=== PATIENT | male | born 1965 | race Caucasian/White ===

== ENCOUNTER 2018-04-19 01:39 | Emergency (ER) | payer MEDICAID, SELFPAY ==
[2018-04-19 01:51] VITALS: BP 82/64; PULSE 62; RESP 18; TEMP 36.6; O2SAT 99
--- NOTE | 2018-04-19 01:54 | DI.RAD_ITS ---
SYMPTOMS/DIAGNOSIS: RIGHT CHEST DIALYSIS CATHETER ACCIDENTALLY FELL OUT CHEST X-RAY, AP AND LATERAL: Comparison CT scan is 06/12/17. The heart is normal in size. The lungs are clear. The mediastinal structures and pleura appear intact. IMPRESSION: Normal chest.
--- NOTE | 2018-04-19 01:54 | W.ED.GENAD ---
Discharge Plan Disposition Patient Disposition: HOME Condition: Improving Discharge Details Chief Complaint: GenMedical Clinical Impression: Complications, mechanical, catheter, dialysis Primary Care Provider: Gee Luke ED Provider: Papo Umaña Home Meds and New Rx's Prescriptions: Continue flu vacc quad 2018-(6mos up) 60 mcg (15 mcg x 4)/0.5 mL suspension 0.5 ml IM ONCE Qty: 0.5 RF: 0 ferrous sulfate 325 mg (65 mg iron) tablet 325 mg PO DAILY Qty: 60 RF: 2 furosemide 80 mg tablet 80 mg PO DAILY RF: 0 epinephrine [EpiPen 2-Chandu] 0.3 MG/0.3 ML auto-injector 0.3 mg IM PRNRF: 0 prazosin 1 MG capsule 3 mg PO HS RF: 0 fluoxetine [Prozac] 20 MG capsule 60 mg PO DAILY RF: 0 albuterol sulfate [ProAir HFA] 8.5 GM HFA aerosol inhaler 1 puff Inhalation Q4H PRN 30 Days Qty: 1 RF: 11 naproxen 500 MG tablet 500 mg PO BID 21 Days Qty: 42 RF: 1 amiodarone 200 mg tablet 200 mg PO DAILY RF: 0 aspirin [Aspir-81] 81 mg tablet,delayed release (DR/EC) 81 mg PO DAILY RF: 0 metoprolol succinate 100 mg tablet extended release 24 hr 100 mg PO DAILY RF: 0 lorazepam 0.5 mg tablet 0.5 mg PO TID RF: 0 fluticasone-salmeterol [Advair Diskus] 500-50 mcg/dose blister with device 1 inh IH BID RF: 0 ticagrelor 90 mg tablet 90 mg PO BID RF: 0 atorvastatin 80 mg tablet 80 mg PO DAILY RF: 0 B complex-vitamin C-folic acid 0.8 mg tablet 1 tab PO DAILY RF: 0 esomeprazole magnesium 20 mg capsule,delayed release(DR/EC) 20 mg PO BID RF: 0 tiotropium bromide [Spiriva with HandiHaler] 18 mcg capsule, w/inhalation device 1 cap IH DAILY RF: 0 Discharge Instructions Additional Instructions: I discussed your case with Dr Henderson at [facility] this morning. He asks that you remain nothing to eat or drink today until you are contacted by the Nephrology department as they may plan to replace the catheter today. They anticipate calling you by 8:30 am. Medical Decision Making 52-year-old male who has undergone Thursday dialysis since having a massive NC with cardiogenic shock and subsequent renal failure months ago. He has been well moving at home. He states that he awoke early this morning to find his right chest dialysis catheter dislodged and sitting on the pillow next to him. They brought the device in and it appears to be intact. The patient has no shortness of breath, no discomfort, he had no significant bleeding at home. States that he feels well. His exam does not reveal crepitus or bleeding at the right anterior chest wall. His exam is otherwise unremarkable. Referred for chest XRay which is without acute findings. I discussed the case with [place] Henderson [place] [facility] the patient may be discharged to home, kept NPO for today, and that the Renal service will call the patient at home today to arrange for replacement catheter placement. HPI General Mode of arrival: ambulatory. Date/Time Provider Initiated Documentation: 04/19/18 01:44. Limitations to Documentation: no limitations. Information obtained by: patient and family. History of Present Illness 52 year old M presents to the emergency department with the chief complaint of A right chest dialysis catheter fell out at home, no pain, no bleeding, and is localized to the chest. Patient started experiencing this hour(s) and it has been now resolved. No exacerbating factors reported . Patient notes no other symptoms.. Related Data Home Medications Medication Instructions Recorded Confirmed epinephrine [EpiPen 2-Chandu] 0.3 mg IM PRN 07/24/17 04/09/18 albuterol sulfate [ProAir HFA] 1 puff INHALATION Q4H PRN 30 Days 08/10/17 04/19/18 #1 inhaler fluoxetine [Prozac] 60 mg PO DAILY cap 08/10/17 04/19/18 prazosin 3 mg PO HS cap 08/10/17 04/19/18 naproxen 500 mg PO BID 21 Days #42 tab-cap 11/23/17 04/19/18 amiodarone 200 mg tablet 200 mg PO DAILY 04/01/18 04/19/18 aspirin 81 mg tablet,delayed 81 mg PO DAILY 04/01/18 04/19/18 release atorvastatin 80 mg tablet 80 mg PO DAILY 04/01/18 04/19/18 esomeprazole magnesium 20 mg 20 mg PO BID cap 04/01/18 04/19/18 capsule,delayed release fluticasone 500 mcg-salmeterol 50 1 inh IH BID 04/01/18 04/19/18 mcg/dose blistr powdr for inhalation lorazepam 0.5 mg tablet 0.5 mg PO TID 04/01/18 04/19/18 metoprolol succinate ER 100 mg 100 mg PO DAILY 04/01/18 04/19/18 tablet,extended release 24 hr ticagrelor 90 mg tablet 90 mg PO BID 04/01/18 04/19/18 tiotropium bromide 18 mcg capsule 1 cap IH DAILY 04/01/18 04/19/18 with inhalation device vitamin B complex-vitamin C-folic 1 tab PO DAILY 04/01/18 04/19/18 acid 0.8 mg tablet ferrous sulfate 325 mg (65 mg 325 mg PO DAILY #60 tab 04/09/18 04/19/18 iron) tablet furosemide 80 mg tablet 80 mg PO DAILY tab 04/09/18 04/19/18 Previous Rx's Medication Instructions Recorded albuterol sulfate [ProAir HFA] 1 puff INHALATION Q4H PRN 30 Days 08/10/17 #1 inhaler naproxen 500 mg PO BID 21 Days #42 tab-cap 11/23/17 ferrous sulfate 325 mg (65 mg 325 mg PO DAILY #60 tab 04/09/18 iron) tablet Allergies Allergy/AdvReac Type Severity Reaction Status Date / Time bee venom protein (honey bee) Allergy Severe throat Unverified 04/19/18 01:54 swelling aspirin AdvReac Severe Unverified 04/19/18 01:54 General Stated Complaint: GenMedical JOSEPH: 4 Review of Systems Review of Systems 6 systems reviewed and otherwise neg PFSH Family History Mother Essential hypertension Father Essential hypertension Osteoporosis Sister Neoplasm Paternal Uncle Neoplasm Paternal Uncle Neoplasm Paternal Grandfather Diabetes Stroke Social History Smoking/Tobacco Use Status: Former Tobacco Use Surgical History Encounter for gastrojejunal (GJ) tube placement (Acute 02/23/18) Hx of echocardiogram (Acute 03/08/18) Arthroplasty of knee Repair of umbilical hernia Tonsillectomy and adenoidectomy cardiac catherization (01/01/18) cardiac catherization (01/05/18) echocardiogram (01/06/18) Exam Narrative Exam Narrative: GEN: awake, alert, oriented 3. Pleasant, well groomed, interactive. HEAD: Normocephalic, atraumatic ENT: Mucous membranes moist, oropharynx unremarkable, External ear exam unremarkable EYES: PERRL, EOMI NECK: Full ROM, no LIANA, no menigismus CHEST/RESP: Nontender, clear to auscultation bilateral, no wheeze/rhonchi/rales. Right anterior chest wall with dressing over site of previous dialysis catheter CARDIOVASCULAR: RRR, no murmur, rub adele. 2+ Rad pulse bilateral ABDOMEN: Soft, nontender, no mass. +Bowel sounds EXT: Full ROM, no edema, no rash Neuro: Grossly normal neurologic exam, conversant, interactive. Psych: Speech fluent, thoughts congruent, affect normal Course Vital Signs Temperature 36.6 C 04/19/18 01:51 Pulse 62 04/19/18 01:51 Respiratory Rate 18 04/19/18 01:51 Blood Pressure 82/64 L 04/19/18 01:51 Pulse Oximetry 99 04/19/18 01:51 Temperature 36.6 C 04/19/18 01:51 Temperature Source Temporal Artery Scan 04/19/18 01:51 Pulse 62 04/19/18 01:51 Respiratory Rate 18 04/19/18 01:51 Respiratory Effort Non-Labored 04/19/18 01:51 Blood Pressure 82/64 L 04/19/18 01:51 Pulse Oximetry 99 04/19/18 01:51 Oxygen Delivery Method Room Air 04/19/18 01:51 Oxygen Flow Rate 0 04/19/18 01:51 Pain Level 0 04/19/18 01:51
[2018-04-19 01:57] VITALS: RESP 18
--- NOTE | 2018-04-19 01:57 | ED.GENADUL_ITS ---
Discharge Plan Disposition Patient Disposition: HOME Condition: Improving Discharge Details Chief Complaint: GenMedical Clinical Impression: Complications, mechanical, catheter, dialysis Primary Care Provider: Gee Luke ED Provider: Papo Umaña Home Meds and New Rx's Prescriptions: Continue flu vacc quad 2018-(6mos up) 60 mcg (15 mcg x 4)/0.5 mL suspension 0.5 ml IM ONCE Qty: 0.5 RF: 0 ferrous sulfate 325 mg (65 mg iron) tablet 325 mg PO DAILY Qty: 60 RF: 2 furosemide 80 mg tablet 80 mg PO DAILY RF: 0 epinephrine [EpiPen 2-Chanud] 0.3 MG/0.3 ML auto-injector 0.3 mg IM PRNRF: 0 prazosin 1 MG capsule 3 mg PO HS RF: 0 fluoxetine [Prozac] 20 MG capsule 60 mg PO DAILY RF: 0 albuterol sulfate [ProAir HFA] 8.5 GM HFA aerosol inhaler 1 puff Inhalation Q4H PRN 30 Days Qty: 1 RF: 11 naproxen 500 MG tablet 500 mg PO BID 21 Days Qty: 42 RF: 1 amiodarone 200 mg tablet 200 mg PO DAILY RF: 0 aspirin [Aspir-81] 81 mg tablet,delayed release (DR/EC) 81 mg PO DAILY RF: 0 metoprolol succinate 100 mg tablet extended release 24 hr 100 mg PO DAILY RF: 0 lorazepam 0.5 mg tablet 0.5 mg PO TID RF: 0 fluticasone-salmeterol [Advair Diskus] 500-50 mcg/dose blister with device 1 inh IH BID RF: 0 ticagrelor 90 mg tablet 90 mg PO BID RF: 0 atorvastatin 80 mg tablet 80 mg PO DAILY RF: 0 B complex-vitamin C-folic acid 0.8 mg tablet 1 tab PO DAILY RF: 0 esomeprazole magnesium 20 mg capsule,delayed release(DR/EC) 20 mg PO BID RF: 0 tiotropium bromide [Spiriva with HandiHaler] 18 mcg capsule, w/inhalation device 1 cap IH DAILY RF: 0 Discharge Instructions Additional Instructions: I discussed your case with Dr Henderson at [facility] this morning. He asks that you remain nothing to eat or drink today until you are contacted by the Nephrology department as they may plan to replace the catheter today. They anticipate calling you by 8:30 am. Medical Decision Making 52-year-old male who has undergone Thursday dialysis since having a massive ID with cardiogenic shock and subsequent renal failure months ago. He has been well moving at home. He states that he awoke early this morning to find his right chest dialysis catheter dislodged and sitting on the pillow next to him. They brought the device in and it appears to be intact. The patient has no shortness of breath, no discomfort, he had no significant bleeding at home. States that he feels well. His exam does not reveal crepitus or bleeding at the right anterior chest wall. His exam is otherwise unremarkable. Referred for chest XRay which is without acute findings. I discussed the [place] with [place] [facility] [place] states the patient may be discharged to home, kept NPO for today, and that the Renal service will call the patient at home today to arrange for replacement catheter placement. HPI General Mode of arrival: ambulatory . Date/Time Provider Initiated Documentation: 04/19/18 01:44 . Limitations to Documentation: no limitations . Information obtained by: patient and family . History of Present Illness 52 year old M presents to the emergency department with the chief complaint of A right chest dialysis catheter fell out at home, no pain, no bleeding, and is localized to the chest. Patient started experiencing this hour(s) and it has been now resolved. No exacerbating factors reported . Patient notes no other symptoms.. Related Data Home Medications Medication Instructions Recorded Confirmed epinephrine [EpiPen 2-Chandu] 0.3 mg IM PRN 07/24/17 04/09/18 albuterol sulfate [ProAir HFA] 1 puff INHALATION Q4H PRN 30 Days 08/10/17 #1 inhaler fluoxetine [Prozac] 60 mg PO DAILY cap 08/10/17 04/19/18 prazosin 3 mg PO HS cap 08/10/17 04/19/18 naproxen 500 mg PO BID 21 Days #42 tab-cap 11/23/17 04/19/18 amiodarone 200 mg tablet 200 mg PO DAILY 04/01/18 04/19/18 aspirin 81 mg tablet,delayed 81 mg PO DAILY 04/01/18 04/19/18 release atorvastatin 80 mg tablet 80 mg PO DAILY 04/01/18 04/19/18 esomeprazole magnesium 20 mg 20 mg PO BID cap 04/01/18 04/19/18 capsule,delayed release fluticasone 500 mcg-salmeterol 50 1 inh IH BID 04/01/18 04/19/18 mcg/dose blistr powdr for inhalation lorazepam 0.5 mg tablet 0.5 mg PO TID 04/01/18 04/19/18 metoprolol succinate ER 100 mg 100 mg PO DAILY 04/01/18 04/19/18 tablet,extended release 24 hr ticagrelor 90 mg tablet 90 mg PO BID 04/01/18 04/19/18 tiotropium bromide 18 mcg capsule 1 cap IH DAILY 04/01/18 04/19/18 with inhalation device vitamin B complex-vitamin C-folic 1 tab PO DAILY 04/01/18 04/19/18 acid 0.8 mg tablet ferrous sulfate 325 mg (65 mg 325 mg PO DAILY #60 tab 04/09/18 04/19/18 iron) tablet furosemide 80 mg tablet 80 mg PO DAILY tab 04/09/18 04/19/18 Previous Rx's Medication Instructions Recorded albuterol sulfate [ProAir HFA] 1 puff INHALATION Q4H PRN 30 Days 08/10/17 #1 inhaler naproxen 500 mg PO BID 21 Days #42 tab-cap 11/23/17 ferrous sulfate 325 mg (65 mg 325 mg PO DAILY #60 tab 04/09/18 iron) tablet Allergies Allergy/AdvReac Type Severity Reaction Status Date / Time bee venom protein (honey bee) Allergy Severe throat Unverified 04/19/18 01:54 swelling aspirin AdvReac Severe Unverified 04/19/18 01:54 General Stated Complaint: GenMedical JOSEPH: 4 Review of Systems Review of Systems 6 systems reviewed and otherwise neg PFSH Family History Mother Essential hypertension Father Essential hypertension Osteoporosis Sister Neoplasm Paternal Uncle Neoplasm Paternal Uncle Neoplasm Paternal Grandfather Diabetes Stroke Social History Smoking/Tobacco Use Status: Former Tobacco Use Surgical History Encounter for gastrojejunal (GJ) tube placement (Acute 02/23/18) Hx of echocardiogram (Acute 03/08/18) Arthroplasty of knee Repair of umbilical hernia Tonsillectomy and adenoidectomy cardiac catherization (01/01/18) cardiac catherization (01/05/18) echocardiogram (01/06/18) Exam Narrative Exam Narrative: GEN: awake, alert, oriented 3. Pleasant, well groomed, interactive. HEAD: Normocephalic, atraumatic ENT: Mucous membranes moist, oropharynx unremarkable, External ear exam unremarkable EYES: PERRL, EOMI NECK: Full ROM, no LIANA, no menigismus CHEST/RESP: Nontender, clear to auscultation bilateral, no wheeze/rhonchi/ rales. Right anterior chest wall with dressing over site of previous dialysis catheter CARDIOVASCULAR: RRR, no murmur, rub adele. 2+ Rad pulse bilateral ABDOMEN: Soft, nontender, no mass. +Bowel sounds EXT: Full ROM, no edema, no rash Neuro: Grossly normal neurologic exam, conversant, interactive. Psych: Speech fluent, thoughts congruent, affect normal Course Vital Signs Temperature 36.6 C 04/19/18 01:51 Pulse 62 04/19/18 01:51 Respiratory Rate 18 04/19/18 01:51 Blood Pressure 82/64 L 04/19/18 01:51 Pulse Oximetry 99 04/19/18 01:51 Temperature 36.6 C 04/19/18 01:51 Temperature Source Temporal Artery Scan 04/19/18 01:51 Pulse 62 04/19/18 01:51 Respiratory Rate 18 04/19/18 01:51 Respiratory Effort Non-Labored 04/19/18 01:51 Blood Pressure 82/64 L 04/19/18 01:51 Pulse Oximetry 99 04/19/18 01:51 Oxygen Delivery Method Room Air 04/19/18 01:51 Oxygen Flow Rate 0 04/19/18 01:51 Pain Level 0 04/19/18 01:51
[2018-04-19 02:27] VITALS: BP 112/74; PULSE 62; RESP 18; TEMP 36.6; O2SAT 99
--- NOTE | 2018-04-19 02:47 | DI.VRAD_ITS ---
EXAM: XR Chest, 2 Views CLINICAL HISTORY: 52 years old, male; Signs and symptoms; Other: R chest dialysis catheter acci; Prior surgery; Surgery date: 6+ months TECHNIQUE: Frontal and lateral views of the chest. COMPARISON: CTA THORAX/ABDOMEN/PELVIS 06/12/2017 2:05 PM FINDINGS: Lungs: Unremarkable. No consolidation. Pleural space: Unremarkable. No pneumothorax. Heart: Unremarkable. No cardiomegaly. Mediastinum: Unremarkable. Bones/joints: Unremarkable. IMPRESSION: Normal chest x-rays. Dictated and Authenticated by: Simon Rinaldi MD. Ordering:HALLEY ELAM MD
== END 2018-04-19 02:52 | disposition home or self-care (01) ==
LOC: ER 02:59
PROVIDERS: Emergency Provider Emergency Medicine; PCP Family Medicine
DX: T82.42XA Displacement of vascular dialysis catheter, initial encounter (principal); N18.9 Chronic kidney disease, unspecified; Z99.2 Dependence on renal dialysis; J44.9 Chronic obstructive pulmonary disease, unspecified; Z87.891 Personal history of nicotine dependence
CPT/HCPCS: 99283; 71046

== ENCOUNTER 2018-04-29 11:50 | Outpatient (REF) | payer MEDICAID, SELFPAY ==
[2018-04-29 13:22] LABS: Bilirubin Negative (Negative); Blood Trace-intact (Negative); Clarity Sl Cloudy; Glucose Negative (Negative); Ketones Trace mg/dL (Negative); Leukocyte Esterase Moderate (Negative); Nitrite Negative (Negative); Specific Gravity 1.015 (1.005-1.025); Urobilinogen 0.2 EU/dL (Up TO 0.2)
[2018-04-29 14:07] LABS: Bacteria Many HPF (Negative); C & S Indicated? Yes; Casts Negative LPF (Negative); Crystals Negative HPF (Negative); Epithelial Cells Negative HPF (Negative); Mucus Negative (Negative); RBC Negative (0-2); WBC >50 HPF (0-5)
== END 2018-04-29 12:10 ==
LOC: NCHCN 11:50
PROVIDERS: PCP Family Medicine; Visit Provider Family Medicine
DX: R30.0 Dysuria (principal)
CPT/HCPCS: 87077; 81003; 81015; 87086; 87186

== ENCOUNTER 2018-05-10 15:32 | Emergency (ER) | payer MEDICAID, SELFPAY ==
[2018-05-10] VITALS (10 sets, daily range): BP systolic 85–108; BP diastolic 42–60; PULSE 0–75; RESP 16–24; TEMP 36.6; O2SAT 95–97
--- NOTE | 2018-05-10 15:43 | DI.RAD_ITS ---
SYMPTOMS/DIAGNOSIS: CHEST PAIN, ? ACUTE DISEASE PORTABLE AP CHEST: The heart is mildly enlarged. There are diffuse bilateral pulmonary interstitial infiltrates consistent with CHF. There is a right subclavian double lumen catheter. The tip of which lies in the SVC. CONCLUSION: Findings consistent with CHF which has developed since 04/19/18.
--- NOTE | 2018-05-10 15:45 | W.ED.GENAD ---
Discharge Plan Disposition Patient Disposition: AGAINST MEDICAL ADVICE Condition: Stable Discharge Details Chief Complaint: Chest Pain Clinical Impression: Chest pain, ESRD on dialysis Reason For Visit: JOSÉ Primary Care Provider: Gee Luke ED Provider: Niya Jarrett Home Meds and New Rx's Prescriptions: Continue aspirin [Aspir-81] 81 mg tablet,delayed release (DR/EC) 81 mg PO DAILY Qty: 90 RF: 3 ticagrelor 90 mg tablet 90 mg PO BID 90 Days Qty: 180 RF: 3 metoprolol succinate 100 mg tablet extended release 24 hr 100 mg PO DAILY Qty: 90 RF: 3 flu vacc quad 2018-(6mos up) 60 mcg (15 mcg x 4)/0.5 mL suspension 0.5 ml IM ONCE Qty: 0.5 RF: 0 ferrous sulfate 325 mg (65 mg iron) tablet 325 mg PO DAILY Qty: 60 RF: 2 furosemide 80 mg tablet 80 mg PO DAILY RF: 0 epinephrine [EpiPen 2-Chandu] 0.3 MG/0.3 ML auto-injector 0.3 mg IM PRN PRNRF: 0 prazosin 1 MG capsule 3 mg PO HS RF: 0 fluoxetine [Prozac] 20 MG capsule 60 mg PO DAILY RF: 0 albuterol sulfate [ProAir HFA] 8.5 GM HFA aerosol inhaler 1 puff Inhalation Q4H PRN 30 Days Qty: 1 RF: 11 fluticasone-salmeterol [Advair Diskus] 500-50 mcg/dose blister with device 1 inh IH BID RF: 0 atorvastatin 80 mg tablet 80 mg PO DAILY RF: 0 B complex-vitamin C-folic acid 0.8 mg tablet 1 tab PO DAILY RF: 0 esomeprazole magnesium 20 mg capsule,delayed release(DR/EC) 20 mg PO BID RF: 0 tiotropium bromide [Spiriva with HandiHaler] 18 mcg capsule, w/inhalation device 1 cap IH DAILY RF: 0 ticagrelor [Brilinta] 90 mg Tablet 1 tab PO DAILY RF: 0 No Action ciprofloxacin HCl [Cipro] 500 mg tablet 500 mg PO Q24H 10 Days Qty: 10 RF: 0 Discharge Instructions Instructions: Chest Pain (ED) Additional Instructions: Please follow-up with your scheduled dialysis in 2 days. Call the dialysis center tomorrow if you feel that you need dialysis any sooner. Please call your lift mechanic at [facility] tomorrow to arrange for follow-up appointment. Please return immediately to the emergency department any worsening or new concerning symptoms. Discharge Data Discharge Date/Time-TO BE ENTERED AT DEPARTURE: 05/10/18 17:59 Discharge Physician: Niya Jarrett Medical Decision Making 52yo M w/ extensive cardiac history including cardiac arrest in December 2017 and 3 cardiac stents s/p IL since December who presents for chest pain x 45 min that started during dialysis. Allergy to aspirin and not given per EMS. EKG notes a rate of 74, sinus, PVCs, no acute ST elevation or depression, QTc 473, QRS 116. Pt appears nontoxic but is generally ill appearing with obese abdomen and pale ashen skin. He is not diaphoretic and speaking in full sentences. BP mildly hypotensive, remainder of vitals within normal limits. Will do a cardiac workup and call [facility]. 8411 --labs and imaging reviewed. White blood cell count 9.2. Last hemoglobin on file here in December 2017 was 13. Patient spent 5 months at [facility] so his hemoglobin may be close to baseline. Electrolytes within normal limits. Creatinine 2.81. Troponin negative. Chest x-ray notes findings consistent with CHF which has developed since March 2018. Patient is requesting to go home. He states he feels like his symptoms today were due to an anxiety attack which he had similarly when he was in the hospital at [facility]. I discussed with patient his chest x-ray findings and he denies any shortness of breath. I discussed with patient that his extensive cardiac history is concerning for another cardiac event and would recommend admission to the hospital. He is refusing this and requesting to go home. The risks of and disability due to a serious pathology were explained and patient fully understands and still wants to leave. He does demonstrate capacity to make decisions. AMA form signed. Patient had 30 minutes left in his dialysis session. His oxygen saturation and respiratory rate is within normal limits. His systolic blood pressure was 101 prior to leaving. Patient was instructed to follow-up with his scheduled dialysis in 2 days and to call them tomorrow if he needs to get in sooner. He was instructed to call his lift mechanic at [facility] to schedule follow-up appointment. He was also instructed to return here immediately with any worsening or new concerning symptoms. HPI General Mode of arrival: ambulatory. Date/Time Provider Initiated Documentation: 05/10/18 15:35. Limitations to Documentation: no limitations. Information obtained by: patient. HPI Narrative: Pt is a 52yo M w/ extensive cardiac history including cardiac arrest in December 2017 with 3 IL's and 3 cardiac stents since then and released from [facility] in March 2018 who presents with a 45 minute episode of L sided chest pain that is now resolved. Pt states the pain started during dialysis and he states it felt like an anxiety attack. Pt also admits to shortness of breath and dry heaving during the episode. Pt states the pain was substernal, aching, 8/10 and without radiation. Pt states they stopped the dialysis due to his pain. Pt states he just started dialysis while at [facility] in the past few months. States he usually does Tues/Thurs/Sat but was there today due to the holiday. Past medical history: ESRD on dialysis, Afib, GERD, Cardiac arrest, STEMI, STEVE, HLD Surgical history: Knee arthroplasty, Umbilical hernia repair, T&A, Social history: Former tobacco and alcohol. Occasional marijuana use Meds: See list Allergies: ASA PCP: Dr. Luke Related Data Home Medications Medication Instructions Recorded Confirmed epinephrine [EpiPen 2-Chandu] 0.3 mg IM PRN PRN 07/24/17 05/10/18 albuterol sulfate [ProAir HFA] 1 puff INHALATION Q4H PRN 30 Days 08/10/17 05/10/18 #1 inhaler fluoxetine [Prozac] 60 mg PO DAILY cap 08/10/17 05/10/18 prazosin 3 mg PO HS cap 08/10/17 05/10/18 atorvastatin 80 mg tablet 80 mg PO DAILY 04/01/18 05/10/18 esomeprazole magnesium 20 mg 20 mg PO BID cap 04/01/18 05/10/18 capsule,delayed release fluticasone 500 mcg-salmeterol 50 1 inh IH BID 04/01/18 05/10/18 mcg/dose blistr powdr for inhalation tiotropium bromide 18 mcg capsule 1 cap IH DAILY 04/01/18 05/10/18 with inhalation device vitamin B complex-vitamin C-folic 1 tab PO DAILY 04/01/18 05/10/18 acid 0.8 mg tablet ferrous sulfate 325 mg (65 mg 325 mg PO DAILY #60 tab 04/09/18 05/10/18 iron) tablet furosemide 80 mg tablet 80 mg PO DAILY tab 04/09/18 05/10/18 aspirin 81 mg tablet,delayed 81 mg PO DAILY #90 tab 04/23/18 05/10/18 release metoprolol succinate ER 100 mg 100 mg PO DAILY #90 tab 04/23/18 05/10/18 tablet,extended release 24 hr ticagrelor 90 mg tablet 90 mg PO BID 90 Days #180 tab 04/23/18 05/10/18 ticagrelor [Brilinta] 1 tab PO DAILY 05/10/18 05/10/18 ciprofloxacin 500 mg tablet 500 mg PO Q24H 10 Days #10 tab 05/11/18 Previous Rx's Medication Instructions Recorded albuterol sulfate [ProAir HFA] 1 puff INHALATION Q4H PRN 30 Days 08/10/17 #1 inhaler ferrous sulfate 325 mg (65 mg 325 mg PO DAILY #60 tab 04/09/18 iron) tablet aspirin 81 mg tablet,delayed 81 mg PO DAILY #90 tab 04/23/18 release metoprolol succinate ER 100 mg 100 mg PO DAILY #90 tab 04/23/18 tablet,extended release 24 hr ticagrelor 90 mg tablet 90 mg PO BID 90 Days #180 tab 04/23/18 ciprofloxacin 500 mg tablet 500 mg PO Q24H 10 Days #10 tab 05/11/18 Allergies Allergy/AdvReac Type Severity Reaction Status Date / Time bee venom protein (honey bee) Allergy Severe throat Verified 05/10/18 15:43 swelling aspirin AdvReac Severe Verified 05/10/18 15:43 General Stated Complaint: Chest Pain JOSEPH: 2 Review of Systems Review of Systems All systems reviewed & are unremarkable except as noted in HPI and below Constitutional Denies chills, Denies excessive sweating, Denies fatigue, Denies fever(s), Denies weakness and Denies weight loss Eyes Reports system reviewed and no additional complaints, except as docu and Denies blurry vision ENT Denies vertigo, Denies dizziness, Denies otalgia, Denies nasal congestion, Denies sore throat and Denies throat swelling Cardiovascular Reports chest pain, Denies syncope, Denies rapid heart rate and Reports dyspnea Respiratory Reports dyspnea Gastrointestinal Denies abdominal pain, Denies diarrhea, Reports nausea and Denies vomiting Genitourinary Denies hematuria, Denies dysuria and Denies flank pain Musculoskeletal Denies back pain and Denies joint swelling Integumentary/Breasts Denies lesions and Denies rash Neurologic Denies behavioral changes, Denies confusion, Denies vertigo, Denies dizziness, Denies syncope and Denies weakness Psychiatric Denies behavioral changes, Denies confusion and Denies depression Endocrine Denies excessive sweating and Denies fatigue Hematologic/Lymphatic Denies easy bruising and Denies lymphadenopathy Allergic/Immunologic Denies throat swelling PFSH Family History Mother Essential hypertension Father Essential hypertension Osteoporosis Sister Neoplasm Paternal Uncle Neoplasm Paternal Uncle Neoplasm Paternal Grandfather Diabetes Stroke Social History Smoking/Tobacco Use Status: Former Tobacco Use alcohol intake: former substance use type: marijuana Surgical History Encounter for gastrojejunal (GJ) tube placement (Acute 02/23/18) Hx of echocardiogram (Acute 03/08/18) Arthroplasty of knee Repair of umbilical hernia Tonsillectomy and adenoidectomy cardiac catherization (01/01/18) cardiac catherization (01/05/18) echocardiogram (01/06/18) Exam Const General: cooperative and ill appearing Orientation: alert, awake and oriented x3 HENMT Head: normal to inspection Ears: hearing grossly normal bilaterally and external ears normal General nose exam: external nose normal Face and sinus: normal facial exam Eyes General: appearance normal, both eyes and all related structures Eyelids: eyelids normal EOM: EOM intact bilaterally Neck Neck: normal visual inspection Lymphatic: no lymphadenopathy noted Chest Chest: normal inspection of the chest, no tenderness and other (dialysis catheter R upper chest - no signs of infection ) Resp Effort & Inspection: normal respiratory effort and able to speak in complete sentences Auscultation: clear to auscultation bilaterally Cardio Rate: regular rate Rhythm: regular rhythm GI Inspection: normal to inspection and obesity Palpation: soft, not firm, no guarding, no hepatosplenomegaly, no masses and nontender Auscultation: normal bowel sounds Skin General skin exam: no rashes or lesions noted, pallor and other (ashen colored skin) Neuro General: alert and awake Cognition: normal cognition Speech: speech normal Gait: normal gait Motor: muscle tone normal throughout Sensory Exam: no sensory deficits noted Extrem General: normal to inspection, full ROM, normal capillary refill and no edema Psych Appearance: grossly normal Mental Status: mental status grossly normal Speech and Movement: speech and movement normal Affect: normal affect Thought Process: normal Course Vital Signs Temperature 97.9 F 05/10/18 15:36 Pulse 74 05/10/18 15:36 Respiratory Rate 18 05/10/18 15:36 Blood Pressure 108/60 05/10/18 15:36 Pulse Oximetry 96 05/10/18 15:36 Temperature 97.9 F 05/10/18 15:36 Pulse 74 05/10/18 15:36 Respiratory Rate 18 05/10/18 15:36 Respiratory Effort 05/10/18 15:42 Blood Pressure 108/60 05/10/18 15:36 Blood Pressure Position Sitting 05/10/18 15:36 Pulse Oximetry 96 05/10/18 15:36 Oxygen Delivery Method Room Air 05/10/18 15:36 Oxygen Flow Rate 0 05/10/18 15:36 Pain Level 0 05/10/18 15:36
[2018-05-10 16:06] LABS: Abs Immature Grans 0.03 k/cumm (0.0-0.09); Absolute Basophil Count 0.07 k/cumm (0.0-0.2); Absolute Eosinophil Count 0.27 k/cumm (0.0-0.7); Absolute Lymphocyte Count 1.95 k/cumm (1.2-3.4); Absolute Monocyte Count 0.98 k/cumm (0.11-0.7); Absolute Neutrophil Count 5.81 k/cumm (1.2-6.7); Basophils % 0.8; HCT 29.8 % (40.0-50.0); HGB 9.2 g/dL (13.5-17.5); Immature Grans % 0.3; Lymphocytes % 21.4; Mean Corp. HGB Concentration 30.9 g/dL (32.0-36.0); Mean Corpuscular Hemoglobin 28.8 pg (27.0-33.0); Mean Corpuscular Volume 93.4 fL (80-95); Mean Platelet Volume 11.1 fL (8.0-11.0); Monocytes % 10.8; Neutrophils % 63.7; Platelet Count 263 x1000/uL (130-400); RBC 3.19 m/cumm (4.50-6.00); RBC Distribution Width 16.9 % (11.8-14.1); White Blood Cell Count 9.11 k/cumm (4.4-10.8)
[2018-05-10 16:30] LABS: ALT 16 U/L (12-78); AST 11 U/L (15-37); Albumin 2.6 g/dL (3.4-5.0); Alkaline Phosphatase 73 U/L (46-116); Anion Gap 8.2 mmol/L (3-11); BUN 17 mg/dL (7-18); Bilirubin, Total 0.4 mg/dL (0.2-1.0); CO2 29.8 mmol/L (21.0-32.0); CREATININE 2.81 mg/dL (0.70-1.30); Calcium 8.6 mg/dL (8.5-10.1); Chloride 99 mmol/L (98-107); Estimated GFR 23.82 (mL/min/1.73m2); Glucose 87 mg/dL (70-100); Sodium 137 mmol/L (136-145); Total Protein 6.8 g/dL (6.4-8.2)
[2018-05-10 16:56] LABS: Troponin I < 0.02 ng/mL (0.00-0.06)
== END 2018-05-10 17:59 | disposition left against medical advice (07) ==
PROVIDERS: Emergency Provider Physician Assistant; PCP Family Medicine
DX: R07.9 Chest pain, unspecified (principal); N18.6 End stage renal disease; Z99.2 Dependence on renal dialysis; I25.10 Atherosclerotic heart disease of native coronary artery without angina pectoris; Z95.5 Presence of coronary angioplasty implant and graft; Z53.29 Procedure and treatment not carried out because of patient's decision for other reasons; Z86.74 Personal history of sudden cardiac arrest; J44.9 Chronic obstructive pulmonary disease, unspecified; Z87.891 Personal history of nicotine dependence
CPT/HCPCS: 36415; 80053; 93005; 99285; 71045; 83735; 84484; 85025; 93010

== ENCOUNTER 2018-05-20 17:07 | Emergency (ER) | payer MEDICAID, SELFPAY ==
[2018-05-20] VITALS (59 sets, daily range): BP systolic 80–125; BP diastolic 43–97; PULSE 0–88; RESP 15–60; TEMP 36.5; O2SAT 85–99
--- NOTE | 2018-05-20 08:45 | DI.RAD_ITS ---
SYMPTOMS/DIAGNOSIS: COUGH PORTABLE AP CHEST: Note is again made of right-sided double-lumen catheter terminating over the SVC. There are bilateral pulmonary interstitial radiodensities, unchanged or worsening since examination of 05/10/18. Again, the differential diagnosis includes pulmonary edema, infectious process or ARDS. Please correlate clinically.
--- NOTE | 2018-05-20 17:36 | W.ED.GENAD ---
Discharge Plan Disposition Patient Disposition: [facility] Condition: Serious Discharge Details Chief Complaint: RespSymp Clinical Impression: Pneumonia, Hypoxia Reason For Visit: JOSÉ Primary Care Provider: Gee Luke ED Provider: Darren Grewal Home Meds and New Rx's Prescriptions: No Action aspirin [Aspir-81] 81 mg tablet,delayed release (DR/EC) 81 mg PO DAILY Qty: 90 RF: 3 metoprolol succinate 100 mg tablet extended release 24 hr 100 mg PO DAILY Qty: 90 RF: 3 furosemide 80 mg tablet 80 mg PO DAILY RF: 0 gabapentin 800 mg tablet 800 mg PO DAILY Qty: 60 RF: 3 epinephrine [EpiPen 2-Chandu] 0.3 MG/0.3 ML auto-injector 0.3 mg IM PRN PRNRF: 0 prazosin 1 MG capsule 3 mg PO HS RF: 0 fluoxetine [Prozac] 20 MG capsule 60 mg PO DAILY RF: 0 albuterol sulfate [ProAir HFA] 8.5 GM HFA aerosol inhaler 1 puff Inhalation Q4H PRN 30 Days Qty: 1 RF: 11 fluticasone-salmeterol [Advair Diskus] 500-50 mcg/dose blister with device 1 inh IH BID RF: 0 atorvastatin 80 mg tablet 80 mg PO DAILY RF: 0 esomeprazole magnesium 20 mg capsule,delayed release(DR/EC) 20 mg PO BID RF: 0 tiotropium bromide [Spiriva with HandiHaler] 18 mcg capsule, w/inhalation device 1 cap IH DAILY RF: 0 ferrous sulfate [FeroSul] 325 mg (65 mg iron) tablet PO .COMPLEX Qty: 45 RF: 3 B complex with C#20-folic acid [Nephrocaps] 1 mg Capsule 1 mg PO DAILY RF: 0 sevelamer carbonate [Renvela] 800 mg Tablet 1,600 mg PO AC RF: 0 ticagrelor [Brilinta] 90 mg Tablet 1 tab PO BID RF: 0 Discharge Data Discharge Date/Time-TO BE ENTERED AT DEPARTURE: 05/21/18 00:41 Medical Decision Making 18:00 --52-year-old male coronary artery disease, end-stage renal disease on hemodialysis, here with shortness of breath and productive cough. Patient has bilateral rales on exam. He is hypoxic in the 80s on RA and does not typically require oxygen. Nasal cannula oxygen administered and patient saturating low to mid 90s on 4 L of nasal cannula oxygen. Patient is hypotensive with a systolic blood pressure in the 80s. I will give light crystalloid bolus of 500 mL and reassess. Patient is currently being treated for urinary tract infection with ciprofloxacin. ECG reviewed and interpreted by me: Sinus rhythm 74 bpm, low voltage in limb leads, T wave inversions noted in lead V5 and V6 (these were present on prior). --Chest x-ray interpreted by radiology: Bilateral nodular infiltrates left worse than right, worse compared to prior study, differential consider infectious possible possible pulmonary edema. ARDS not excludable. 20:00 -- Patient reassessed: BP improved. Continues to saturate in mid 90s on nasal canula oxygen and in no resp distress. Plan to treat for healthcare associated pneumonia. Patient has been taking cipro. Will give vancomycin 2g and cefepime 2g IV. 20:25 -- Cannot admit dialysis patient to [facility]. Call to [facility] to request transfer. Awaiting call back. 21:25 -- I called [facility] transfer center again to request update - they noted they will call back. 21:53 -- Spoke with Dr. Gonzalez who will accept. Will arrange for medic level transfer. Awaiting bed availability. HPI General Mode of arrival: EMS. Date/Time Provider Initiated Documentation: 05/20/18 17:31. Limitations to Documentation: no limitations. Information obtained by: EMS. HPI Narrative: 52-year-old male with multiple medical problems including history of coronary artery disease status post multiple stents, cardiac arrest, atrial fibrillation, end-stage renal disease on hemodialysis, here with chief complaint shortness of breath. Patient notes 3 days of productive cough. Patient notes cough productive of green sputum. Shortness of breath is moderate and worse with any exertion. Patient also notes that he had a mechanical fall 4 days ago and injured his left lower ribs. Patient went to dialysis today and completed a full dialysis. He was advised to come to the emergency department given his shortness of breath. Related Data Home Medications Medication Instructions Recorded Confirmed epinephrine [EpiPen 2-Chandu] 0.3 mg IM PRN PRN 07/24/17 05/20/18 albuterol sulfate [ProAir HFA] 1 puff INHALATION Q4H PRN 30 Days 08/10/17 05/20/18 #1 inhaler fluoxetine [Prozac] 60 mg PO DAILY cap 08/10/17 05/20/18 prazosin 3 mg PO HS cap 08/10/17 05/20/18 atorvastatin 80 mg tablet 80 mg PO DAILY 04/01/18 05/20/18 esomeprazole magnesium 20 mg 20 mg PO BID cap 04/01/18 05/20/18 capsule,delayed release fluticasone 500 mcg-salmeterol 50 1 inh IH BID 04/01/18 05/20/18 mcg/dose blistr powdr for inhalation tiotropium bromide 18 mcg capsule 1 cap IH DAILY 04/01/18 05/20/18 with inhalation device furosemide 80 mg tablet 80 mg PO DAILY tab 04/09/18 05/20/18 aspirin 81 mg tablet,delayed 81 mg PO DAILY #90 tab 04/23/18 05/20/18 release metoprolol succinate ER 100 mg 100 mg PO DAILY #90 tab 04/23/18 05/20/18 tablet,extended release 24 hr ticagrelor [Brilinta] 1 tab PO BID 05/10/18 05/20/18 gabapentin 800 mg tablet 800 mg PO DAILY #60 tab 05/14/18 05/20/18 B complex with C#20-folic acid 1 mg PO DAILY 05/20/18 05/20/18 [Nephrocaps] sevelamer carbonate [Renvela] 1,600 mg PO AC 05/20/18 05/20/18 ferrous sulfate 325 mg (65 mg 0 PO .COMPLEX #45 tab 05/27/18 iron) tablet Previous Rx's Medication Instructions Recorded albuterol sulfate [ProAir HFA] 1 puff INHALATION Q4H PRN 30 Days 08/10/17 #1 inhaler aspirin 81 mg tablet,delayed 81 mg PO DAILY #90 tab 04/23/18 release metoprolol succinate ER 100 mg 100 mg PO DAILY #90 tab 04/23/18 tablet,extended release 24 hr gabapentin 800 mg tablet 800 mg PO DAILY #60 tab 05/14/18 ferrous sulfate 325 mg (65 mg 0 PO .COMPLEX #45 tab 05/27/18 iron) tablet Allergies Allergy/AdvReac Type Severity Reaction Status Date / Time bee venom protein (honey bee) Allergy Severe throat Verified 05/14/18 15:00 swelling aspirin AdvReac Severe bleeding Verified 05/14/18 15:00 General Stated Complaint: RespSymp JOSEPH: 2 Review of Systems Review of Systems All systems reviewed & are unremarkable except as noted in HPI and below Constitutional Reports fever(s) (yesterday) Cardiovascular Reports dyspnea and Reports dyspnea on exertion Respiratory Reports cough, Reports dyspnea and Reports dyspnea on exertion PFSH Family History Mother Essential hypertension Father Essential hypertension Osteoporosis Sister Neoplasm Paternal Uncle Neoplasm Paternal Uncle Neoplasm Paternal Grandfather Diabetes Stroke Encounter for gastrojejunal (GJ) tube placement (Acute 02/23/18) Hx of echocardiogram (Acute 03/08/18) Arthroplasty of knee Repair of umbilical hernia Tonsillectomy and adenoidectomy cardiac catherization (01/01/18) cardiac catherization (01/05/18) echocardiogram (01/06/18) Family History Mother Essential hypertension Father Essential hypertension Osteoporosis Sister Neoplasm Paternal Uncle Neoplasm Paternal Uncle Neoplasm Paternal Grandfather Diabetes Stroke Social History household members: spouse lives independently: No (needs assist) number of children: 2 Smoking/Tobacco Use Status: Former Tobacco Use alcohol intake: former substance use type: marijuana seatbelt use: always drive 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 working smoke detector in home: Yes fire extinguisher in home: Yes carbon monox detector in home: Yes Surgical History Encounter for gastrojejunal (GJ) tube placement (Acute 02/23/18) Hx of echocardiogram (Acute 03/08/18) Arthroplasty of knee Repair of umbilical hernia Tonsillectomy and adenoidectomy cardiac catherization (01/01/18) cardiac catherization (01/05/18) echocardiogram (01/06/18) Social History household members: spouse lives independently: No (needs assist) number of children: 2 Smoking/Tobacco Use Status: Former Tobacco Use alcohol intake: former substance use type: marijuana seatbelt use: always drive 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 working smoke detector in home: Yes fire extinguisher in home: Yes carbon monox detector in home: Yes Exam Const General: cooperative HENMT Head: normocephalic and atraumatic Mouth: moist mucous membranes Eyes Conjunctivae: normal conjunctivae Sclera: normal sclerae Neck Neck: trachea midline and supple Chest Chest: tenderness rib (left lower lateral) Resp Effort & Inspection: tachypneic Auscultation: rales bilaterally, no rhonchi and no wheezes Cardio Jugular venous pressure: no JVD Rate: regular rate and not tachycardic Rhythm: regular rhythm GI Palpation: soft, not firm, no guarding, no masses, not rigid and nontender Skin General skin exam: no rashes or lesions noted Neuro General: alert, awake, oriented x3 and tone normal Extrem General: edema Laterality: bilateral Psych Appearance: grossly normal Mental Status: mental status grossly normal Speech and Movement: speech and movement normal Course Vital Signs Temperature 36.5 C 05/20/18 17:11 Pulse 75 05/20/18 17:11 Respiratory Rate 24 05/20/18 17:11 Blood Pressure 81/49 L 05/20/18 17:11 Pulse Oximetry 93 L 05/20/18 17:11 Temperature 36.5 C 05/20/18 17:11 Temperature Source Temporal Artery Scan 05/20/18 17:11 Pulse 75 05/20/18 17:11 Respiratory Rate 24 05/20/18 17:11 Respiratory Effort Incrsd Work of Breathing 05/20/18 17:14 Blood Pressure 81/49 L 05/20/18 17:11 Blood Pressure Position Supine 05/20/18 17:11 Pulse Oximetry 93 L 05/20/18 17:11 Oxygen Delivery Method Room Air 05/20/18 17:11 Oxygen Flow Rate 0 05/20/18 17:11 Lab/Test Results Lab/Test Results: 05/20/18 17:33 Blood Blood Culture - Pending 05/20/18 17:33 Blood Blood Culture - Pending Critical Care Time Total Critical Care Time: 65 Attestation: I spent greater than 65 minutes addressing this patient's immediate life threats
[2018-05-20] MEDS: Lactated Ringers 500 ML 1000 ML IV (17:47)
[2018-05-20 17:52] LABS: Lactate-non-spesis 3.5 mmol/L (0.6-1.4)
--- NOTE | 2018-05-20 18:00 | ED.GENADUL_ITS ---
Discharge Plan Disposition Patient Disposition: [facility] Condition: Serious Discharge Details Chief Complaint: RespSymp Clinical Impression: Pneumonia, Hypoxia Reason For Visit: JOSÉ Primary Care Provider: Gee Luke ED Provider: Darren Grewal Home Meds and New Rx's Prescriptions: No Action aspirin [Aspir-81] 81 mg tablet,delayed release (DR/EC) 81 mg PO DAILY Qty: 90 RF: 3 metoprolol succinate 100 mg tablet extended release 24 hr 100 mg PO DAILY Qty: 90 RF: 3 furosemide 80 mg tablet 80 mg PO DAILY RF: 0 gabapentin 800 mg tablet 800 mg PO DAILY Qty: 60 RF: 3 epinephrine [EpiPen 2-Chandu] 0.3 MG/0.3 ML auto-injector 0.3 mg IM PRN PRNRF: 0 prazosin 1 MG capsule 3 mg PO HS RF: 0 fluoxetine [Prozac] 20 MG capsule 60 mg PO DAILY RF: 0 albuterol sulfate [ProAir HFA] 8.5 GM HFA aerosol inhaler 1 puff Inhalation Q4H PRN 30 Days Qty: 1 RF: 11 fluticasone-salmeterol [Advair Diskus] 500-50 mcg/dose blister with device 1 inh IH BID RF: 0 atorvastatin 80 mg tablet 80 mg PO DAILY RF: 0 esomeprazole magnesium 20 mg capsule,delayed release(DR/EC) 20 mg PO BID RF: 0 tiotropium bromide [Spiriva with HandiHaler] 18 mcg capsule, w/inhalation device 1 cap IH DAILY RF: 0 ferrous sulfate [FeroSul] 325 mg (65 mg iron) tablet PO .COMPLEX Qty: 45 RF: 3 B complex with C#20-folic acid [Nephrocaps] 1 mg Capsule 1 mg PO DAILY RF: 0 sevelamer carbonate [Renvela] 800 mg Tablet 1,600 mg PO AC RF: 0 ticagrelor [Brilinta] 90 mg Tablet 1 tab PO BID RF: 0 Discharge Data Discharge Date/Time-TO BE ENTERED AT DEPARTURE: 05/21/18 00:41 Medical Decision Making 18:00 --52-year-old male coronary artery disease, end-stage renal disease on hemodialysis, here with shortness of breath and productive cough. Patient has bilateral rales on exam. He is hypoxic in the 80s on RA and does not typically require oxygen. Nasal cannula oxygen administered and patient saturating low to mid 90s on 4 L of nasal cannula oxygen. Patient is hypotensive with a systolic blood pressure in the 80s. I will give light crystalloid bolus of 500 mL and reassess. Patient is currently being treated for urinary tract infection with ciprofloxacin. ECG reviewed and interpreted by me: Sinus rhythm 74 bpm, low voltage in limb leads, T wave inversions noted in lead V5 and V6 (these were present on prior). --Chest x-ray interpreted by radiology: Bilateral nodular infiltrates left worse than right, worse compared to prior study, differential consider infectious possible possible pulmonary edema. ARDS not excludable. 20:00 -- Patient reassessed: BP improved. Continues to saturate in mid 90s on nasal canula oxygen and in no resp distress. Plan to treat for healthcare associated pneumonia. Patient has been taking cipro. Will give vancomycin 2g and cefepime 2g IV. 20:25 -- Cannot admit dialysis patient to [facility]. Call to [facility] to request transfer. Awaiting call back. 21:25 -- I called [facility] transfer center again to request update - they noted they will call back. 21:53 -- Spoke with Dr. Gonzalez who will accept. Will arrange for medic level transfer. Awaiting bed availability. HPI General Mode of arrival: EMS . Date/Time Provider Initiated Documentation: 05/20/18 17:31 . Limitations to Documentation: no limitations . Information obtained by: EMS . HPI Narrative: 52-year-old male with multiple medical problems including history of coronary artery disease status post multiple stents, cardiac arrest, atrial fibrillation, end-stage renal disease on hemodialysis, here with chief complaint shortness of breath. Patient notes 3 days of productive cough. Patient notes cough productive of green sputum. Shortness of breath is moderate and worse with any exertion. Patient also notes that he had a mechanical fall 4 days ago and injured his left lower ribs. Patient went to dialysis today and completed a full dialysis. He was advised to come to the emergency department given his shortness of breath. Related Data Home Medications Medication Instructions Recorded Confirmed epinephrine [EpiPen 2-Chandu] 0.3 mg IM PRN PRN 07/24/17 05/20/18 albuterol sulfate [ProAir HFA] 1 puff INHALATION Q4H PRN 30 Days 08/10/17 #1 inhaler fluoxetine [Prozac] 60 mg PO DAILY cap 08/10/17 05/20/18 prazosin 3 mg PO HS cap 08/10/17 05/20/18 atorvastatin 80 mg tablet 80 mg PO DAILY 04/01/18 05/20/18 esomeprazole magnesium 20 mg 20 mg PO BID cap 04/01/18 05/20/18 capsule,delayed release fluticasone 500 mcg-salmeterol 50 1 inh IH BID 04/01/18 05/20/18 mcg/dose blistr powdr for inhalation tiotropium bromide 18 mcg capsule 1 cap IH DAILY 04/01/18 05/20/18 with inhalation device furosemide 80 mg tablet 80 mg PO DAILY tab 04/09/18 05/20/18 aspirin 81 mg tablet,delayed 81 mg PO DAILY #90 tab 04/23/18 05/20/18 release metoprolol succinate ER 100 mg 100 mg PO DAILY #90 tab 04/23/18 05/20/18 tablet,extended release 24 hr ticagrelor [Brilinta] 1 tab PO BID 05/10/18 05/20/18 gabapentin 800 mg tablet 800 mg PO DAILY #60 tab 05/14/18 05/20/18 B complex with C#20-folic acid 1 mg PO DAILY 05/20/18 05/20/18 [Nephrocaps] sevelamer carbonate [Renvela] 1,600 mg PO AC 05/20/18 05/20/18 ferrous sulfate 325 mg (65 mg 0 PO .COMPLEX #45 tab 05/27/18 iron) tablet Previous Rx's Medication Instructions Recorded albuterol sulfate [ProAir HFA] 1 puff INHALATION Q4H PRN 30 Days 08/10/17 #1 inhaler aspirin 81 mg tablet,delayed 81 mg PO DAILY #90 tab 04/23/18 release metoprolol succinate ER 100 mg 100 mg PO DAILY #90 tab 04/23/18 tablet,extended release 24 hr gabapentin 800 mg tablet 800 mg PO DAILY #60 tab 05/14/18 ferrous sulfate 325 mg (65 mg 0 PO .COMPLEX #45 tab 05/27/18 iron) tablet Allergies Allergy/AdvReac Type Severity Reaction Status Date / Time bee venom protein (honey bee) Allergy Severe throat Verified 05/14/18 15:00 swelling aspirin AdvReac Severe bleeding Verified 05/14/18 15:00 General Stated Complaint: RespSymp JOSEPH: 2 Review of Systems Review of Systems All systems reviewed & are unremarkable except as noted in HPI and below Constitutional Reports fever(s) (yesterday) Cardiovascular Reports dyspnea and Reports dyspnea on exertion Respiratory Reports cough, Reports dyspnea and Reports dyspnea on exertion PFSH Family History Mother Essential hypertension Father Essential hypertension Osteoporosis Sister Neoplasm Paternal Uncle Neoplasm Paternal Uncle Neoplasm Paternal Grandfather Diabetes Stroke Encounter for gastrojejunal (GJ) tube placement (Acute 02/23/18) Hx of echocardiogram (Acute 03/08/18) Arthroplasty of knee Repair of umbilical hernia Tonsillectomy and adenoidectomy cardiac catherization (01/01/18) cardiac catherization (01/05/18) echocardiogram (01/06/18) Family History Mother Essential hypertension Father Essential hypertension Osteoporosis Sister Neoplasm Paternal Uncle Neoplasm Paternal Uncle Neoplasm Paternal Grandfather Diabetes Stroke Social History household members: spouse lives independently: No (needs assist) number of children: 2 Smoking/Tobacco Use Status: Former Tobacco Use alcohol intake: former substance use type: marijuana seatbelt use: always 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 working smoke detector in home: Yes fire extinguisher in home: Yes carbon monox detector in home: Yes Surgical History Encounter for gastrojejunal (GJ) tube placement (Acute 02/23/18) Hx of echocardiogram (Acute 03/08/18) Arthroplasty of knee Repair of umbilical hernia Tonsillectomy and adenoidectomy cardiac catherization (01/01/18) cardiac catherization (01/05/18) echocardiogram (01/06/18) Social History household members: spouse lives independently: No (needs assist) number of children: 2 Smoking/Tobacco Use Status: Former Tobacco Use alcohol intake: former substance use type: marijuana seatbelt use: always 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 working smoke detector in home: Yes fire extinguisher in home: Yes carbon monox detector in home: Yes Exam Const General: cooperative HENMT Head: normocephalic and atraumatic Mouth: moist mucous membranes Eyes Conjunctivae: normal conjunctivae Sclera: normal sclerae Neck Neck: trachea midline and supple Chest Chest: tenderness rib (left lower lateral) Resp Effort & Inspection: tachypneic Auscultation: rales bilaterally, no rhonchi and no wheezes Cardio Jugular venous pressure: no JVD Rate: regular rate and not tachycardic Rhythm: regular rhythm GI Palpation: soft, not firm, no guarding, no masses, not rigid and nontender Skin General skin exam: no rashes or lesions noted Neuro General: alert, awake, oriented x3 and tone normal Extrem General: edema Laterality: bilateral Psych Appearance: grossly normal Mental Status: mental status grossly normal Speech and Movement: speech and movement normal Course Vital Signs Temperature 36.5 C 05/20/18 17:11 Pulse 75 05/20/18 17:11 Respiratory Rate 24 05/20/18 17:11 Blood Pressure 81/49 L 05/20/18 17:11 Pulse Oximetry 93 L 05/20/18 17:11 Temperature 36.5 C 05/20/18 17:11 Temperature Source Temporal Artery Scan 05/20/18 17:11 Pulse 75 05/20/18 17:11 Respiratory Rate 24 05/20/18 17:11 Respiratory Effort Incrsd Work of Breathing 05/20/18 17:14 Blood Pressure 81/49 L 05/20/18 17:11 Blood Pressure Position Supine 05/20/18 17:11 Pulse Oximetry 93 L 05/20/18 17:11 Oxygen Delivery Method Room Air 05/20/18 17:11 Oxygen Flow Rate 0 05/20/18 17:11 Lab/Test Results Lab/Test Results: 05/20/18 17:33 Blood Blood Culture - Pending 05/20/18 17:33 Blood Blood Culture - Pending Critical Care Time Total Critical Care Time: 65 Attestation: I spent greater than 65 minutes addressing this patient's immediate life threats
[2018-05-20 18:04] LABS: Abs Immature Grans 0.03 k/cumm (0.0-0.09); Absolute Basophil Count 0.04 k/cumm (0.0-0.2); Absolute Eosinophil Count 0.16 k/cumm (0.0-0.7); Absolute Lymphocyte Count 1.31 k/cumm (1.2-3.4); Absolute Monocyte Count 0.89 k/cumm (0.11-0.7); Absolute Neutrophil Count 7.26 k/cumm (1.2-6.7); Basophils % 0.4; Eosinophils % 1.7; HCT 26.6 % (40.0-50.0); HGB 8.2 g/dL (13.5-17.5); Immature Grans % 0.3; Lymphocytes % 13.5; Mean Corp. HGB Concentration 30.8 g/dL (32.0-36.0); Mean Corpuscular Hemoglobin 29.1 pg (27.0-33.0); Mean Corpuscular Volume 94.3 fL (80-95); Mean Platelet Volume 11.4 fL (8.0-11.0); Monocytes % 9.2; Neutrophils % 74.9; Platelet Count 241 x1000/uL (130-400); RBC 2.82 m/cumm (4.50-6.00); RBC Distribution Width 17.7 % (11.8-14.1); White Blood Cell Count 9.69 k/cumm (4.4-10.8)
[2018-05-20 18:11] LABS: ALT 356 U/L (12-78); AST 267 U/L (15-37); Albumin 2.5 g/dL (3.4-5.0); Alkaline Phosphatase 196 U/L (46-116); Anion Gap 9.4 mmol/L (3-11); BUN 25 mg/dL (7-18); Bilirubin, Total 0.9 mg/dL (0.2-1.0); CO2 30.6 mmol/L (21.0-32.0); Calcium 8.7 mg/dL (8.5-10.1); Chloride 97 mmol/L (98-107); Estimated GFR 15.02 (mL/min/1.73m2); Glucose 91 mg/dL (70-100); Potassium 3.9 mmol/L (3.5-5.1); Sodium 137 mmol/L (136-145); Total Protein 7.2 g/dL (6.4-8.2)
[2018-05-20 18:17] LABS: CREATININE 4.19 mg/dL (0.70-1.30)
[2018-05-20 18:27] LABS: Troponin I < 0.02 ng/mL (0.00-0.06)
[2018-05-20 18:46] LABS: NT-proBNP > 35000 pg/mL
--- NOTE | 2018-05-20 19:17 | DI.VRAD_ITS ---
EXAM: XR Chest, 1 View EXAM DATE/TIME: 05/20/2018 5:34 PM CLINICAL HISTORY: 52 years old, male; Signs and symptoms; Cough; Additional info: Unable to remove wires from patient. TECHNIQUE: XR of the chest, 1 view. Portable exam. COMPARISON: CR XR PORTABLE CHEST AP 05/10/2018 3:54 PM FINDINGS: Tubes, catheters and devices: Double-lumen catheter again seen on the right. Lungs: There is significant bilateral nodular alveolar infiltrates left worse than right. Left-sided appearances are worse compared to previous exam. Pleural space: Unremarkable. No pleural effusion. No pneumothorax. Heart/Mediastinum: Unremarkable. No cardiomegaly. Bones/joints: Unremarkable. IMPRESSION: Bilateral nodular infiltrates left worse than right, worse compared to prior study. Differential considerations would include infectious processes as well as possible pulmonary edema. ARDS not excludable. COMMENT: Preliminary interpretation is based on receipt of 1 image(s). A final report will be issued subsequently. Dictated and Authenticated by: Char Lowe MD. Ordering:NIRAV ALSTON MD
--- NOTE | 2018-05-20 20:26 | NUR.NOTE ---
Alert, reports he feels better... my breathing and my coughing is better. No cough since at least 1800. Fine inspir crackles LLL area otherwise posterior CTA. Able to take depth breaths when asked. He does have abdominal breathing pattern; reports this is normal for Papo. Papo denies pain.Nursing Note:
[2018-05-20] MEDS: CEFEPIME 2 GM in Normal Saline 100 ML IVPB (21:23)
[2018-05-20] MEDS: VANCOMYCIN 2,000 MG in Normal Saline 500 ML 250 MG IVPB (21:26)
[2018-05-21 00:14] VITALS: RESP 42
[2018-05-21 00:21] VITALS: BP 107/55; PULSE 68; RESP 21; TEMP 36.5; O2SAT 93
== END 2018-05-21 00:41 | disposition short-term general hospital (02) ==
PROVIDERS: Emergency Provider Student in an Organized Health Care Education/Training Program; PCP Family Medicine
DX: J18.9 Pneumonia, unspecified organism (principal); Y95 Nosocomial condition; R09.02 Hypoxemia; I95.9 Hypotension, unspecified; N18.6 End stage renal disease; Z99.2 Dependence on renal dialysis; J44.9 Chronic obstructive pulmonary disease, unspecified; Z87.891 Personal history of nicotine dependence
CPT/HCPCS: 36415; 80053; 87040; 93005; 96361; 96365; 96366; 96368; 99285; 71045; 83605; 83880; 84484; 85025; 93010

== ENCOUNTER 2018-06-23 16:38 | Outpatient (RCR) | payer MEDICAID, SELFPAY | END 2018-07-22 23:59 | disposition home or self-care (01) | LOC: CR 16:38 | PROVIDERS: PCP Family Medicine; Visit Provider Family Medicine | DX: Z51.89 Encounter for other specified aftercare (principal) ==

== ENCOUNTER 2018-07-03 20:02 | Emergency (ER) | payer MEDICAID, SELFPAY ==
[2018-07-03] VITALS (121 sets, daily range): BP systolic 101–130; BP diastolic 58–82; PULSE 58–120; RESP 11–45; TEMP 35.3–36.5; O2SAT 76–100
--- NOTE | 2018-07-03 20:10 | DI.RAD_ITS ---
SYMPTOM/DIAGNOSIS: CHEST PAIN PORTABLE CHEST: Comparison is made with 20 May 2018. A double lumen catheter is again noted with the tip in the SVC. There are diffuse bilateral infiltrates which appear improved when compared with the previous exam. There is a question of increased densities in the right lung base. Findings could represent a new infiltrate. IMPRESSION: Question of a right lower lobe infiltrate.
--- NOTE | 2018-07-03 20:12 | W.ED.GENAD ---
Medical Decision Making <Efra Kingsley, - Last Filed: 07/04/18 09:55> This is a 52-year-old male with a past medical history of STEMI in December with 3 stents that were placed, associated dialysis, who presents today for chest pain nausea and vomiting. Patient states that 1 hour ago he had nausea and vomiting with chills and chest pressure. It is similar to his previous episodes of cardiac issue in December. Patient was given 1 nitroglycerin by EMS and he already received his full dose aspirin today. He had some relief with the nitro. Patient did have an extra round of dialysis today. Physical exam demonstrates a diaphoretic male. Chest pain is concerning. EKG appears benign at this time though. We will get serial troponins, operatory workup and portable chest x-ray for further evaluation. 9:09 PM Patient's acute status is changed. Patient is now complaining of abdominal pain. This chest pain is improving with nitroglycerin, and I am concerned that there is certainly a cardiac component however with his current abdominal pain differential is enhanced for dissection versus aneurysm. He is on dialysis. I am concerned that aneurysm or dissection needs to be ruled out at this time with his current presentation we will order CTA for further evaluation. I did discuss with family the risks and benefits of IV contrast, and through shared decision making process family is requesting the definitive test. 9:53 PM personal review of the CT angios demonstrates no evidence of significant dissection that I can appreciate. We are weight formal results from radiologist. The patient's pain is notably improved with nitroglycerin. With this history of cardiac disease, dialysis, Brilinta use, and chest pain that is improved with nitroglycerin I do not feel that he is an appropriate candidate for discharge home, rather I feel that he requires further cardiology evaluation at a tertiary care facility. Currently we have no beds available. We are awaiting a callback from [facility] at this time. Case will be signed out to my colleague Dr. White. 10:09 PM Case was discussed with Dr. Taylor the hearing stenographer at [facility]. We are still waiting CT angiogram. Dr. Taylor would like us to start a nitroglycerin drip at this time if his pressure does tolerate it. He is requesting a call back once a CT angios results return. Pending imaging results at this time. Patient will be signed out to my colleague Dr. White. EKG 20: 08 Rate 80, W[place] 170, QTc 503, QRS 114, sinus rhythm, no significant ST elevations or depressions, inverted T wave in aVF and lead 3. No evidence of STEMI. FINDINGS: Diffuse interstitial lung disease improved from the prior examination. New focal right lower lobe consolidation suggesting an area of pneumonia or pneumonitis. Right sided dialysis catheter in good position. No significant pleural effusions. Heart within normal limits. IMPRESSION: 1. Improvement in interstitial lung disease with mild residual. 2. Focal consolidation at the right lung base suggesting a new area of pneumonia or pneumonitis. Dictated and Authenticated by: Beni Salguero MD. HPI <Efra Kingsley, - Last Filed: 07/04/18 09:55> General Date/Time Provider Initiated Documentation: 07/03/18 20:05. 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 He presents today for evaluation of chest pain. Patient states that roughly 1 hour prior to arrival he had associated nausea and 1-2 episodes of vomiting followed by a chest pain which she describes as a notable chest pressure in his central chest with no radiation to his arms neck or shoulder. He states that the chest pressure similar to what he had in December when he had his STEMI. He was notably diaphoretic, and called 911. Patient did undergo dialysis today, and had no complications then. Patient denies any exertional chest pain previous, he denies any fever or chills. He does admit to a cough over the last few weeks. He denies any abdominal pain, diarrhea. Patient has no other complaints at this time. EMS did give the patient 1 nitroglycerin which slightly improved his symptoms, he also had a full dose aspirin earlier today. No other modifying factors at this time. Related Data Home Medications Medication Instructions Recorded Confirmed epinephrine [EpiPen 2-Chandu] 0.3 mg IM PRN PRN 07/24/17 07/03/18 ProAir HFA 1 puff INHALATION Q4H PRN 30 Days 08/10/17 07/03/18 #1 inhaler fluoxetine [Prozac] 60 mg PO DAILY cap 08/10/17 07/03/18 esomeprazole magnesium 20 mg 20 mg PO BID cap 04/01/18 07/03/18 capsule,delayed release fluticasone 500 mcg-salmeterol 50 1 inh IH BID 04/01/18 07/03/18 mcg/dose blistr powdr for inhalation tiotropium bromide 18 mcg capsule 1 cap IH DAILY 04/01/18 07/03/18 with inhalation device aspirin 81 mg tablet,delayed 81 mg PO DAILY #90 tab 04/23/18 07/03/18 release metoprolol succinate ER 100 mg 100 mg PO DAILY #90 tab 04/23/18 07/03/18 tablet,extended release 24 hr Brilinta 1 tab PO BID 05/10/18 07/03/18 gabapentin 800 mg tablet 800 mg PO DAILY #60 tab 05/14/18 07/03/18 B complex with C#20-folic acid 1 mg PO DAILY 05/20/18 07/03/18 [Nephrocaps] sevelamer carbonate [Renvela] 1,600 mg PO AC 05/20/18 07/03/18 amoxicillin 500 mg-potassium 1 tab PO BID #20 tab 05/31/18 06/25/18 clavulanate 125 mg tablet ferrous sulfate 325 mg (65 mg 325 mg PO DAILY #45 tab 05/31/18 07/03/18 iron) tablet metolazone 2.5 mg tablet 2.5 mg PO ONCE PRN #14 tab 05/31/18 06/25/18 atorvastatin 80 mg tablet 80 mg PO DAILY #90 tab 06/21/18 07/03/18 furosemide 80 mg tablet 80 mg PO BID #180 tab 06/21/18 07/03/18 Previous Rx's Medication Instructions Recorded ProAir HFA 1 puff INHALATION Q4H PRN 30 Days 08/10/17 #1 inhaler aspirin 81 mg tablet,delayed 81 mg PO DAILY #90 tab 04/23/18 release metoprolol succinate ER 100 mg 100 mg PO DAILY #90 tab 04/23/18 tablet,extended release 24 hr gabapentin 800 mg tablet 800 mg PO DAILY #60 tab 05/14/18 amoxicillin 500 mg-potassium 1 tab PO BID #20 tab 05/31/18 clavulanate 125 mg tablet ferrous sulfate 325 mg (65 mg 325 mg PO DAILY #45 tab 05/31/18 iron) tablet metolazone 2.5 mg tablet 2.5 mg PO ONCE PRN #14 tab 05/31/18 atorvastatin 80 mg tablet 80 mg PO DAILY #90 tab 06/21/18 furosemide 80 mg tablet 80 mg PO BID #180 tab 06/21/18 Allergies Allergy/AdvReac Type Severity Reaction Status Date / Time bee venom protein (honey bee) Allergy Severe throat Verified 06/25/18 12:55 swelling aspirin AdvReac Severe bleeding Verified 06/25/18 12:55 General JOSEPH: 2 Review of Systems <Efra Kingsley DO - Last Filed: 07/04/18 09:55> Review of Systems All systems reviewed & are unremarkable except as noted in HPI and below PFSH <Efra Kingsley DO - Last Filed: 07/04/18 09:55> Social History household members: spouse lives independently: No (needs assist) number of children: 2 Smoking/Tobacco Use Status: Former Tobacco Use alcohol intake: former substance use type: marijuana seatbelt use: always drive 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 3.ENT: Atraumatic external nose and ears. Moist MM. Neck: Symmetric, trachea midline, No thyromegaly. 4.CVS: +S1/S2, No murmurs or gallops. Peripheral pulses 2+ and equal in all extremities. Brisk capillary refill in all extremities. Radial pulses are +2 bilaterally. Patient does have a right sided chest dialysis catheter. In-place with no abnormalities per 5.RESP: Unlabored respiratory effort. Minimal crackles in the bases bilaterally. No rhonchi or wheezes. 6.GI: Soft, Nondistended, No hepatosplenomegaly. No guarding or rebound. Minimal epigastric pain on palpation. No abdominal tenderness throughout. 7.MSK: Normocephalic/Atraumatic, Extremities w/o deformity or ttp No cyanosis or clubbing, Normal movement of all extremities 8.Skin: Notably cool, slightly pale, diaphoretic. 9.Neuro: sourcing coordinator II-XII grossly intact. Sensation grossly intact, no focal neurologic deficits. 10.Psych: (AAO) x3. Appropriate mood and affect Sign Out <Efra Kingsley DO - Last Filed: 07/04/18 09:55> Sign Out Data: Sign Out Comment: Pending imaging results. Pending callback from [facility]. Patient will require transfer Last updated by Efra Kingsley DO at 07/03/18 21:55 Post-Handoff Eval: Patient was discussed with [facility] cardiology by Dr. Kingsley. I was asked to call back once the CT scan had been officially read. CT scan being read as negative for aortic dissection or aneurysm. There is lung changes consistent with pulmonary edema versus multifocal pneumonia. There are some upper limit mediastinal lymph nodes noted. Pulmonary arteries not evaluated due to lack of adequate contrast. Abdominal CT essentially unremarkable. Patient had been placed on nitroglycerin drip for chest pain since it had responded to sublingual nitroglycerin. He is no longer having chest pain. He continues to have nausea and some epigastric discomfort. Discussed at length with cardiology at [facility]. [place] that this quite possibly could be related to pneumonia and not a cardiac etiology. Patient had been admitted to [facility] in May with multi-organism pneumonia. Nitroglycerin turned off. Vital signs remained stable. Saturations adequate at 95% on nasal cannula oxygen. Zosyn started. Case discussed with hospitalist at [facility]. They will accept the patient to their service and get cardiology involved as needed. Will start Vanco once the Zosyn has completed. He will be transferred by ambulance for further management at [facility]. Note there are no beds currently at [facility]. Also note patient is dialysis patient and could not be admitted here regardless. He is stable at this time. He is accepted to Dr. Gonzalez's service at [facility].
--- NOTE | 2018-07-03 20:23 | ED.GENADUL_ITS ---
Medical Decision Making <Efra Kingsley, - Last Filed: 07/04/18 09:55> This is a 52-year-old male with a past medical history of STEMI in December with 3 stents that were placed, associated dialysis, who presents today for chest pain nausea and vomiting. Patient states that 1 hour ago he had nausea and vomiting with chills and chest pressure. It is similar to his previous episodes of cardiac issue in December. Patient was given 1 nitroglycerin by EMS and he already received his full dose aspirin today. He had some relief with the nitro. Patient did have an extra round of dialysis today. Physical exam demonstrates a diaphoretic male. Chest pain is concerning. EKG appears benign at this time though. We will get serial troponins, operatory workup and portable chest x-ray for further evaluation. 9:09 PM Patient's acute status is changed. Patient is now complaining of abdominal pain. This chest pain is improving with nitroglycerin, and I am concerned that there is certainly a cardiac component however with his current abdominal pain differential is enhanced for dissection versus aneurysm. He is on dialysis. I am concerned that aneurysm or dissection needs to be ruled out at this time with his current presentation we will order CTA for further evaluation. I did discuss with family the risks and benefits of IV contrast, and through shared decision making process family is requesting the definitive test. 9:53 PM personal review of the CT angios demonstrates no evidence of significant dissection that I can appreciate. We are weight formal results from radiologist. The patient's pain is notably improved with nitroglycerin. With this history of cardiac disease, dialysis, Brilinta use, and chest pain that is improved with nitroglycerin I do not feel that he is an appropriate candidate for discharge home, rather I feel that he requires further cardiology evaluation at a tertiary care facility. Currently we have no beds available. We are awaiting a callback from [facility] at this time. Case will be signed out to my colleague Dr. White. 10:09 PM Case was discussed with Dr. Taylor the pocket assembler at [facility]. We are still waiting CT angiogram. Dr. Taylor would like us to start a nitroglycerin drip at this time if his pressure does tolerate it. He is requesting a call back once a CT angios results return. Pending imaging results at this time. Patient will be signed out to my colleague Dr. White. EKG 20: 08 Rate 80, IL 170, QTc 503, QRS 114, sinus rhythm, no significant ST elevations or depressions, inverted T wave in aVF and lead 3. No evidence of STEMI. FINDINGS: Diffuse interstitial lung disease improved from the prior examination. New focal right lower lobe consolidation suggesting an area of pneumonia or pneumonitis. Right sided dialysis catheter in good position. No significant pleural effusions. Heart within normal limits. IMPRESSION: 1. Improvement in interstitial lung disease with mild residual. 2. Focal consolidation at the right lung base suggesting a new area of pneumonia or pneumonitis. Dictated and Authenticated by: Beni Salguero MD. HPI <Efra Kingsley, - Last Filed: 07/04/18 09:55> General Date/Time Provider Initiated Documentation: 07/03/18 20:05 . 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 He presents today for evaluation of chest pain. Patient states that roughly 1 hour prior to arrival he had associated nausea and 1-2 episodes of vomiting followed by a chest pain which she describes as a notable chest pressure in his central chest with no radiation to his arms neck or shoulder. He states that the chest pressure similar to what he had in December when he had his STEMI. He was notably diaphoretic, and called 911. Patient did undergo dialysis today, and had no complications then. Patient denies any exertional chest pain previous, he denies any fever or chills. He does admit to a cough over the last few weeks. He denies any abdominal pain, diarrhea. Patient has no other complaints at this time. EMS did give the patient 1 nitroglycerin which slightly improved his symptoms, he also had a full dose aspirin earlier today. No other modifying factors at this time. Related Data Home Medications Medication Instructions Recorded Confirmed epinephrine [EpiPen 2-Chandu] 0.3 mg IM PRN PRN 07/24/17 07/03/18 ProAir HFA 1 puff INHALATION Q4H PRN 30 Days 08/10/17 07/03/18 #1 inhaler fluoxetine [Prozac] 60 mg PO DAILY cap 08/10/17 07/03/18 esomeprazole magnesium 20 mg 20 mg PO BID cap 04/01/18 07/03/18 capsule,delayed release fluticasone 500 mcg-salmeterol 50 1 inh IH BID 04/01/18 07/03/18 mcg/dose blistr powdr for inhalation tiotropium bromide 18 mcg capsule 1 cap IH DAILY 04/01/18 07/03/18 with inhalation device aspirin 81 mg tablet,delayed 81 mg PO DAILY #90 tab 04/23/18 07/03/18 release metoprolol succinate ER 100 mg 100 mg PO DAILY #90 tab 04/23/18 07/03/18 tablet,extended release 24 hr Brilinta 1 tab PO BID 05/10/18 07/03/18 gabapentin 800 mg tablet 800 mg PO DAILY #60 tab 05/14/18 07/03/18 B complex with C#20-folic acid 1 mg PO DAILY 05/20/18 07/03/18 [Nephrocaps] sevelamer carbonate [Renvela] 1,600 mg PO AC 05/20/18 07/03/18 amoxicillin 500 mg-potassium 1 tab PO BID #20 tab 05/31/18 06/25/18 clavulanate 125 mg tablet ferrous sulfate 325 mg (65 mg 325 mg PO DAILY #45 tab 05/31/18 07/03/18 iron) tablet metolazone 2.5 mg tablet 2.5 mg PO ONCE PRN #14 tab 05/31/18 06/25/18 atorvastatin 80 mg tablet 80 mg PO DAILY #90 tab 06/21/18 07/03/18 furosemide 80 mg tablet 80 mg PO BID #180 tab 06/21/18 07/03/18 Previous Rx's Medication Instructions Recorded ProAir HFA 1 puff INHALATION Q4H PRN 30 Days 08/10/17 #1 inhaler aspirin 81 mg tablet,delayed 81 mg PO DAILY #90 tab 04/23/18 release metoprolol succinate ER 100 mg 100 mg PO DAILY #90 tab 04/23/18 tablet,extended release 24 hr gabapentin 800 mg tablet 800 mg PO DAILY #60 tab 05/14/18 amoxicillin 500 mg-potassium 1 tab PO BID #20 tab 05/31/18 clavulanate 125 mg tablet ferrous sulfate 325 mg (65 mg 325 mg PO DAILY #45 tab 05/31/18 iron) tablet metolazone 2.5 mg tablet 2.5 mg PO ONCE PRN #14 tab 05/31/18 atorvastatin 80 mg tablet 80 mg PO DAILY #90 tab 06/21/18 furosemide 80 mg tablet 80 mg PO BID #180 tab 06/21/18 Allergies Allergy/AdvReac Type Severity Reaction Status Date / Time bee venom protein (honey bee) Allergy Severe throat Verified 06/25/18 12:55 swelling aspirin AdvReac Severe bleeding Verified 06/25/18 12:55 General JOSEPH: 2 Review of Systems <Efra Kingsley DO - Last Filed: 07/04/18 09:55> Review of Systems All systems reviewed & are unremarkable except as noted in HPI and below PFSH <Efra Kingsley DO - Last Filed: 07/04/18 09:55> Social History household members: spouse lives independently: No (needs assist) number of children: 2 Smoking/Tobacco Use Status: Former Tobacco Use alcohol intake: former substance use type: marijuana seatbelt use: always drive intox or ride w/ intox 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 3.ENT: Atraumatic external nose and ears. Moist MM. Neck: Symmetric, trachea midline, No thyromegaly. 4.CVS: +S1/S2, No murmurs or gallops. Peripheral pulses 2+ and equal in all extremities. Brisk capillary refill in all extremities. Radial pulses are +2 bilaterally. Patient does have a right sided chest dialysis catheter. In-place with no abnormalities per 5.RESP: Unlabored respiratory effort. Minimal crackles in the bases bilaterally. No rhonchi or wheezes. 6.GI: Soft, Nondistended, No hepatosplenomegaly. No guarding or rebound. Minimal epigastric pain on palpation. No abdominal tenderness throughout. 7.MSK: Normocephalic/Atraumatic, Extremities w/o deformity or ttp No cyanosis or clubbing, Normal movement of all extremities 8.Skin: Notably cool, slightly pale, diaphoretic. 9.Neuro: repair welder II-XII grossly intact. Sensation grossly intact, no focal neurologic deficits. 10.Psych: (AAO) x3. Appropriate mood and affect Sign Out <Efra Kingsley DO - Last Filed: 07/04/18 09:55> Sign Out Data: Sign Out Comment: Pending imaging results. Pending callback from [facility]. Patient will require transfer Last updated by Efra Kingsley DO at 07/03/18 21:55 Post-Handoff Eval: Patient was discussed with [facility] cardiology by Dr. Kingsley. I was asked to call back once the CT scan had been officially read. CT scan being read as negative for aortic dissection or aneurysm. There is lung changes consistent with pulmonary edema versus multifocal pneumonia. There are some upper limit mediastinal lymph nodes noted. Pulmonary arteries not evaluated due to lack of adequate contrast. Abdominal CT essentially unremarkable. Patient had been placed on nitroglycerin drip for chest pain since it had responded to sublingual nitroglycerin. He is no longer having chest pain. He continues to have nausea and some epigastric discomfort. Discussed at length with cardiology at [facility]. [place] that this quite possibly could be related to pneumonia and not a cardiac etiology. Patient had been admitted to [facility] in May with multi-organism pneumonia. Nitroglycerin turned off. Vital signs remained stable. Saturations adequate at 95% on nasal cannula oxygen. Zosyn started. Case discussed with hospitalist at [facility]. They will accept the patient to their service and get cardiology involved as needed. Will start Vanco once the Zosyn has completed. He will be transferred by ambulance for further management at [facility]. Note there are no beds currently at [facility]. Also note patient is dialysis patient and could not be admitted here regardless. He is stable at this time. He is accepted to Dr. Gonzalez's service at [facility].
[2018-07-03 20:28] LABS: Abs Immature Grans 0.07 k/cumm (0.0-0.09); Absolute Basophil Count 0.15 k/cumm (0.0-0.2); Absolute Eosinophil Count 0.34 k/cumm (0.0-0.7); Eosinophils % 2.3; HCT 41.8 % (40.0-50.0); HGB 12.9 g/dL (13.5-17.5); Immature Grans % 0.5; Mean Corp. HGB Concentration 30.9 g/dL (32.0-36.0); Mean Corpuscular Hemoglobin 30.5 pg (27.0-33.0); Mean Corpuscular Volume 98.8 fL (80-95); Mean Platelet Volume 10.8 fL (8.0-11.0); Monocytes % 8.8; Neutrophils % 78.4; Platelet Count 322 x1000/uL (130-400); RBC 4.23 m/cumm (4.50-6.00); RBC Distribution Width 19.2 % (11.8-14.1); White Blood Cell Count 14.92 k/cumm (4.4-10.8)
[2018-07-03 20:35] LABS: Lipase 138 U/L (73-393)
[2018-07-03] MEDS: Albuterol/Ipratropium 3 ML UPD VIAL UPD (20:36)
[2018-07-03 20:39] LABS: Absolute Lymphocyte Count 1.34 k/cumm (1.2-3.4); Absolute Monocyte Count 1.31 k/cumm (0.11-0.7); Polychromasia Present
[2018-07-03 20:48] LABS: ALT 22 U/L (12-78); AST 21 U/L (15-37); Albumin 3.8 g/dL (3.4-5.0); Alkaline Phosphatase 82 U/L (46-116); Anion Gap 20.5 mmol/L (3-11); BUN 16 mg/dL (7-18); Bilirubin, Total 0.7 mg/dL (0.2-1.0); CO2 21.5 mmol/L (21.0-32.0); Calcium 10.3 mg/dL (8.5-10.1); Chloride 94 mmol/L (98-107); Glucose 188 mg/dL (70-100); Potassium 4.2 mmol/L (3.5-5.1); Sodium 136 mmol/L (136-145); Total Protein 9.5 g/dL (6.4-8.2)
[2018-07-03 20:51] LABS: CREATININE 3.53 mg/dL (0.70-1.30); Troponin I < 0.02 ng/mL (0.00-0.06)
[2018-07-03 20:52] LABS: NT-proBNP > 35000 pg/mL
--- NOTE | 2018-07-03 20:58 | DI.VRAD_ITS ---
EXAM: XR Chest, 1 View EXAM DATE/TIME: 07/03/2018 8:10 PM CLINICAL HISTORY: 52 years old, male; Pain; Chest pain; Type not specified TECHNIQUE: XR of the chest, 1 view. COMPARISON: SC XR PORTABLE CHEST AP 05/20/2018 6:40 PM FINDINGS: Diffuse interstitial lung disease improved from the prior examination. New focal right lower lobe consolidation suggesting an area of pneumonia or pneumonitis. Right sided dialysis catheter in good position. No significant pleural effusions. Heart within normal limits. IMPRESSION: 1. Improvement in interstitial lung disease with mild residual. 2. Focal consolidation at the right lung base suggesting a new area of pneumonia or pneumonitis. Dictated and Authenticated by: Beni Salguero MD. Ordering:RENÉ Kraus MD
--- NOTE | 2018-07-03 21:07 | DI.CT_ITS ---
SYMPTOM/DIAGNOSIS: SEVERE CHEST AND ABD PAIN CHEST, ABDOMEN AND PELVIC CT: CHEST CT: Comparison is made with 06/12/17. There is motion at the level of the aortic root. There is no evidence of aortic dissection. The heart is enlarged. There is a tiny left pleural effusion. The tip of the catheter is seen in the lower SVC. There is a 1.6 cm. right paratracheal node and a 2.1 cm. subcarinal node. There are a few additional smaller superior mediastinal nodes. The lungs show significant respiratory motion. There are apparent bilateral increased aveolar densities seen greater in the right upper and right middle lobes. There are also questionable infiltrates in both lung bases. IMPRESSION: Bilateral air space disease could indicate pneumonia versus asymmetric pulmonary edema. Mediastinal lymph nodes are presumably reactive. They were not seen on the previous exam of 2017. ABDOMEN AND PELVIC CT: There is streak artifact through the upper abdomen. The exam is somewhat limited by the patient's body habitus. The liver appears enlarged. There is question of fatt infiltration. The aorta shows atherosclerotic change without evidence of aneurysm. The spleen, adrenals, pancreas, kidneys and gallbladder are unremarkable. There is no bowel dilatation or inflammatory change. The bladder is nearly empty. The prostate is not enlarged. IMPRESSION: No evidence of aortic dissection. Atherosclerotic changes are seen greater in the abdominal abdominal and iliac arteries. No acute abnormality is seen in the abdomen or pelvis.
[2018-07-03] MEDS: Metoclopramide 10 MG/2 ML VIAL IVP (21:12)
[2018-07-03] MEDS: MORPHine 10 MG/ML VIAL 4 MG IVP (21:13)
[2018-07-03] MEDS: Omnipaque 350 MG/ML 100 ML BTL IJ (21:34)
--- NOTE | 2018-07-03 22:26 | DI.VRAD_ITS ---
EXAM: CT Angiography Chest With Contrast EXAM DATE/TIME: 07/03/2018 9:22 PM CLINICAL HISTORY: 52 years old, male; Pain; Other: Severe cp and abd pain; Abdominal pain; Acute TECHNIQUE: Axial computed tomographic angiography images of the chest with intravenous contrast using CT angiography protocol. All CT scans at this facility use at least one of these dose optimization techniques: automated exposure control; mA and/or kV adjustment per patient size (includes targeted exams where dose is matched to clinical indication); or iterative reconstruction. MIP reconstructed images were created and reviewed. CONTRAST: 100 ml of omni administered intravenously. COMPARISON: CTA THORAX/ABDOMEN/PELVIS 06/12/2017 2:05 PM FINDINGS: Tubes, catheters and devices: Right internal jugular vein catheter with tip at the cavoatrial junction. Pulmonary arteries: The pulmonary arteries are poorly opacified and cannot be assessed. Aorta: No aortic aneurysm. No aortic dissection. Lungs:Mild paraseptal emphysematous changes. There is acinar airspace consolidation throughout the lungs with relative sparing of the left upper lobe. This is associated with smooth interstitial and peribronchial thickening. Findings may be related to pulmonary edema or multifocal pneumonia. Pleural space: Smaller pleural effusion. Heart: Normal. No cardiomegaly. No pericardial effusion. Lymph nodes: Adenopathy is seen the mediastinum measuring up to 1.6 cm in the right paratracheal region and 2.1 cm in the subcarinal region. Largest prevascular node is 1.3 cm. Few nodes in the mediastinum are calcified consistent with prior granulomatous disease. Bones/joints: Unremarkable. No acute fracture. Soft tissues: Unremarkable. IMPRESSION: No evidence of aneurysm or dissection. Multifocal airspace disease and interstitial thickening which may be related to pulmonary edema or multifocal pneumonia. New borderline size adenopathy in the mediastinum which may be reactive but cannot exclude early neoplasia. Suggest close followup. EXAM: CT Angiography Abdomen and Pelvis With Contrast EXAM DATE/TIME: 07/03/2018 9:22 PM CLINICAL HISTORY: 52 years old, male; Pain; Other: Severe cp and abd pain; Abdominal pain; Acute TECHNIQUE: Axial computed tomographic angiography images of the abdomen and pelvis with intravenous contrast material, including non-contrast images if performed. MIP and/or 3D reconstructed images were created and reviewed. MIP reconstructed images were created and reviewed. CONTRAST: 100 ml of omni administered intravenously. COMPARISON: CTA THORAX/ABDOMEN/PELVIS 06/12/2017 2:05 PM FINDINGS: VASCULATURE: Aorta: Atherosclerotic disease. No aneurysm or dissection. Celiac trunk and mesenteric arteries: No occlusion or significant stenosis. Renal arteries: There are 3 left renal arteries and a single right renal artery. No occlusion or significant stenosis. Right iliac /femoral arteries: No occlusion or significant stenosis. Left iliac/femoral arteries: No occlusion or significant stenosis. ABDOMEN: Liver: Hepatomegaly. Gallbladder and bile ducts: Unremarkable. No calcified stones. No ductal dilation. Pancreas: Unremarkable. No mass. No ductal dilation. Spleen: Mild stable splenomegaly. Adrenals: Unremarkable. No mass. Kidneys and ureters: Unremarkable. No solid mass. No hydronephrosis. Stomach and bowel: Few colonic diverticula. Moderate to heavy stool load. Unremarkable small bowel. Appendix: Normal appendix. PELVIS: Bladder: Contracted bladder. Reproductive: Unremarkable as visualized. ABDOMEN and PELVIS: Intraperitoneal space: Unremarkable. No free air. No significant fluid collection. Bones/joints: Mild degenerative changes throughout the spine. There is mild L5 on S1 retrolisthesis retrolisthesis. Soft tissues: Small right inguinal hernia containing fat. Umbilical hernia repair with mesh. Lymph nodes: Unremarkable. No enlarged lymph nodes. IMPRESSION: No acute findings. Few colonic diverticula. Small right inguinal hernia containing fat. Stable hepatosplenomegaly. Dictated and Authenticated by: Edelmira Renae MD. Ordering:RENÉ Kraus MD
[2018-07-03] MEDS: PIPERACILLIN/TAZO 2.25 GM in Normal Saline 50 ML IVPB (23:00)
[2018-07-03] MEDS: VANCOMYCIN 1,000 MG in Normal Saline 250 ML 166.6666 MG IVPB (23:38)
[2018-07-03 23:48] LABS: Troponin I 0.02 ng/mL (0.00-0.06)
== END 2018-07-04 00:12 | disposition short-term general hospital (02) ==
PROVIDERS: Student in an Organized Health Care Education/Training Program; Emergency Provider Emergency Medicine; PCP Family Medicine
DX: R07.9 Chest pain, unspecified (principal); R10.13 Epigastric pain; R11.2 Nausea with vomiting, unspecified; R61 Generalized hyperhidrosis; R91.8 Other nonspecific abnormal finding of lung field; R06.00 Dyspnea, unspecified; N18.6 End stage renal disease; Z99.2 Dependence on renal dialysis; I25.10 Atherosclerotic heart disease of native coronary artery without angina pectoris; Z95.5 Presence of coronary angioplasty implant and graft; J44.9 Chronic obstructive pulmonary disease, unspecified; Z87.891 Personal history of nicotine dependence
CPT/HCPCS: 36415; 71275; 74177; 80053; 83690; 87449; 93005; 94640; 96365; 96367; 96368; 96375; 99285; 71045; 83880; 84484; 85025; 93010; J2270; J2543; J2765; J3490; J7620

== ENCOUNTER 2018-07-08 14:55 | Outpatient (RCR) | payer MEDICAID, SELFPAY | END 2018-07-22 23:59 | disposition home or self-care (01) | LOC: CR 14:55 | PROVIDERS: PCP Family Medicine; Visit Provider Family Medicine | DX: Z51.89 Encounter for other specified aftercare (principal) ==

== ENCOUNTER 2018-07-23 02:36 | Outpatient (RCR) | payer MEDICAID, SELFPAY | END 2018-08-19 23:59 | disposition home or self-care (01) | LOC: CR 02:36 | PROVIDERS: PCP Family Medicine; Visit Provider Family Medicine | DX: Z51.89 Encounter for other specified aftercare (principal) ==

== ENCOUNTER 2018-07-30 17:25 | Emergency (ER) | payer MEDICAID, SELFPAY ==
[2018-07-30 17:36] VITALS: BP 135/84; PULSE 89; RESP 20; TEMP 36.2; O2SAT 90
[2018-07-30] MEDS: Ondansetron 4 MG/2 ML VIAL IVP (18:04)
[2018-07-30] MEDS: Normal Saline 500 ML 1000 ML IV (18:04)
[2018-07-30 18:13] LABS: Abs Immature Grans 0.02 k/cumm (0.0-0.09); Absolute Basophil Count 0.02 k/cumm (0.0-0.2); Absolute Lymphocyte Count 0.65 k/cumm (1.2-3.4); Absolute Monocyte Count 0.57 k/cumm (0.11-0.7); Absolute Neutrophil Count 10.09 k/cumm (1.2-6.7); Basophils % 0.2; HCT 38.2 % (40.0-50.0); HGB 11.6 g/dL (13.5-17.5); Immature Grans % 0.2; Lymphocytes % 5.7; Mean Corp. HGB Concentration 30.4 g/dL (32.0-36.0); Mean Corpuscular Hemoglobin 30.4 pg (27.0-33.0); Mean Corpuscular Volume 100.3 fL (80-95); Mean Platelet Volume 10.8 fL (8.0-11.0); Neutrophils % 88.9; Platelet Count 276 x1000/uL (130-400); RBC 3.81 m/cumm (4.50-6.00); RBC Distribution Width 17.8 % (11.8-14.1); White Blood Cell Count 11.35 k/cumm (4.4-10.8)
--- NOTE | 2018-07-30 18:21 | ED.GENADUL_ITS ---
Discharge Plan Disposition Patient Disposition: HOME Condition: Good Discharge Details Chief Complaint: Abd Prob Clinical Impression: Abdominal pain, Heme positive stool Primary Care Provider: Gee Luke ED Provider: Efra Kingsley Home Meds and New Rx's Prescriptions: No Action aspirin [Aspir-81] 81 mg tablet,delayed release (DR/EC) 81 mg PO DAILY Qty: 90 RF: 3 metoprolol succinate 100 mg tablet extended release 24 hr 100 mg PO DAILY Qty: 90 RF: 3 metolazone 2.5 mg tablet 2.5 mg PO ONCE PRN (Reason: Excessive fluid retention) Qty: 14 RF: 0 ferrous sulfate 325 mg (65 mg iron) tablet 325 mg PO DAILY Qty: 45 RF: 3 gabapentin 800 mg tablet 800 mg PO DAILY Qty: 60 RF: 3 oxygen concentrater Qty: 1 RF: 0 epinephrine [EpiPen 2-Chandu] 0.3 MG/0.3 ML auto-injector 0.3 mg IM PRN PRNRF: 0 fluoxetine [Prozac] 20 MG capsule 60 mg PO DAILY RF: 0 ProAir HFA 8.5 GM HFA aerosol inhaler 1 puff Inhalation Q4H PRN 30 Days Qty: 1 RF: 11 Advair Diskus 500-50 mcg/dose blister with device 1 inh IH BID RF: 0 esomeprazole magnesium 20 mg capsule,delayed release(DR/EC) 20 mg PO BID RF: 0 Spiriva with HandiHaler 18 mcg capsule, w/inhalation device 1 cap IH DAILY RF: 0 furosemide 80 mg tablet 80 mg PO BID Qty: 180 RF: 3 atorvastatin 80 mg tablet 80 mg PO DAILY Qty: 90 RF: 3 ondansetron HCl [Zofran] 4 mg tablet 4 mg PO TID PRN (Reason: nausea and vomiting) 5 Days Qty: 15 RF: 0 sevelamer carbonate [Renvela] 800 mg Tablet 1,600 mg PO AC RF: 0 Brilinta 90 mg Tablet 1 tab PO BID RF: 0 Discharge Instructions Instructions: Abdominal Pain (ED) Additional Instructions: Please avoid spicy foods, please take your Prozac and omeprazole. Please follow-up with your primary care provider to set up outpatient colonoscopy and endoscopy. If you notice any worsening of your symptoms, or any new symptoms such as vomiting, diarrhea, fever, chills, shortness of breath, chest pain, numbness, weakness, or fainting , please return immediately to the emergency department for reevaluation. Please follow up with your primary care provider as soon as possible for reassessment and reevaluation. As always, it was a pleasure participating in your medical care today. Referrals: Gee Luke DO [Primary Care Provider] - Medical Decision Making This is a 52-year-old male with a past medical history's dialysis and renal failure, multiple myocardial infarctions, previous hernia surgery who presents today with nausea and vomiting for the last 2 days. It began when he was initially. It is continued since then. Right now it is a combination of stomach acid and sputum per the patient. He denies any hematemesis. No modifying factors. Does admit to generalized abdominal tenderness with mild to moderate epigastric tenderness. He denies any urinary symptoms. He states that this feels completely different than his heart attacks ever felt. Patient denies any other sick contacts. Denies any other complaints at this time. We will get a CT scan to evaluate for any acute process, obstruction, we will get a lipase to evaluate for pancreatitis. Also of no rectal exam was performed and did demonstrate heme positive stool however there is no evidence of gross blood. Mild GI bleed versus gastritis is also on the differential. 8: 35pm Patient's laboratory workup has returned and is relatively benign. Hemoglobin is stable, platelets are normal, electrolytes are normal. Creatinine is certainly elevated at 6.87. However this is in line with his chronic dialysis. Troponin is negative. Lipase is normal. Patient was given IV Protonix, and gently rehydrated. CT scan results have returned demonstrate no acute intra- abdominal pathology. There is evidence of some incidental findings including bilateral pleural effusions. There are diffuse groundglass and patchy opacity seen in the lung bases, however the patient has no clinical symptoms of pneumonia with no evidence of fever, chills, worsening productive cough, or other abnormalities there. The patient states that he does not feel short of breath, and does not want anything to be surgically done about the pleural effusions at this time. The patient has had complete and total resolution of his symptomatology while here in the ED. He states that he is feeling great and would like to go home. I am unsure if this is improved by the Protonix, Zofran, or the mild fluid. Because of the patient's heme positive stool, but stable hemoglobin I feel that he can be discharged but does require close outpatient follow-up and potential EGD and colonoscopy. I feel that the patient may be suffering from gastritis as the cause of his symptomatology with a positive Hemoccult stool, and the improvement of his symptoms with Protonix. I discussed setting up outpatient follow-up for colonoscopy however he would like to go through his primary care provider. With complete resolution of his symptoms, stable vital signs, no abdominal tenderness on repeat exam, no acute findings on CT of the abdomen for any acute abdominal pathology as well as his ability to tolerate p.o. well I feel he can be safely discharged home. Recommend that he continues taking his medication for reflux, avoid spicy foods, and closely follows up with his primary care provider for potential colonoscopy and EGD referral. Additionally I discussed with him the importance of reevaluation of his pleural effusions on a later outpatient basis. I have extensively reviewed the treatment plan and discharge instructions with the patient and their family. I have addressed all patient concerns at this time. The patient and family was made aware of what symptoms to monitor for that would warrant a return to the emergency department. Discussed the plan with the patient and family, they demonstrate verbal understanding and agreement with our assessment and plan at this time. EKG 17: 42 Rate 95, NE 192, QTc 515, QRS 109, sinus rhythm, no significant ST elevations or depressions, no significant T wave inversions except for in lead III. No signs of STEMI. FINDINGS: Lower thorax: Moderately sized layering and partially visualized bilateral pleural effusions. Diffuse groundglass and patchy opacities seen in the lung bases. ABDOMEN: Liver: Liver is enlarged measuring 23 cm. Diffuse hepatic steatosis is suggested. No focal liver lesions or acute liver pathology is grossly noted. Gallbladder and bile ducts: Normal. No calcified stones. No ductal dilation. Pancreas: Normal. No ductal dilation. Spleen: 1.4 cm hypodense lesion in the midpole of the spleen is indeterminate. Spleen is otherwise unremarkable. Adrenals: Normal. No mass. Kidneys and ureters: Normal. No hydronephrosis. Stomach and bowel: Normal. No obstruction. No mucosal thickening. Appendix: No evidence of appendicitis. PELVIS: Bladder: Unremarkable as visualized. Reproductive: Unremarkable as visualized. ABDOMEN and PELVIS: Intraperitoneal space: Normal. No free air. No significant fluid collection. Bones/joints: No acute skeletal pathology. Mild multilevel degenerative changes of the spine, as manifested by multilevel anterior osteophytes and multilevel decrease in intervertebral disc space. Soft tissues: Unremarkable. Vasculature: The vasculature demonstrates diffuse mild atherosclerotic calcification. Lymph nodes: Normal. No enlarged lymph nodes. IMPRESSION: 1. Negative for acute abdominopelvic pathology. 2. Incidental findings as detailed above. Important note is made of partially visualized moderately sized bilateral pleural effusions with multifocal airspace disease at the lung bases favoring pulmonary edema. Superimposed infectious pneumonic process should be entertained in the appropriate clinical setting. Thank you for allowing us to participate in the care of your patient. Dictated and Authenticated by: Jaydon Agarwal MD HPI General Date/Time Provider Initiated Documentation: 07/30/18 17:27 . [facility] Narrative: This is a 52-year-old male with a past medical history of high cholesterol, hypertension, PTSD on dialysis, and obstructive sleep apnea with recent STEMI in December with 3 subsequent stents. He presents today for evaluation of nausea, generalized abdominal pain, with some mild epigastric pain. Patient states that this feels nothing at all like his previous heart attacks, he denies any chest pain whatsoever. He states that yesterday at dialysis he began vomiting, and feeling nauseous. The symptoms have continued from yesterday until today. He has vomited a few times throughout the day, recently it is been more so stomach acid and phlegm, as he is not been eating. He has not been drinking a significant amount of fluid because of his nausea. Patient denies any hematemesis, but does admit to seeing some blood in his stool over the last few days. He denies any dysuria, hematuria, or increased urinary frequency. He denies any diarrhea or devon melena. He has had a hernia surgery in the past on his abdomen, but still has his gallbladder and appendix. He denies any aggravating or modifying factors. He denies any other complaints at this time. Of note the patient also has been recently started on 2 L of home oxygen at his new baseline. Related Data Home Medications Medication Instructions Recorded Confirmed epinephrine [EpiPen 2-Chandu] 0.3 mg IM PRN PRN 07/24/17 07/30/18 ProAir HFA 1 puff INHALATION Q4H PRN 30 Days 08/10/17 07/30/18 #1 inhaler fluoxetine [Prozac] 60 mg PO DAILY cap 08/10/17 07/30/18 esomeprazole magnesium 20 mg 20 mg PO BID cap 04/01/18 07/30/18 capsule,delayed release fluticasone 500 mcg-salmeterol 50 1 inh IH BID 04/01/18 07/30/18 mcg/dose blistr powdr for inhalation tiotropium bromide 18 mcg capsule 1 cap IH DAILY 04/01/18 07/29/18 with inhalation device aspirin 81 mg tablet,delayed 81 mg PO DAILY #90 tab 04/23/18 07/30/18 release metoprolol succinate ER 100 mg 100 mg PO DAILY #90 tab 04/23/18 07/30/18 tablet,extended release 24 hr Brilinta 1 tab PO BID 05/10/18 07/30/18 gabapentin 800 mg tablet 800 mg PO DAILY #60 tab 05/14/18 07/30/18 sevelamer carbonate [Renvela] 1,600 mg PO AC 05/20/18 07/30/18 ferrous sulfate 325 mg (65 mg 325 mg PO DAILY #45 tab 05/31/18 07/30/18 iron) tablet metolazone 2.5 mg tablet 2.5 mg PO ONCE PRN #14 tab 05/31/18 07/29/18 atorvastatin 80 mg tablet 80 mg PO DAILY #90 tab 06/21/18 07/30/18 furosemide 80 mg tablet 80 mg PO BID #180 tab 06/21/18 07/30/18 oxygen concentrater #1 ea 07/29/18 07/29/18 ondansetron HCl 4 mg tablet 4 mg PO TID PRN 5 Days #15 tab 07/30/18 Previous Rx's Medication Instructions Recorded ProAir HFA 1 puff INHALATION Q4H PRN 30 Days 08/10/17 #1 inhaler aspirin 81 mg tablet,delayed 81 mg PO DAILY #90 tab 04/23/18 release metoprolol succinate ER 100 mg 100 mg PO DAILY #90 tab 04/23/18 tablet,extended release 24 hr gabapentin 800 mg tablet 800 mg PO DAILY #60 tab 05/14/18 ferrous sulfate 325 mg (65 mg 325 mg PO DAILY #45 tab 05/31/18 iron) tablet metolazone 2.5 mg tablet 2.5 mg PO ONCE PRN #14 tab 05/31/18 atorvastatin 80 mg tablet 80 mg PO DAILY #90 tab 06/21/18 furosemide 80 mg tablet 80 mg PO BID #180 tab 06/21/18 oxygen concentrater #1 ea 07/29/18 ondansetron HCl 4 mg tablet 4 mg PO TID PRN 5 Days #15 tab 07/30/18 Allergies Allergy/AdvReac Type Severity Reaction Status Date / Time bee venom protein (honey bee) Allergy Severe throat Verified 07/29/18 09:35 swelling aspirin AdvReac Severe bleeding Verified 07/29/18 09:35 General Stated Complaint: Abd Prob JOSEPH: 2 Review of Systems Review of Systems All systems reviewed & are unremarkable except as noted in HPI and below PFSH Medical History End stage chronic kidney disease (Chronic) Atrial fibrillation with RVR (Chronic) Renal failure (Chronic) STEMI (ST elevation myocardial infarction) (Chronic) Acute respiratory failure with hypoxia (Resolved) Surgical History Stented coronary artery (Chronic) Encounter for gastrojejunal (GJ) tube placement (Acute 02/23/18) Hx of echocardiogram (Acute 03/08/18) Arthroplasty of knee Repair of umbilical hernia Tonsillectomy and adenoidectomy cardiac catherization (01/01/18) cardiac catherization (01/05/18) echocardiogram (01/06/18) Social History household members: spouse lives independently: No (needs assist) number of children: 2 what type of physical activity do you participate in: none Smoking and Tabacco status: Former Tobacco Use alcohol intake: former substance use type: marijuana Seatbelt use: always Drives intoxicated or rides with intoxicated 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 3.ENT: Atraumatic external nose and ears. Moist MM. Neck: Symmetric, trachea midline, No thyromegaly. 4.CVS: +S1/S2, No murmurs or gallops. Peripheral pulses 2+ and equal in all extremities. Brisk capillary refill in all extremities. Right sided chest dialysis catheter in place. 5.RESP: Unlabored respiratory effort. Clear to auscultation bilaterally. Minimal crackles in the bases 6.GI: Soft, Nondistended, No hepatosplenomegaly. Mild epigastric pain, mild generalized abdominal pain. Bowel sounds are present but reduced. 7.MSK: Normocephalic/Atraumatic, Extremities w/o deformity or ttp No cyanosis or clubbing, Normal movement of all extremities 8.Skin: Warm, Dry. No rashes or lesions. 9.Neuro: rejected items clerk II-XII grossly intact. Sensation grossly intact, no focal neurologic deficits. 10.Psych: (AAO) x3. Appropriate mood and affect Course Vital Signs Temperature 36.2 C L 07/30/18 17:36 Pulse 89 07/30/18 17:36 Respiratory Rate 20 07/30/18 17:36 Blood Pressure 135/84 07/30/18 17:36 Pulse Oximetry 90 L 07/30/18 17:36 Temperature 36.2 C L 07/30/18 17:36 Temperature Source Temporal Artery Scan 07/30/18 17:36 Pulse 89 07/30/18 17:36 Respiratory Rate 20 07/30/18 17:36 Respiratory Effort 07/30/18 17:40 Blood Pressure 135/84 07/30/18 17:36 Blood Pressure Position Sitting 07/30/18 17:36 Pulse Oximetry 90 L 07/30/18 17:36 Oxygen Delivery Method Room Air 07/30/18 17:36 Oxygen Flow Rate 0 07/30/18 17:36 Pain Level 8 07/30/18 17:36 Lab/Test Results Lab/Test Results: Laboratory Tests Range/Units 07/30/18 18:00 WBC (4.4-10.8) k/cumm 11.35 H RBC (4.50-6.00) m/cumm 3.81 L Hgb (13.5-17.5) g/dL 11.6 L Hct (40.0-50.0) % 38.2 L MCV (80-95) fL 100.3 H MCH (27.0-33.0) pg 30.4 MCHC (32.0-36.0) g/dL 30.4 L RDW (11.8-14.1) % 17.8 H Plt Count (130-400) x1000/uL 276 MPV (8.0-11.0) fL 10.8 Immature Gran % 0.2 Neutrophils % 88.9 Lymphocytes % 5.7 Monocytes % 5.0 Eosinophils % 0.0 Basophils % 0.2 Absolute Neutrophils (1.2-6.7) k/cumm 10.09 H Absolute Lymphocytes (1.2-3.4) k/cumm 0.65 L Absolute Monocytes (0.11-0.7) k/cumm 0.57 Absolute Eosinophils (0.0-0.7) k/cumm 0.00 Absolute Basophils (0.0-0.2) k/cumm 0.02
[2018-07-30 18:24] LABS: ALT 22 U/L (12-78); AST 22 U/L (15-37); Albumin 3.1 g/dL (3.4-5.0); Alkaline Phosphatase 74 U/L (46-116); Anion Gap 15.7 mmol/L (3-11); BUN 26 mg/dL (7-18); CO2 25.3 mmol/L (21.0-32.0); Calcium 9.4 mg/dL (8.5-10.1); Chloride 97 mmol/L (98-107); Estimated GFR 8.49 (mL/min/1.73m2); Glucose 158 mg/dL (70-100); Lipase 55 U/L (73-393); Potassium 4.1 mmol/L (3.5-5.1); Sodium 138 mmol/L (136-145); Total Protein 8.4 g/dL (6.4-8.2)
[2018-07-30 18:25] LABS: CREATININE 6.87 mg/dL (0.70-1.30)
[2018-07-30] MEDS: Pantoprazole 40 MG VIAL IVP (18:49)
[2018-07-30 19:10] LABS: Troponin I < 0.02 ng/mL (0.00-0.06)
--- NOTE | 2018-07-30 19:45 | DI.CT_ITS ---
SYMPTOM/DIAGNOSIS: VOMITING X 2 DAYS, EPIGASTRIC PAIN CT ABDOMEN AND PELVIS: Comparison is 06/15/17 and 01/01/18. Within the lung bases there are moderate bilateral pleural effusions. There are bilateral ground glass opacities and focal opacities seen in the lung bases. The liver appears to be of decreased attenuation suggesting hepatic steatosis. No evidence of a discrete mass is seen. The gallbladder is negative. No biliary ductal dilatation is seen. The portal and superior mesenteric veins appear patent. The pancreas and peripancreatic soft tissues are unremarkable. The spleen is unremarkable save for 1.4 cm hypodense lesions in the mid pole. This is indeterminate. There is no evidence of an adrenal mass. The kidneys show normal and symmetric enhancement. No evidence of a solid renal mass or obstruction is identified. The urinary bladder is incompletely distended. No definite intraluminal mass is seen. The reproductive organs are grossly unremarkable. The bowel shows no evidence of obstruction or inflammation. No findings to suggest an acute appendicitis present. There is a normal appendix present. No significant abdominal or pelvic adenopathy, ascites or pneumoperitoneum is present. The aorta is of normal caliber with mild atherosclerosis. Degenerative changes are present throughout the spine. IMPRESSION: Moderate bilateral pleural effusions and ground glass opacities which may reflect pulmonary edema. An infectious pneumonic process cannot be entirely excluded. Please correlate clinically.
[2018-07-30] MEDS: Omnipaque 350 MG/ML 100 ML BTL IJ (19:54)
--- NOTE | 2018-07-30 20:19 | DI.VRAD_ITS ---
EXAM: CT Abdomen and Pelvis With Contrast EXAM DATE/TIME: 07/30/2018 5:51 PM CLINICAL HISTORY: 52 years old, male; Signs and symptoms; Nausea and other: Epigastric pain; Prior surgery; Surgery date: 6+ months; Surgery type: Vascular stents TECHNIQUE: Axial computed tomography images of the abdomen and pelvis with intravenous contrast. All CT scans at this facility use at least one of these dose optimization techniques: automated exposure control; mA and/or kV adjustment per patient size (includes targeted exams where dose is matched to clinical indication); or iterative reconstruction. Coronal and sagittal reformatted images were created and reviewed. CONTRAST: 99 ml of [id number] administered intravenously. COMPARISON: CT ABD PELVIS WITH CONTRAST 01/01/2018 4:09 PM FINDINGS: Lower thorax: Moderately sized layering and partially visualized bilateral pleural effusions. Diffuse groundglass and patchy opacities seen in the lung bases. ABDOMEN: Liver: Liver is enlarged measuring 23 cm. Diffuse hepatic steatosis is suggested. No focal liver lesions or acute liver pathology is grossly noted. Gallbladder and bile ducts: Normal. No calcified stones. No ductal dilation. Pancreas: Normal. No ductal dilation. Spleen: 1.4 cm hypodense lesion in the midpole of the spleen is indeterminate. Spleen is otherwise unremarkable. Adrenals: Normal. No mass. Kidneys and ureters: Normal. No hydronephrosis. Stomach and bowel: Normal. No obstruction. No mucosal thickening. Appendix: No evidence of appendicitis. PELVIS: Bladder: Unremarkable as visualized. Reproductive: Unremarkable as visualized. ABDOMEN and PELVIS: Intraperitoneal space: Normal. No free air. No significant fluid collection. Bones/joints: No acute skeletal pathology. Mild multilevel degenerative changes of the spine, as manifested by multilevel anterior osteophytes and multilevel decrease in intervertebral disc space. Soft tissues: Unremarkable. Vasculature: The vasculature demonstrates diffuse mild atherosclerotic calcification. Lymph nodes: Normal. No enlarged lymph nodes. IMPRESSION: 1. Negative for acute abdominopelvic pathology. 2. Incidental findings as detailed above. Important note is made of partially visualized moderately sized bilateral pleural effusions with multifocal airspace disease at the lung bases favoring pulmonary edema. Superimposed infectious pneumonic process should be entertained in the appropriate clinical setting. Dictated and Authenticated by: Jaydon Wheeler MD. Ordering:RENÉ Kraus MD
[2018-07-30 21:05] VITALS: BP 126/99; PULSE 80; RESP 16; TEMP 37.1; O2SAT 93
== END 2018-07-30 20:45 | disposition home or self-care (01) ==
PROVIDERS: Emergency Provider Student in an Organized Health Care Education/Training Program; PCP Family Medicine
DX: R10.13 Epigastric pain (principal); R19.5 Other fecal abnormalities; R11.2 Nausea with vomiting, unspecified; N18.6 End stage renal disease; Z99.2 Dependence on renal dialysis; J44.9 Chronic obstructive pulmonary disease, unspecified
CPT/HCPCS: 36415; 80053; 83690; 93005; 96374; 96375; 99285; 74177; 84484; 85025; 93010; J2405; J3490

== ENCOUNTER 2018-07-31 20:43 | Emergency (ER) | payer MEDICAID, SELFPAY ==
[2018-07-31 20:53] VITALS: BP 101/54; PULSE 78; RESP 20; TEMP 37.6; O2SAT 98
--- NOTE | 2018-07-31 21:02 | ED.GENADUL_ITS ---
Discharge Plan Disposition Patient Disposition: HOME Condition: Stable Discharge Details Chief Complaint: Nausea/Vomit/Diar Clinical Impression: Epigastric abdominal pain, Nausea & vomiting Primary Care Provider: Gee Luke ED Provider: Dave White [place] Meds and New Rx's Prescriptions: New promethazine 25 mg suppository 25 mg DC Q6H PRN (Reason: nausea and vomiting) Qty: 12 RF: 0 Continued aspirin [Aspir-81] 81 mg tablet,delayed release (DR/EC) 81 mg PO DAILY Qty: 90 RF: 3 metoprolol succinate 100 mg tablet extended release 24 hr 100 mg PO DAILY Qty: 90 RF: 3 metolazone 2.5 mg tablet 2.5 mg PO ONCE PRN (Reason: Excessive fluid retention) Qty: 14 RF: 0 ferrous sulfate 325 mg (65 mg iron) tablet 325 mg PO DAILY Qty: 45 RF: 3 gabapentin 800 mg tablet 800 mg PO DAILY Qty: 60 RF: 3 oxygen concentrater Qty: 1 RF: 0 epinephrine [EpiPen 2-Chandu] 0.3 MG/0.3 ML auto-injector 0.3 mg IM PRN PRNRF: 0 fluoxetine [Prozac] 20 MG capsule 60 mg PO DAILY RF: 0 ProAir HFA 8.5 GM HFA aerosol inhaler 1 puff Inhalation Q4H PRN 30 Days Qty: 1 RF: 11 Advair Diskus 500-50 mcg/dose blister with device 1 inh IH BID RF: 0 esomeprazole magnesium 20 mg capsule,delayed release(DR/EC) 20 mg PO BID RF: 0 Spiriva with HandiHaler 18 mcg capsule, w/inhalation device 1 cap IH DAILY RF: 0 furosemide 80 mg tablet 80 mg PO BID Qty: 180 RF: 3 atorvastatin 80 mg tablet 80 mg PO DAILY Qty: 90 RF: 3 ondansetron HCl [Zofran] 4 mg tablet 4 mg PO TID PRN (Reason: nausea and vomiting) 5 Days Qty: 15 RF: 0 sevelamer carbonate [Renvela] 800 mg Tablet 1,600 mg PO AC RF: 0 Brilinta 90 mg Tablet 1 tab PO BID RF: 0 Discharge Instructions Instructions: Acute Nausea and Vomiting (ED), Epigastric Pain (ED) Additional Instructions: Clear liquids only for the next 12-24 hours. Continue current medications. Use Zofran or promethazine for nausea and vomiting. Follow-up with primary care this week for reevaluation. As per Dr. Kingsley's recommendations yesterday consideration for endoscopy should be discussed. Also need to follow-up on the apparent worsening bilateral pleural effusions. Return to ED for fever, chest pain, increasing shortness of breath, worsening abdominal pain, persistent vomiting. Referrals: Gee Luke DO [Primary Care Provider] - Medical Decision Making Patient with recurrent epigastric pain, nausea, vomiting. No chest pain and no increased shortness of breath. Diaphorectic but reports that it is related to feeling so crummy. Was that why last night as well. Uncomfortable but not in distress. Abdomen appears benign on exam tonight. Reviewed visit and imaging from last night. Nothing acute in abdomen. Has increaseing bilateral pleural effusions which when reviewing previous image reports has been steadily worsening since appearing about 1 or so ago. Bilateral lung base finding which also have been worsening. Patient denies fever, cough, SOB, CP. Had dialysis this afternoon. Will place IV and give small fluid bolus, medications and repeat labs. EKG done from triage has isoelectric limb lead QRS. No pericardial effusion noted last night. Patient repeat laboratory studies are not significantly different than yesterday. White count is just slightly more elevated. Hemoglobin is stable. Electrolytes are fine after dialysis. Lipase remains normal. Troponin is negative. He does not feel any better after little fluid bolus, Zofran, Protonix which made him better yesterday. Continues to have nausea and vomiting. Will try some Phenergan and reevaluate. Continues to intermittently have dry heaves. Reports continued epigastric pain. Received IV Pepcid and GI cocktail. Received repeat Zofran and IV Benadryl. Trying to get comfortable enough to be able to discharge. Continues to have no complaints of chest pain or difficulty breathing. At times is very comfortable and sleeping. Whenever I seem to wake him up he complains of pain and started dry heaving. Patient continues to occasionally has some dry heaves. However, he reports that the nausea is gone. Continues to complain of some epigastric pain but his abdomen is benign. Going to try to discharge home. He has Zofran ODT. We will also give Phenergan suppositories. Continue Nexium. Follow-up with primary care this week for reevaluation and consideration of endoscopy. Also discussed with patient and the bilateral pleural effusions that were found yesterday. Reiterated outpatient follow-up as Dr. Kingsley had discussed with him as well. Continues to deny chest pain or shortness of breath return to ED if he develops same. Return to ED if abdominal pain is worse vomits it is unable to stop. Medical Records Medical records reviewed: Yes I reviewed the patient's medical records. Lab Data Lab results reviewed: Yes I reviewed the patient's lab results. ECG Data Attestation: I personally reviewed and interpreted this ECG (s) as follows: Interpretation: Sinus rhythm at a rate of 72. Normal intervals. Isoelectric in limb leads. No acute ST changes. HPI General Mode of arrival: ambulatory . Date/Time Provider Initiated Documentation: 07/31/18 20:43 . Limitations to Documentation: no limitations . Information obtained by: patient, RN notes reviewed and old records reviewed . HPI Narrative: Patient presents to ED with recurrent epigastric pain, nausea and vomiting. He was seen here yesterday for same. He was fine all day. He went to dialysis. He got home around 5pm and had some noodles with butter and developed epigastric pain, nausea and vomiting. He took Zofran ODT and had no relief. He returns tonight because of persistent vomiting. He denies CP. He denies fever. He does not feel anymore SOB than usual. Related Data Home Medications Medication Instructions Recorded Confirmed epinephrine [EpiPen 2-Chandu] 0.3 mg IM PRN PRN 07/24/17 07/31/18 ProAir HFA 1 puff INHALATION Q4H PRN 30 Days 08/10/17 07/31/18 #1 inhaler fluoxetine [Prozac] 60 mg PO DAILY cap 08/10/17 07/31/18 esomeprazole magnesium 20 mg 20 mg PO BID cap 04/01/18 07/31/18 capsule,delayed release fluticasone 500 mcg-salmeterol 50 1 inh IH BID 04/01/18 07/31/18 mcg/dose blistr powdr for inhalation tiotropium bromide 18 mcg capsule 1 cap IH DAILY 04/01/18 07/31/18 with inhalation device aspirin 81 mg tablet,delayed 81 mg PO DAILY #90 tab 04/23/18 07/31/18 release metoprolol succinate ER 100 mg 100 mg PO DAILY #90 tab 04/23/18 07/31/18 tablet,extended release 24 hr Brilinta 1 tab PO BID 05/10/18 07/31/18 gabapentin 800 mg tablet 800 mg PO DAILY #60 tab 05/14/18 07/31/18 sevelamer carbonate [Renvela] 1,600 mg PO AC 05/20/18 07/31/18 ferrous sulfate 325 mg (65 mg 325 mg PO DAILY #45 tab 05/31/18 07/31/18 iron) tablet metolazone 2.5 mg tablet 2.5 mg PO ONCE PRN #14 tab 05/31/18 07/31/18 atorvastatin 80 mg tablet 80 mg PO DAILY #90 tab 06/21/18 07/31/18 furosemide 80 mg tablet 80 mg PO BID #180 tab 06/21/18 07/31/18 oxygen concentrater #1 ea 07/29/18 07/29/18 ondansetron HCl 4 mg tablet 4 mg PO TID PRN 5 Days #15 tab 07/30/18 07/31/18 promethazine 25 mg DC Q6H PRN #12 each 08/01/18 Previous Rx's Medication Instructions Recorded ProAir HFA 1 puff INHALATION Q4H PRN 30 Days 08/10/17 #1 inhaler aspirin 81 mg tablet,delayed 81 mg PO DAILY #90 tab 04/23/18 release metoprolol succinate ER 100 mg 100 mg PO DAILY #90 tab 04/23/18 tablet,extended release 24 hr gabapentin 800 mg tablet 800 mg PO DAILY #60 tab 05/14/18 ferrous sulfate 325 mg (65 mg 325 mg PO DAILY #45 tab 05/31/18 iron) tablet metolazone 2.5 mg tablet 2.5 mg PO ONCE PRN #14 tab 05/31/18 atorvastatin 80 mg tablet 80 mg PO DAILY #90 tab 06/21/18 furosemide 80 mg tablet 80 mg PO BID #180 tab 06/21/18 oxygen concentrater #1 ea 07/29/18 ondansetron HCl 4 mg tablet 4 mg PO TID PRN 5 Days #15 tab 07/30/18 promethazine 25 mg DC Q6H PRN #12 each 08/01/18 Allergies Allergy/AdvReac Type Severity Reaction Status Date / Time bee venom protein (honey bee) Allergy Severe throat Verified 07/31/18 21:03 swelling aspirin AdvReac Severe bleeding Verified 07/31/18 21:03 General JOSEPH: 2 Review of Systems Constitutional Reports excessive sweating (chronic), Denies fatigue, Denies fever(s), Denies headache(s), Denies lethargy and Denies weakness Eyes Denies eye discharge and Denies eye pain ENT Denies otalgia, Denies headache(s), Denies nasal congestion, Denies sinus pain and Denies sore throat Cardiovascular Denies chest pain, Reports diaphoresis, Denies syncope, Denies lightheadedness, Denies radiating jaw, neck or arm pain and Reports dyspnea (chronic no worse) Respiratory Denies cough and Reports dyspnea (chronic no worse) Gastrointestinal Reports abdominal pain (epigastric pain), Denies diarrhea, Reports nausea and Reports vomiting Musculoskeletal Denies back pain, Denies myalgias, Denies arthralgias and Denies numbness Integumentary/Breasts Denies erythema and Denies rash Neurologic Denies confusion, Denies syncope, Denies headache(s), Denies focal weakness, Denies numbness and Denies weakness Psychiatric Denies confusion Endocrine Reports excessive sweating (chronic) and Denies fatigue [facility] Medical History End stage chronic kidney disease (Chronic) Atrial fibrillation with RVR (Chronic) Renal failure (Chronic) STEMI (ST elevation myocardial infarction) (Chronic) Acute respiratory failure with hypoxia (Resolved) Surgical History Stented coronary artery (Chronic) Encounter for gastrojejunal (GJ) tube placement (Acute 02/23/18) Hx of echocardiogram (Acute 03/08/18) Arthroplasty of knee Repair of umbilical hernia Tonsillectomy and adenoidectomy cardiac catherization (01/01/18) cardiac catherization (01/05/18) echocardiogram (01/06/18) Social History household members: spouse lives independently: No (needs assist) number of children: 2 what type of physical activity do you participate in: none Smoking and Tabacco status: Former Tobacco Use alcohol intake: former substance use type: marijuana Seatbelt use: always 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 working smoke detector in home: Yes fire extinguisher in home: Yes carbon monox detector in home: Yes Exam Const General: cooperative and uncomfortable Nutritional Appearance: obese Orientation: alert and oriented x3 HENMT Mouth: moist mucous membranes Neck Neck: full ROM, trachea midline and supple Resp Effort & Inspection: normal respiratory effort Auscultation: no rales, rhonchi lower bilaterally (few/scattered) and no wheezes Cardio Rate: regular rate Rhythm: regular rhythm Heart Sounds: S1 normal and S2 normal GI Inspection: normal to inspection and non-distended Palpation: soft, not firm, no guarding and nontender Skin Rashes: no rashes Other: diaphorectic Neuro General: alert, oriented x3, no focal motor deficits and CN's II-XI intact bilaterally Extrem General: full ROM
[2018-07-31 21:49] LABS: Abs Immature Grans 0.06 k/cumm (0.0-0.09); HCT 36.5 % (40.0-50.0); HGB 11.1 g/dL (13.5-17.5); Mean Corp. HGB Concentration 30.4 g/dL (32.0-36.0); Mean Corpuscular Hemoglobin 30.7 pg (27.0-33.0); Mean Corpuscular Volume 101.1 fL (80-95); Mean Platelet Volume 10.5 fL (8.0-11.0); Platelet Count 292 x1000/uL (130-400); RBC 3.61 m/cumm (4.50-6.00); White Blood Cell Count 13.61 k/cumm (4.4-10.8)
[2018-07-31] MEDS: Lactated Ringers 500 ML IV (21:57)
[2018-07-31] MEDS: Pantoprazole 40 MG VIAL IVP (21:58)
[2018-07-31] MEDS: Ondansetron 4 MG/2 ML VIAL IVP (21:58)
[2018-07-31] MEDS: Normal Saline Flush 10 ML SYR IVP (21:59)
[2018-07-31 22:05] LABS: ALT 21 U/L (12-78); AST 22 U/L (15-37); Albumin 3.1 g/dL (3.4-5.0); Alkaline Phosphatase 73 U/L (46-116); Anion Gap 15.2 mmol/L (3-11); BUN 14 mg/dL (7-18); Bilirubin, Total 1.1 mg/dL (0.2-1.0); CO2 26.8 mmol/L (21.0-32.0); Calcium 9.3 mg/dL (8.5-10.1); Chloride 96 mmol/L (98-107); Estimated GFR 14.16 (mL/min/1.73m2); Glucose 119 mg/dL (70-100); Lipase 75 U/L (73-393); Magnesium 1.8 mg/dL (1.8-2.4); Potassium 3.7 mmol/L (3.5-5.1); Sodium 138 mmol/L (136-145); Total Protein 8.1 g/dL (6.4-8.2); Troponin I < 0.02 ng/mL (0.00-0.06)
[2018-07-31 22:24] LABS: Absolute Eosinophil Count 0.27 k/cumm (0.0-0.7); Absolute Lymphocyte Count 2.18 k/cumm (1.2-3.4); Absolute Monocyte Count 1.36 k/cumm (0.11-0.7)
[2018-07-31 22:26] LABS: Anisocytosis 1+; Diff Comment Manual Differential; Hypochromasia 1+; Macrocytosis 1+; Nucleated RBC 2 /100WBC
[2018-07-31 22:27] LABS: Poikilocytes 1+; Polychromasia Present
[2018-07-31] MEDS: FAMOTIDINE 20 MG/50 ML BAG 200 MG IVPB (23:40)
[2018-08-01] MEDS: diphenhydrAMINE 50 MG/ML VIAL 25 MG IVP (01:29)
[2018-08-01] MEDS: Ondansetron 4 MG/2 ML VIAL IVP (01:30)
[2018-08-01] MEDS: Normal Saline Flush 10 ML SYR IVP (01:30)
[2018-08-01 02:36] VITALS: BP 124/87; PULSE 79; RESP 20; O2SAT 95
[2018-08-02 08:56] LABS: CREATININE 4.41 mg/dL (0.70-1.30)
== END 2018-08-01 02:33 | disposition home or self-care (01) ==
PROVIDERS: Emergency Provider Emergency Medicine; PCP Family Medicine
DX: R10.13 Epigastric pain (principal); R11.2 Nausea with vomiting, unspecified
CPT/HCPCS: 36415; 80053; 83690; 93005; 96361; 96365; 96367; 96375; 96376; 99284; 83735; 84484; 85025; 93010; J1200; J2405

== ENCOUNTER 2018-08-21 02:54 | Outpatient (RCR) | payer MEDICAID, SELFPAY | END 2018-09-19 23:59 | disposition home or self-care (01) | LOC: CR 02:54 | PROVIDERS: PCP Family Medicine; Visit Provider Family Medicine | DX: Z51.89 Encounter for other specified aftercare (principal) ==

== ENCOUNTER 2018-09-04 15:49 | Emergency (ER) | payer MEDICAID, SELFPAY ==
[2018-09-04] VITALS (61 sets, daily range): BP systolic 100–154; BP diastolic 63–103; PULSE 81–89; RESP 11–33; TEMP 36.5; O2SAT 94–100
--- NOTE | 2018-09-04 16:01 | ED.GENADUL_ITS ---
Discharge Plan Disposition Patient Disposition: HOME Condition: Improving Discharge Details Chief Complaint: Abd Prob Clinical Impression: Gastritis Primary Care Provider: Gee Luke ED Provider: Papo Umaña Home Meds and New Rx's Prescriptions: Continued metoprolol succinate 100 mg tablet extended release 24 hr 100 mg PO DAILY Qty: 90 RF: 3 metolazone 2.5 mg tablet 2.5 mg PO ONCE PRN (Reason: Excessive fluid retention) Qty: 14 RF: 0 ferrous sulfate 325 mg (65 mg iron) tablet 325 mg PO DAILY Qty: 45 RF: 3 promethazine 25 mg suppository 25 mg ND Q6H PRN (Reason: nausea and vomiting) Qty: 12 RF: 3 gabapentin 800 mg tablet 800 mg PO DAILY Qty: 60 RF: 3 oxygen concentrater Qty: 1 RF: 0 epinephrine [EpiPen 2-Chandu] 0.3 MG/0.3 ML auto-injector 0.3 mg IM PRN PRNRF: 0 fluoxetine [Prozac] 20 MG capsule 60 mg PO DAILY RF: 0 albuterol sulfate [ProAir HFA] 8.5 GM HFA aerosol inhaler 1 puff Inhalation Q4H PRN 30 Days Qty: 1 RF: 11 fluticasone propion-salmeterol [Advair Diskus] 500-50 mcg/dose blister with device 1 inh IH BID RF: 0 esomeprazole magnesium 20 mg capsule,delayed release(DR/EC) 20 mg PO BID RF: 0 Spiriva with HandiHaler 18 mcg capsule, w/inhalation device 1 cap IH DAILY RF: 0 furosemide 80 mg tablet 80 mg PO BID Qty: 180 RF: 3 atorvastatin 80 mg tablet 80 mg PO DAILY Qty: 90 RF: 3 dronabinol [Marinol] 5 mg capsule 5 mg PO BID RF: 0 lorazepam 0.5 mg tablet 0.25 mg PO TID PRNRF: 0 sevelamer carbonate [Renvela] 800 mg Tablet 1,600 mg PO AC RF: 0 Brilinta 90 mg Tablet 1 tab PO BID RF: 0 Discharge Instructions Instructions: Gastritis (ED) Additional Instructions: Continue your regular medications. Small, frequent sips of fluids or ice chips at home. May use the provided Zofran if needed for nausea. Continue regular medications as previously prescribed. Return if you develop fever, recurrent inability to take liquids, or any other acute concerns. Medical Decision Making 52-year-old male presents from home with nausea and intermittent episodes of emesis with associated mild burning epigastric discomfort. He underwent unremarkable dialysis run earlier in the day. He was recently admitted to [facility] for influenza and feels that his cough and shortness of breath have improved. He is afebrile and with normal vital signs. IV placed, labs obtained, patient given antiemetic, PPI, 250 cc of IV fluid and small aliquot of morphine. Labs reveal a white blood cell count of 9, hematocrit 38, platelets 290. Sodium 135, potassium 3.1, chloride 94, bicarb 25. BUN 23, creatinine is 6.1. AST and ALT are negative, lipase less than 200. Following small fluid bolus, patient able to take ice chips by mouth. He felt improved, requested discharge to home. He does have a history of gastritis and feel this is most consistent with today's presentation. Discussed with him re turn precautions. He will follow-up for scheduled dialysis and routine care as previously planned Lab Data Lab results reviewed: Yes I reviewed the patient's lab results. Laboratory Results - last 24 hr 09/04/18 09/04/18 09/04/18 15:03 15:03 15:03 WBC 9.25 RBC 4.21 L Hgb 12.5 L Hct 38.5 L MCV 91.4 MCH 29.7 MCHC 32.5 RDW 18.1 H Plt Count 290 MPV 11.5 H Immature Gran % 0.3 Neutrophils % 67.0 Lymphocytes % 17.6 Monocytes % 11.5 Eosinophils % 2.2 Basophils % 1.4 Absolute Neutrophils 6.20 Absolute Lymphocytes 1.63 Absolute Monocytes 1.06 H Absolute Eosinophils 0.20 Absolute Basophils 0.13 Sodium 135 L Potassium 3.1 L Chloride 94 L Carbon Dioxide 25.7 Anion Gap 15.3 H BUN 23 H Creatinine 6.17 H* Estimated GFR/1.73 m2 9.61 Glucose 70 Calcium 9.6 Magnesium 1.9 Total Bilirubin 1.3 H AST 36 ALT 31 Alkaline Phosphatase 96 Total Protein 9.6 H Albumin 3.6 Lipase 191 HPI General Mode of arrival: ambulatory . Date/Time Provider Initiated Documentation: 09/04/18 16:31 . Limitations to Documentation: no limitations . Information obtained by: patient . History of Present Illness 52 year old M presents to the emergency department with the chief complaint of Epigastric pain and vomiting over hours to days, described as similar to prior episodes, Quality is described as dull, and is localized to the abdomen. Patient reports no radiation. Patient started experiencing this day(s) and it has been intermittent. Rest improves symptom(s), Eating worsens symptoms . Patient notes denies fever/chills. Patient did receive the following treatments prior to arrival, none and other (Had dialysis earlier this morning.) Related Data Home Medications Medication Instructions Recorded Confirmed epinephrine [EpiPen 2-Chandu] 0.3 mg IM PRN PRN 07/24/17 09/04/18 albuterol sulfate [ProAir HFA] 1 puff INHALATION Q4H PRN 30 Days 08/10/17 09/04/18 #1 inhaler fluoxetine [Prozac] 60 mg PO DAILY cap 08/10/17 09/04/18 esomeprazole magnesium 20 mg 20 mg PO BID cap 04/01/18 09/04/18 capsule,delayed release fluticasone 500 mcg-salmeterol 50 1 inh IH BID 04/01/18 09/04/18 mcg/dose blistr powdr for inhalation tiotropium bromide 18 mcg capsule 1 cap IH DAILY 04/01/18 09/04/18 with inhalation device metoprolol succinate ER 100 mg 100 mg PO DAILY #90 tab 04/23/18 09/04/18 tablet,extended release 24 hr Brilinta 1 tab PO BID 05/10/18 09/04/18 gabapentin 800 mg tablet 800 mg PO DAILY #60 tab 05/14/18 09/04/18 sevelamer carbonate [Renvela] 1,600 mg PO AC 05/20/18 09/04/18 ferrous sulfate 325 mg (65 mg 325 mg PO DAILY #45 tab 05/31/18 09/04/18 iron) tablet metolazone 2.5 mg tablet 2.5 mg PO ONCE PRN #14 tab 05/31/18 09/04/18 atorvastatin 80 mg tablet 80 mg PO DAILY #90 tab 06/21/18 09/04/18 furosemide 80 mg tablet 80 mg PO BID #180 tab 06/21/18 09/04/18 oxygen concentrater #1 ea 07/29/18 09/04/18 promethazine 25 mg rectal 25 mg ND Q6H PRN #12 each 08/02/18 09/04/18 suppository dronabinol 5 mg capsule 5 mg PO BID 08/31/18 09/04/18 lorazepam 0.5 mg tablet 0.25 mg PO TID PRN tab 08/31/18 09/04/18 Previous Rx's Medication Instructions Recorded albuterol sulfate [ProAir HFA] 1 puff INHALATION Q4H PRN 30 Days 08/10/17 #1 inhaler metoprolol succinate ER 100 mg 100 mg PO DAILY #90 tab 04/23/18 tablet,extended release 24 hr gabapentin 800 mg tablet 800 mg PO DAILY #60 tab 05/14/18 ferrous sulfate 325 mg (65 mg 325 mg PO DAILY #45 tab 05/31/18 iron) tablet metolazone 2.5 mg tablet 2.5 mg PO ONCE PRN #14 tab 05/31/18 atorvastatin 80 mg tablet 80 mg PO DAILY #90 tab 06/21/18 furosemide 80 mg tablet 80 mg PO BID #180 tab 06/21/18 oxygen concentrater #1 ea 07/29/18 promethazine 25 mg rectal 25 mg ND Q6H PRN #12 each 08/02/18 suppository Allergies Allergy/AdvReac Type Severity Reaction Status Date / Time bee venom protein (honey bee) Allergy Severe throat Verified 09/04/18 15:51 swelling aspirin AdvReac Severe bleeding Verified 09/04/18 15:51 General Stated Complaint: Abd Prob JOSEPH: 3 Review of Systems Review of Systems 8 systems reviewed and otherwise negative [facility] Medical History End stage chronic kidney disease (Chronic) Atrial fibrillation with RVR (Chronic) Renal failure (Chronic) STEMI (ST elevation myocardial infarction) (Chronic) Acute respiratory failure with hypoxia (Resolved) Surgical History Stented coronary artery (Chronic) Encounter for gastrojejunal (GJ) tube placement (Acute 02/23/18) Hx of echocardiogram (Acute 03/08/18) Arthroplasty of knee Repair of umbilical hernia Tonsillectomy and adenoidectomy cardiac catherization (01/01/18) cardiac catherization (01/05/18) echocardiogram (01/06/18) Family History Mother Essential hypertension Father Essential hypertension Osteoporosis Sister Neoplasm Paternal Uncle Neoplasm Paternal Uncle Neoplasm Paternal Grandfather Diabetes Stroke Social History Smoking/Tobacco Use Status: Former Tobacco Use Alcohol Intake: never Drug use: Daily Substance use type: marijuana Household members: spouse Seatbelt use: always 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 Pleasant, well groomed, interactive. HEAD: Normocephalic, atraumatic ENT: Mucous membranes dry, oropharynx unremarkable, External ear exam unremarkable EYES: PERRL, EOMI NECK: Full ROM, no LIANA, no menigismus CHEST/RESP: Right chest catheter clean dry and intact nontender, clear to auscultation bilateral, no wheeze/rhonchi/rales CARDIOVASCULAR: RRR, no murmur, rub adele. 2+ Rad pulse bilateral ABDOMEN: Soft, minimal epigastric tenderness, no mass. +Bowel sounds EXT: Full ROM, no edema, no rash Neuro: Grossly normal neurologic exam, conversant, interactive. Psych: Speech fluent, thoughts congruent, affect normal Course Vital Signs Temperature 36.5 C 09/04/18 15:49 Pulse 89 09/04/18 15:49 Respiratory Rate 18 09/04/18 15:49 Pulse Oximetry 100 09/04/18 15:49 Temperature 36.5 C 09/04/18 15:49 Temperature Source Temporal Artery Scan 09/04/18 15:49 Pulse 89 09/04/18 15:49 Respiratory Rate 18 09/04/18 15:49 Respiratory Effort Non-Labored 09/04/18 15:53 Blood Pressure Position Sitting 09/04/18 15:49 Pulse Oximetry 100 09/04/18 15:49 Oxygen Delivery Method Room Air 09/04/18 15:49 Oxygen Flow Rate 0 09/04/18 15:49 Pain Level 8 09/04/18 15:53
[2018-09-04] MEDS: Pantoprazole 40 MG VIAL IVP (16:15)
[2018-09-04] MEDS: Ondansetron 4 MG/2 ML VIAL IVP (16:15)
[2018-09-04] MEDS: MORPHine 10 MG/ML VIAL 2 MG IVP ×3 (16:15→17:28)
[2018-09-04 16:33] LABS: Abs Immature Grans 0.03 k/cumm (0.0-0.09); Absolute Basophil Count 0.13 k/cumm (0.0-0.2); Absolute Lymphocyte Count 1.63 k/cumm (1.2-3.4); Absolute Monocyte Count 1.06 k/cumm (0.11-0.7); Basophils % 1.4; Eosinophils % 2.2; HCT 38.5 % (40.0-50.0); HGB 12.5 g/dL (13.5-17.5); Immature Grans % 0.3; Lymphocytes % 17.6; Mean Corp. HGB Concentration 32.5 g/dL (32.0-36.0); Mean Corpuscular Hemoglobin 29.7 pg (27.0-33.0); Mean Corpuscular Volume 91.4 fL (80-95); Mean Platelet Volume 11.5 fL (8.0-11.0); Monocytes % 11.5; Platelet Count 290 x1000/uL (130-400); RBC 4.21 m/cumm (4.50-6.00); RBC Distribution Width 18.1 % (11.8-14.1); White Blood Cell Count 9.25 k/cumm (4.4-10.8)
[2018-09-04 16:45] LABS: Lipase 191 U/L (73-393); Magnesium 1.9 mg/dL (1.8-2.4)
[2018-09-04 16:47] LABS: ALT 31 U/L (12-78); AST 36 U/L (15-37); Albumin 3.6 g/dL (3.4-5.0); Alkaline Phosphatase 96 U/L (46-116); Anion Gap 15.3 mmol/L (3-11); BUN 23 mg/dL (7-18); Bilirubin, Total 1.3 mg/dL (0.2-1.0); CO2 25.7 mmol/L (21.0-32.0); Calcium 9.6 mg/dL (8.5-10.1); Chloride 94 mmol/L (98-107); Estimated GFR 9.61 (mL/min/1.73m2); Glucose 70 mg/dL (70-100); Potassium 3.1 mmol/L (3.5-5.1); Sodium 135 mmol/L (136-145); Total Protein 9.6 g/dL (6.4-8.2)
[2018-09-04 16:52] LABS: CREATININE 6.17 mg/dL (0.70-1.30)
--- NOTE | 2018-09-04 17:34 | NUR.NOTE ---
pt given gi cocktail shortly after taking GI cocktail PT vomit 6 min post vomit PT stated that his abdominal pain was gone
[2018-09-04] MEDS: Ondansetron O.D.T. 4 MG TABEF PO (17:47)
== END 2018-09-04 17:54 | disposition home or self-care (01) ==
PROVIDERS: Emergency Provider Emergency Medicine; PCP Family Medicine
DX: K52.9 Noninfective gastroenteritis and colitis, unspecified (principal)
CPT/HCPCS: 36415; 80053; 83690; 96361; 96374; 96375; 96376; 99284; 83735; 85025; J2270; J2405

== ENCOUNTER 2018-10-14 12:41 | Emergency (ER) | payer MEDICAID, SELFPAY ==
[2018-10-14] VITALS (62 sets, daily range): BP systolic 87–148; BP diastolic 55–121; PULSE 48–75; RESP 13–35; TEMP 36.3; O2SAT 81–100
--- NOTE | 2018-10-14 12:46 | W.ED.GENAD ---
Discharge Plan Disposition Patient Disposition: HOME Condition: Improving Discharge Details Chief Complaint: Abd Prob Clinical Impression: Recurrent abdominal pain, Nausea & vomiting Primary Care Provider: Gee Luke ED Provider: Bri Larsen Home Meds and New Rx's Prescriptions: Continued metolazone 2.5 mg tablet 2.5 mg PO ONCE PRN (Reason: Excessive fluid retention) Qty: 14 RF: 0 ferrous sulfate 325 mg (65 mg iron) tablet 325 mg PO DAILY Qty: 45 RF: 3 promethazine 25 mg suppository 25 mg MT Q6H PRN (Reason: nausea and vomiting) Qty: 12 RF: 3 clonazepam 0.5 mg tablet 0.25 mg PO BID Qty: 28 RF: 0 metoprolol tartrate 50 mg tablet 50 mg PO BID Qty: 60 RF: 3 gabapentin 800 mg tablet 800 mg PO DAILY Qty: 60 RF: 3 oxygen concentrater Qty: 1 RF: 0 epinephrine [EpiPen 2-Chandu] 0.3 MG/0.3 ML auto-injector 0.3 mg IM PRN PRNRF: 0 fluoxetine [Prozac] 20 MG capsule 60 mg PO DAILY RF: 0 albuterol sulfate [ProAir HFA] 8.5 GM HFA aerosol inhaler 1 puff Inhalation Q4H PRN 30 Days Qty: 1 RF: 11 fluticasone propion-salmeterol [Advair Diskus] 500-50 mcg/dose blister with device 1 inh IH BID RF: 0 Spiriva with HandiHaler 18 mcg capsule, w/inhalation device 1 cap IH DAILY RF: 0 furosemide 80 mg tablet 80 mg PO BID Qty: 180 RF: 3 omeprazole magnesium 20 mg tablet,delayed release (DR/EC) 20 mg PO DAILY Qty: 90 RF: 3 esomeprazole magnesium [Nexium] 20 mg capsule,delayed release(DR/EC) 20 mg PO BID RF: 0 aspirin [Adult Low Dose Aspirin] 81 mg tablet,delayed release (DR/EC) 81 mg PO DAILY RF: 0 epinephrine [EpiPen] 0.3 mg/0.3 mL auto-injector 0.3 mg IM ONCE PRNRF: 0 sevelamer carbonate [Renvela] 800 mg Tablet 1,600 mg PO AC RF: 0 Brilinta 90 mg Tablet 1 tab PO BID RF: 0 No Action atorvastatin 80 mg tablet 80 mg PO DAILY Qty: 90 RF: 3 Nephrocaps 1 mg capsule 1 cap PO DAILY Qty: 90 RF: 3 Discharge Instructions Instructions: Acute Nausea and Vomiting (ED), Abdominal Pain (ED) Additional Instructions: Encourage hydration. Promethazine as prescribed for nausea/vomiting. You have appointment for dialysis tomorrow morning at 7:30AM. Please contact PCP to make follow up appointment as soon as possible. If you develop new/worsening symptoms please seek care urgently once again. Referrals: Gee Luke DO [Primary Care Provider] - Discharge Data Discharge Date/Time-TO BE ENTERED AT DEPARTURE: 10/14/18 19:52 Medical Decision Making <ANGEL Herrera - Last Filed: 10/16/18 16:03> Patient is a 52 year old malre presenting today, via EMS and accompanied by , with chief complaint of abdominal pain associated nausea and vomiting. Reports that discomfort began this morning at 0700. Is primarily indicated in the left upper quadrant as area of discomfort although pain seems fairly diffuse on exam. States that he is vomited x4. Denies any hematemesis. No change in bowel habits. Reports he is urinated x3 today. Patient is on dialysis and is due for dialysis today. Was last dialyzed on Thursday. Patient has history of STEMI, cardiogenic shock, COPD, mitral valve insufficiency, CHF, CKD, A. fib, anemia, STEVE, hyperlipidemia, GERD. Reviewing the patient's chart, he has been here almost every month for quite some time for this ailment. He reports it is recurrent and does feel similar each time reporting 10 on 10 pain. Unclear etiology. reports that he was hospitalized in July at [facility] [place] for influenza and at that time they did try to evaluate the patient had recurrent abdominal issues but report that they are unable to find underlying cause. Surgical history is pertinent for hernia repair. reports that he has another hernia but secondary to his chronic health conditions he is not a candidate for surgery at this time. Patient does smoke marijuana daily and has done so for years, reports that typically he uses this for his nausea. On exam, patient is holding emesis bag and bending forward. Appears uncomfortable. Appears chronically ill. Abdomen is diffusely tender. Worse in the epigastric and LUQ. No gaurding or rebound tenderness. No back pain. No rash. Lungs clear. EKG reviewed by Dr. Garcia. He compared to previous no acute abnormality noted. Please see his documentation Creatinine is noted to be 6.8. Patient is known end-stage renal disease and is currently a dialysis patient. Is due for dialysis today she did not go to secondary to his acute illness. Patient is known to me with a hemoglobin of 9.8, this is fairly baseline for the patient. Troponin is less than 0.02. Lipase is 48 Discussed these findings with the patient. He feels that his pain is now to a 7 out of 10. Reported that his nausea was improved but after eating ice chips was in the room the nausea returned. Will augment previous medications with Phenergan and 2 mg of morphine. I did contact the dialysis center and they are able to see him this afternoon once we are able to make him comfortable. Spoke with patients PCP, Dr. Luke. We discussed GI f/u. Patient has been scheduled for an endoscopy that was hospitalized 10 the procedures was to be completed. He will try to rearrange for GI follow-up. As discussed the possibility of cyclical vomiting syndrome secondary to cannabinoid use. He was unaware that the patient was using marijuana currently. He will reassess this further with the patient. Spoke with patient again and he continues to endorse severe discomfort and nausea. He does appear to be sleeping intermittently and I have not witnessed any vomiting. However, given his continued discomfort and plan to CT the patient. Patient had negative CT, I reviewed the CT and not see any evidence of surgical abdomen. Awaiting radiology report. In the meantime, I discussed case with Dr. Garcia, particular we discussed methods to help assist her for continued nausea. Plan to give 2 mg of Haldol. Halodol was successful at alleviating his symtpoms, feeling much improved. CT reviewed by radiologist: ABDOMEN: Liver: Hepatomegaly remains noted. Gallbladder and bile ducts: Normal. No calcified stones. No ductal dilation. Pancreas: Normal. No ductal dilation. Spleen: A 1.5 cm cystic structure in the spleen is again seen. This is slightly more conspicuous than on prior exam. Adrenals: Bulky appearance to the left adrenal gland, unchanged. Kidneys and ureters: Mild left greater than right perinephric stranding, similar to prior exam. This can be seen chronically or with infection. No hydronephrosis. Stomach and bowel: No evidence of obstruction. A portion of the sigmoid colon on series 2 image 73 demonstrates wall prominence. Appendix: No evidence of appendicitis. PELVIS: Bladder: Urinary bladder wall prominence. Reproductive: Prostate calcifications. ABDOMEN and PELVIS: Intraperitoneal space: No free air. There is a new small amount of free fluid in the pelvis, series 2 image 75. Bones/joints: Lucent rounded lesion in the left femur (image 88) is unchanged. This has a benign appearance. There are skeletal degenerative changes. Soft tissues: Fat-containing umbilical hernia and right inguinal hernia. Vasculature: Vascular calcifications. Lymph nodes: Normal. No enlarged lymph nodes. IMPRESSION: 1. Some wall prominence to a portion of the sigmoid colon. This can be seen with under distention but should be correlated with any concern for colitis, as there is a new small amount of adjacent free fluid. 2. Large right and moderate left pleural effusion with persistent groundglass opacities at the lung bases and centralized patchy opacities, possibly related to pulmonary edema. 3. Some nodular opacities in the right lower lung. These have decreased from prior examination. Findings could represent a resolving or recurrent infectious process. Followup suggested. 4. Urinary bladder wall prominence. This can be seen with infection or underdistention. There is also some mild perinephric stranding, similar to prior exam. Other findings as above. Discussed these findings with the patient and his family. They are well aware of the effusions. Will consult with general surgery. Consulted with Dr. Victor who came to evaluate the patient. She does not feel that this is a surgical issue at this time, advised he will need otupatient f/u for his recurrent abdominal pain and emesis. She advised that he will need EGE and colonoscopy. I had consulted with PCP earlier who will help to arrange for this as an outpatient. She advised oral phenergan for nausea. Discussed this plan with the patient who is in agreement. We arranged for dialysis tomorrow morning, relayed this to the patient. Discussed new/worsening symptoms and when to seek care urgently once again. All of their questions and concerns were addressed, he is in agrement with this plan. <Simon Garcia MD - Last Filed: 10/14/18 18:37> ECG Data Attestation: I personally reviewed and interpreted this ECG (s) as follows: Prior ECG tracings: not available for review Interpretation: sinus rhythm, rate of 68, pr 182, no acute st twave ischemic findings HPI <ANGEL Herrera - Last Filed: 10/16/18 16:03> General Mode of arrival: EMS. Date/Time Provider Initiated Documentation: 10/14/18 12:43. Limitations to Documentation: no limitations. Information obtained by: patient, family, EMS and RN notes reviewed. History of Present Illness 52 year old M presents to the emergency department with the chief complaint of abdominal pain, nausea/vomiting, described as severe, with intensity rated at 10. Quality is described as sharp, and is localized to the abdomen. Patient reports no radiation. Patient started experiencing this hour(s) (0700) and it has been constant. No relieving factors improve symptom(s), No exacerbating factors reported . Patient notes loss of appetite and nausea/vomiting (vomited x 4); denies chest pain, cough, fever/chills, headaches, rash, shortness of breath, syncope and weakness. Patient did receive the following treatments prior to arrival, other (odt zofran, rectal phenergan) Related Data Home Medications Medication Instructions Recorded Confirmed epinephrine [EpiPen 2-Chandu] 0.3 mg IM PRN PRN 07/24/17 10/15/18 albuterol sulfate [ProAir HFA] 1 puff INHALATION Q4H PRN 30 Days 08/10/17 10/15/18 #1 inhaler fluoxetine [Prozac] 60 mg PO DAILY cap 08/10/17 10/15/18 fluticasone 500 mcg-salmeterol 50 1 inh IH BID 04/01/18 10/15/18 mcg/dose blistr powdr for inhalation tiotropium bromide 18 mcg capsule 1 cap IH DAILY 04/01/18 10/15/18 with inhalation device Brilinta 1 tab PO BID 05/10/18 10/15/18 gabapentin 800 mg tablet 800 mg PO DAILY #60 tab 05/14/18 10/15/18 sevelamer carbonate [Renvela] 1,600 mg PO AC 05/20/18 10/15/18 ferrous sulfate 325 mg (65 mg 325 mg PO DAILY #45 tab 05/31/18 10/15/18 iron) tablet metolazone 2.5 mg tablet 2.5 mg PO ONCE PRN #14 tab 05/31/18 10/15/18 furosemide 80 mg tablet 80 mg PO BID #180 tab 06/21/18 10/15/18 oxygen concentrater #1 ea 07/29/18 10/15/18 promethazine 25 mg rectal 25 mg MT Q6H PRN #12 each 08/02/18 10/15/18 suppository omeprazole magnesium 20 mg 20 mg PO DAILY #90 tab 09/14/18 10/15/18 tablet,delayed release metoprolol tartrate 50 mg tablet 50 mg PO BID #60 tab 09/23/18 10/14/18 clonazepam 0.5 mg tablet 0.25 mg PO BID #28 tab 10/08/18 10/15/18 aspirin 81 mg tablet,delayed 81 mg PO DAILY 10/13/18 10/15/18 release epinephrine 0.3 mg/0.3 mL 0.3 mg IM ONCE PRN 10/13/18 10/15/18 injection, auto-injector esomeprazole magnesium 20 mg 20 mg PO BID cap 10/13/18 10/15/18 capsule,delayed release atorvastatin 80 mg tablet 80 mg PO DAILY #90 tab 10/15/18 10/15/18 vitamin B complex and vitamin C 1 cap PO DAILY #90 cap 10/15/18 10/15/18 no.20-folic acid 1 mg capsule Previous Rx's Medication Instructions Recorded albuterol sulfate [ProAir HFA] 1 puff INHALATION Q4H PRN 30 Days 08/10/17 #1 inhaler gabapentin 800 mg tablet 800 mg PO DAILY #60 tab 05/14/18 ferrous sulfate 325 mg (65 mg 325 mg PO DAILY #45 tab 05/31/18 iron) tablet metolazone 2.5 mg tablet 2.5 mg PO ONCE PRN #14 tab 05/31/18 furosemide 80 mg tablet 80 mg PO BID #180 tab 06/21/18 oxygen concentrater #1 ea 07/29/18 promethazine 25 mg rectal 25 mg MT Q6H PRN #12 each 08/02/18 suppository omeprazole magnesium 20 mg 20 mg PO DAILY #90 tab 09/14/18 tablet,delayed release metoprolol tartrate 50 mg tablet 50 mg PO BID #60 tab 09/23/18 clonazepam 0.5 mg tablet 0.25 mg PO BID #28 tab 10/08/18 atorvastatin 80 mg tablet 80 mg PO DAILY #90 tab 10/15/18 vitamin B complex and vitamin C 1 cap PO DAILY #90 cap 10/15/18 no.20-folic acid 1 mg capsule Allergies Allergy/AdvReac Type Severity Reaction Status Date / Time bee venom protein (honey bee) Allergy Severe throat Verified 10/15/18 09:05 swelling aspirin AdvReac Severe bleeding Verified 10/15/18 09:05 General JOSEPH: 3 Review of Systems <ANGEL Herrera - Last Filed: 10/16/18 16:03> Constitutional Reports as per HPI, Denies chills, Denies fatigue, Denies fever(s) and Denies headache(s) ENT Denies headache(s) Cardiovascular Reports as per HPI, Denies chest pain and Denies dyspnea Respiratory Reports as per HPI, Denies cough and Denies dyspnea Gastrointestinal Reports as per HPI, Reports abdominal pain, Denies melena, Denies change in bowel habits, Denies constipation, Reports nausea and Reports vomiting Genitourinary Denies system reviewed and no additional complaints, except as docu (patient denies any change in urinary habits) Musculoskeletal Reports as per HPI and Denies back pain Integumentary/Breasts Reports as per HPI and Denies rash Neurologic Reports as per HPI and Denies headache(s) Endocrine Denies fatigue PFSH <ANGEL Herrera - Last Filed: 10/16/18 16:03> Medical History End stage chronic kidney disease (Chronic) Atrial fibrillation with RVR (Chronic) Renal failure (Chronic) STEMI (ST elevation myocardial infarction) (Chronic) Acute respiratory failure with hypoxia (Resolved) Surgical History Stented coronary artery (Chronic) Encounter for gastrojejunal (GJ) tube placement (Acute 02/23/18) Hx of echocardiogram (Acute 03/08/18) Arthroplasty of knee Repair of umbilical hernia Tonsillectomy and adenoidectomy cardiac catherization (01/01/18) cardiac catherization (01/05/18) echocardiogram (01/06/18) Family History Mother Essential hypertension Father Essential hypertension Osteoporosis Sister Neoplasm Paternal Uncle Neoplasm Paternal Uncle Neoplasm Paternal Grandfather Diabetes Stroke Social History Smoking/Tobacco Use Status: Former Tobacco Use Alcohol Intake: never Drug use: Daily Substance use type: marijuana Household members: spouse Number of Children: 2 What is your relationship status?: Panel score (0-1 are the most socially isolated patients): 1 What type of physical activity do you participate in: none Seatbelt use: always 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 Working smoke detector in home: Yes Fire extinguisher in home: Yes Carbon monox detector in home: Yes Do you feel safe at home: Yes Do you feel safe in your relationship?: Yes Exam <ANGEL Herrera - Last Filed: 10/16/18 16:03> Const General: cooperative, no acute distress, well developed, disheveled and ill appearing chronically Nutritional Appearance: well nourished and obese Orientation: alert, awake and oriented x3 HENMT Head: normal to inspection Mouth: mucous membranes dry (patient appears dry on exam) Resp Effort & Inspection: normal respiratory effort, able to speak in complete sentences and no respiratory distress Auscultation: clear to auscultation bilaterally, no rales, no rhonchi and no wheezes Cardio Rate: regular rate Rhythm: regular rhythm Heart Sounds: S1 normal and S2 normal GI Inspection: no abdominal wall ecchymosis, incision (well healed incisions) and obesity Palpation: soft, no hepatosplenomegaly, not firm, no guarding, no masses and tender (diffusely tender, max epigastric and LUQ) in the epigastrum and in the LUQ; with no rebound tenderness Percussion: normal to percussion Auscultation: normal bowel sounds Back/Spine/Pelvis Back: no CVA tenderness Skin General skin exam: no rashes or lesions noted Trauma: no lacerations or abrasions Neuro General: alert and awake Cognition: normal cognition Speech: speech normal Gait: normal gait Psych Appearance: grossly normal and well kempt Mental Status: mental status grossly normal Speech and Movement: speech and movement normal
[2018-10-14] MEDS: Ondansetron 4 MG/2 ML VIAL IVP (13:13)
[2018-10-14] MEDS: MORPHine 10 MG/ML VIAL 2 MG IVP (13:15)
[2018-10-14] MEDS: Normal Saline 250 ML IV (13:24)
[2018-10-14 13:38] LABS: Abs Immature Grans 0.02 k/cumm (0.0-0.09); Absolute Basophil Count 0.03 k/cumm (0.0-0.2); Absolute Eosinophil Count 0.21 k/cumm (0.0-0.7); Absolute Lymphocyte Count 0.86 k/cumm (1.2-3.4); Absolute Monocyte Count 0.56 k/cumm (0.11-0.7); Absolute Neutrophil Count 9.16 k/cumm (1.2-6.7); Basophils % 0.3; Eosinophils % 1.9; HCT 32.4 % (40.0-50.0); HGB 9.8 g/dL (13.5-17.5); Immature Grans % 0.2; Lymphocytes % 7.9; Mean Corp. HGB Concentration 30.2 g/dL (32.0-36.0); Mean Corpuscular Hemoglobin 29.1 pg (27.0-33.0); Mean Corpuscular Volume 96.1 fL (80-95); Mean Platelet Volume 11.1 fL (8.0-11.0); Monocytes % 5.2; Neutrophils % 84.5; Platelet Count 253 x1000/uL (130-400); RBC 3.37 m/cumm (4.50-6.00); White Blood Cell Count 10.84 k/cumm (4.4-10.8)
[2018-10-14 14:02] LABS: Anisocytosis 2+; Diff Comment Diff Reviewed; Hypochromasia 1+; Macrocytosis 1+; Microcytosis 1+; Poikilocytes 1+
[2018-10-14 14:07] LABS: ALT 11 U/L (12-78); AST 12 U/L (15-37); Albumin 3.1 g/dL (3.4-5.0); Alkaline Phosphatase 83 U/L (46-116); BUN 41 mg/dL (7-18); Bilirubin, Total 1.7 mg/dL (0.2-1.0); Chloride 97 mmol/L (98-107); Estimated GFR 9.25 (mL/min/1.73m2); Glucose 120 mg/dL (70-100); Lipase 48 U/L (73-393); Magnesium 1.9 mg/dL (1.8-2.4); Potassium 3.7 mmol/L (3.5-5.1); Sodium 135 mmol/L (136-145); Total Protein 7.8 g/dL (6.4-8.2)
[2018-10-14 14:09] LABS: CREATININE 6.38 mg/dL (0.70-1.30); Troponin I < 0.02 ng/mL (0.00-0.06)
--- NOTE | 2018-10-14 16:30 | DI.CT_ITS ---
SYMPTOM/DIAGNOSIS: ABD PAIN, NAUSEA, VOMITING ABDOMEN AND PELVIC CT: Comparison is made with 07/30/18. Bilateral pleural effusions are again noted, right greater than left, unchanged. The heart is enlarged. The liver is again noted to be enlarged and shows mild fatty infiltration. A small amount of debris is seen in the inferior aspect of the gallbladder. The spleen is normal in size. The pancreas is mildly atrophic. The adrenals and kidneys are unremarkable. The aorta is normal in diameter and shows mild calcification. A fatty containing umbilical hernia is seen. The appendix appears normal. There is no abnormal bowel dilatation or inflammatory change. There is a trace amount of fluid in the lower pelvis. The prostate is not enlarged. The bladder is not well distended. A small area of low density is again seen in the spleen inferiorly and medially. No suspicious bony abnormalities are seen. IMPRESSION: No change in bilateral pleural effusions. No acute abnormality is seen in the abdomen or pelvis.
--- NOTE | 2018-10-14 17:08 | DI.VRAD_ITS ---
EXAM: CT Abdomen and Pelvis Without Contrast EXAM DATE/TIME: 10/14/2018 3:58 PM CLINICAL HISTORY: 52 years old, male; Abdominal pain TECHNIQUE: Imaging protocol: Axial computed tomography images of the abdomen and pelvis without contrast. Coronal and sagittal reformatted images were created and reviewed. COMPARISON: CT ABDOMEN PELVIS W 07/30/2018 7:32 PM FINDINGS: Pleural space: There is a large right and moderate left pleural effusion. At the lung bases, diffuse groundglass with areas of air trapping are noted. Again seen are centralized patchy opacities. Findings could represent a component of pulmonary edema. There are also some nodular opacities in the right lower lung measuring up to 7 mm. These have decreased from prior exam. Findings could represent a resolving or recurrent infectious process. ABDOMEN: Liver: Hepatomegaly remains noted. Gallbladder and bile ducts: Normal. No calcified stones. No ductal dilation. Pancreas: Normal. No ductal dilation. Spleen: A 1.5 cm cystic structure in the spleen is again seen. This is slightly more conspicuous than on prior exam. Adrenals: Bulky appearance to the left adrenal gland, unchanged. Kidneys and ureters: Mild left greater than right perinephric stranding, similar to prior exam. This can be seen chronically or with infection. No hydronephrosis. Stomach and bowel: No evidence of obstruction. A portion of the sigmoid colon on series 2 image 73 demonstrates wall prominence. Appendix: No evidence of appendicitis. PELVIS: Bladder: Urinary bladder wall prominence. Reproductive: Prostate calcifications. ABDOMEN and PELVIS: Intraperitoneal space: No free air. There is a new small amount of free fluid in the pelvis, series 2 image 75. Bones/joints: Lucent rounded lesion in the left femur (image 88) is unchanged. This has a benign appearance. There are skeletal degenerative changes. Soft tissues: Fat-containing umbilical hernia and right inguinal hernia. Vasculature: Vascular calcifications. Lymph nodes: Normal. No enlarged lymph nodes. IMPRESSION: 1. Some wall prominence to a portion of the sigmoid colon. This can be seen with under distention but should be correlated with any concern for colitis, as there is a new small amount of adjacent free fluid. 2. Large right and moderate left pleural effusion with persistent groundglass opacities at the lung bases and centralized patchy opacities, possibly related to pulmonary edema. 3. Some nodular opacities in the right lower lung. These have decreased from prior examination. Findings could represent a resolving or recurrent infectious process. Followup suggested. 4. Urinary bladder wall prominence. This can be seen with infection or underdistention. There is also some mild perinephric stranding, similar to prior exam. Other findings as above. Dictated and Authenticated by: Edelmira Méndez MD. Ordering:LEIF Gregory MD
[2018-10-14] MEDS: Haloperidol 5 MG/ML VIAL 2 MG IVP (17:36)
--- NOTE | 2018-10-14 19:20 | W.SURGCON ---
Date of service: 10/14/18 Time of Service: 19:20 Assessment and Plan (1) LLQ abdominal pain: Current visit: Yes Status: Acute does not have a surgical abdomen no signs of infection on CT- changes are non specific. No etiology for pain at this time no fever/WBC. last CE in 2004- no divertic. no etiology for pain/no signs of infection/bleeding/etc needs repeat CE in F/u. pt PCP is arranging this as outpt. (2) Anemia: Current visit: No Status: Chronic PROB most likely from chronic kideney dx cont HD protocol (3) GERD (gastroesophageal reflux disease): Current visit: Yes Status: Chronic cont lifestyle changes. cont ON PPI. needs EGD (4) Pleural effusion, left: Current visit: Yes Status: Acute needs thorocentisis pt on brillinta and cannot be stopped. pt is refusing thorocentisis History of Present Illness Chief Complaint: 52 y/o male. Mult medical problems. He is here today for intractible vomt Narrative: vomiting. This has been going on for the last 3 wks from review of his chart. He has been seeing his PCP. He smokes marjuana chronically for pain. He was in [facility] last summer for 88 days on the vent following a stemi. He had mult complications. This has left him w/ chronic renal failure. He is do for HD today. his pcp is treated him for nausea w/ clonazepam.. It has been presumed that the nausea is from the renal failure. Today he started having LLQ pain. BM are nl. no blood. He has had this pain for long time- since April. It seems to wax/wane in severity. He was in [facility] w/ flu. They worked him up for the LLQ pain, but no etiology was found. He's PCP is in the process of setting him up for EGD and CE (given all his comorbitisies- he should do this at [facility]). He had a CE in 2004 b/c of family hx of CRC. I have no records. pt says it was normal. He is eating well. He has had no weight loss. his bowels are irreg. He is anemic- but this is prob from the kidney Dx. He's hgb has fluctuates. He should have an EGD to eval this. Today is his HD day. he has had abdominal Sx for a feeding tube placement and removal and for a umbilical hernia repair remotely. He has been on Nexium for a long period of time. He was having heartburn and that is why he was started on it. He occ will get H/I, but for the most part, the nexium relieves his heartburn s/s. Currently- he is falling asleep while I am talking to him.. He says the last medication relieved his nausea. He doesn't know if he is hungry. He doesn't want to stay in the hosp. He doesn't want to be transferred to [facility]. He doesn't want to try eating b/c he is afraid he's going to throw up. He doesn't like to take pills. He does have a long hx standing Hx of marijuana use- but only once a day. We cannot take care of him here b/c of his HD. He would need to go to [facility]. Pt says if we give him something for his nausea that he will go home. At this time, the pt does not have an acute surgical abdomen. I am not sure of the etiology of his pain. The findings on CT are very non-specific. The pt does need to have an EGD and CE done. I am to the understanding that his PCP is arranging this. I think it should be done at [facility] b/c of all his other medical problems- and they are familiar w/ his care. I did review his CT. I am more concerned about the amount of fluid that is in his L chest. pt denies being more SOB than usual. he denies fever/chills. He denies coughing more than usual. He is on brillianta so a thorocentisis cannot be done today. I do not think this is infectious/nor that he requires abx. He should have this fluid removed. There is at least a Liter and this is prob not going to resolve w/ diuretics. Pt does not want to have the procedure done. I did stress that he should have this done. Cardiac eval was done by [facility]. It does not appear to be any cardiac problems at this time. Consults Consult date: 10/14/18 Review of Systems Review of Systems All systems reviewed & are unremarkable except as noted in HPI and below Constitutional Reports as per HPI Comments: nausea ENT Denies dysphagia and Denies odynophagia Cardiovascular Denies chest pain Respiratory Comments: chronic cough on home O2 denies CP or SOB no hemoptysis Lg L pleural iff. dont' feel this is causing nausea or abdom pain. He needs to have his lung tapped. pt refuses. he is on blood thinners. it this point is asymp and no signs of infection/pneumonia. Gastrointestinal Reports as per HPI, Reports abdominal pain (LLQ. mild ), Denies melena, Reports bloating, Denies hematochezia, Denies constipation, Denies dysphagia, Denies early satiety, Denies dyspepsia, Denies heartburn, Denies diarrhea, Denies loose stools, Reports nausea, Denies odynophagia, Reports vomiting and Denies hematemesis Comments: family hx of CRC + anemia- most likely from renal issues. should have EGD to eval. borges given his hx of GERD. due to his mult. med problems- this should be done at [facility]. pt has had a CE in 2004 and nl per pt. He is due for repat. CT findings are very non specific. there is no signs of infection or surgical abdomen at this time. I did reinfornce that he does need to have the scope done- but he should have them done at [facility]. Genitourinary Comments: pt does still make urine. did not get contrast for fear of inducing further kidney injury prostatic calcifications noted on CT Musculoskeletal Comments: prior hx of mult skin abcesses Hematologic/Lymphatic Comments: chronic anemia. on HD needs EGD [facility] Medical History End stage chronic kidney disease (Chronic) Atrial fibrillation with RVR (Chronic) Renal failure (Chronic) STEMI (ST elevation myocardial infarction) (Chronic) Acute respiratory failure with hypoxia (Resolved) Surgical History Stented coronary artery (Chronic) Encounter for gastrojejunal (GJ) tube placement (Acute 02/23/18) Hx of echocardiogram (Acute 03/08/18) Arthroplasty of knee Repair of umbilical hernia Tonsillectomy and adenoidectomy cardiac catherization (01/01/18) cardiac catherization (01/05/18) echocardiogram (01/06/18) Family History Mother Essential hypertension Father Essential hypertension Osteoporosis Sister Neoplasm Paternal Uncle Neoplasm Paternal Uncle Neoplasm Paternal Grandfather Diabetes Stroke Social History Smoking/Tobacco Use Status: Former Tobacco Use Alcohol Intake: never Drug use: Daily Substance use type: marijuana Household members: spouse Number of Children: 2 What is your relationship status?: Panel score (0-1 are the most socially isolated patients): 1 What type of physical activity do you participate in: none Seatbelt use: always Drive intox or ride w/intox 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 driver: No Working smoke detector in home: Yes Fire extinguisher in home: Yes Carbon monox detector in home: Yes Do you feel safe at home: Yes Do you feel safe in your relationship?: Yes Exam Const General: cooperative, healthy appearing, comfortable, no acute distress and well developed Nutritional Appearance: average body habitus, well nourished and obese Orientation: alert and oriented x3 Other: pt is falling asleep while I am talking to him HENMT Head: normal to inspection, normocephalic and atraumatic Ears: hearing grossly normal bilaterally and external ears normal General nose exam: external nose normal Face and sinus: normal facial exam and sinuses nontender Mouth: oral mucosae normal, lip normal, tongue normal and moist mucous membranes Teeth and gingiva: poor dentition Eyes General: appearance normal, both eyes and all related structures Conjunctivae: conjunctivae normal Sclera: sclerae normal Pupils: PERRL Neck Neck: normal visual inspection and full ROM Chest Chest: normal inspection of the chest Resp Effort & Inspection: normal respiratory effort, able to speak in complete sentences, no cough, no nasal flaring, not tachypneic and no use of accessory muscles Auscultation: clear to auscultation bilaterally, no rales, no rhonchi and no wheezes Cardio Jugular venous pressure: no JVD Rate: regular rate Rhythm: regular rhythm GI Inspection: normal to inspection, no edema and non-distended Palpation: soft, no masses, nontender and No ascites Auscultation: normal bowel sounds Other: pt has pain in LLQ w/ palpation. no distention. good BS. no peritonitis. not surgical abdomen no hernias. post surgical changes noted. pt had feeding tube in past. laprascopic hernia repair- remotely. no signif tenderness at umbilicus. no rebound or guarding in LLQ. Skin General skin exam: no rashes or lesions noted Trauma: no lacerations or abrasions Neuro General: alert, oriented x3, oriented, gait normal, moves all extremities, no focal motor deficits and CN's II-XI intact bilaterally Cognition: normal cognition Speech: speech normal Gait: normal gait Motor: muscle tone normal throughout Extrem General: no pedal edema (LE edema +1 no breakdown ) Psych Appearance: grossly normal and well kempt Mental Status: mental status grossly normal Speech and Movement: speech and movement normal Affect: normal affect Results Last Vital Signs Temp 36.3 C L 10/14/18 12:48 Pulse 71 10/14/18 18:31 Resp 13 10/14/18 18:40 BP 124/78 10/14/18 18:31 Pulse Ox 98 10/14/18 17:20 Labs : 10/14/18 13:30 10/14/18 13:30 Laboratory Results - last 24 hr 10/14/18 10/14/18 13:30 13:30 WBC 10.84 H RBC 3.37 L Hgb 9.8 L Hct 32.4 L MCV 96.1 H MCH 29.1 MCHC 30.2 L RDW 19.0 H Plt Count 253 MPV 11.1 H Immature Gran % 0.2 Neutrophils % 84.5 Lymphocytes % 7.9 Monocytes % 5.2 Eosinophils % 1.9 Basophils % 0.3 Absolute Neutrophils 9.16 H Absolute Lymphocytes 0.86 L Absolute Monocytes 0.56 Absolute Eosinophils 0.21 Absolute Basophils 0.03 Differential Comment Diff reviewed RBC Morphology See below Hypochromasia 1+ Poikilocytosis 1+ Anisocytosis 2+ Microcytosis 1+ Macrocytosis 1+ Sodium 135 L Potassium 3.7 Chloride 97 L Carbon Dioxide 25.0 Anion Gap 13.0 H BUN 41 H Creatinine 6.38 H* Estimated GFR/1.73 m2 9.25 Glucose 120 H Calcium 9.0 Magnesium 1.9 Total Bilirubin 1.7 H AST 12 L ALT 11 L Alkaline Phosphatase 83 Troponin I < 0.02 Total Protein 7.8 Albumin 3.1 L Lipase 48 L
--- NOTE | 2018-10-14 19:28 | SCONE_ITS ---
Date of service: 10/14/18 Time of Service: 19:20 Assessment and Plan (1) LLQ abdominal pain: Current visit: Yes Status: Acute does not have a surgical abdomen no signs of infection on CT- changes are non specific. No etiology for pain at this time no fever/WBC. last CE in 2004- no divertic. no etiology for pain/no signs of infection/bleeding/etc needs repeat CE in F/u. pt PCP is arranging this as outpt. (2) Anemia: Current visit: No Status: Chronic PROB most likely from chronic kideney dx cont HD protocol (3) GERD (gastroesophageal reflux disease): Current visit: Yes Status: Chronic cont lifestyle changes. cont ON PPI. needs EGD (4) Pleural effusion, left: Current visit: Yes Status: Acute needs thorocentisis pt on brillinta and cannot be stopped. pt is refusing thorocentisis History of Present Illness Chief Complaint: 52 y/o male. Mult medical problems. He is here today for intractible vomt Narrative: vomiting. This has been going on for the last 3 wks from review of his chart. He has been seeing his PCP. He smokes marjuana chronically for pain. He was in [facility] [place] summer for 88 days on the vent following a stemi. He had mult complications. This has left him w/ chronic renal failure. He is do for HD today. his pcp is treated him for nausea w/ clonazepam.. It has been presumed that the nausea is from the renal failure. Today he started having LLQ pain. BM are nl. no blood. He has had this pain for long time- since April. It seems to wax/wane in severity. He was in [facility] w[place] flu. They worked him up for the LLQ pain, but no etiology was found. He's PCP is in the process of setting him up for EGD and CE (given all his comorbitisies- he should do this at [facility] He had a CE in 2004 b/c of family hx of CRC. I have no records. pt says it was normal. He is eating well. He has had no weight loss. his bowels are irreg. He is anemic- but this is prob from the kidney Dx. He's hgb has fluctuates. He should have an EGD to eval this. Today is his HD day. he has had abdominal Sx for a feeding tube placement and removal and for a umbilical hernia repair remotely. He has been on Nexium for a long period of time. He was having heartburn and that is why he was started on it. He occ will get H/I, but for the most part, the nexium relieves his heartburn s/s. Currently- he is falling asleep while I am talking to him.. He says the last medication relieved his nausea. He doesn't know if he is hungry. He doesn't want to stay in the hosp. He doesn't want to be transferred to [facility]. He doesn't want to try eating b/c he is afraid he's going to throw up. He doesn't like to take pills. He does have a long hx standing Hx of marijuana use- but only once a day. We cannot take care of him here b/c of his HD. He would need to go to [facility]. Pt says if we give him something for his nausea that he will go home. At this time, the pt does not have an acute surgical abdomen. I am not sure of the etiology of his pain. The findings on CT are very non-specific. The pt does need to have an EGD and CE done. I am to the understanding that his PCP is arranging this. I think it should be done at [facility] b/c of all his other medical problems- and they are familiar w/ his care. I did review his CT. I am more concerned about the amount of fluid that is in his L chest. pt denies being more SOB than usual. he denies fever/chills. He denies coughing more than usual. He is on brillianta so a thorocentisis cannot be done today. I do not think this is infectious/nor that he requires abx. He should have this fluid removed. There is at least a Liter and this is prob not going to resolve w/ diuretics. Pt does not want to have the procedure done. I did stress that he should have this done. Cardiac eval was done by [facility]. It does not appear to be any cardiac problems at this time. Consults Consult date: 10/14/18 Review of Systems Review of Systems All systems reviewed & are unremarkable except as noted in HPI and below Constitutional Reports as per HPI Comments: nausea ENT Denies dysphagia and Denies odynophagia Cardiovascular Denies chest pain Respiratory Comments: chronic cough on home O2 denies CP or SOB no hemoptysis Lg L pleural iff. dont' feel this is causing nausea or abdom pain. He needs to have his lung tapped. pt refuses. he is on blood thinners. it this point is asymp and no signs of infection/pneumonia. Gastrointestinal Reports as per HPI, Reports abdominal pain (LLQ. mild ), Denies melena, Reports bloating, Denies hematochezia, Denies constipation, Denies dysphagia, Denies early satiety, Denies dyspepsia, Denies heartburn, Denies diarrhea, Denies loose stools, Reports nausea, Denies odynophagia, Reports vomiting and Denies hematemesis Comments: family hx of CRC + anemia- most likely from renal issues. should have EGD to eval. borges given his hx of GERD. due to his mult. med problems- this should be done at [facility]. pt has had a CE in 2004 and nl per pt. He is due for repat. CT findings are very non specific. there is no signs of infection or surgical abdomen at this time. I did reinfornce that he does need to have the scope done- but he should have them done at [facility]. Genitourinary Comments: pt does still make urine. did not get contrast for fear of inducing further kidney injury prostatic calcifications noted on CT Musculoskeletal Comments: prior hx of mult skin abcesses Hematologic/Lymphatic Comments: chronic anemia. on HD needs EGD tro [facility] Medical History End stage chronic kidney disease (Chronic) Atrial fibrillation with RVR (Chronic) Renal failure (Chronic) STEMI (ST elevation myocardial infarction) (Chronic) Acute respiratory failure with hypoxia (Resolved) Surgical History Stented coronary artery (Chronic) Encounter for gastrojejunal (GJ) tube placement (Acute 02/23/18) Hx of echocardiogram (Acute 03/08/18) Arthroplasty of knee Repair of umbilical hernia Tonsillectomy and adenoidectomy cardiac catherization (01/01/18) cardiac catherization (01/05/18) echocardiogram (01/06/18) Family History Mother Essential hypertension Father Essential hypertension Osteoporosis Sister Neoplasm Paternal Uncle Neoplasm Paternal Uncle Neoplasm Paternal Grandfather Diabetes Stroke Social History Smoking/Tobacco Use Status: Former Tobacco Use Alcohol Intake: never Drug use: Daily Substance use type: marijuana Household members: spouse Number of Children: 2 What is your relationship status?: Panel score (0-1 are the most socially isolated patients): 1 What type of physical activity do you participate in: none Seatbelt use: always Drive intox or ride w/intox driver/sales workers: No Working smoke detector in home: Yes Fire extinguisher in home: Yes Carbon monox detector in home: Yes Do you feel safe at home: Yes Do you feel safe in your relationship?: Yes Exam Const General: cooperative, healthy appearing, comfortable, no acute distress and well developed Nutritional Appearance: average body habitus, well nourished and obese Orientation: alert and oriented x3 Other: pt is falling asleep while I am talking to him HENMT Head: normal to inspection, normocephalic and atraumatic Ears: hearing grossly normal bilaterally and external ears normal General nose exam: external nose normal Face and sinus: normal facial exam and sinuses nontender Mouth: oral mucosae normal, lip normal, tongue normal and moist mucous membranes Teeth and gingiva: poor dentition Eyes General: appearance normal, both eyes and all related structures Conjunctivae: conjunctivae normal Sclera: sclerae normal Pupils: PERRL Neck Neck: normal visual inspection and full ROM Chest Chest: normal inspection of the chest Resp Effort & Inspection: normal respiratory effort, able to speak in complete sentences, no cough, no nasal flaring, not tachypneic and no use of accessory muscles Auscultation: clear to auscultation bilaterally, no rales, no rhonchi and no wheezes Cardio Jugular venous pressure: no JVD Rate: regular rate Rhythm: regular rhythm GI Inspection: normal to inspection, no edema and non-distended Palpation: soft, no masses, nontender and No ascites Auscultation: normal bowel sounds Other: pt has pain in LLQ w/ palpation. no distention. good BS. no peritoniti s. not surgical abdomen no hernias. post surgical changes noted. pt had feeding tube in past. laprascopic hernia repair- remotely. no signif tenderness at umbilicus. no rebound or guarding in LLQ. Skin General skin exam: no rashes or lesions noted Trauma: no lacerations or abrasions Neuro General: alert, oriented x3, oriented, gait normal, moves all extremities, no focal motor deficits and CN's II-XI intact bilaterally Cognition: normal cognition Speech: speech normal Gait: normal gait Motor: muscle tone normal throughout Extrem General: no pedal edema (LE edema +1 no breakdown ) Psych Appearance: grossly normal and well kempt Mental Status: mental status grossly normal Speech and Movement: speech and movement normal Affect: normal affect Results Last Vital Signs Temp 36.3 C L 10/14/18 12:48 Pulse 71 10/14/18 18:31 Resp 13 10/14/18 18:40 BP 124/78 10/14/18 18:31 Pulse Ox 98 10/14/18 17:20 Labs : 10/14/18 13:30 10/14/18 13:30 Laboratory Results - last 24 hr 10/14/18 10/14/18 13:30 13:30 WBC 10.84 H RBC 3.37 L Hgb 9.8 L Hct 32.4 L MCV 96.1 H MCH 29.1 MCHC 30.2 L RDW 19.0 H Plt Count 253 MPV 11.1 H Immature Gran % 0.2 Neutrophils % 84.5 Lymphocytes % 7.9 Monocytes % 5.2 Eosinophils % 1.9 Basophils % 0.3 Absolute Neutrophils 9.16 H Absolute Lymphocytes 0.86 L Absolute Monocytes 0.56 Absolute Eosinophils 0.21 Absolute Basophils 0.03 Differential Comment Diff reviewed RBC Morphology See below Hypochromasia 1+ Poikilocytosis 1+ Anisocytosis 2+ Microcytosis 1+ Macrocytosis 1+ Sodium 135 L Potassium 3.7 Chloride 97 L Carbon Dioxide 25.0 Anion Gap 13.0 H BUN 41 H Creatinine 6.38 H* Estimated GFR/1.73 m2 9.25 Glucose 120 H Calcium 9.0 Magnesium 1.9 Total Bilirubin 1.7 H AST 12 L ALT 11 L Alkaline Phosphatase 83 Troponin I < 0.02 Total Protein 7.8 Albumin 3.1 L Lipase 48 L
== END 2018-10-14 19:52 | disposition home or self-care (01) ==
PROVIDERS: Emergency Provider Physician Assistant; PCP Family Medicine
DX: R10.12 Left upper quadrant pain (principal); R10.13 Epigastric pain; R11.2 Nausea with vomiting, unspecified; R93.3 Abnormal findings on diagnostic imaging of other parts of digestive tract; J90 Pleural effusion, not elsewhere classified; R91.8 Other nonspecific abnormal finding of lung field; J44.9 Chronic obstructive pulmonary disease, unspecified; Z87.891 Personal history of nicotine dependence
CPT/HCPCS: 36415; 80053; 83690; 93005; 96361; 96365; 96375; 96376; 99253; 99285; 74176; 83735; 84484; 85025; 93010; J1630; J2270; J2405

== ENCOUNTER 2018-10-19 06:50 | Emergency (ER) | payer MEDICAID, SELFPAY ==
[2018-10-19 06:52] VITALS: BP 112/79; PULSE 72; RESP 20; TEMP 36.5; O2SAT 98
--- NOTE | 2018-10-19 07:01 | DI.CT_ITS ---
SYMPTOM/DIAGNOSIS: LLQ PAIN, RECURRENT, DIALYSIS PT ABDOMEN AND PELVIC CT: CT scan of the abdomen and pelvis was performed without intravenous or oral contrast material. Comparison is made with 10/14/18. There are again seen bilateral pleural effusions. There is a large right pleural effusion and a moderate sized left pleural effusion. There are persistent ground glass opacities with subtle areas of nodularity in the lung bases. These findings appear stable compared to the prior examination. The lack of IV contrast does limit evaluation of the abdominal and pelvic organs. The liver, spleen, gallbladder and adrenal glands are stable. The kidneys show no evidence of obstructive uropathy. There are tiny calcifications seen associated with the lower pole of the right kidney which may represent non obstructing stones. The urinary bladder is incompletely distended. There does appear to be mild thickening of the wall of the urinary bladder likely reflecting the under distension. Cystitis cannot be entirely excluded. Please correlate clinically. Prostate gland appears stable. There is atherosclerosis of the abdominal aorta but no aneurysmal dilatation is seen. No significant abdominal or pelvic adenopathy or pneumoperitoneum is present. There is a trace amount of free fluid in the pelvis which is unchanged. There is again seen mesh in the anterior abdominal wall. There is a question of mild thickening of the wall of the hepatic flexure of the colon. The remainder of the bowel is unremarkable. No findings to suggest an acute appendicitis are present. The bones appear stable. IMPRESSION: 1. Stable bilateral pleural effusions with bilateral basilar infiltrates which may reflect pneumonia or small airways disease. 2. Apparent mild thickening of the wall of the hepatic flexure of the colon. An inflammatory or infectious colitis cannot be excluded. 3. Thickening of the wall of the urinary bladder. Under distension versus cystitis. Please correlate clinically.
--- NOTE | 2018-10-19 07:02 | W.ED.GENAD ---
Discharge Plan Disposition Patient Disposition: HOME Condition: Good Discharge Details Chief Complaint: Abd Prob Clinical Impression: Colitis Primary Care Provider: Gee Luke ED Provider: Efra Kingsley Home Meds and New Rx's Prescriptions: New ciprofloxacin HCl [Cipro] 500 mg tablet 500 mg PO BID 7 Days Qty: 14 RF: 0 metronidazole [Flagyl] 500 mg tablet 500 mg PO TID 7 Days Qty: 21 RF: 0 metoclopramide HCl [Reglan] 10 mg tablet 10 mg PO Q6H Qty: 4 RF: 0 No Action metolazone 2.5 mg tablet 2.5 mg PO ONCE PRN (Reason: Excessive fluid retention) Qty: 14 RF: 0 ferrous sulfate 325 mg (65 mg iron) tablet 325 mg PO DAILY Qty: 45 RF: 3 promethazine 25 mg suppository 25 mg ID Q6H PRN (Reason: nausea and vomiting) Qty: 12 RF: 3 clonazepam 0.5 mg tablet 0.25 mg PO BID Qty: 28 RF: 0 atorvastatin 80 mg tablet 80 mg PO DAILY Qty: 90 RF: 3 Nephrocaps 1 mg capsule 1 cap PO DAILY Qty: 90 RF: 3 metoprolol tartrate 50 mg tablet 50 mg PO BID Qty: 60 RF: 3 gabapentin 800 mg tablet 800 mg PO DAILY Qty: 60 RF: 3 oxygen concentrater Qty: 1 RF: 0 epinephrine [EpiPen 2-Chandu] 0.3 MG/0.3 ML auto-injector 0.3 mg IM PRN PRNRF: 0 fluoxetine [Prozac] 20 MG capsule 60 mg PO DAILY RF: 0 albuterol sulfate [ProAir HFA] 8.5 GM HFA aerosol inhaler 1 puff Inhalation Q4H PRN 30 Days Qty: 1 RF: 11 fluticasone propion-salmeterol [Advair Diskus] 500-50 mcg/dose blister with device 1 inh IH BID RF: 0 Spiriva with HandiHaler 18 mcg capsule, w/inhalation device 1 cap IH DAILY RF: 0 furosemide 80 mg tablet 80 mg PO BID Qty: 180 RF: 3 omeprazole magnesium 20 mg tablet,delayed release (DR/EC) 20 mg PO DAILY Qty: 90 RF: 3 esomeprazole magnesium [Nexium] 20 mg capsule,delayed release(DR/EC) 20 mg PO BID RF: 0 aspirin [Adult Low Dose Aspirin] 81 mg tablet,delayed release (DR/EC) 81 mg PO DAILY RF: 0 epinephrine [EpiPen] 0.3 mg/0.3 mL auto-injector 0.3 mg IM ONCE PRNRF: 0 sevelamer carbonate [Renvela] 800 mg Tablet 1,600 mg PO AC RF: 0 Brilinta 90 mg Tablet 1 tab PO BID RF: 0 Discharge Instructions Instructions: Colitis (ED) Additional Instructions: Your CT scan shows concerns for mild colitis, for which we will start you on antibiotics. Your symptoms may also be related to cyclic vomiting syndrome. This can be improved with hot showers, as well as occasional Reglan only as needed for which we have provided a prescription. For the antibiotics please take them as directed, please avoid any alcohol, as this may worsen your symptoms with the antibiotics. If you notice any pain in your tendons or joints please contact a physician immediately as this may be a side effect of the Cipro. If you notice any worsening of your symptoms, or any new symptoms such as vomiting, diarrhea, fever, chills, shortness of breath, chest pain, numbness, weakness, or fainting , please return immediately to the emergency department for reevaluation. Please follow up with your primary care provider as soon as possible for reassessment and reevaluation. As always, it was a pleasure participating in your medical care today. Referrals: Gee Luke DO [Primary Care Provider] - Medical Decision Making <Papo Umaña MD - Last Filed: 10/19/18 07:45> 52-year-old male dialysis patient who continues to make some urine. He has a history of recurrent and episodic abdominal pain that is felt to have some component of cyclical vomiting syndrome. He was most recently evaluated extensively on October 14 in the emergency department. He returns again today with her current symptoms of abdominal discomfort since last night. He is afebrile and has normal vital signs. Diagnosis includes bowel obstruction, kidney stone, functional abdominal pain. IV access established, patient referred for screening laboratories. Noncontrast CT scan obtained. Patient states that he had good response to medication that was administered for his discomfort last time and upon review of chart this is 2 mg of Haldol. As cyclic vomiting is within his differential diagnosis as well I do feel this is a reasonable approach. CT scan reveals groundglass attenuation and subtle infiltrates with bilateral pleural effusions. Question thick-walled urinary bladder, question colonic wall thickening. No definitive acute pathology. Laboratories are pending as is a reevaluation of the patient's response to medication. Please see Teetee's note regarding patient's final impression and disposition <Efra Kingsley, - Last Filed: 10/19/18 08:32> This is a pleasant 52-year-old male who was signed out to me by my colleague Dr. Papo Umaña pending laboratory work-up and CT results. Laboratory results have returned and are notably reassuring with no evidence of significant white count, severe anemia, or severe electrolyte abnormality. He does have an elevated creatinine and BUN which correlates well with his chronic dialysis. Bilirubin is elevated at 1.8 however this is his chronic baseline. Patient was given Haldol and had complete resolution of his symptoms, although he does have continued mild abdominal achiness and discomfort. CT scan results have returned demonstrate questionable groundglass attenuation in the chest, which may reflect pneumonia or small airway disease, equivocal cystitis, equivocal colonic wall thickening concerning for infectious colitis. On reassessment the patient assures me that he has had no diarrhea no recent antibiotic. He shows no clinical indications for C. difficile associated colitis. On abdominal reassessment he has no evidence of an acute surgical abdomen, no significant guarding or rebound. With a complete resolution of his nausea and vomiting, and his ability to tolerate p.o. very well, I feel that the also in addition to mild colitis may be a component of cyclic vomiting syndrome secondary to his chronic marijuana use and recent abstinence. With notably reassuring vital signs, no evidence of white count, no evidence of an acute surgical abdomen requiring immediate admission or surgical intervention I do feel that he can be safely discharged home with close follow-up, as well as immediate transfer to dialysis today for scheduled dialysis appointment. We have started him on Cipro and Flagyl, and given him the first dose here for his colitis. He is not on chronic steroids and we discussed with him the red flags concerning for tendinopathy. We also discussed with him the importance of abstinence of any alcohol. He states that he is a teetotaler. Patient will be discharged home with close follow-up. We discussed red flags which to return patient understands. I have extensively reviewed the treatment plan and discharge instructions with the patient. I have addressed all patient concerns at this time. The patient was made aware of what symptoms to monitor for that would warrant a return to the emergency department. Discussed the plan with the patient, they demonstrate verbal understanding and agreement with our assessment and plan at this time. COMPARISON: CT ABDOMEN PELVIS WO 10/14/2018 4:26 PM FINDINGS: Lungs: Groundglass attenuation and subtle nodular infiltrates may reflect pneumonia/small airways disease. Pleural space: Bilateral pleural effusions ABDOMEN: Liver: Hepatic steatosis is present. Gallbladder and bile ducts: The gallbladder is contracted with secondary wall thickening Pancreas: Normal. No ductal dilation. Spleen: Normal. No splenomegaly. Adrenals: Normal. No mass. Kidneys and ureters: Normal. No hydronephrosis. Stomach and bowel: Equivocal colonic wall thickening at the level of the hepatic flexure may reflect inflammatory or infectious colitis in the correct clinical setting. Appendix: No evidence of appendicitis. PELVIS: Bladder: The urinary bladder is questionably thickwalled. This may reflect incomplete distention. However correlation with UA is recommended to exclude cystitis. Reproductive: Unremarkable as visualized. ABDOMEN and PELVIS: Intraperitoneal space: Patient status post ventral herniorrhaphy Trace free pelvic fluid Bones/joints: No acute fracture. No dislocation. Soft tissues: Unremarkable. Vasculature: Normal. No abdominal aortic aneurysm. Lymph nodes: Normal. No enlarged lymph nodes. IMPRESSION: 1. Groundglass attenuation and subtle nodular infiltrates may reflect pneumonia/small airways disease. 2. Equivocal cystitis. 3. Equivocal colonic wall thickening at the level of the hepatic flexure may reflect inflammatory or infectious colitis in the correct clinical setting. Dictated and Authenticated by: Zeus Ann MD. Ordering:HALLEY Barros MD HPI <Papo Umaña MD - Last Filed: 10/19/18 07:45> General Mode of arrival: EMS. Date/Time Provider Initiated Documentation: 10/19/18 07:35. Limitations to Documentation: no limitations. Information obtained by: patient and EMS. History of Present Illness 52 year old M presents to the emergency department with the chief complaint of Left lower quadrant abdominal pain, recurrent, described as similar to prior episodes, Quality is described as dull and constant, and is localized to the abdomen and left. Patient reports no radiation. Patient started experiencing this hour(s) and it has been constant. No relieving factors improve symptom(s), No exacerbating factors reported . Patient notes no other symptoms. and loss of appetite; denies fever/chills. Patient did receive the following treatments prior to arrival, none Related Data Home Medications Medication Instructions Recorded Confirmed epinephrine [EpiPen 2-Chandu] 0.3 mg IM PRN PRN 07/24/17 10/19/18 albuterol sulfate [ProAir HFA] 1 puff INHALATION Q4H PRN 30 Days 08/10/17 10/19/18 #1 inhaler fluoxetine [Prozac] 60 mg PO DAILY cap 08/10/17 10/19/18 fluticasone 500 mcg-salmeterol 50 1 inh IH BID 04/01/18 10/19/18 mcg/dose blistr powdr for inhalation tiotropium bromide 18 mcg capsule 1 cap IH DAILY 04/01/18 10/19/18 with inhalation device Brilinta 1 tab PO BID 05/10/18 10/19/18 gabapentin 800 mg tablet 800 mg PO DAILY #60 tab 05/14/18 10/19/18 sevelamer carbonate [Renvela] 1,600 mg PO AC 05/20/18 10/19/18 ferrous sulfate 325 mg (65 mg 325 mg PO DAILY #45 tab 05/31/18 10/19/18 iron) tablet metolazone 2.5 mg tablet 2.5 mg PO ONCE PRN #14 tab 05/31/18 10/19/18 furosemide 80 mg tablet 80 mg PO BID #180 tab 06/21/18 10/19/18 oxygen concentrater #1 ea 07/29/18 10/19/18 promethazine 25 mg rectal 25 mg ID Q6H PRN #12 each 08/02/18 10/19/18 suppository omeprazole magnesium 20 mg 20 mg PO DAILY #90 tab 09/14/18 10/19/18 tablet,delayed release metoprolol tartrate 50 mg tablet 50 mg PO BID #60 tab 09/23/18 10/19/18 clonazepam 0.5 mg tablet 0.25 mg PO BID #28 tab 10/08/18 10/19/18 aspirin 81 mg tablet,delayed 81 mg PO DAILY 10/13/18 10/19/18 release epinephrine 0.3 mg/0.3 mL 0.3 mg IM ONCE PRN 10/13/18 10/19/18 injection, auto-injector esomeprazole magnesium 20 mg 20 mg PO BID cap 10/13/18 10/19/18 capsule,delayed release atorvastatin 80 mg tablet 80 mg PO DAILY #90 tab 10/15/18 10/19/18 vitamin B complex and vitamin C 1 cap PO DAILY #90 cap 10/15/18 10/19/18 no.20-folic acid 1 mg capsule ciprofloxacin HCl [Cipro] 500 mg PO BID 7 Days #14 tab 10/19/18 metoclopramide HCl [Reglan] 10 mg PO Q6H #4 tab 10/19/18 metronidazole [Flagyl] 500 mg PO TID 7 Days #21 tab 10/19/18 Previous Rx's Medication Instructions Recorded albuterol sulfate [ProAir HFA] 1 puff INHALATION Q4H PRN 30 Days 08/10/17 #1 inhaler gabapentin 800 mg tablet 800 mg PO DAILY #60 tab 05/14/18 ferrous sulfate 325 mg (65 mg 325 mg PO DAILY #45 tab 05/31/18 iron) tablet metolazone 2.5 mg tablet 2.5 mg PO ONCE PRN #14 tab 05/31/18 furosemide 80 mg tablet 80 mg PO BID #180 tab 06/21/18 oxygen concentrater #1 ea 07/29/18 promethazine 25 mg rectal 25 mg ID Q6H PRN #12 each 08/02/18 suppository omeprazole magnesium 20 mg 20 mg PO DAILY #90 tab 09/14/18 tablet,delayed release metoprolol tartrate 50 mg tablet 50 mg PO BID #60 tab 09/23/18 clonazepam 0.5 mg tablet 0.25 mg PO BID #28 tab 10/08/18 atorvastatin 80 mg tablet 80 mg PO DAILY #90 tab 10/15/18 vitamin B complex and vitamin C 1 cap PO DAILY #90 cap 10/15/18 no.20-folic acid 1 mg capsule ciprofloxacin HCl [Cipro] 500 mg PO BID 7 Days #14 tab 10/19/18 metoclopramide HCl [Reglan] 10 mg PO Q6H #4 tab 10/19/18 metronidazole [Flagyl] 500 mg PO TID 7 Days #21 tab 10/19/18 Allergies Allergy/AdvReac Type Severity Reaction Status Date / Time bee venom protein (honey bee) Allergy Severe throat Verified 10/19/18 06:58 swelling aspirin AdvReac Severe bleeding Verified 10/19/18 06:58 General Stated Complaint: Abd Prob JOSEPH: 3 Review of Systems <Papo Umaña MD - Last Filed: 10/19/18 07:45> Review of Systems Continues to make urine. Scheduled for dialysis today. Last dialysis was Thursday. States decreased use of marijuana. No recent new illness. 8 systems reviewed and otherwise neg PFSH <Papo Umaña MD - Last Filed: 10/19/18 07:45> Medical History Pleural effusion, left (Acute) LLQ abdominal pain (Acute) End stage chronic kidney disease (Chronic) Atrial fibrillation with RVR (Chronic) Renal failure (Chronic) STEMI (ST elevation myocardial infarction) (Chronic) Acute respiratory failure with hypoxia (Resolved) Surgical History Stented coronary artery (Chronic) Encounter for gastrojejunal (GJ) tube placement (Acute 02/23/18) Hx of echocardiogram (Acute 03/08/18) Arthroplasty of knee Repair of umbilical hernia Tonsillectomy and adenoidectomy cardiac catherization (01/01/18) cardiac catherization (01/05/18) echocardiogram (01/06/18) Family History Mother Essential hypertension Father Essential hypertension Osteoporosis Sister Neoplasm Paternal Uncle Neoplasm Paternal Uncle Neoplasm Paternal Grandfather Diabetes Stroke Social History Smoking/Tobacco Use Status: Former Tobacco Use Alcohol Intake: never Drug use: Daily Substance use type: marijuana Household members: spouse Number of Children: 2 What is your relationship status?: Panel score (0-1 are the most socially isolated patients): 1 What type of physical activity do you participate in: none Seatbelt use: always 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 Pleasant, well groomed, interactive. HEAD: Normocephalic, atraumatic ENT: Mucous membranes moist, oropharynx partially edentulous, External ear exam unremarkable EYES: PERRL, EOMI NECK: Full ROM, no LIANA, no menigismus CHEST/RESP: Nontender, clear to auscultation bilateral, no wheeze/rhonchi/rales CARDIOVASCULAR: RRR, no murmur, rub adele. 2+ Rad pulse bilateral ABDOMEN: Soft, minimal left lower quadrant tenderness, no rebound or guarding, no mass. +Bowel sounds EXT: Full ROM, no edema, no rash Neuro: Grossly normal neurologic exam, conversant, interactive. Psych: Speech fluent, thoughts congruent, affect normal Course <Papo Umaña MD - Last Filed: 10/19/18 07:45> Vital Signs Temperature 36.5 C 10/19/18 06:52 Pulse 72 10/19/18 06:52 Respiratory Rate 20 10/19/18 06:52 Blood Pressure 112/79 10/19/18 06:52 Pulse Oximetry 98 10/19/18 06:52 Temperature 36.5 C 10/19/18 06:52 Temperature Source Temporal Artery Scan 10/19/18 06:52 Pulse 72 10/19/18 06:52 Respiratory Rate 20 10/19/18 06:52 Respiratory Effort Non-Labored 10/19/18 06:56 Blood Pressure 112/79 10/19/18 06:52 Blood Pressure Position Supine 10/19/18 06:52 Pulse Oximetry 98 10/19/18 06:52 Oxygen Delivery Method Room Air 10/19/18 06:52 Oxygen Flow Rate 0 10/19/18 06:52 Pain Level 7 10/19/18 06:52 Sign Out <Papo Umaña MD - Last Filed: 10/19/18 07:45> Sign Out Data: Sign Out Comment: Please follow-up laboratory analysis and response to medication Last updated by Papo Umaña MD at 10/19/18 07:44
[2018-10-19] MEDS: Haloperidol 5 MG/ML VIAL 2 MG IM/IV (07:21)
[2018-10-19] MEDS: Normal Saline Flush 10 ML SYR IVP (07:25)
--- NOTE | 2018-10-19 07:33 | DI.VRAD_ITS ---
EXAM: CT Abdomen and Pelvis Without Contrast EXAM DATE/TIME: 10/19/2018 7:02 AM CLINICAL HISTORY: 52 years old, male; Signs and symptoms; Other: Llq pain, recurrent, dialysis PT TECHNIQUE: Imaging protocol: Axial computed tomography images of the abdomen and pelvis without contrast. Coronal and sagittal reformatted images were created and reviewed. Radiation optimization: All CT scans at this facility use at least one of these dose optimization techniques: automated exposure control; mA and/or kV adjustment per patient size (includes targeted exams where dose is matched to clinical indication); or iterative reconstruction. COMPARISON: CT ABDOMEN PELVIS WO 10/14/2018 4:26 PM FINDINGS: Lungs: Groundglass attenuation and subtle nodular infiltrates may reflect pneumonia/small airways disease. Pleural space: Bilateral pleural effusions ABDOMEN: Liver: Hepatic steatosis is present. Gallbladder and bile ducts: The gallbladder is contracted with secondary wall thickening Pancreas: Normal. No ductal dilation. Spleen: Normal. No splenomegaly. Adrenals: Normal. No mass. Kidneys and ureters: Normal. No hydronephrosis. Stomach and bowel: Equivocal colonic wall thickening at the level of the hepatic flexure may reflect inflammatory or infectious colitis in the correct clinical setting. Appendix: No evidence of appendicitis. PELVIS: Bladder: The urinary bladder is questionably thickwalled. This may reflect incomplete distention. However correlation with UA is recommended to exclude cystitis. Reproductive: Unremarkable as visualized. ABDOMEN and PELVIS: Intraperitoneal space: Patient status post ventral herniorrhaphy Trace free pelvic fluid Bones/joints: No acute fracture. No dislocation. Soft tissues: Unremarkable. Vasculature: Normal. No abdominal aortic aneurysm. Lymph nodes: Normal. No enlarged lymph nodes. IMPRESSION: 1. Groundglass attenuation and subtle nodular infiltrates may reflect pneumonia/small airways disease. 2. Equivocal cystitis. 3. Equivocal colonic wall thickening at the level of the hepatic flexure may reflect inflammatory or infectious colitis in the correct clinical setting. Dictated and Authenticated by: Zeus Ann MD. Ordering:HALLEY Barros MD
[2018-10-19 07:35] LABS: Abs Immature Grans 0.03 k/cumm (0.0-0.09); Absolute Basophil Count 0.05 k/cumm (0.0-0.2); Absolute Eosinophil Count 0.01 k/cumm (0.0-0.7); Absolute Lymphocyte Count 1.42 k/cumm (1.2-3.4); Absolute Monocyte Count 0.49 k/cumm (0.11-0.7); Absolute Neutrophil Count 8.24 k/cumm (1.2-6.7); Basophils % 0.5; Eosinophils % 0.1; HCT 32.9 % (40.0-50.0); HGB 10.1 g/dL (13.5-17.5); Immature Grans % 0.3; Lymphocytes % 13.9; Mean Corp. HGB Concentration 30.7 g/dL (32.0-36.0); Mean Corpuscular Hemoglobin 29.7 pg (27.0-33.0); Mean Corpuscular Volume 96.8 fL (80-95); Mean Platelet Volume 11.3 fL (8.0-11.0); Monocytes % 4.8; Neutrophils % 80.4; Platelet Count 259 x1000/uL (130-400); RBC Distribution Width 19.4 % (11.8-14.1); White Blood Cell Count 10.24 k/cumm (4.4-10.8)
[2018-10-19 07:46] LABS: ALT 82 U/L (12-78); AST 66 U/L (15-37); Albumin 2.9 g/dL (3.4-5.0); Alkaline Phosphatase 100 U/L (46-116); Anion Gap 18.9 mmol/L (3-11); BUN 56 mg/dL (7-18); Bilirubin, Total 1.8 mg/dL (0.2-1.0); CO2 20.1 mmol/L (21.0-32.0); Calcium 9.1 mg/dL (8.5-10.1); Chloride 98 mmol/L (98-107); Estimated GFR 7.83 (mL/min/1.73m2); Glucose 93 mg/dL (70-100); Potassium 3.9 mmol/L (3.5-5.1); Sodium 137 mmol/L (136-145); Total Protein 7.4 g/dL (6.4-8.2)
[2018-10-19 07:52] LABS: CREATININE 7.37 mg/dL (0.70-1.30)
[2018-10-19 08:00] LABS: Anisocytosis 2+; Diff Comment RBC Morph Reviewed; Hypochromasia 1+; Polychromasia Present
[2018-10-19] MEDS: metroNIDAZOLE 500 MG TAB PO (08:24)
[2018-10-19] MEDS: Ciprofloxacin 500 MG TAB PO (08:25)
[2018-10-19 08:29] VITALS: BP 103/58; PULSE 68; RESP 16; TEMP 36.6; O2SAT 97
[2018-10-19 08:34] VITALS: BP 103/58; PULSE 68; RESP 16; TEMP 36.6; O2SAT 97
--- NOTE | 2018-10-19 11:58 | NUR.NOTE ---
Nursing Note: At the request of the Dialysis Center I faxed the MD note, labs and CT report. Kaylene Salgado Fax [phone]
== END 2018-10-19 08:37 | disposition home or self-care (01) ==
PROVIDERS: Emergency Medicine; Emergency Provider Student in an Organized Health Care Education/Training Program; PCP Family Medicine
DX: K52.9 Noninfective gastroenteritis and colitis, unspecified (principal); J90 Pleural effusion, not elsewhere classified; R91.8 Other nonspecific abnormal finding of lung field; N18.6 End stage renal disease; Z99.2 Dependence on renal dialysis; F12.90 Cannabis use, unspecified, uncomplicated
CPT/HCPCS: 80053; 96374; 99285; 74176; 85025; 99284; J1630

== ENCOUNTER 2018-11-10 12:40 | Outpatient (RCR) | payer MEDICAID, SELFPAY | END 2018-11-19 23:59 | disposition home or self-care (01) | LOC: CR 12:40 | PROVIDERS: PCP Family Medicine; Visit Provider Family Medicine | DX: Z51.89 Encounter for other specified aftercare (principal) ==

== ENCOUNTER 2018-12-18 11:35 | Emergency (ER) | payer MEDICAID, SELFPAY ==
[2018-12-18] VITALS (41 sets, daily range): BP systolic 76–133; BP diastolic 46–94; PULSE 77–96; RESP 9–24; TEMP 36.7; O2SAT 90–100
[2018-12-18 12:12] LABS: Lactate-non-spesis 2.7 mmol/l (0.6-1.4)
[2018-12-18 12:14] LABS: Abs Immature Grans 0.04 k/cumm (0.0-0.09); Absolute Basophil Count 0.02 k/cumm (0.0-0.2); Absolute Lymphocyte Count 0.57 k/cumm (1.2-3.4); Absolute Monocyte Count 0.51 k/cumm (0.11-0.7); Absolute Neutrophil Count 9.97 k/cumm (1.2-6.7); Basophils % 0.2; HCT 41.8 % (40.0-50.0); HGB 13.6 g/dL (13.5-17.5); Immature Grans % 0.4; Lymphocytes % 5.1; Mean Corp. HGB Concentration 32.5 g/dL (32.0-36.0); Mean Corpuscular Hemoglobin 30.5 pg (27.0-33.0); Mean Corpuscular Volume 93.7 fL (80-95); Mean Platelet Volume 9.8 fL (8.0-11.0); Monocytes % 4.6; Neutrophils % 89.7; Platelet Count 281 x1000/uL (130-400); RBC 4.46 m/cumm (4.50-6.00); RBC Distribution Width 16.3 % (11.8-14.1); White Blood Cell Count 11.11 k/cumm (4.4-10.8)
--- NOTE | 2018-12-18 12:17 | W.ED.GENAD ---
Discharge Plan Disposition Patient Disposition: HOME Discharge Details Chief Complaint: Nausea/Vomit/Diar Clinical Impression: Abdominal pain Primary Care Provider: Gee Luke ED Provider: Dion Stack Home Meds and New Rx's Prescriptions: No Action metolazone 2.5 mg tablet 2.5 mg PO ONCE PRN (Reason: Excessive fluid retention) Qty: 14 RF: 0 ferrous sulfate 325 mg (65 mg iron) tablet 325 mg PO DAILY Qty: 45 RF: 3 promethazine 25 mg suppository 25 mg NJ Q6H PRN (Reason: nausea and vomiting) Qty: 12 RF: 3 atorvastatin 80 mg tablet 80 mg PO DAILY Qty: 90 RF: 3 Nephrocaps 1 mg capsule 1 cap PO DAILY Qty: 90 RF: 3 gabapentin 800 mg tablet 800 mg PO DAILY Qty: 60 RF: 3 oxygen concentrater Qty: 1 RF: 0 epinephrine [EpiPen 2-Chandu] 0.3 MG/0.3 ML auto-injector 0.3 mg IM PRN PRNRF: 0 fluoxetine [Prozac] 20 MG capsule 60 mg PO DAILY RF: 0 albuterol sulfate [ProAir HFA] 8.5 GM HFA aerosol inhaler 1 puff Inhalation Q4H PRN 30 Days Qty: 1 RF: 11 fluticasone propion-salmeterol [Advair Diskus] 500-50 mcg/dose blister with device 1 inh IH BID RF: 0 Spiriva with HandiHaler 18 mcg capsule, w/inhalation device 1 cap IH DAILY RF: 0 omeprazole magnesium 20 mg tablet,delayed release (DR/EC) 20 mg PO DAILY Qty: 90 RF: 3 esomeprazole magnesium [Nexium] 20 mg capsule,delayed release(DR/EC) 20 mg PO BID RF: 0 aspirin [Adult Low Dose Aspirin] 81 mg tablet,delayed release (DR/EC) 81 mg PO DAILY RF: 0 epinephrine [EpiPen] 0.3 mg/0.3 mL auto-injector 0.3 mg IM ONCE PRNRF: 0 titration testing Qty: 1 RF: 0 clonazepam 0.5 mg tablet 0.25 mg PO BID PRN (Reason: nausea and vomiting) Qty: 28 RF: 1 metoprolol tartrate 50 mg tablet 50 mg PO BID Qty: 180 RF: 3 furosemide 80 mg tablet 80 mg PO BID Qty: 180 RF: 3 sevelamer carbonate [Renvela] 800 mg Tablet 1,600 mg PO AC RF: 0 metoclopramide HCl [Reglan] 10 mg tablet 10 mg PO Q6H Qty: 4 RF: 0 Brilinta 90 mg Tablet 1 tab PO BID RF: 0 Discharge Instructions Instructions: Abdominal Pain (ED) Additional Instructions: Your blood work and CAT scan from today show no obvious cause for your abdominal discomfort. If your symptoms persist you must follow-up with your primary care provider. Return to the emergency department should you develop severe pain, fever, vomiting, or diarrhea. Is very important that you follow-up with your colonoscopy scheduled for next month. Referrals: Gee Luke DO [Primary Care Provider] - 3 days Medical Decision Making This is a chronically ill 53-year-old gentleman presenting to the emergency department with left upper/left lower abdominal pain since last night. Vital signs stable here and without fever. He reports his symptoms today are similar to his previous ER visits. He was diagnosed with colitis in August and given 2 antibiotics with some relief at that time. His exam reveals focal tenderness in the left lower quadrant and left upper quadrant. No rebound or guarding. Vitals reflect stable creatinine. Slightly elevated white blood cell count and lactate therefore CT scan ordered. CT scan here shows no obvious acute abnormalities in his abdomen. Chronic bilateral pleural effusions noted. Discussed differential diagnosis with the patient. His blood pressure did slightly drop to 99/63 while here in the emergency department, his map was well maintained above 65. This occurred while the patient was sleeping. He did get significant relief from hydromorphone 0.5 mg IV push x1. He has no recurrent vomiting and has been able to tolerate p.o. fluid here. I suspect his blood pressure response was most likely from his recent hemodialysis. No indications for further testing at this time as he does not endorse any chest pain or ACS equivalent symptoms and his EKG and troponin here are negative. Good pulses distally. We discussed return precautions and the need for primary care follow-up should his symptoms persist. ECG Data Interpretation: Normal sinus rhythm with slightly prolonged QTc at 506. Negative for STEMI HPI General Date/Time Provider Initiated Documentation: 12/18/18 11:57. HPI Narrative: Patient is a 53-year-old male with significant past medical history for left lower quadrant abdominal pain thought to be secondary to colitis on CT scan, renal failure with hemodialysis 3x/wk, atrial fibrillation with RVR, coronary artery disease, status post STEMI who presents to the emergency department today with left lower quadrant abdominal pain and nausea with vomiting since last night. Patient states that he has been unable to keep any of his p.o. meds down secondary to the nausea and vomiting. He did have his dialysis this morning. His biggest complaint currently is the pain in his left lower abdomen as they were able to give him Zofran 4 mg IV push prior to his dialysis today. He denies any constipation or diarrhea. No melanotic stool. Pain is very similar to his most recent presentation to the emergency department. He states at that time he was given antibiotics with which his symptoms cleared in roughly 2 to 3 days. He is scheduled for a [place] [facility] [place] Home Medications Medication Instructions Recorded Confirmed epinephrine [EpiPen 2-Chandu] 0.3 mg IM PRN PRN 07/24/17 12/18/18 albuterol sulfate [ProAir HFA] 1 puff INHALATION Q4H PRN 30 Days 08/10/17 12/18/18 #1 inhaler fluoxetine [Prozac] 60 mg PO DAILY cap 08/10/17 12/18/18 fluticasone 500 mcg-salmeterol 50 1 inh IH BID 04/01/18 12/18/18 mcg/dose blistr powdr for inhalation tiotropium bromide 18 mcg capsule 1 cap IH DAILY 04/01/18 12/18/18 with inhalation device Brilinta 1 tab PO BID 05/10/18 12/18/18 gabapentin 800 mg tablet 800 mg PO DAILY #60 tab 05/14/18 12/18/18 sevelamer carbonate [Renvela] 1,600 mg PO AC 05/20/18 12/18/18 ferrous sulfate 325 mg (65 mg 325 mg PO DAILY #45 tab 05/31/18 12/18/18 iron) tablet metolazone 2.5 mg tablet 2.5 mg PO ONCE PRN #14 tab 05/31/18 12/18/18 oxygen concentrater #1 ea 07/29/18 12/18/18 promethazine 25 mg rectal 25 mg NJ Q6H PRN #12 each 08/02/18 12/18/18 suppository omeprazole magnesium 20 mg 20 mg PO DAILY #90 tab 09/14/18 12/18/18 tablet,delayed release aspirin 81 mg tablet,delayed 81 mg PO DAILY 10/13/18 12/18/18 release epinephrine 0.3 mg/0.3 mL 0.3 mg IM ONCE PRN 10/13/18 12/18/18 injection, auto-injector esomeprazole magnesium 20 mg 20 mg PO BID cap 10/13/18 12/18/18 capsule,delayed release atorvastatin 80 mg tablet 80 mg PO DAILY #90 tab 10/15/18 12/18/18 vitamin B complex and vitamin C 1 cap PO DAILY #90 cap 10/15/18 12/18/18 no.20-folic acid 1 mg capsule metoclopramide HCl [Reglan] 10 mg PO Q6H #4 tab 10/19/18 12/18/18 titration testing #1 ea 10/22/18 12/18/18 clonazepam 0.5 mg tablet 0.25 mg PO BID PRN #28 tab 11/02/18 12/18/18 metoprolol tartrate 50 mg tablet 50 mg PO BID #180 tab 11/29/18 12/18/18 furosemide 80 mg tablet 80 mg PO BID #180 tab 12/03/18 12/18/18 Previous Rx's Medication Instructions Recorded albuterol sulfate [ProAir HFA] 1 puff INHALATION Q4H PRN 30 Days 08/10/17 #1 inhaler gabapentin 800 mg tablet 800 mg PO DAILY #60 tab 05/14/18 ferrous sulfate 325 mg (65 mg 325 mg PO DAILY #45 tab 05/31/18 iron) tablet metolazone 2.5 mg tablet 2.5 mg PO ONCE PRN #14 tab 05/31/18 oxygen concentrater #1 ea 07/29/18 promethazine 25 mg rectal 25 mg NJ Q6H PRN #12 each 08/02/18 suppository omeprazole magnesium 20 mg 20 mg PO DAILY #90 tab 09/14/18 tablet,delayed release atorvastatin 80 mg tablet 80 mg PO DAILY #90 tab 10/15/18 vitamin B complex and vitamin C 1 cap PO DAILY #90 cap 10/15/18 no.20-folic acid 1 mg capsule metoclopramide HCl [Reglan] 10 mg PO Q6H #4 tab 10/19/18 titration testing #1 daron 10/22/18 clonazepam 0.5 mg tablet 0.25 mg PO BID PRN #28 tab 11/02/18 metoprolol tartrate 50 mg tablet 50 mg PO BID #180 tab 11/29/18 furosemide 80 mg tablet 80 mg PO BID #180 tab 12/03/18 Allergies Allergy/AdvReac Type Severity Reaction Status Date / Time bee venom protein (honey bee) Allergy Severe throat Verified 12/18/18 11:44 swelling aspirin AdvReac Severe bleeding Verified 12/18/18 11:44 General Stated Complaint: Nausea/Vomit/Diar JOSEPH: 2 Review of Systems Constitutional Denies body ache(s), Denies chills, Reports fatigue, Denies fever(s), Denies malaise, Denies night sweats and Denies weakness ENT Reports dry mouth Cardiovascular Denies chest pain, Denies diaphoresis, Denies irregular heart rhythm, Denies leg edema, Reports lightheadedness and Denies dyspnea Respiratory Denies dyspnea Gastrointestinal Reports abdominal pain, Denies belching, Denies melena, Denies bloating, Denies hematochezia, Denies cramping, Denies heartburn, Denies diarrhea, Reports nausea and Reports vomiting Genitourinary Denies dysuria Musculoskeletal Denies joint swelling Neurologic Denies weakness Endocrine Reports fatigue PFSH Medical History Pleural effusion, left (Acute) LLQ abdominal pain (Acute) End stage chronic kidney disease (Chronic) Atrial fibrillation with RVR (Chronic) Renal failure (Chronic) STEMI (ST elevation myocardial infarction) (Chronic) Acute respiratory failure with hypoxia (Resolved) Surgical History Stented coronary artery (Chronic) Encounter for gastrojejunal (GJ) tube placement (Acute 02/23/18) Hx of echocardiogram (Acute 03/08/18) Arthroplasty of knee Repair of umbilical hernia Tonsillectomy and adenoidectomy cardiac catherization (01/01/18) cardiac catherization (01/05/18) echocardiogram (01/06/18) Family History Mother Essential hypertension Father Essential hypertension Osteoporosis Sister Neoplasm Paternal Uncle Neoplasm Paternal Uncle Neoplasm Paternal Grandfather Diabetes Stroke Social History Smoking/Tobacco Use Status: Former Tobacco Use Alcohol Intake: never Drug use: Daily Substance use type: marijuana Household members: spouse Number of Children: 2 What is your relationship status?: Panel score (0-1 are the most socially isolated patients): 1 What type of physical activity do you participate in: none Seatbelt use: always 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 Working smoke detector in home: Yes Fire extinguisher in home: Yes Carbon monox detector in home: Yes Do you feel safe at home: Yes Do you feel safe in your relationship?: Yes Exam Const General: cooperative, comfortable and no acute distress Nutritional Appearance: obese Orientation: alert, awake and oriented x3 HENMT Head: normal to inspection Mouth: moist mucous membranes abnormal (dry) Neck Neck: normal visual inspection and no JVD Chest Chest: normal inspection of the chest and normal palpation of entire chest wall Resp Effort & Inspection: normal respiratory effort and able to speak in complete sentences Auscultation: clear to auscultation bilaterally Cardio Jugular venous pressure: no JVD Palpation: normal PMI Rate: regular rate Rhythm: regular rhythm Heart Sounds: S1 normal and S2 normal Pulses: normal peripheral pulses GI Inspection: normal to inspection Palpation: soft and tender in the epigastrum and in the LLQ; with no rebound tenderness Skin General skin exam: no rashes or lesions noted Course Vital Signs Respiratory Rate 9 L 12/18/18 11:30 Temperature 36.7 C 12/18/18 11:40 Temperature Source Temporal Artery Scan 12/18/18 11:40 Pulse 91 H 12/18/18 12:01 Pulse 90 12/18/18 12:01 Respiratory Rate 21 12/18/18 12:01 Respiratory Effort Non-Labored 12/18/18 11:43 Blood Pressure 131/91 H 12/18/18 12:01 Blood Pressure Mean 100 12/18/18 12:01 Blood Pressure Position Supine 12/18/18 11:40 Pulse Oximetry 97 12/18/18 12:01 Oxygen Delivery Method Room Air 12/18/18 11:40 Oxygen Flow Rate 0 12/18/18 11:40 Pain Level 8 12/18/18 11:40 Lab/Test Results Lab/Test Results: Laboratory Tests Range/Units 12/18/18 12/18/18 12:00 12:00 WBC (4.4-10.8) k/cumm 11.11 H RBC (4.50-6.00) m/cumm 4.46 L Hgb (13.5-17.5) g/dL 13.6 Hct (40.0-50.0) % 41.8 MCV (80-95) fL 93.7 MCH (27.0-33.0) pg 30.5 MCHC (32.0-36.0) g/dL 32.5 RDW (11.8-14.1) % 16.3 H Plt Count (130-400) x1000/uL 281 MPV (8.0-11.0) fL 9.8 Immature Gran % 0.4 Neutrophils % 89.7 Lymphocytes % 5.1 Monocytes % 4.6 Eosinophils % 0.0 Basophils % 0.2 Absolute Neutrophils (1.2-6.7) k/cumm 9.97 H Absolute Lymphocytes (1.2-3.4) k/cumm 0.57 L Absolute Monocytes (0.11-0.7) k/cumm 0.51 Absolute Eosinophils (0.0-0.7) k/cumm 0.00 Absolute Basophils (0.0-0.2) k/cumm 0.02 Lactate (0.6-1.4) mmol/l 2.7 H
[2018-12-18] MEDS: HYDROmorphone 2 MG/ML VIAL 0.5 MG IVP (12:30)
[2018-12-18] MEDS: Normal Saline 1,000 ML 250 ML IV (12:31)
[2018-12-18 12:34] LABS: ALT 21 U/L (12-78); AST 16 U/L (15-37); Albumin 3.4 g/dL (3.4-5.0); Alkaline Phosphatase 82 U/L (46-116); BUN 22 mg/dL (7-18); Bilirubin, Total 1.3 mg/dL (0.2-1.0); Calcium 9.9 mg/dL (8.5-10.1); Chloride 98 mmol/L (98-107); Estimated GFR 9.92 (mL/min/1.73m2); Glucose 132 mg/dL (70-100); Potassium 4.1 mmol/L (3.5-5.1); Sodium 138 mmol/L (136-145); Total Protein 9.2 g/dL (6.4-8.2)
[2018-12-18 12:39] LABS: CREATININE 5.98 mg/dL (0.70-1.30); Troponin I < 0.05 ng/mL (0.00-0.06)
[2018-12-18] MEDS: Metoclopramide 10 MG/2 ML VIAL (12:40)
--- NOTE | 2018-12-18 13:14 | DI.CT_ITS ---
SYMPTOM/DIAGNOSIS: MARKED LUQ/LLQ PAIN, N/V, ELEVATED WBC AND LACTATE NONCONTRAST CT ABDOMEN AND PELVIS: Comparison is made with 19 October 2018 The exam is somewhat limited by respiratory motion. There has been significant decrease in bilateral pleural effusions. There is now a small right pleural effusion. There are multiple small nodular densities seen in both lower lobes and some increased density in the right middle lobe. The findings could represent multi-focal pneumonia or represent metastatic disease. No pleural effusion is seen. The tip of the dialysis catheter is in the right atrium. The liver shows mild fatty infiltration. The spleen, gallbladder, kidneys and adrenals are unremarkable. The pancreas is not well seen due to motion but appears atrophic. The appendix appears normal. There is no bowel dilatation or inflammatory change. There is no ascites. Aorta shows calcification but is normal in diameter. The bladder and prostatae are unremarkable. IMPRESSION: Bibasilar nodules may represent multi-focal infiltrates or could be secondary to inflammatory or neoplastic causes. Small right pleural effusion.
[2018-12-18 13:43] LABS: Lipase 61 U/L (73-393)
--- NOTE | 2018-12-18 14:19 | DI.VRAD_ITS ---
EXAM: CT Abdomen and Pelvis Without Contrast EXAM DATE/TIME: 12/18/2018 12:54 PM CLINICAL HISTORY: 53 years old, male; Abdominal pain; Flank; Left; Patient HX: Luq/llq pain, n/v, elevated wbc \T\lactate. TECHNIQUE: Imaging protocol: Axial computed tomography images of the abdomen and pelvis without contrast. Coronal and sagittal reformatted images were created and reviewed. Radiation optimization: All CT scans at this facility use at least one of these dose optimization techniques: automated exposure control; mA and/or kV adjustment per patient size (includes targeted exams where dose is matched to clinical indication); or iterative reconstruction. COMPARISON: CT ABDOMEN PELVIS WO 10/19/2018 7:10 AM FINDINGS: Lungs: Continued ground glass density in the right middle lobe, nonspecific finding. Differential includes infectious process, chronic interstitial disease, and acute alveolar disease. Clinical correlation necessary. Increased number and size of bibasilar pulmonary nodules. Nodules appear ill defined, and may be infectious or inflammatory process. Metastatic disease should be excluded. Pleural space: Small right pleural effusion. Liver: Normal. No mass. Gallbladder and bile ducts: Normal. No calcified stones. No ductal dilation. Pancreas: Normal. No ductal dilation. Spleen: Normal. No splenomegaly. Adrenals: Normal. No mass. Kidneys and ureters: Normal. No hydronephrosis. Stomach and bowel: Normal. No obstruction. No mucosal thickening. Appendix: No evidence of appendicitis. Intraperitoneal space: Normal. No free air. No significant fluid collection. Vasculature: Normal. No abdominal aortic aneurysm. Lymph nodes: Normal. No enlarged lymph nodes. Bladder: Unremarkable as visualized. Reproductive: Unremarkable as visualized. Bones/joints: No acute fracture. No dislocation. Soft tissues: Unremarkable. IMPRESSION: 1. Continued ground glass density in the right middle lobe, nonspecific finding. Differential includes infectious process, chronic interstitial disease, and acute alveolar disease. Clinical correlation necessary. 2. Increased number and size of bibasilar pulmonary nodules. Nodules appear ill defined, and may be infectious or inflammatory process. Metastatic disease should be excluded. 3. Small right pleural effusion. Dictated and Authenticated by: Sneha Gilmore MD. Ordering:ANALISA Ashley MD
== END 2018-12-18 15:22 | disposition home or self-care (01) ==
PROVIDERS: Emergency Provider Physician Assistant; PCP Family Medicine
DX: R10.12 Left upper quadrant pain (principal); R10.32 Left lower quadrant pain; R11.2 Nausea with vomiting, unspecified; N18.6 End stage renal disease; Z99.2 Dependence on renal dialysis; J44.9 Chronic obstructive pulmonary disease, unspecified; Z87.891 Personal history of nicotine dependence; I48.91 Unspecified atrial fibrillation; I47.2 Ventricular tachycardia
CPT/HCPCS: 36415; 80053; 83690; 93005; 96361; 96374; 96375; 99285; 74176; 83605; 83735; 84484; 85025; 93010; 99284; J2765

== ENCOUNTER 2018-12-19 12:36 | Emergency (ER) | payer MEDICAID, SELFPAY ==
[2018-12-19] VITALS (32 sets, daily range): BP systolic 90–131; BP diastolic 50–88; PULSE 65–84; RESP 0–47; TEMP 36.5; O2SAT 71–99
--- NOTE | 2018-12-19 13:08 | W.ED.GENAD ---
Discharge Plan Disposition Patient Disposition: HOME Condition: Good Discharge Details Chief Complaint: Abd Prob Clinical Impression: Acute dehydration, Vomiting Primary Care Provider: Gee Luke ED Provider: Sami Ceballos Home Meds and New Rx's Prescriptions: Continued metolazone 2.5 mg tablet 2.5 mg PO ONCE PRN (Reason: Excessive fluid retention) Qty: 14 RF: 0 ferrous sulfate 325 mg (65 mg iron) tablet 325 mg PO DAILY Qty: 45 RF: 3 promethazine 25 mg suppository 25 mg NM Q6H PRN (Reason: nausea and vomiting) Qty: 12 RF: 3 atorvastatin 80 mg tablet 80 mg PO DAILY Qty: 90 RF: 3 Nephrocaps 1 mg capsule 1 cap PO DAILY Qty: 90 RF: 3 gabapentin 800 mg tablet 800 mg PO DAILY Qty: 60 RF: 3 oxygen concentrater Qty: 1 RF: 0 epinephrine [EpiPen 2-Chandu] 0.3 MG/0.3 ML auto-injector 0.3 mg IM PRN PRNRF: 0 fluoxetine [Prozac] 20 MG capsule 60 mg PO DAILY RF: 0 albuterol sulfate [ProAir HFA] 8.5 GM HFA aerosol inhaler 1 puff Inhalation Q4H PRN 30 Days Qty: 1 RF: 11 fluticasone propion-salmeterol [Advair Diskus] 500-50 mcg/dose blister with device 1 inh IH BID RF: 0 Spiriva with HandiHaler 18 mcg capsule, w/inhalation device 1 cap IH DAILY RF: 0 omeprazole magnesium 20 mg tablet,delayed release (DR/EC) 20 mg PO DAILY Qty: 90 RF: 3 aspirin [Adult Low Dose Aspirin] 81 mg tablet,delayed release (DR/EC) 81 mg PO DAILY RF: 0 epinephrine [EpiPen] 0.3 mg/0.3 mL auto-injector 0.3 mg IM ONCE PRNRF: 0 titration testing Qty: 1 RF: 0 clonazepam 0.5 mg tablet 0.25 mg PO BID PRN (Reason: nausea and vomiting) Qty: 28 RF: 1 metoprolol tartrate 50 mg tablet 50 mg PO BID Qty: 180 RF: 3 furosemide 80 mg tablet 80 mg PO BID Qty: 180 RF: 3 sevelamer carbonate [Renvela] 800 mg Tablet 1,600 mg PO AC RF: 0 metoclopramide HCl [Reglan] 10 mg tablet 10 mg PO Q6H Qty: 4 RF: 0 Brilinta 90 mg Tablet 1 tab PO BID RF: 0 Discharge Instructions Instructions: Dehydration (ED), Acute Nausea and Vomiting (ED) Additional Instructions: Is very importantly follow-up for dialysis tomorrow as scheduled. Return to the emergency department for symptoms recur. Take your medications as prescribed. Medical Decision Making Mr. Tran's feeling much better after IV fluids and Reglan. I initially gave him 5 mg which did not help, the additional 5 completely resolved his vomiting as well as his nausea. He is now able to drink water and take his medication. He is aware that he has multiple comorbidities and is at high risk for a pathologic event however today he seems to be doing better than his baseline since treatment. He has a follow-up with [facility] [place] and will also go for dialysis tomorrow. ED return precautions reviewed with patient and . DAMARIS Moulton is a 53-year-old man with multiple comorbidities including diabetes and renal failure on dialysis. Last dialysis was yesterday. Shortly after he developed abdominal pain nausea and vomiting. He has been seen here for this multiple times in the past. On that visit yesterday his symptoms were resolved with Reglan and IV fluids. He had labs and a CT abdomen pelvis performed which were unrevealing. He was discharged home. He felt better up until 11 AM today when his symptoms returned. General Date/Time Provider Initiated Documentation: 12/19/18 12:57. Related Data Home Medications Medication Instructions Recorded Confirmed epinephrine [EpiPen 2-Chandu] 0.3 mg IM PRN PRN 07/24/17 12/19/18 albuterol sulfate [ProAir HFA] 1 puff INHALATION Q4H PRN 30 Days 08/10/17 12/19/18 #1 inhaler fluoxetine [Prozac] 60 mg PO DAILY cap 08/10/17 12/19/18 fluticasone 500 mcg-salmeterol 50 1 inh IH BID 04/01/18 12/19/18 mcg/dose blistr powdr for inhalation tiotropium bromide 18 mcg capsule 1 cap IH DAILY 04/01/18 12/19/18 with inhalation device Brilinta 1 tab PO BID 05/10/18 12/19/18 gabapentin 800 mg tablet 800 mg PO DAILY #60 tab 05/14/18 12/19/18 sevelamer carbonate [Renvela] 1,600 mg PO AC 05/20/18 12/19/18 ferrous sulfate 325 mg (65 mg 325 mg PO DAILY #45 tab 05/31/18 12/19/18 iron) tablet metolazone 2.5 mg tablet 2.5 mg PO ONCE PRN #14 tab 05/31/18 12/19/18 oxygen concentrater #1 ea 07/29/18 12/19/18 promethazine 25 mg rectal 25 mg NM Q6H PRN #12 each 08/02/18 12/19/18 suppository omeprazole magnesium 20 mg 20 mg PO DAILY #90 tab 09/14/18 12/19/18 tablet,delayed release aspirin 81 mg tablet,delayed 81 mg PO DAILY 10/13/18 12/19/18 release epinephrine 0.3 mg/0.3 mL 0.3 mg IM ONCE PRN 10/13/18 12/19/18 injection, auto-injector atorvastatin 80 mg tablet 80 mg PO DAILY #90 tab 10/15/18 12/19/18 vitamin B complex and vitamin C 1 cap PO DAILY #90 cap 10/15/18 12/19/18 no.20-folic acid 1 mg capsule metoclopramide HCl [Reglan] 10 mg PO Q6H #4 tab 10/19/18 12/19/18 titration testing #1 ea 10/22/18 12/19/18 clonazepam 0.5 mg tablet 0.25 mg PO BID PRN #28 tab 11/02/18 12/19/18 metoprolol tartrate 50 mg tablet 50 mg PO BID #180 tab 11/29/18 12/19/18 furosemide 80 mg tablet 80 mg PO BID #180 tab 12/03/18 12/19/18 Previous Rx's Medication Instructions Recorded albuterol sulfate [ProAir HFA] 1 puff INHALATION Q4H PRN 30 Days 08/10/17 #1 inhaler gabapentin 800 mg tablet 800 mg PO DAILY #60 tab 05/14/18 ferrous sulfate 325 mg (65 mg 325 mg PO DAILY #45 tab 05/31/18 iron) tablet metolazone 2.5 mg tablet 2.5 mg PO ONCE PRN #14 tab 05/31/18 oxygen concentrater #1 ea 07/29/18 promethazine 25 mg rectal 25 mg NM Q6H PRN #12 each 08/02/18 suppository omeprazole magnesium 20 mg 20 mg PO DAILY #90 tab 09/14/18 tablet,delayed release atorvastatin 80 mg tablet 80 mg PO DAILY #90 tab 10/15/18 vitamin B complex and vitamin C 1 cap PO DAILY #90 cap 10/15/18 no.20-folic acid 1 mg capsule metoclopramide HCl [Reglan] 10 mg PO Q6H #4 tab 10/19/18 titration testing #1 ea 10/22/18 clonazepam 0.5 mg tablet 0.25 mg PO BID PRN #28 tab 11/02/18 metoprolol tartrate 50 mg tablet 50 mg PO BID #180 tab 11/29/18 furosemide 80 mg tablet 80 mg PO BID #180 tab 12/03/18 Allergies Allergy/AdvReac Type Severity Reaction Status Date / Time bee venom protein (honey bee) Allergy Severe throat Verified 12/19/18 12:45 swelling aspirin AdvReac Severe bleeding Verified 12/19/18 12:45 General Stated Complaint: Abd Prob JOSEPH: 3 Review of Systems Constitutional Denies chills, Denies fatigue, Denies fever(s) and Denies lethargy Eyes Denies loss of vision ENT Denies nasal congestion and Denies sore throat Cardiovascular Denies chest pain and Denies dyspnea Respiratory Denies cough and Denies dyspnea Musculoskeletal Denies back pain, Denies muscle weakness and Denies numbness Integumentary/Breasts Denies rash Neurologic Denies focal weakness, Denies loss of vision and Denies numbness Endocrine Denies fatigue Hematologic/Lymphatic Denies easy bruising [facility] Social History Smoking/Tobacco Use Status: Former Tobacco Use Alcohol Intake: never Drug use: Daily Substance use type: marijuana Household members: spouse Number of Children: 2 What is your relationship status?: Panel score (0-1 are the most socially isolated patients): 1 What type of physical activity do you participate in: none Seatbelt use: always 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 Working smoke detector in home: Yes Fire extinguisher in home: Yes Carbon monox detector in home: Yes Do you feel safe at home: Yes Do you feel safe in your relationship?: Yes Exam Const General: cooperative and other (Dry heaves, appears uncomfortable) HENMT Head: normal to inspection Ears: hearing grossly normal bilaterally Eyes EOM: EOM intact bilaterally Neck Neck: normal visual inspection Resp Effort & Inspection: normal respiratory effort Auscultation: clear to auscultation bilaterally Cardio Rate: regular rate Rhythm: regular rhythm Heart Sounds: no murmurs GI Palpation: soft and nontender Skin General skin exam: no rashes or lesions noted Neuro General: alert, awake and oriented x3 Speech: speech normal Gait: normal gait Extrem General: normal to inspection Course Vital Signs Temperature 36.5 C 12/19/18 12:41 Pulse 83 12/19/18 12:41 Respiratory Rate 22 12/19/18 12:41 Blood Pressure 106/77 12/19/18 12:41 Pulse Oximetry 98 12/19/18 12:41 Temperature 36.5 C 12/19/18 12:41 Temperature Source Temporal Artery Scan 12/19/18 12:41 Pulse 83 12/19/18 12:41 Respiratory Rate 22 12/19/18 12:41 Respiratory Effort 12/19/18 13:06 Blood Pressure 106/77 12/19/18 12:41 Blood Pressure Position Sitting 12/19/18 12:41 Pulse Oximetry 98 12/19/18 12:41 Oxygen Delivery Method Room Air 12/19/18 12:41 Oxygen Flow Rate 0 12/19/18 12:41 Pain Level 8 12/19/18 12:41
[2018-12-19 13:27] LABS: Abs Immature Grans 0.03 k/cumm (0.0-0.09); Absolute Basophil Count 0.07 k/cumm (0.0-0.2); Absolute Eosinophil Count 0.21 k/cumm (0.0-0.7); Absolute Lymphocyte Count 1.64 k/cumm (1.2-3.4); Absolute Monocyte Count 1.09 k/cumm (0.11-0.7); Absolute Neutrophil Count 4.83 k/cumm (1.2-6.7); Basophils % 0.9; Eosinophils % 2.7; Immature Grans % 0.4; Lymphocytes % 20.8; Mean Corp. HGB Concentration 31.7 g/dL (32.0-36.0); Mean Corpuscular Hemoglobin 30.4 pg (27.0-33.0); Mean Corpuscular Volume 95.8 fL (80-95); Mean Platelet Volume 9.9 fL (8.0-11.0); Monocytes % 13.9; Neutrophils % 61.3; Platelet Count 248 x1000/uL (130-400); RBC 4.28 m/cumm (4.50-6.00); RBC Distribution Width 16.7 % (11.8-14.1); White Blood Cell Count 7.87 k/cumm (4.4-10.8)
[2018-12-19 13:28] LABS: Lactate 3.1 mmol/L (0.6-1.4)
[2018-12-19] MEDS: Normal Saline 1,000 ML 500 ML IV ×2 (13:35→15:43)
[2018-12-19] MEDS: Metoclopramide 10 MG/2 ML VIAL 5 MG IVP ×2 (13:40→14:23)
[2018-12-19] MEDS: MORPHine 10 MG/ML VIAL 4 MG IVP (13:40)
[2018-12-19 13:47] LABS: ALT 25 U/L (12-78); AST 24 U/L (15-37); Albumin 3.4 g/dL (3.4-5.0); Alkaline Phosphatase 75 U/L (46-116); Anion Gap 15.4 mmol/L (3-11); BUN 34 mg/dL (7-18); Bilirubin, Total 1.6 mg/dL (0.2-1.0); CO2 23.6 mmol/L (21.0-32.0); Calcium 9.9 mg/dL (8.5-10.1); Chloride 97 mmol/L (98-107); Estimated GFR 6.94 (mL/min/1.73m2); Glucose 112 mg/dL (70-100); Lipase 74 U/L (73-393); Magnesium 2.3 mg/dL (1.8-2.4); Potassium 4.3 mmol/L (3.5-5.1); Sodium 136 mmol/L (136-145); Total Protein 8.6 g/dL (6.4-8.2)
[2018-12-19 13:52] LABS: CREATININE 8.15 mg/dL (0.70-1.30)
[2018-12-19] MEDS: FAMOTIDINE 20 MG/50 ML BAG 200 MG IVPB (15:42)
[2018-12-19 15:45] LABS: Lactate-non-spesis 1.2 mmol/l (0.6-1.4)
--- NOTE | 2018-12-19 16:18 | ED.GENADUL_ITS ---
Discharge Plan Disposition Patient Disposition: HOME Condition: Good Discharge Details Chief Complaint: Abd Prob Clinical Impression: Acute dehydration, Vomiting Primary Care Provider: Gee Luke ED Provider: Sami Ceballos Home Meds and New Rx's Prescriptions: Continued metolazone 2.5 mg tablet 2.5 mg PO ONCE PRN (Reason: Excessive fluid retention) Qty: 14 RF: 0 ferrous sulfate 325 mg (65 mg iron) tablet 325 mg PO DAILY Qty: 45 RF: 3 promethazine 25 mg suppository 25 mg IA Q6H PRN (Reason: nausea and vomiting) Qty: 12 RF: 3 atorvastatin 80 mg tablet 80 mg PO DAILY Qty: 90 RF: 3 Nephrocaps 1 mg capsule 1 cap PO DAILY Qty: 90 RF: 3 gabapentin 800 mg tablet 800 mg PO DAILY Qty: 60 RF: 3 oxygen concentrater Qty: 1 RF: 0 epinephrine [EpiPen 2-Chandu] 0.3 MG/0.3 ML auto-injector 0.3 mg IM PRN PRNRF: 0 fluoxetine [Prozac] 20 MG capsule 60 mg PO DAILY RF: 0 albuterol sulfate [ProAir HFA] 8.5 GM HFA aerosol inhaler 1 puff Inhalation Q4H PRN 30 Days Qty: 1 RF: 11 fluticasone propion-salmeterol [Advair Diskus] 500-50 mcg/dose blister with device 1 inh IH BID RF: 0 Spiriva with HandiHaler 18 mcg capsule, w/inhalation device 1 cap IH DAILY RF: 0 omeprazole magnesium 20 mg tablet,delayed release (DR/EC) 20 mg PO DAILY Qty: 90 RF: 3 aspirin [Adult Low Dose Aspirin] 81 mg tablet,delayed release (DR/EC) 81 mg PO DAILY RF: 0 epinephrine [EpiPen] 0.3 mg/0.3 mL auto-injector 0.3 mg IM ONCE PRNRF: 0 titration testing Qty: 1 RF: 0 clonazepam 0.5 mg tablet 0.25 mg PO BID PRN (Reason: nausea and vomiting) Qty: 28 RF: 1 metoprolol tartrate 50 mg tablet 50 mg PO BID Qty: 180 RF: 3 furosemide 80 mg tablet 80 mg PO BID Qty: 180 RF: 3 sevelamer carbonate [Renvela] 800 mg Tablet 1,600 mg PO AC RF: 0 metoclopramide HCl [Reglan] 10 mg tablet 10 mg PO Q6H Qty: 4 RF: 0 Brilinta 90 mg Tablet 1 tab PO BID RF: 0 Discharge Instructions Instructions: Dehydration (ED), Acute Nausea and Vomiting (ED) Additional Instructions: Is very importantly follow-up for dialysis tomorrow as scheduled. Return to the emergency department for symptoms recur. Take your medications as prescribed. Medical Decision Making Mr. Tran's feeling much better after IV fluids and Reglan. I initially gave him 5 mg which did not help, the additional 5 completely resolved his vomiting as well as his nausea. He is now able to drink water and take his medication. He is aware that he has multiple comorbidities and is at high risk for a pathologic event however today he seems to be doing better than his baseline since treatment. He has a follow-up with [facility] and will also go for dialysis tomorrow. ED return precautions reviewed with patient and . DAMARIS Moulton is a 53-year-old man with multiple comorbidities including diabetes and renal failure on dialysis. Last dialysis was yesterday. Shortly after he developed abdominal pain nausea and vomiting. He has been seen here for this multiple times in the past. On that visit yesterday his symptoms were resolved with Reglan and IV fluids. He had labs and a CT abdomen pelvis performed which were unrevealing. He was discharged home. He felt better up until 11 AM today when his symptoms returned. General Date/Time Provider Initiated Documentation: 12/19/18 12:57 . Related Data Home Medications Medication Instructions Recorded Confirmed epinephrine [EpiPen 2-Chandu] 0.3 mg IM PRN PRN 07/24/17 12/19/18 albuterol sulfate [ProAir HFA] 1 puff INHALATION Q4H PRN 30 Days 08/10/17 12/19/18 #1 inhaler fluoxetine [Prozac] 60 mg PO DAILY cap 08/10/17 12/19/18 fluticasone 500 mcg-salmeterol 50 1 inh IH BID 04/01/18 12/19/18 mcg/dose blistr powdr for inhalation tiotropium bromide 18 mcg capsule 1 cap IH DAILY 04/01/18 12/19/18 with inhalation device Brilinta 1 tab PO BID 05/10/18 12/19/18 gabapentin 800 mg tablet 800 mg PO DAILY #60 tab 05/14/18 12/19/18 sevelamer carbonate [Renvela] 1,600 mg PO AC 05/20/18 12/19/18 ferrous sulfate 325 mg (65 mg 325 mg PO DAILY #45 tab 05/31/18 12/19/18 iron) tablet metolazone 2.5 mg tablet 2.5 mg PO ONCE PRN #14 tab 05/31/18 12/19/18 oxygen concentrater #1 ea 07/29/18 12/19/18 promethazine 25 mg rectal 25 mg IA Q6H PRN #12 each 08/02/18 12/19/18 suppository omeprazole magnesium 20 mg 20 mg PO DAILY #90 tab 09/14/18 12/19/18 tablet,delayed release aspirin 81 mg tablet,delayed 81 mg PO DAILY 10/13/18 12/19/18 release epinephrine 0.3 mg/0.3 mL 0.3 mg IM ONCE PRN 10/13/18 12/19/18 injection, auto-injector atorvastatin 80 mg tablet 80 mg PO DAILY #90 tab 10/15/18 12/19/18 vitamin B complex and vitamin C 1 cap PO DAILY #90 cap 10/15/18 12/19/18 no.20-folic acid 1 mg capsule metoclopramide HCl [Reglan] 10 mg PO Q6H #4 tab 10/19/18 12/19/18 titration testing #1 ea 10/22/18 12/19/18 clonazepam 0.5 mg tablet 0.25 mg PO BID PRN #28 tab 11/02/18 12/19/18 metoprolol tartrate 50 mg tablet 50 mg PO BID #180 tab 11/29/18 12/19/18 furosemide 80 mg tablet 80 mg PO BID #180 tab 12/03/18 12/19/18 Previous Rx's Medication Instructions Recorded albuterol sulfate [ProAir HFA] 1 puff INHALATION Q4H PRN 30 Days 08/10/17 #1 inhaler gabapentin 800 mg tablet 800 mg PO DAILY #60 tab 05/14/18 ferrous sulfate 325 mg (65 mg 325 mg PO DAILY #45 tab 05/31/18 iron) tablet metolazone 2.5 mg tablet 2.5 mg PO ONCE PRN #14 tab 05/31/18 oxygen concentrater #1 ea 07/29/18 promethazine 25 mg rectal 25 mg IA Q6H PRN #12 each 08/02/18 suppository omeprazole magnesium 20 mg 20 mg PO DAILY #90 tab 09/14/18 tablet,delayed release atorvastatin 80 mg tablet 80 mg PO DAILY #90 tab 10/15/18 vitamin B complex and vitamin C 1 cap PO DAILY #90 cap 10/15/18 no.20-folic acid 1 mg capsule metoclopramide HCl [Reglan] 10 mg PO Q6H #4 tab 10/19/18 titration testing #1 ea 10/22/18 clonazepam 0.5 mg tablet 0.25 mg PO BID PRN #28 tab 11/02/18 metoprolol tartrate 50 mg tablet 50 mg PO BID #180 tab 11/29/18 furosemide 80 mg tablet 80 mg PO BID #180 tab 12/03/18 Allergies Allergy/AdvReac Type Severity Reaction Status Date / Time bee venom protein (honey bee) Allergy Severe throat Verified 12/19/18 12:45 swelling aspirin AdvReac Severe bleeding Verified 12/19/18 12:45 General Stated Complaint: Abd Prob JOSEPH: 3 Review of Systems Constitutional Denies chills, Denies fatigue, Denies fever(s) and Denies lethargy Eyes Denies loss of vision ENT Denies nasal congestion and Denies sore throat Cardiovascular Denies chest pain and Denies dyspnea Respiratory Denies cough and Denies dyspnea Musculoskeletal Denies back pain, Denies muscle weakness and Denies numbness Integumentary/Breasts Denies rash Neurologic Denies focal weakness, Denies loss of vision and Denies numbness Endocrine Denies fatigue Hematologic/Lymphatic Denies easy bruising [facility] Social History Smoking/Tobacco Use Status: Former Tobacco Use Alcohol Intake: never Drug use: Daily Substance use type: marijuana Household members: spouse Number of Children: 2 What is your relationship status?: Panel score (0-1 are the most socially isolated patients): 1 What type of physical activity do you participate in: none Seatbelt use: always 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 Working smoke detector in home: Yes Fire extinguisher in home: Yes Carbon monox detector in home: Yes Do you feel safe at home: Yes Do you feel safe in your relationship?: Yes Exam Const General: cooperative and other (Dry heaves, appears uncomfortable) HENMT Head: normal to inspection Ears: hearing grossly normal bilaterally Eyes EOM: EOM intact bilaterally Neck Neck: normal visual inspection Resp Effort & Inspection: normal respiratory effort Auscultation: clear to auscultation bilaterally Cardio Rate: regular rate Rhythm: regular rhythm Heart Sounds: no murmurs GI Palpation: soft and nontender Skin General skin exam: no rashes or lesions noted Neuro General: alert, awake and oriented x3 Speech: speech normal Gait: normal gait Extrem General: normal to inspection Course Vital Signs Temperature 36.5 C 12/19/18 12:41 Pulse 83 12/19/18 12:41 Respiratory Rate 22 12/19/18 12:41 Blood Pressure 106/77 12/19/18 12:41 Pulse Oximetry 98 12/19/18 12:41 Temperature 36.5 C 12/19/18 12:41 Temperature Source Temporal Artery Scan 12/19/18 12:41 Pulse 83 12/19/18 12:41 Respiratory Rate 22 12/19/18 12:41 Respiratory Effort 12/19/18 13:06 Blood Pressure 106/77 12/19/18 12:41 Blood Pressure Position Sitting 12/19/18 12:41 Pulse Oximetry 98 12/19/18 12:41 Oxygen Delivery Method Room Air 12/19/18 12:41 Oxygen Flow Rate 0 12/19/18 12:41 Pain Level 8 12/19/18 12:41
== END 2018-12-19 16:37 | disposition home or self-care (01) ==
PROVIDERS: Emergency Provider Physician Assistant Medical; PCP Family Medicine
DX: E86.0 Dehydration (principal); R11.2 Nausea with vomiting, unspecified; E11.22 Type 2 diabetes mellitus with diabetic chronic kidney disease; Z99.2 Dependence on renal dialysis; N18.6 End stage renal disease; J44.9 Chronic obstructive pulmonary disease, unspecified; Z87.891 Personal history of nicotine dependence; I48.91 Unspecified atrial fibrillation
CPT/HCPCS: 36415; 80053; 83690; 93005; 96361; 96365; 96375; 96376; 99285; 83605; 83735; 85025; 93010; 99284; J2270; J2765

== ENCOUNTER 2018-12-19 22:46 | Emergency (ER) | payer MEDICAID, SELFPAY ==
[2018-12-19] VITALS (11 sets, daily range): BP systolic 115–151; BP diastolic 71–100; PULSE 85–93; RESP 18–20; TEMP 36.4; O2SAT 92–95
--- NOTE | 2018-12-19 00:35 | DI.CT_ITS ---
SYMPTOMS/DIAGNOSIS: LUQ/LLQ ABD PAIN, ? PANCREATITIS/DIVERTICULITIS CT OF THE ABDOMEN AND PELVIS: Comparison is made with the previous day's exam. There are small bilateral pleural effusions, right greater than left, increasing when compared with the previous exam. A right middle lobe infiltrate is barely included on the exam. There has been interval improvement in the previously noted bibasilar areas of nodularity. Mild ground glass opacities remain present. The appendix is normal. There is no evidence of bowel dilatation or inflammatory change. Fat is seen at the umbilicus. The liver, spleen, gallbladder, kidneys and pancreas are unchanged. IMPRESSION: Mild interval increase in size of bilateral pleural effusions. Some improvement in bibasilar densities.
--- NOTE | 2018-12-19 22:49 | W.ED.GENAD ---
Discharge Plan Disposition Patient Disposition: HOME Condition: Improving Discharge Details Chief Complaint: Abd Prob Clinical Impression: Abdominal pain, Nausea Primary Care Provider: Gee Luke ED Provider: Niya Jarrett Home Meds and New Rx's Prescriptions: New prochlorperazine maleate [Compazine] 10 mg tablet 10 mg PO Q8H PRN (Reason: nausea and vomiting) Qty: 6 RF: 0 Continued metolazone 2.5 mg tablet 2.5 mg PO ONCE PRN (Reason: Excessive fluid retention) Qty: 14 RF: 0 ferrous sulfate 325 mg (65 mg iron) tablet 325 mg PO DAILY Qty: 45 RF: 3 promethazine 25 mg suppository 25 mg MN Q6H PRN (Reason: nausea and vomiting) Qty: 12 RF: 3 atorvastatin 80 mg tablet 80 mg PO DAILY Qty: 90 RF: 3 Nephrocaps 1 mg capsule 1 cap PO DAILY Qty: 90 RF: 3 gabapentin 800 mg tablet 800 mg PO DAILY Qty: 60 RF: 3 oxygen concentrater Qty: 1 RF: 0 epinephrine [EpiPen 2-Chandu] 0.3 MG/0.3 ML auto-injector 0.3 mg IM PRN PRNRF: 0 fluoxetine [Prozac] 20 MG capsule 60 mg PO DAILY RF: 0 albuterol sulfate [ProAir HFA] 8.5 GM HFA aerosol inhaler 1 puff Inhalation Q4H PRN 30 Days Qty: 1 RF: 11 fluticasone propion-salmeterol [Advair Diskus] 500-50 mcg/dose blister with device 1 inh IH BID RF: 0 Spiriva with HandiHaler 18 mcg capsule, w/inhalation device 1 cap IH DAILY RF: 0 omeprazole magnesium 20 mg tablet,delayed release (DR/EC) 20 mg PO DAILY Qty: 90 RF: 3 aspirin [Adult Low Dose Aspirin] 81 mg tablet,delayed release (DR/EC) 81 mg PO DAILY RF: 0 epinephrine [EpiPen] 0.3 mg/0.3 mL auto-injector 0.3 mg IM ONCE PRNRF: 0 titration testing Qty: 1 RF: 0 clonazepam 0.5 mg tablet 0.25 mg PO BID PRN (Reason: nausea and vomiting) Qty: 28 RF: 1 metoprolol tartrate 50 mg tablet 50 mg PO BID Qty: 180 RF: 3 furosemide 80 mg tablet 80 mg PO BID Qty: 180 RF: 3 sevelamer carbonate [Renvela] 800 mg Tablet 1,600 mg PO AC RF: 0 Brilinta 90 mg Tablet 1 tab PO BID RF: 0 Discontinued metoclopramide HCl [Reglan] 10 mg tablet 10 mg PO Q6H Qty: 4 RF: 0 Discharge Instructions Instructions: Acute Nausea and Vomiting (ED), Abdominal Pain (ED) Additional Instructions: Take Tylenol as needed and directed for pain. Take the Compazine as needed and directed for nausea and vomiting. Follow-up with your primary care doctor this week for reevaluation. Follow-up with your scheduled dialysis on Thursday. Return immediately to the emergency department if you develop any worsening or new concerning symptoms. Discharge Data Discharge Date/Time-TO BE ENTERED AT DEPARTURE: 12/20/18 02:30 Discharge Physician: Niya Jarrett Medical Decision Making 53-year-old male with a history of atrial fibrillation, STEMI, COPD, end-stage renal disease on dialysis, cardiac arrest, cardiac stent and hernia repair who presents with left upper and left lower quadrant abdominal pain since yesterday. This is his third visit in the past 2 days. Lactate yesterday 2.7; today it was 3.0 and then decreased to 1.[address] abd/pelv yesterday negative for acute abd process. He was given reglan, dilaudid in the ED and symptoms improved and he was discharged home. BP hypertensive 151/100. Heart rate 90s. Afebrile. Patient diaphoretic and appears uncomfortable. He is complaining mainly of pain in his left upper quadrant but his left lower quadrant appears the most significantly tender. His abdomen otherwise is soft without guarding, rigidity or distention. There are no pulsatile masses. EKG done on arrival and notes a rate of 89, sinus and no acute ST-T wave ischemic changes and no change from previous EKG today. Differential diagnosis includes diverticulitis, pancreatitis, gastroenteritis, small bowel obstruction, ACS. Doubt AAA or bowel perforation. As patient had an abdomen and pelvis CT without contrast yesterday, will repeat CT abdomen and pelvis with oral contrast, screening labs including troponin, lipase. Will give a dose of morphine and Compazine and reassess. 0030 -- Pt feels better. He appears improved, not diaphoretic. He states he can drink a total of 38oz of fluid daily. He had 30oz with gatorade at home today. Will only give 1 bottle of PO contrast which is ~ 16 oz to not fluid overload him. 0130 --CT reviewed and unremarkable for acute abdominal findings. Notes improvement in patchy perihilar and basilar effusions/infiltrates. Patient has no complaint of cough, fever with normal white blood cell count, normal HR and no hypoxia, doubt pneumonia. Labs reviewed and unremarkable. Lactate normalized after IVF. Pt is requesting to go home. Will send home with compazine prescription. Patient instructed to follow-up with his scheduled dialysis on Thursday and with his primary care doctor this week for reevaluation. Patient instructed return here immediately with any worsening or new concerning symptoms. Medical Records Medical records reviewed: Yes I reviewed the patient's medical records. Imaging Data Radiologic Study: Radiologist's impression: CT Abdomen and Pelvis Without Contrast EXAM DATE/TIME: 12/19/2018 11:00 PM CLINICAL HISTORY: 53 years old, male; Abdominal pain; Localized; Prior surgery; Surgery date: 6+ months; Surgery type: Hernia repair; Patient HX: Luq/llq abd pain, R/O pancreatitis/diverticulitis, vomiting, dry heaves, and left sided abd pain TECHNIQUE: Imaging protocol: Axial computed tomography images of the abdomen and pelvis without contrast. Coronal and sagittal reformatted images were created and reviewed. Radiation optimization: All CT scans at this facility use at least one of these dose optimization techniques: automated exposure control; mA and/or kV adjustment per patient size (includes targeted exams where dose is matched to clinical indication); or iterative reconstruction. COMPARISON: CT ABDOMEN PELVIS WO 12/18/2018 1:08 PM FINDINGS: Lungs: Patchy bilateral nic-bronchovascular alveolar densities in the perihilar distributions suspicious for mild pulmonary edema or patchy perihilar/basilar infiltrate, mildly improved from the previous study. Pleural space: Small bilateral pleural effusions. Heart: Heart size normal. Liver: Normal size and contour. No mass lesions. Gallbladder and bile ducts: Normal. No calcified stones. No ductal dilation. Pancreas: Moderate pancreatic atrophy without acute abnormality. No pancreatic ductal dilatation. Spleen: Normal. No splenomegaly. Adrenals: Normal. No adrenal mass. Kidneys and ureters: Normal. No hydronephrosis or hydroureter. No urinary tract stones are identified. Stomach and bowel: The visualized distal esophagus and stomach are normal. The small bowel is normal with no evidence of obstruction. The colon is normal. Appendix: The appendix is normal in caliber and demonstrates no evidence of appendicitis. Intraperitoneal space: No free fluid or air. Vasculature: Moderate atherosclerotic aortoiliac calcification without aneurysm. Lymph nodes: No adenopathy. Bladder: Unremarkable as visualized. Reproductive: Unremarkable as visualized. Bones/joints: No acute osseous abnormalities. 9 mm lytic focus in the left femoral neck is unchanged with a peripheral sclerotic margin and well-defined zone of transition, consistent with an incidental bone cyst or fibrous dysplasia. Soft tissues: Small fatty umbilical hernia measuring 2.7 cm transverse. No evidence of associated bowel herniation or bowel obstruction. IMPRESSION: 1. Mild interval improvement in the patchy perihilar and basilar alveolar opacities consistent with improving pulmonary edema or infiltrates. 2. Small basilar effusions demonstrating simple fluid features. No signs of empyema. 3. Small fatty umbilical hernia. Lab Data Lab results reviewed: Yes I reviewed the patient's lab results. Laboratory Tests Range/Units 12/19/18 12/19/18 12/19/18 23:07 23:07 23:07 WBC (4.4-10.8) k/cumm 8.69 RBC (4.50-6.00) m/cumm 4.34 L Hgb (13.5-17.5) g/dL 13.2 L Hct (40.0-50.0) % 41.1 MCV (80-95) fL 94.7 MCH (27.0-33.0) pg 30.4 MCHC (32.0-36.0) g/dL 32.1 RDW (11.8-14.1) % 16.8 H Plt Count (130-400) x1000/uL 232 MPV (8.0-11.0) fL 9.6 Immature Gran % 0.3 Neutrophils % 65.7 Lymphocytes % 20.4 Monocytes % 11.4 Eosinophils % 1.4 Basophils % 0.8 Absolute Neutrophils (1.2-6.7) k/cumm 5.71 Absolute Lymphocytes (1.2-3.4) k/cumm 1.77 Absolute Monocytes (0.11-0.7) k/cumm 0.99 H Absolute Eosinophils (0.0-0.7) k/cumm 0.12 Absolute Basophils (0.0-0.2) k/cumm 0.07 Sodium (136-145) mmol/L 137 Potassium (3.5-5.1) mmol/L 4.0 Chloride (98-107) mmol/L 98 Carbon Dioxide (21.0-32.0) mmol/L 22.1 Anion Gap (3-11) mmol/L 16.9 H BUN (7-18) mg/dL 39 H Creatinine (0.70-1.30) mg/dL 8.40 H* Estimated GFR/1.73 m2 (mL/min/1.73m2) 6.70 Glucose (70-100) mg/dL 113 H Lactate (0.6-1.4) mmol/l 2.0 H Calcium (8.5-10.1) mg/dL 10.0 Magnesium (1.8-2.4) mg/dL 2.2 Total Bilirubin (0.2-1.0) mg/dL 1.6 H AST (15-37) U/L 19 ALT (12-78) U/L 21 Alkaline Phosphatase (46-116) U/L 80 Troponin I (0.00-0.06) ng/mL < 0.05 Total Protein (6.4-8.2) g/dL 8.6 H Albumin (3.4-5.0) g/dL 3.5 Lipase (73-393) U/L 65 L Range/Units 12/20/18 02:00 WBC (4.4-10.8) k/cumm RBC (4.50-6.00) m/cumm Hgb (13.5-17.5) g/dL Hct (40.0-50.0) % MCV (80-95) fL MCH (27.0-33.0) pg MCHC (32.0-36.0) g/dL RDW (11.8-14.1) % Plt Count (130-400) x1000/uL MPV (8.0-11.0) fL Immature Gran % Neutrophils % Lymphocytes % Monocytes % Eosinophils % Basophils % Absolute Neutrophils (1.2-6.7) k/cumm Absolute Lymphocytes (1.2-3.4) k/cumm Absolute Monocytes (0.11-0.7) k/cumm Absolute Eosinophils (0.0-0.7) k/cumm Absolute Basophils (0.0-0.2) k/cumm Sodium (136-145) mmol/L Potassium (3.5-5.1) mmol/L Chloride (98-107) mmol/L Carbon Dioxide (21.0-32.0) mmol/L Anion Gap (3-11) mmol/L BUN (7-18) mg/dL Creatinine (0.70-1.30) mg/dL Estimated GFR/1.73 m2 (mL/min/1.73m2) Glucose (70-100) mg/dL Lactate (0.6-1.4) mmol/l 0.8 Calcium (8.5-10.1) mg/dL Magnesium (1.8-2.4) mg/dL Total Bilirubin (0.2-1.0) mg/dL AST (15-37) U/L ALT (12-78) U/L Alkaline Phosphatase (46-116) U/L Troponin I (0.00-0.06) ng/mL Total Protein (6.4-8.2) g/dL Albumin (3.4-5.0) g/dL Lipase (73-393) U/L ECG Data Attestation: I personally reviewed and interpreted this ECG (s) as follows: Interpretation: Rate of 89, sinus, low voltage. T wave inversion in lead III which is been seen in previous EKG. No acute ST elevation or depression. QTc 49. QRS 110. HPI General Mode of arrival: ambulatory. Date/Time Provider Initiated Documentation: 12/19/18 22:57. Limitations to Documentation: no limitations. Information obtained by: patient. HPI Narrative: Patient is a 53-year-old male with a history of atrial fibrillation, COPD, end-stage renal disease on dialysis, STEMI, cardiac arrest 2018, cardiac stent, hernia repair who presents with left sided abdominal pain for the past 2 days. This is patient's third visit for this complaint in the past 2 days. He was seen here yesterday and had labs and imaging and he was sent home. Patient was seen here earlier today and had lab work and he was discharged home. He states both yesterday and today he was improved for discharge. He states this evening approximately 90 minutes ago his pain returned. He describes it as sharp, constant, without radiation currently 8/10. He states the pain is mainly in his left upper quadrant. He admits to nausea and dry heaving but denies any vomiting. He admits to a temperature of 101 this morning for which she took Tylenol but then vomited. His last hemodialysis session was yesterday. He was given Zofran and fentanyl in route per EMS and has some improvement. He denies any chest pain, shortness of breath, recent travel, recent surgery, urinary symptoms, diarrhea or rectal bleeding. He states his last bowel movement was this morning and within normal limits. Related Data Home Medications Medication Instructions Recorded Confirmed epinephrine [EpiPen 2-Chandu] 0.3 mg IM PRN PRN 07/24/17 12/19/18 albuterol sulfate [ProAir HFA] 1 puff INHALATION Q4H PRN 30 Days 08/10/17 12/19/18 #1 inhaler fluoxetine [Prozac] 60 mg PO DAILY cap 08/10/17 12/19/18 fluticasone 500 mcg-salmeterol 50 1 inh IH BID 04/01/18 12/19/18 mcg/dose blistr powdr for inhalation tiotropium bromide 18 mcg capsule 1 cap IH DAILY 04/01/18 12/19/18 with inhalation device Brilinta 1 tab PO BID 05/10/18 12/19/18 gabapentin 800 mg tablet 800 mg PO DAILY #60 tab 05/14/18 12/19/18 sevelamer carbonate [Renvela] 1,600 mg PO AC 05/20/18 12/19/18 ferrous sulfate 325 mg (65 mg 325 mg PO DAILY #45 tab 05/31/18 12/19/18 iron) tablet metolazone 2.5 mg tablet 2.5 mg PO ONCE PRN #14 tab 05/31/18 12/19/18 oxygen concentrater #1 ea 07/29/18 12/19/18 promethazine 25 mg rectal 25 mg MN Q6H PRN #12 each 08/02/18 12/19/18 suppository omeprazole magnesium 20 mg 20 mg PO DAILY #90 tab 09/14/18 12/19/18 tablet,delayed release aspirin 81 mg tablet,delayed 81 mg PO DAILY 10/13/18 12/19/18 release epinephrine 0.3 mg/0.3 mL 0.3 mg IM ONCE PRN 10/13/18 12/19/18 injection, auto-injector atorvastatin 80 mg tablet 80 mg PO DAILY #90 tab 10/15/18 12/19/18 vitamin B complex and vitamin C 1 cap PO DAILY #90 cap 10/15/18 12/19/18 no.20-folic acid 1 mg capsule titration testing #1 ea 10/22/18 12/19/18 clonazepam 0.5 mg tablet 0.25 mg PO BID PRN #28 tab 11/02/18 12/19/18 metoprolol tartrate 50 mg tablet 50 mg PO BID #180 tab 11/29/18 12/19/18 furosemide 80 mg tablet 80 mg PO BID #180 tab 12/03/18 12/19/18 prochlorperazine maleate 10 mg PO Q8H PRN #6 tab 12/20/18 [Compazine] Previous Rx's Medication Instructions Recorded albuterol sulfate [ProAir HFA] 1 puff INHALATION Q4H PRN 30 Days 08/10/17 #1 inhaler gabapentin 800 mg tablet 800 mg PO DAILY #60 tab 05/14/18 ferrous sulfate 325 mg (65 mg 325 mg PO DAILY #45 tab 05/31/18 iron) tablet metolazone 2.5 mg tablet 2.5 mg PO ONCE PRN #14 tab 05/31/18 oxygen concentrater #1 ea 07/29/18 promethazine 25 mg rectal 25 mg MN Q6H PRN #12 each 08/02/18 suppository omeprazole magnesium 20 mg 20 mg PO DAILY #90 tab 09/14/18 tablet,delayed release atorvastatin 80 mg tablet 80 mg PO DAILY #90 tab 10/15/18 vitamin B complex and vitamin C 1 cap PO DAILY #90 cap 10/15/18 no.20-folic acid 1 mg capsule titration testing #1 ea 10/22/18 clonazepam 0.5 mg tablet 0.25 mg PO BID PRN #28 tab 11/02/18 metoprolol tartrate 50 mg tablet 50 mg PO BID #180 tab 11/29/18 furosemide 80 mg tablet 80 mg PO BID #180 tab 12/03/18 prochlorperazine maleate 10 mg PO Q8H PRN #6 tab 12/20/18 [Compazine] Allergies Allergy/AdvReac Type Severity Reaction Status Date / Time bee venom protein (honey bee) Allergy Severe throat Verified 12/19/18 22:51 swelling aspirin AdvReac Severe bleeding Verified 12/19/18 22:51 General JOSEPH: 3 Review of Systems Review of Systems All systems reviewed & are unremarkable except as noted in HPI and below Constitutional Reports as per HPI, Denies chills and Denies fever(s) Eyes Denies blurry vision ENT Denies dizziness, Denies sore throat and Denies throat swelling Cardiovascular Denies chest pain and Denies dyspnea Respiratory Denies cough and Denies dyspnea Gastrointestinal Reports abdominal pain, Denies diarrhea and Denies vomiting Genitourinary Denies hematuria and Denies dysuria Musculoskeletal Denies back pain and Denies numbness Integumentary/Breasts Denies lesions and Denies rash Neurologic Denies dizziness, Denies focal weakness and Denies numbness Allergic/Immunologic Denies throat swelling PFSH Medical History Pleural effusion, left (Acute) LLQ abdominal pain (Acute) End stage chronic kidney disease (Chronic) Atrial fibrillation with RVR (Chronic) Renal failure (Chronic) STEMI (ST elevation myocardial infarction) (Chronic) Acute respiratory failure with hypoxia (Resolved) Surgical History Stented coronary artery (Chronic) Encounter for gastrojejunal (GJ) tube placement (Acute 02/23/18) Hx of echocardiogram (Acute 03/08/18) Arthroplasty of knee Repair of umbilical hernia Tonsillectomy and adenoidectomy cardiac catherization (01/01/18) cardiac catherization (01/05/18) echocardiogram (01/06/18) Family History Mother Essential hypertension Father Essential hypertension Osteoporosis Sister Neoplasm Paternal Uncle Neoplasm Paternal Uncle Neoplasm Paternal Grandfather Diabetes Stroke Social History Smoking/Tobacco Use Status: Former Tobacco Use Alcohol Intake: never Drug use: Daily Substance use type: marijuana Household members: spouse Number of Children: 2 What is your relationship status?: Panel score (0-1 are the most socially isolated patients): 1 What type of physical activity do you participate in: none Seatbelt use: always 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 Working smoke detector in home: Yes Fire extinguisher in home: Yes Carbon monox detector in home: Yes Do you feel safe at home: Yes Do you feel safe in your relationship?: Yes Exam Const General: cooperative, acute distress moderate (appears uncomfortable) and diaphoretic HENMT Head: normal to inspection Face and sinus: normal facial exam Eyes General: appearance normal, both eyes and all related structures EOM: EOM intact bilaterally Neck Neck: normal visual inspection and No submandibular swelling Lymphatic: no lymphadenopathy noted Chest Chest: normal inspection of the chest and no tenderness Resp Effort & Inspection: normal respiratory effort and able to speak in complete sentences Auscultation: clear to auscultation bilaterally Cardio Rate: regular rate Rhythm: regular rhythm GI Inspection: normal to inspection and non-distended Palpation: soft, not firm, no guarding, no pulsatile masses, not rigid and tender (LLQ > LUQ) Auscultation: hypoactive bowel sounds Skin General skin exam: no rashes or lesions noted Neuro General: alert, awake and oriented x3 Cognition: normal cognition Speech: speech normal Motor: muscle tone normal throughout Sensory Exam: no sensory deficits noted Extrem General: normal to inspection, full ROM, normal capillary refill, no calf tenderness bilaterally and no edema Psych Appearance: grossly normal Mental Status: mental status grossly normal Speech and Movement: speech and movement normal Affect: normal affect
[2018-12-19] MEDS: Normal Saline 250 ML IV (23:10)
[2018-12-19 23:12] LABS: Abs Immature Grans 0.03 k/cumm (0.0-0.09); Absolute Basophil Count 0.07 k/cumm (0.0-0.2); Absolute Eosinophil Count 0.12 k/cumm (0.0-0.7); Absolute Lymphocyte Count 1.77 k/cumm (1.2-3.4); Absolute Monocyte Count 0.99 k/cumm (0.11-0.7); Absolute Neutrophil Count 5.71 k/cumm (1.2-6.7); Basophils % 0.8; Eosinophils % 1.4; HCT 41.1 % (40.0-50.0); HGB 13.2 g/dL (13.5-17.5); Immature Grans % 0.3; Lymphocytes % 20.4; Mean Corp. HGB Concentration 32.1 g/dL (32.0-36.0); Mean Corpuscular Hemoglobin 30.4 pg (27.0-33.0); Mean Corpuscular Volume 94.7 fL (80-95); Mean Platelet Volume 9.6 fL (8.0-11.0); Monocytes % 11.4; Neutrophils % 65.7; Platelet Count 232 x1000/uL (130-400); RBC 4.34 m/cumm (4.50-6.00); RBC Distribution Width 16.8 % (11.8-14.1); White Blood Cell Count 8.69 k/cumm (4.4-10.8)
[2018-12-19] MEDS: Prochlorperazine 10 MG/2 ML VIAL IVP (23:14)
[2018-12-19 23:35] LABS: ALT 21 U/L (12-78); AST 19 U/L (15-37); Albumin 3.5 g/dL (3.4-5.0); Alkaline Phosphatase 80 U/L (46-116); Anion Gap 16.9 mmol/L (3-11); BUN 39 mg/dL (7-18); Bilirubin, Total 1.6 mg/dL (0.2-1.0); CO2 22.1 mmol/L (21.0-32.0); Chloride 98 mmol/L (98-107); Glucose 113 mg/dL (70-100); Lipase 65 U/L (73-393); Magnesium 2.2 mg/dL (1.8-2.4); Sodium 137 mmol/L (136-145); Total Protein 8.6 g/dL (6.4-8.2)
[2018-12-19 23:36] LABS: Troponin I < 0.05 ng/mL (0.00-0.06)
--- NOTE | 2018-12-19 23:38 | NUR.NOTE ---
Nursing Note: Pt no longer sweating, reports nausea and abd pain improved after receiving medication. Pt currently drinking po CT contrast.
[2018-12-20] VITALS (19 sets, daily range): BP systolic 106–114; BP diastolic 70–85; PULSE 65–87; RESP 16–18; TEMP 36.5; O2SAT 93–98
--- NOTE | 2018-12-20 00:58 | DI.VRAD_ITS ---
EXAM: CT Abdomen and Pelvis Without Contrast EXAM DATE/TIME: 12/19/2018 11:00 PM CLINICAL HISTORY: 53 years old, male; Abdominal pain; Localized; Prior surgery; Surgery date: 6+ months; Surgery type: Hernia repair; Patient HX: Luq/llq abd pain, R/O pancreatitis/diverticulitis, vomiting, dry heaves, and left sided abd pain TECHNIQUE: Imaging protocol: Axial computed tomography images of the abdomen and pelvis without contrast. Coronal and sagittal reformatted images were created and reviewed. Radiation optimization: All CT scans at this facility use at least one of these dose optimization techniques: automated exposure control; mA and/or kV adjustment per patient size (includes targeted exams where dose is matched to clinical indication); or iterative reconstruction. COMPARISON: CT ABDOMEN PELVIS WO 12/18/2018 1:08 PM FINDINGS: Lungs: Patchy bilateral nic-bronchovascular alveolar densities in the perihilar distributions suspicious for mild pulmonary edema or patchy perihilar/basilar infiltrate, mildly improved from the previous study. Pleural space: Small bilateral pleural effusions. Heart: Heart size normal. Liver: Normal size and contour. No mass lesions. Gallbladder and bile ducts: Normal. No calcified stones. No ductal dilation. Pancreas: Moderate pancreatic atrophy without acute abnormality. No pancreatic ductal dilatation. Spleen: Normal. No splenomegaly. Adrenals: Normal. No adrenal mass. Kidneys and ureters: Normal. No hydronephrosis or hydroureter. No urinary tract stones are identified. Stomach and bowel: The visualized distal esophagus and stomach are normal. The small bowel is normal with no evidence of obstruction. The colon is normal. Appendix: The appendix is normal in caliber and demonstrates no evidence of appendicitis. Intraperitoneal space: No free fluid or air. Vasculature: Moderate atherosclerotic aortoiliac calcification without aneurysm. Lymph nodes: No adenopathy. Bladder: Unremarkable as visualized. Reproductive: Unremarkable as visualized. Bones/joints: No acute osseous abnormalities. 9 mm lytic focus in the left femoral neck is unchanged with a peripheral sclerotic margin and well-defined zone of transition, consistent with an incidental bone cyst or fibrous dysplasia. Soft tissues: Small fatty umbilical hernia measuring 2.7 cm transverse. No evidence of associated bowel herniation or bowel obstruction. IMPRESSION: 1. Mild interval improvement in the patchy perihilar and basilar alveolar opacities consistent with improving pulmonary edema or infiltrates. 2. Small basilar effusions demonstrating simple fluid features. No signs of empyema. 3. Small fatty umbilical hernia. Dictated and Authenticated by: Ata Clayton MD. Ordering:TRACEY Núñez MD
--- NOTE | 2018-12-20 01:15 | NUR.NOTE ---
Nursing Note: Pt given po trial of jonny laci and crackers.
[2018-12-20 02:05] LABS: Lactate-non-spesis 0.8 mmol/l (0.6-1.4)
== END 2018-12-20 02:30 | disposition home or self-care (01) ==
LOC: ER 12-20 02:31
PROVIDERS: Emergency Provider Physician Assistant; PCP Family Medicine
DX: R10.12 Left upper quadrant pain (principal); R10.32 Left lower quadrant pain; R11.2 Nausea with vomiting, unspecified; N18.6 End stage renal disease; Z99.2 Dependence on renal dialysis; I48.91 Unspecified atrial fibrillation; I47.2 Ventricular tachycardia; J44.9 Chronic obstructive pulmonary disease, unspecified; Z87.891 Personal history of nicotine dependence; E86.0 Dehydration; E11.22 Type 2 diabetes mellitus with diabetic chronic kidney disease
CPT/HCPCS: 36415; 80053; 83690; 93005; 96361; 96365; 96374; 96375; 96376; 99285; 74176; 83605; 83735; 84484; 85025; 93010; 99284; J0780; J2270; J2765

== ENCOUNTER 2018-12-23 20:55 | Emergency (ER) | payer MEDICAID, SELFPAY ==
[2018-12-23] VITALS (25 sets, daily range): BP systolic 79–112; BP diastolic 42–68; PULSE 62–74; RESP 9–21; TEMP 36.2; O2SAT 91–99
[2018-12-23] MEDS: Lidocaine 5% Patch 1 PATCH TP (21:27)
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
[2018-12-24 00:24] VITALS: BP 107/62; PULSE 71; RESP 24; O2SAT 97
== END 2018-12-24 00:36 | disposition home or self-care (01) ==
PROVIDERS: Emergency Provider Student in an Organized Health Care Education/Training Program; PCP Family Medicine
DX: S16.1XXA Strain of muscle, fascia and tendon at neck level, initial encounter (principal); V57.6XXA Passenger in pick-up truck or van injured in collision with fixed or stationary object in traffic accident, initial encounter; M62.838 Other muscle spasm; J44.9 Chronic obstructive pulmonary disease, unspecified; N18.6 End stage renal disease; Z99.2 Dependence on renal dialysis
CPT/HCPCS: 99284; 70450; 72125; 72128

== ENCOUNTER 2018-12-27 13:36 | Emergency (ER) | payer MEDICAID, SELFPAY ==
[2018-12-27 13:42] VITALS: BP 109/83; PULSE 66; RESP 16; TEMP 36.6; O2SAT 95
[2018-12-27 14:15] LABS: HCT 36.1 % (40.0-50.0); HGB 11.7 g/dL (13.5-17.5); Mean Corp. HGB Concentration 32.4 g/dL (32.0-36.0); Mean Corpuscular Hemoglobin 30.4 pg (27.0-33.0); Mean Corpuscular Volume 93.8 fL (80-95); Mean Platelet Volume 11.7 fL (8.0-11.0); Platelet Count 219 x1000/uL (130-400); RBC 3.85 m/cumm (4.50-6.00); White Blood Cell Count 10.42 k/cumm (4.4-10.8)
--- NOTE | 2018-12-27 14:31 | NUR.NOTE ---
Nursing Note: Call out to pharmacy for thrombin soaked gel foam per MD Grewal
[2018-12-27] MEDS: Gelatin SPONGE 12-7 MM PKT 1 EACH TP (15:19)
[2018-12-27] MEDS: Thrombin 5,000 UNITS VIAL 5 UNITS TP (15:20)
--- NOTE | 2018-12-27 15:46 | W.ED.GENAD ---
Discharge Plan Discharge Details Chief Complaint: Vascular Primary Care Provider: Gee Luke ED Provider: Darren Grewal Home Meds and New Rx's Prescriptions: No Action metolazone 2.5 mg tablet 2.5 mg PO ONCE PRN (Reason: Excessive fluid retention) Qty: 14 RF: 0 ferrous sulfate 325 mg (65 mg iron) tablet 325 mg PO DAILY Qty: 45 RF: 3 promethazine 25 mg suppository 25 mg OK Q6H PRN (Reason: nausea and vomiting) Qty: 12 RF: 3 atorvastatin 80 mg tablet 80 mg PO DAILY Qty: 90 RF: 3 Nephrocaps 1 mg capsule 1 cap PO DAILY Qty: 90 RF: 3 clonazepam 0.5 mg tablet 0.25 mg PO BID PRN (Reason: nausea and vomiting) Qty: 28 RF: 1 gabapentin 800 mg tablet 800 mg PO DAILY Qty: 60 RF: 3 (DME) oxygen concentrater Qty: 1 RF: 0 epinephrine [EpiPen 2-Chandu] 0.3 MG/0.3 ML auto-injector 0.3 mg IM PRN PRNRF: 0 fluoxetine [Prozac] 20 MG capsule 60 mg PO DAILY RF: 0 albuterol sulfate [ProAir HFA] 8.5 GM HFA aerosol inhaler 1 puff Inhalation Q4H PRN 30 Days Qty: 1 RF: 11 fluticasone propion-salmeterol [Advair Diskus] 500-50 mcg/dose blister with device 1 inh IH BID RF: 0 Spiriva with HandiHaler 18 mcg capsule, w/inhalation device 1 cap IH DAILY RF: 0 omeprazole magnesium 20 mg tablet,delayed release (DR/EC) 20 mg PO DAILY Qty: 90 RF: 3 aspirin [Adult Low Dose Aspirin] 81 mg tablet,delayed release (DR/EC) 81 mg PO DAILY RF: 0 (DME) titration testing Qty: 1 RF: 0 metoprolol tartrate 50 mg tablet 50 mg PO BID Qty: 180 RF: 3 furosemide 80 mg tablet 80 mg PO BID Qty: 180 RF: 3 sevelamer carbonate [Renvela] 800 mg Tablet 1,600 mg PO AC RF: 0 nitroglycerin 0.3 mg Tablet, Sublingual 0.3 mg Sublingual Q5M PRNRF: 0 ondansetron 4 mg Tablet,Disintegrating 4 mg PO Q6H PRNRF: 0 Brilinta 90 mg Tablet 1 tab PO BID RF: 0 Discharge Data Discharge Date/Time-TO BE ENTERED AT DEPARTURE: 12/27/18 16:35 Medical Decision Making 53yo m here with bleeding from dialysis catheter site. Attempted purse string suture and reassessed - still oozing. Manual pressure >10min attempted and still oozing. Attempted thrombin soaked gelfoam and still oozing. Spoke with gen surgery who recommended transfer back to [facility] [place] for catheter assessment and further repair. 15:45 -- Called [facility] [place] to request transfer. 16:00 -- Spoke with ROMULO Li IR [facility] [place] and I requested transfer. Recommended local dialysis. 16:18 -- Spoke with [facility] and they cannot dialyze him today - they note they are closed. [facility] [place] Dr. Snow to accept. Medical Records Laboratory Tests Range/Units 12/27/18 12/27/18 14:00 14:00 WBC (4.4-10.8) k/cumm 10.42 RBC (4.50-6.00) m/cumm 3.85 L Hgb (13.5-17.5) g/dL 11.7 L Hct (40.0-50.0) % 36.1 L MCV (80-95) fL 93.8 MCH (27.0-33.0) pg 30.4 MCHC (32.0-36.0) g/dL 32.4 RDW (11.8-14.1) % 16.0 H Plt Count (130-400) x1000/uL 219 MPV (8.0-11.0) fL 11.7 H Patient ABO/Rh A Positive Antibody Screen Negative HPI General Mode of arrival: ambulatory. Date/Time Provider Initiated Documentation: 12/27/18 13:46. Limitations to Documentation: no limitations. Information obtained by: patient. HPI Narrative: 53yo m presents 2 hours s/p right supraclavicular catheter replacement at [facility] [place] with bleeding from catheter site. Patient notes they had trouble stopping bleed at [facility] [place]. Soaked shirt in past 1 hour. No modifiers. On brilinta. Related Data Home Medications Medication Instructions Recorded Confirmed epinephrine [EpiPen 2-Chandu] 0.3 mg IM PRN PRN 07/24/17 12/31/18 albuterol sulfate [ProAir HFA] 1 puff INHALATION Q4H PRN 30 Days 08/10/17 12/31/18 #1 inhaler fluoxetine [Prozac] 60 mg PO DAILY cap 08/10/17 12/31/18 fluticasone 500 mcg-salmeterol 50 1 inh IH BID 04/01/18 12/31/18 mcg/dose blistr powdr for inhalation tiotropium bromide 18 mcg capsule 1 cap IH DAILY 04/01/18 12/31/18 with inhalation device Brilinta 1 tab PO BID 05/10/18 12/31/18 gabapentin 800 mg tablet 800 mg PO DAILY #60 tab 05/14/18 12/31/18 sevelamer carbonate [Renvela] 1,600 mg PO AC 05/20/18 12/31/18 ferrous sulfate 325 mg (65 mg 325 mg PO DAILY #45 tab 05/31/18 12/31/18 iron) tablet metolazone 2.5 mg tablet 2.5 mg PO ONCE PRN #14 tab 05/31/18 12/31/18 oxygen concentrater #1 ea 07/29/18 12/31/18 promethazine 25 mg rectal 25 mg OK Q6H PRN #12 each 08/02/18 12/31/18 suppository omeprazole magnesium 20 mg 20 mg PO DAILY #90 tab 09/14/18 12/31/18 tablet,delayed release aspirin 81 mg tablet,delayed 81 mg PO DAILY 10/13/18 12/31/18 release B complex with C#20-folic acid 1 1 cap PO DAILY #90 cap 10/15/18 12/31/18 mg capsule atorvastatin 80 mg tablet 80 mg PO DAILY #90 tab 10/15/18 12/31/18 titration testing #1 ea 10/22/18 12/31/18 metoprolol tartrate 50 mg tablet 50 mg PO BID #180 tab 11/29/18 12/31/18 furosemide 80 mg tablet 80 mg PO BID #180 tab 12/03/18 12/31/18 nitroglycerin 0.3 mg SUBLINGUAL Q5M PRN 12/27/18 12/31/18 ondansetron 4 mg PO Q6H PRN 12/27/18 12/31/18 clonazepam 0.5 mg tablet 0.25 mg PO BID PRN #28 tab 12/31/18 12/31/18 Previous Rx's Medication Instructions Recorded albuterol sulfate [ProAir HFA] 1 puff INHALATION Q4H PRN 30 Days 08/10/17 #1 inhaler gabapentin 800 mg tablet 800 mg PO DAILY #60 tab 05/14/18 ferrous sulfate 325 mg (65 mg 325 mg PO DAILY #45 tab 05/31/18 iron) tablet metolazone 2.5 mg tablet 2.5 mg PO ONCE PRN #14 tab 05/31/18 oxygen concentrater #1 ea 07/29/18 promethazine 25 mg rectal 25 mg OK Q6H PRN #12 each 08/02/18 suppository omeprazole magnesium 20 mg 20 mg PO DAILY #90 tab 09/14/18 tablet,delayed release B complex with C#20-folic acid 1 1 cap PO DAILY #90 cap 10/15/18 mg capsule atorvastatin 80 mg tablet 80 mg PO DAILY #90 tab 10/15/18 titration testing #1 ea 10/22/18 metoprolol tartrate 50 mg tablet 50 mg PO BID #180 tab 11/29/18 furosemide 80 mg tablet 80 mg PO BID #180 tab 12/03/18 clonazepam 0.5 mg tablet 0.25 mg PO BID PRN #28 tab 12/31/18 Allergies Allergy/AdvReac Type Severity Reaction Status Date / Time bee venom protein (honey bee) Allergy Severe throat Verified 12/27/18 16:01 swelling aspirin AdvReac Severe bleeding Verified 12/27/18 16:01 General Stated Complaint: Vascular JOSEPH: 2 Review of Systems Integumentary/Breasts Reports as per HPI Hematologic/Lymphatic Reports easy bleeding PFSH Medical History Pleural effusion, left (Acute) LLQ abdominal pain (Acute) End stage chronic kidney disease (Chronic) Atrial fibrillation with RVR (Chronic) Renal failure (Chronic) STEMI (ST elevation myocardial infarction) (Chronic) Acute respiratory failure with hypoxia (Resolved) Surgical History Stented coronary artery (Chronic) Encounter for gastrojejunal (GJ) tube placement (Acute 02/23/18) Hx of echocardiogram (Acute 03/08/18) Arthroplasty of knee Repair of umbilical hernia Tonsillectomy and adenoidectomy cardiac catherization (01/01/18) cardiac catherization (01/05/18) echocardiogram (01/06/18) Family History Mother Essential hypertension Father Essential hypertension Osteoporosis Sister Neoplasm Paternal Uncle Neoplasm Paternal Uncle Neoplasm Paternal Grandfather Diabetes Stroke Social History Smoking/Tobacco Use Status: Former Tobacco Use Alcohol Intake: never Drug use: Daily Substance use type: marijuana Household members: spouse Number of Children: 2 What is your relationship status?: Panel score (0-1 are the most socially isolated patients): 1 What type of physical activity do you participate in: none Seatbelt use: always 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 Working smoke detector in home: Yes Fire extinguisher in home: Yes Carbon monox detector in home: Yes Do you feel safe at home: Yes Do you feel safe in your relationship?: Yes Exam Neck Neck: no JVD Chest Chest: other (rt supraclavicular catheter oozing blood from site) Resp Effort & Inspection: normal respiratory effort and able to speak in complete sentences Cardio Rate: regular rate Rhythm: regular rhythm Course Vital Signs Temperature 36.6 C 12/27/18 13:42 Pulse 66 12/27/18 13:42 Respiratory Rate 16 12/27/18 13:42 Blood Pressure 109/83 12/27/18 13:42 Pulse Oximetry 95 12/27/18 13:42 Temperature 36.6 C 12/27/18 13:42 Temperature Source Skin 12/27/18 13:42 Pulse 66 12/27/18 13:42 Respiratory Rate 16 12/27/18 13:42 Respiratory Effort Non-Labored 12/27/18 14:27 Blood Pressure 109/83 12/27/18 13:42 Blood Pressure Position Supine 12/27/18 13:42 Pulse Oximetry 95 12/27/18 13:42 Oxygen Delivery Method Room Air 12/27/18 13:42 Oxygen Flow Rate 0 12/27/18 13:42 Lab/Test Results Lab/Test Results: Laboratory Tests Range/Units 12/27/18 12/27/18 14:00 14:00 WBC (4.4-10.8) k/cumm 10.42 RBC (4.50-6.00) m/cumm 3.85 L Hgb (13.5-17.5) g/dL 11.7 L Hct (40.0-50.0) % 36.1 L MCV (80-95) fL 93.8 MCH (27.0-33.0) pg 30.4 MCHC (32.0-36.0) g/dL 32.4 RDW (11.8-14.1) % 16.0 H Plt Count (130-400) x1000/uL 219 MPV (8.0-11.0) fL 11.7 H Patient ABO/Rh A Positive Antibody Screen Negative
--- NOTE | 2018-12-27 15:54 | NUR.NOTE ---
Nursing Note: Gauze underneath Tegaderm is saturated. MD Grewal notified.
--- NOTE | 2018-12-27 16:15 | NUR.NOTE ---
Nursing Note: Dressed changed.
--- NOTE | 2018-12-27 16:35 | NUR.NOTE ---
Nursing Note: [facility] at bedside to transport patient to [facility].
[2018-12-27 16:44] VITALS: BP 96/68; PULSE 59; RESP 16; O2SAT 94
--- NOTE | 2018-12-27 16:44 | NUR.NOTE ---
Nursing Note: report given to Edwar charge operator at [facility]
== END 2018-12-27 16:35 ==
LOC: ER 13:57
PROVIDERS: Emergency Provider Student in an Organized Health Care Education/Training Program; PCP Family Medicine
DX: T82.838A Hemorrhage due to vascular prosthetic devices, implants and grafts, initial encounter (principal); N18.9 Chronic kidney disease, unspecified; Z99.2 Dependence on renal dialysis
CPT/HCPCS: 85027; 86850; 86900; 86901; 99285; 99283

== ENCOUNTER 2019-01-18 12:45 | Emergency (ER) | payer MEDICAID, SELFPAY ==
[2019-01-18] VITALS (56 sets, daily range): BP systolic 75–99; BP diastolic 48–68; PULSE 40–76; RESP 10–30; TEMP 37.2; O2SAT 72–100
--- NOTE | 2019-01-18 12:51 | W.ED.GENAD ---
Discharge Plan Disposition Patient Disposition: OTHER Condition: Stable Discharge Details Chief Complaint: SOB Clinical Impression: End stage chronic kidney disease, Breath shortness, Fluid overload, unspecified Primary Care Provider: Gee Luke ED Provider: Abundio Groves Home Meds and New Rx's Prescriptions: No Action metolazone 2.5 mg tablet 2.5 mg PO ONCE PRN (Reason: Excessive fluid retention) Qty: 14 RF: 0 ferrous sulfate 325 mg (65 mg iron) tablet 325 mg PO DAILY Qty: 45 RF: 3 promethazine 25 mg suppository 25 mg DC Q6H PRN (Reason: nausea and vomiting) Qty: 12 RF: 3 atorvastatin 80 mg tablet 80 mg PO DAILY Qty: 90 RF: 3 Nephrocaps 1 mg capsule 1 cap PO DAILY Qty: 90 RF: 3 clonazepam 0.5 mg tablet 0.25 mg PO BID PRN (Reason: nausea and vomiting) Qty: 28 RF: 1 gabapentin 800 mg tablet 800 mg PO DAILY Qty: 60 RF: 3 (DME) oxygen concentrater Qty: 1 RF: 0 epinephrine [EpiPen 2-Chandu] 0.3 MG/0.3 ML auto-injector 0.3 mg IM PRN PRNRF: 0 fluoxetine [Prozac] 20 MG capsule 60 mg PO DAILY RF: 0 albuterol sulfate [ProAir HFA] 8.5 GM HFA aerosol inhaler 1 puff Inhalation Q4H PRN 30 Days Qty: 1 RF: 11 fluticasone propion-salmeterol [Advair Diskus] 500-50 mcg/dose blister with device 1 inh IH BID RF: 0 Spiriva with HandiHaler 18 mcg capsule, w/inhalation device 1 cap IH DAILY RF: 0 omeprazole magnesium 20 mg tablet,delayed release (DR/EC) 20 mg PO DAILY Qty: 90 RF: 3 aspirin [Adult Low Dose Aspirin] 81 mg tablet,delayed release (DR/EC) 81 mg PO DAILY RF: 0 (DME) titration testing Qty: 1 RF: 0 metoprolol tartrate 50 mg tablet 50 mg PO BID Qty: 180 RF: 3 furosemide 80 mg tablet 80 mg PO BID Qty: 180 RF: 3 sevelamer carbonate [Renvela] 800 mg Tablet 1,600 mg PO AC RF: 0 nitroglycerin 0.3 mg Tablet, Sublingual 0.3 mg Sublingual Q5M PRNRF: 0 ondansetron 4 mg Tablet,Disintegrating 4 mg PO Q6H PRNRF: 0 Brilinta 90 mg Tablet 1 tab PO BID RF: 0 Discharge Data Discharge Date/Time-TO BE ENTERED AT DEPARTURE: 01/18/19 19:49 Medical Decision Making <ANGEL Herrera - Last Filed: 01/19/19 09:26> Patient is a 53-year-old male, presenting today with chief complaint of dyspnea on exertion and palpitations. He reports that he has had increased dyspnea over the past 2 weeks. States is progressive and worsening. Reports he is been having orthopnea. Patient does have a history of STEVE and has been using CPAP. Despite this, he continues to wake at night secondary to shortness of breath. He reports that he does not feel that he has been getting back to his dry weight with his dialysis for the past 2 weeks. Was dialysed today and states that he is now at his typical weight. Despite this his dyspnea persists. States that he has been having increased palpitations. Has a history of atrial fibrillation and is concerned that this may be increasing again. States that yesterday he had approximately 30 episodes of palpitations that last only a few seconds and then immediately resolved. These are not worsened with exertion. He denies any recent chest pain. Denies any fevers or chills. No cough. No recent travel. No recent antibiotics. Denies any calf discomfort. Is on aspirin. Patient does have history of AL with stent placement. He is not anticoagulated. On exam, patient appears chronically ill. Skin is keane and slightly yellowed. Lungs are clear, slightly diminished in the bilateral bases. Cardiac exam is normal. Abdomen is benign. No JVD. Patient is noted to be hypotensive with a blood pressure of 92/51 but this is typical for the patient on chart review. Concerned for ACS, possible PE, COPD exacerbation, CHF exacerbation, infectious source. EKG reviewed by Dr. Umaña, NSR rate 68 with no acute ischemic changes noted. Chest x-ray was reviewed by radiologist. He notes bilateral interstitial haziness reports this is stable compared to baseline x-rays. Does not note any new infiltrates Patient does not have any leukocytosis. Anemic with a hemoglobin of 11.7 g at baseline for the patient. BUN is 32, creatinine 4.65, lactate 2.1. Troponin is within normal limits. TSH within normal limits. Her main concern for possible fluid overload as a source of his orthopnea and increased shortness of breath. However, the patient has A. fib which has been more active recently, and pleuritic discomfort, last morning concern for possible PE. Will obtain d-dimer. D-dimer elevated, BNP elevated. Remain concerned for PE, secondary to the patient's kidney disease, is unable to obtain a CTA. He will need a VQ scan. The patient is worsening dyspnea, orthopnea and medical history, I do not feel that he is safe for discharge. We will unable to keep in our institution as he is a dialysis patient. [place] [facility] Patient in agreement with this plan. Repeat EKG reviewed by Dr. Umaña with no changes noted. At the end of my shift, awaiting to hear from outside facility regarding transfer. Care transitioned to Tariq Groves NP with repeat troponin and disposition pending. <Abundio Groves NP - Last Filed: 01/18/19 23:32> [facility] [place] but did state beds were available at [facility]. Did speak with patient further after signout about transfer to [facility]. Patient agreed to be transferred there. Pending hearing back from facility patient then requested consideration of [facility] due to transportation issues. [facility] was contacted but they were only taking urgent and emergent patients which I feel the patient is stable at this time. Was able to speak with Dr. Campos and inpatient [facility] and babysitter. After thorough discussion and stating concern for fluid overload along with consideration of possible need of VQ scan for elevated d-dimer. After thorough discussion of patient presentation and condition they accepted patient for transfer. Patient remained stable throughout emergency department stay with no new or worsening symptoms. HPI <ANGEL Herrera - Last Filed: 01/19/19 09:26> General Mode of arrival: wheelchair. Date/Time Provider Initiated Documentation: 01/18/19 12:51. Limitations to Documentation: no limitations. Information obtained by: patient, family (accompanied by ) and RN notes reviewed. HPI Narrative: Patient is a 53 year old, accompanied by , with c/c of palpitations that have been increasing over the past several days. Patient reports that he has a history of atrial fibrillation. He was at dialysis today, goes to dialysis Thursday, , Thursday, when he began having palpitations and shortness of breath. He reports that this time he is feeling asymptomatic. He does report that he feels that his weight has been increasing he has not been getting down to dry weight after dialysis. States that shortness of breath that progressively been increasing over the past several weeks. Is endorsing orthopnea. Patient does have a history of STEVE but reports that even with his CPAP, he continues to have shortness of breath and wake up frequently throughout the night. Denies CP today but states that he did have episode of CP last week for which he took nitroglycerin with good results. Related Data Home Medications Medication Instructions Recorded Confirmed epinephrine [EpiPen 2-Chandu] 0.3 mg IM PRN PRN 07/24/17 01/18/19 albuterol sulfate [ProAir HFA] 1 puff INHALATION Q4H PRN 30 Days 08/10/17 01/18/19 #1 inhaler fluoxetine [Prozac] 60 mg PO DAILY cap 08/10/17 01/18/19 fluticasone 500 mcg-salmeterol 50 1 inh IH BID 04/01/18 01/18/19 mcg/dose blistr powdr for inhalation tiotropium bromide 18 mcg capsule 1 cap IH DAILY 04/01/18 01/18/19 with inhalation device Brilinta 1 tab PO BID 05/10/18 01/18/19 gabapentin 800 mg tablet 800 mg PO DAILY #60 tab 05/14/18 01/18/19 sevelamer carbonate [Renvela] 1,600 mg PO AC 05/20/18 01/18/19 ferrous sulfate 325 mg (65 mg 325 mg PO DAILY #45 tab 05/31/18 01/18/19 iron) tablet metolazone 2.5 mg tablet 2.5 mg PO ONCE PRN #14 tab 05/31/18 01/18/19 oxygen concentrater #1 ea 07/29/18 01/18/19 promethazine 25 mg rectal 25 mg DC Q6H PRN #12 each 08/02/18 01/18/19 suppository omeprazole magnesium 20 mg 20 mg PO DAILY #90 tab 09/14/18 01/18/19 tablet,delayed release aspirin 81 mg tablet,delayed 81 mg PO DAILY 10/13/18 01/18/19 release B complex with C#20-folic acid 1 1 cap PO DAILY #90 cap 10/15/18 01/18/19 mg capsule atorvastatin 80 mg tablet 80 mg PO DAILY #90 tab 10/15/18 01/18/19 titration testing #1 ea 10/22/18 01/18/19 metoprolol tartrate 50 mg tablet 50 mg PO BID #180 tab 11/29/18 01/18/19 furosemide 80 mg tablet 80 mg PO BID #180 tab 12/03/18 01/18/19 nitroglycerin 0.3 mg SUBLINGUAL Q5M PRN 12/27/18 01/18/19 ondansetron 4 mg PO Q6H PRN 12/27/18 01/18/19 clonazepam 0.5 mg tablet 0.25 mg PO BID PRN #28 tab 12/31/18 01/18/19 Previous Rx's Medication Instructions Recorded albuterol sulfate [ProAir HFA] 1 puff INHALATION Q4H PRN 30 Days 08/10/17 #1 inhaler gabapentin 800 mg tablet 800 mg PO DAILY #60 tab 05/14/18 ferrous sulfate 325 mg (65 mg 325 mg PO DAILY #45 tab 05/31/18 iron) tablet metolazone 2.5 mg tablet 2.5 mg PO ONCE PRN #14 tab 05/31/18 oxygen concentrater #1 ea 07/29/18 promethazine 25 mg rectal 25 mg DC Q6H PRN #12 each 08/02/18 suppository omeprazole magnesium 20 mg 20 mg PO DAILY #90 tab 09/14/18 tablet,delayed release B complex with C#20-folic acid 1 1 cap PO DAILY #90 cap 10/15/18 mg capsule atorvastatin 80 mg tablet 80 mg PO DAILY #90 tab 10/15/18 titration testing #1 ea 10/22/18 metoprolol tartrate 50 mg tablet 50 mg PO BID #180 tab 11/29/18 furosemide 80 mg tablet 80 mg PO BID #180 tab 12/03/18 clonazepam 0.5 mg tablet 0.25 mg PO BID PRN #28 tab 12/31/18 Allergies Allergy/AdvReac Type Severity Reaction Status Date / Time bee venom protein (honey bee) Allergy Severe throat Verified 01/18/19 13:15 swelling aspirin AdvReac Severe bleeding Verified 01/18/19 13:15 General JOSEPH: 2 Review of Systems <ANGEL Herrera - Last Filed: 01/19/19 09:26> Constitutional Reports as per HPI, Denies chills, Denies fever(s), Denies headache(s), Denies lethargy and Denies poor appetite Eyes Denies change in vision ENT Denies dizziness and Denies headache(s) Cardiovascular Reports as per HPI, Denies chest pain, Denies chest pain at rest, Denies syncope, Denies rapid heart rate, Denies pedal edema, Denies claudication, Denies lightheadedness, Denies radiating jaw, neck or arm pain, Reports palpitations, Denies dyspnea, Reports dyspnea on exertion and Reports orthopnea Respiratory Reports as per HPI, Denies chest congestion, Denies cough, Denies pain on inspiration, Denies pain with cough, Denies dyspnea, Reports dyspnea on exertion and Denies wheezing Gastrointestinal Reports as per HPI, Denies abdominal pain, Denies diarrhea, Denies nausea and Denies vomiting Genitourinary Reports as per HPI (patient on dialysis, received this morning, makes urine) Musculoskeletal Reports as per HPI and Denies back pain Integumentary/Breasts Reports as per HPI and Denies rash Neurologic Reports as per HPI, Denies dizziness, Denies syncope and Denies headache(s) Endocrine Reports palpitations Allergic/Immunologic Denies wheezing PFSH <ANGEL Herrera - Last Filed: 01/19/19 09:26> Medical History Acute respiratory failure with hypoxia (Resolved) Atrial fibrillation with RVR (Chronic) End stage chronic kidney disease (Chronic) LLQ abdominal pain (Acute) Pleural effusion, left (Acute) Renal failure (Chronic) STEMI (ST elevation myocardial infarction) (Chronic) Surgical History Arthroplasty of knee cardiac catherization (01/01/18) cardiac catherization (01/05/18) echocardiogram (01/06/18) Encounter for gastrojejunal (GJ) tube placement (Acute 02/23/18) Hx of echocardiogram (Acute 03/08/18) Repair of umbilical hernia Stented coronary artery (Chronic) Tonsillectomy and adenoidectomy Social History Smoking/Tobacco Use Status: Former Tobacco Use Alcohol Intake: never Drug use: Daily Substance use type: marijuana Household members: spouse Number of Children: 2 What is your relationship status?: Panel score (0-1 are the most socially isolated patients): 1 What type of physical activity do you participate in: none Seatbelt use: always 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 Working smoke detector in home: Yes Fire extinguisher in home: Yes Carbon monox detector in home: Yes Do you feel safe at home: Yes Do you feel safe in your relationship?: Yes Exam <ANGEL Herrera - Last Filed: 01/19/19 09:26> Const General: cooperative, comfortable, no acute distress, well developed and ill appearing chronically Nutritional Appearance: overweight Orientation: alert, awake and oriented x3 HENMT Head: normal to inspection Ears: hearing grossly normal bilaterally Mouth: mucous membranes dry (dry on exam) Chest Chest: normal inspection of the chest, normal palpation of entire chest wall and no crepitus Resp Effort & Inspection: normal respiratory effort, able to speak in complete sentences and no respiratory distress Auscultation: diminished lung sounds bilaterally in the lower lung villalpando, no rales, no rhonchi and no wheezes Cardio Rate: regular rate Rhythm: regular rhythm Heart Sounds: S1 normal and S2 normal GI Inspection: normal to inspection, no edema, non-distended and obesity Palpation: soft, no hepatosplenomegaly, not firm, no guarding, not rigid and nontender Auscultation: hypoactive bowel sounds Skin General skin exam: no rashes or lesions noted Trauma: no lacerations or abrasions Neuro General: alert, awake and oriented x3 Cognition: normal cognition Speech: speech normal Gait: gait abnormal (came in via wheelchair secondary to dyspnea) Extrem General: normal to inspection, normal capillary refill, no pedal edema, no calf tenderness and normal gait Psych Appearance: grossly normal and well kempt Mental Status: mental status grossly normal Speech and Movement: speech and movement normal Sign Out <ANGEL Herrear - Last Filed: 01/19/19 09:26> Sign Out Data: Sign Out Comment: Care transitioned to Tariq Groves, HEAD OF HISTORY with repeat troponin pending and disposition pending. Last updated by Bri Larsen PA at 01/18/19 16:22
--- NOTE | 2019-01-18 12:52 | NUTRITION ---
pt was sent here from dialysis) (pt did finish dialysis) for shortness of breath and palpitation and difficulty breathing wile laying flat
--- NOTE | 2019-01-18 13:17 | DI.RAD_ITS ---
SYMPTOMS/DIAGNOSIS: SHORTNESS OF BREATH, PALPITATIONS CHEST X-RAY, FRONTAL AND LATERAL VIEWS: Comparison is 07/03/18 and 05/10/18. The heart is at the upper limits of normal in size but stable. Pulmonary vasculature is stable. There is diffuse interstitial prominence. This appears unchanged when compared to prior examinations and may reflect chronic interstitial disease. No new focal consolidating infiltrates, effusions or pneumothoraces are identified. There is a dual-lumen central venous catheter again seen, the tip is at the junction of the superior vena cava and right atrium. No acute osseous abnormality is identified. IMPRESSION: No acute change in the appearance of the chest x-ray. The findings were discussed with Bri Larsen of the Emergency Department on the date of the examination.
[2019-01-18 13:33] LABS: Lactate-non-spesis 2.1 mmol/l (0.6-1.4)
[2019-01-18 13:36] LABS: Abs Immature Grans 0.02 k/cumm (0.0-0.09); Absolute Basophil Count 0.06 k/cumm (0.0-0.2); Absolute Eosinophil Count 0.31 k/cumm (0.0-0.7); Absolute Lymphocyte Count 1.03 k/cumm (1.2-3.4); Basophils % 0.6; Eosinophils % 3.3; HCT 36.2 % (40.0-50.0); HGB 11.7 g/dL (13.5-17.5); Immature Grans % 0.2; Lymphocytes % 10.9; Mean Corp. HGB Concentration 32.3 g/dL (32.0-36.0); Mean Corpuscular Hemoglobin 31.5 pg (27.0-33.0); Mean Corpuscular Volume 97.3 fL (80-95); Mean Platelet Volume 10.7 fL (8.0-11.0); Monocytes % 6.4; Neutrophils % 78.6; Platelet Count 203 x1000/uL (130-400); RBC 3.72 m/cumm (4.50-6.00); RBC Distribution Width 18.5 % (11.8-14.1); White Blood Cell Count 9.42 k/cumm (4.4-10.8)
[2019-01-18] MEDS: Albuterol/Ipratropium 3 ML UPD VIAL UPD (13:43)
[2019-01-18] MEDS: Normal Saline 250 ML IV (13:43)
[2019-01-18 13:57] LABS: Anisocytosis 1+; Diff Comment RBC Morph Reviewed
[2019-01-18 14:02] LABS: ALT 11 U/L (12-78); AST 6 U/L (15-37); Albumin 3.3 g/dL (3.4-5.0); Alkaline Phosphatase 81 U/L (46-116); Anion Gap 10.8 mmol/L (3-11); BUN 32 mg/dL (7-18); Bilirubin, Total 2.8 mg/dL (0.2-1.0); CO2 28.2 mmol/L (21.0-32.0); Calcium 9.5 mg/dL (8.5-10.1); Chloride 97 mmol/L (98-107); Estimated GFR 13.27 (mL/min/1.73m2); Glucose 101 mg/dL (70-100); Potassium 3.9 mmol/L (3.5-5.1); Sodium 136 mmol/L (136-145); TSH (W/Ref FT4) 2.79 uIU/mL (0.36-3.74); Total Protein 8.5 g/dL (6.4-8.2)
[2019-01-18 14:10] LABS: CREATININE 4.65 mg/dL (0.70-1.30)
[2019-01-18 14:11] LABS: Troponin I < 0.05 ng/mL (0.00-0.06)
[2019-01-18 14:17] LABS: INR 1.2 (0.9-1.1); PTT Activated 26.7 sec (21.0-31.4); Prothrombin Time 11.8 sec (9.3-11.0)
[2019-01-18 14:35] LABS: NT-proBNP 73091 pg/mL
[2019-01-18 14:52] LABS: D-Dimer 1240 ng/mlFEU (<500)
[2019-01-18 16:36] LABS: Troponin I < 0.05 ng/mL (0.00-0.06)
--- NOTE | 2019-01-18 18:31 | NUR.NOTE ---
assumed care of patient, patient in no distress Nursing Note:
--- NOTE | 2019-01-18 19:46 | NUR.NOTE ---
patient ate small dinner soup, report given to [email or web address]] Nursing Note:
== END 2019-01-18 19:49 | disposition other institution (70) ==
PROVIDERS: Physician Assistant; Emergency Provider Nurse Practitioner Family; PCP Family Medicine
DX: N18.6 End stage renal disease (principal); R06.02 Shortness of breath; E87.70 Fluid overload, unspecified; I48.91 Unspecified atrial fibrillation
CPT/HCPCS: 36415; 80053; 93005; 96360; 99285; 71046; 83605; 83735; 83880; 84443; 84484; 85025; 85379; 85610; 85730; 93010; J7620

== ENCOUNTER 2019-02-16 15:53 | Outpatient (REF) | payer MEDICAID, SELFPAY ==
[2019-02-16 16:13] LABS: Bilirubin Moderate (Negative); Blood Trace-lysed (Negative); Clarity Sl Cloudy (Clear); Glucose Negative (Negative); Ketones 15 mg/dL (Negative); Leukocyte Esterase Small (Negative); Nitrite Negative (Negative); pH 5.5 (5-8)
[2019-02-16 16:40] LABS: Bacteria Moderate HPF (Negative); C & S Indicated? C&S Done As Ordered; Casts Negative LPF (Negative); Crystals Rare Calcium Oxalate HPF (Negative); Epithelial Cells Rare HPF (Negative); Mucus Trace (Negative); Other Cells Rare Renal (Negative); RBC 0-2 (0-2)
== END 2019-02-16 16:13 ==
LOC: LBN 15:53
PROVIDERS: PCP Family Medicine; Visit Provider Family Medicine
DX: R30.9 Painful micturition, unspecified (principal); M54.5 Low back pain; R50.9 Fever, unspecified
CPT/HCPCS: 81003; 81015; 87086

== ENCOUNTER 2019-02-17 05:44 | Emergency (ER) | payer MEDICAID, SELFPAY ==
[2019-02-17 05:46] VITALS: BP 100/65; PULSE 72; RESP 20; TEMP 36.4; O2SAT 100
--- NOTE | 2019-02-17 06:14 | ED.GENADUL_ITS ---
Discharge Plan Disposition Patient Disposition: HOME Condition: Good Discharge Details Chief Complaint: Abd Prob Clinical Impression: Abdominal pain Primary Care Provider: Gee Luke ED Provider: Simon Garcia Home Meds and New Rx's Prescriptions: New ciprofloxacin HCl 500 mg tablet 500 mg PO BID Qty: 14 RF: 0 Continued metolazone 2.5 mg tablet 2.5 mg PO ONCE PRN (Reason: Excessive fluid retention) Qty: 14 RF: 0 ferrous sulfate 325 mg (65 mg iron) tablet 325 mg PO DAILY Qty: 45 RF: 3 atorvastatin 80 mg tablet 80 mg PO DAILY Qty: 90 RF: 3 Nephrocaps 1 mg capsule 1 cap PO DAILY Qty: 90 RF: 3 clonazepam 0.5 mg tablet 0.25 mg PO BID PRN (Reason: nausea and vomiting) Qty: 28 RF: 1 gabapentin 800 mg tablet 800 mg PO DAILY Qty: 60 RF: 3 (DME) oxygen concentrater Qty: 1 RF: 0 epinephrine [EpiPen 2-Chandu] 0.3 MG/0.3 ML auto-injector 0.3 mg IM PRN PRNRF: 0 fluoxetine [Prozac] 20 MG capsule 60 mg PO DAILY RF: 0 albuterol sulfate [ProAir HFA] 8.5 GM HFA aerosol inhaler 1 puff Inhalation Q4H PRN 30 Days Qty: 1 RF: 11 Spiriva with HandiHaler 18 mcg capsule, w/inhalation device 1 cap IH DAILY RF: 0 omeprazole magnesium 20 mg tablet,delayed release (DR/EC) 20 mg PO DAILY Qty: 90 RF: 3 aspirin [Adult Low Dose Aspirin] 81 mg tablet,delayed release (DR/EC) 81 mg PO DAILY RF: 0 (DME) titration testing Qty: 1 RF: 0 furosemide 80 mg tablet 80 mg PO BID Qty: 180 RF: 3 metoprolol succinate [Toprol XL] 25 mg tablet extended release 24 hr 25 mg PO BID RF: 0 sevelamer carbonate [Renvela] 800 mg Tablet 1,600 mg PO AC RF: 0 nitroglycerin 0.3 mg Tablet, Sublingual 0.3 mg Sublingual Q5M PRNRF: 0 Brilinta 90 mg Tablet 1 tab PO BID RF: 0 Discharge Instructions Instructions: Abdominal Pain (ED) Additional Instructions: follow up with your primary care provider within 1-2 weeks if you feel you are becoming more ill, have difficulty breathing or persistent vomit return to the emergency department Discharge Data Discharge Date/Time-TO BE ENTERED AT DEPARTURE: 02/17/19 09:51 Medical Decision Making <Dave White MD - Last Filed: 02/17/19 21:00> Patient presenting with recurrent nausea, vomiting and left upper quadrant abdominal pain. Has had this on multiple occasions in the past with negative work-ups. However has significant medical history related to cardiac arrest. He is due for dialysis today. He is dry heaving and diaphoretic in the department. This is his typical presentation. IV was established. Laboratory studies obtained. Noncontrast CT ordered. Phenergan IV ordered. Small dose of morphine for continued discomfort. Patient's initial lactate called back high at 3.6. However, we thought it was because it was drawn and not immediately sent. It was not run until 15 minutes after was drawn. Repeat lactic acid was ordered. White count is normal. He seems to be better after the Phenergan and little bit of morphine. We will give a little fluid bolus while waiting for CT results. Other labs pending. Urine from yesterday that had been sent because of some mild dysuria. 7:30 - The rest of the patient's labs look okay. BUN and creatinine elevated as expected. Potassium is normal. Lipase is normal. Liver function normal. Still some occasional nausea and dry heaves. I will give another 12.5 of Phenergan. We will give a gram of ceftriaxone for urine that yesterday showed 10-20 white cells and bacteria. Culture still pending. We have spoke to the dialysis center. They do have an opening at 12:45 this afternoon. Hopefully patient feels better after little fluid challenge and the repeat Phenergan to be discharged to go to dialysis. Care will be turned over to Dr. Garcia who will get a repeat lactic acid and reassess the patient. Medical Records Medical records reviewed: Yes I reviewed the patient's medical records. Lab Data Lab results reviewed: Yes I reviewed the patient's lab results. <Simon Garcia MD - Last Filed: 02/17/19 09:36> pt's repeat lactate down trending and he feels much better, has mild pain and has no guarding on exam mild luq pain. given negative imaging and states this pain is chronic do not feel additional testing indicated. He did have UA done at pcp's office yesterday growing bacteria so was given ceftriaxone here and will start oral abx. Return precautions given HPI <Dave White MD - Last Filed: 02/17/19 21:00> General Mode of arrival: EMS . Date/Time Provider Initiated Documentation: 02/17/19 06:06 . Limitations to Documentation: no limitations . Information obtained by: patient, RN notes reviewed and old records reviewed . HPI Narrative: Patient presents to ED by ambulance with recurrent nausea, vomiting and left upper quadrant abdominal pain. He has had multiple occurrences of this. Work- ups in the ED have essentially been negative. He reports symptoms started again last night around 6 PM. They have worsened throughout the night. He now arrives with nausea, vomiting, pain, diaphoresis. He denies having chest pain or shortness of breath. He is due for dialysis today. He has had no diarrhea. There is been no bloody emesis or coffee-ground emesis. He intermittently has these symptoms every few weeks. He is on a PPI. Related Data Home Medications Medication Instructions Recorded Confirmed epinephrine [EpiPen 2-Chandu] 0.3 mg IM PRN PRN 07/24/17 02/17/19 albuterol sulfate [ProAir HFA] 1 puff INHALATION Q4H PRN 30 Days 08/10/17 02/17/19 #1 inhaler fluoxetine [Prozac] 60 mg PO DAILY cap 08/10/17 02/17/19 tiotropium bromide 18 mcg capsule 1 cap IH DAILY 04/01/18 02/17/19 with inhalation device Brilinta 1 tab PO BID 05/10/18 02/17/19 gabapentin 800 mg tablet 800 mg PO DAILY #60 tab 05/14/18 02/17/19 sevelamer carbonate [Renvela] 1,600 mg PO AC 05/20/18 02/17/19 ferrous sulfate 325 mg (65 mg 325 mg PO DAILY #45 tab 05/31/18 02/17/19 iron) tablet metolazone 2.5 mg tablet 2.5 mg PO ONCE PRN #14 tab 05/31/18 02/17/19 oxygen concentrater #1 ea 07/29/18 01/18/19 omeprazole magnesium 20 mg 20 mg PO DAILY #90 tab 09/14/18 02/17/19 tablet,delayed release aspirin 81 mg tablet,delayed 81 mg PO DAILY 10/13/18 02/17/19 release B complex with C 20-folic acid 1 1 cap PO DAILY #90 cap 10/15/18 02/17/19 mg capsule atorvastatin 80 mg tablet 80 mg PO DAILY #90 tab 10/15/18 02/17/19 titration testing #1 ea 10/22/18 01/18/19 furosemide 80 mg tablet 80 mg PO BID #180 tab 12/03/18 02/17/19 nitroglycerin 0.3 mg SUBLINGUAL Q5M PRN 12/27/18 02/17/19 clonazepam 0.5 mg tablet 0.25 mg PO BID PRN #28 tab 12/31/18 02/17/19 metoprolol succinate 25 mg 25 mg PO BID 01/24/19 02/17/19 tablet,extended release 24 hr ciprofloxacin HCl 500 mg PO BID #14 tab 02/17/19 02/17/19 Previous Rx's Medication Instructions Recorded albuterol sulfate [ProAir HFA] 1 puff INHALATION Q4H PRN 30 Days 08/10/17 #1 inhaler gabapentin 800 mg tablet 800 mg PO DAILY #60 tab 05/14/18 ferrous sulfate 325 mg (65 mg 325 mg PO DAILY #45 tab 05/31/18 iron) tablet metolazone 2.5 mg tablet 2.5 mg PO ONCE PRN #14 tab 05/31/18 oxygen concentrater #1 ea 07/29/18 omeprazole magnesium 20 mg 20 mg PO DAILY #90 tab 09/14/18 tablet,delayed release B complex with C 20-folic acid 1 1 cap PO DAILY #90 cap 10/15/18 mg capsule atorvastatin 80 mg tablet 80 mg PO DAILY #90 tab 10/15/18 titration testing #1 ea 10/22/18 furosemide 80 mg tablet 80 mg PO BID #180 tab 12/03/18 clonazepam 0.5 mg tablet 0.25 mg PO BID PRN #28 tab 12/31/18 ciprofloxacin HCl 500 mg PO BID #14 tab 02/17/19 Allergies Allergy/AdvReac Type Severity Reaction Status Date / Time bee venom protein (honey bee) Allergy Severe throat Verified 02/17/19 17:12 swelling aspirin AdvReac Severe bleeding Verified 02/17/19 17:12 General Stated Complaint: Abd Prob JOSEPH: 3 Review of Systems <Dave White MD - Last Filed: 02/17/19 21:00> Review of Systems 04/04 Review of Systems completed and is negative except as stated above in HPI (Systems reviewed: Const, Eyes, ENT, Resp, CV, GI, , MSK, Skin, Neuro) PFSH <Dave White MD - Last Filed: 02/17/19 21:00> Surgical History Arthroplasty of knee cardiac catherization (01/01/18) cardiac catherization (01/05/18) echocardiogram (01/06/18) Encounter for gastrojejunal (GJ) tube placement (Acute 02/23/18) Repair of umbilical hernia Stented coronary artery (Chronic) Tonsillectomy and adenoidectomy 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 [employer] What is your relationship status?: How often do you talk on the phone with friends or family?: three or more times per week How often do you get together with friends or relatives?: three or more times per week Panel score (0-1 are the most socially isolated patients): 2 What type of physical activity do you participate in: none and sedentary lifestyle Duration: < 15 minutes/day Special frandy needs: No Agree to transfusion: Yes Seatbelt use: always Drive intox or ride w/intox ambulance driver: No Working smoke detector in home: Yes Fire extinguisher in home: Yes Carbon monox detector in home: Yes Do you feel safe at home: Yes Do you feel safe in your relationship?: Yes Additional Social history: Lives with , Park and son, BASILIO who is a janice at [employer]. Daughter is out on her own. Was at [facility] 4 times and [place] once in last year. Hospitalized for total of 125 days from December 2017-December 2018. Trying to be healthy now. Lost 130 lbs in last year. Following strict renal diet. Exam <Dave White MD - Last Filed: 02/17/19 21:00> Narrative Exam Narrative: Vitals: Afebrile with normal vital signs and pulse oximetry on room air. Const: WDWN male dry heaving, diaphoretic. HEENT: NC/AT. Normal facial exam. Eyes: Normal conjunctiva and sclera. Neck: Supple. Trachea midline. Lungs: Normal respiratory effort. Lungs are clear but a little diminished at bases. Cor: RRR with murmur. GI: Soft and non-distended. Mild tenderness LUQ but no guarding/rebound. Neuro: A+O x 3. CN grossly in tact. Good strength and no focal deficit. Ext: No C/C/E. No deformity or tenderness. Skin: Diaphoretic. Course <Dave White MD - Last Filed: 02/17/19 21:00> Vital Signs Temperature 97.5 F L 02/17/19 05:46 Pulse 72 02/17/19 05:46 Respiratory Rate 20 02/17/19 05:46 Blood Pressure 100/65 02/17/19 05:46 Pulse Oximetry 100 02/17/19 05:46 Temperature 97.5 F L 02/17/19 05:46 Temperature Source Temporal Artery Scan 02/17/19 05:46 Pulse 72 02/17/19 05:46 Respiratory Rate 20 02/17/19 05:46 Respiratory Effort 02/17/19 05:46 Blood Pressure 100/65 02/17/19 05:46 Pulse Oximetry 100 02/17/19 05:46 Oxygen Delivery Method Room Air 02/17/19 05:46 Oxygen Flow Rate 0 02/17/19 05:46 Pain Level 7 02/17/19 05:46 Sign Out <Dave White MD - Last Filed: 02/17/19 21:00> Sign Out Data: Sign Out Comment: Pending fluid, phenergan and repeat lactic acid. Last updated by Dave White MD at 02/17/19 07:48
[2019-02-17 06:33] LABS: Abs Immature Grans 0.02 k/cumm (0.0-0.09); Absolute Basophil Count 0.06 k/cumm (0.0-0.2); Absolute Monocyte Count 1.07 k/cumm (0.11-0.7); Absolute Neutrophil Count 8.54 k/cumm (1.2-6.7); Basophils % 0.5; Eosinophils % 2.6; HCT 36.7 % (40.0-50.0); HGB 11.9 g/dL (13.5-17.5); Immature Grans % 0.2; Lymphocytes % 14.2; Mean Corp. HGB Concentration 32.4 g/dL (32.0-36.0); Mean Corpuscular Hemoglobin 31.9 pg (27.0-33.0); Mean Corpuscular Volume 98.4 fL (80-95); Mean Platelet Volume 10.9 fL (8.0-11.0); Monocytes % 9.2; Neutrophils % 73.3; Platelet Count 304 x1000/uL (130-400); RBC 3.73 m/cumm (4.50-6.00); RBC Distribution Width 17.2 % (11.8-14.1); White Blood Cell Count 11.65 k/cumm (4.4-10.8)
[2019-02-17 06:34] LABS: Lactate 3.6 mmol/L (0.6-1.4)
[2019-02-17 06:35] LABS: Absolute Lymphocyte Count 1.65 k/cumm (1.2-3.4)
--- NOTE | 2019-02-17 06:44 | DI.CT_ITS ---
SYMPTOM/DIAGNOSIS: RECURRENT LEFT SIDED ABDOMINAL PAIN WITH VOMITING. CT ABDOMEN AND PELVIS: Noncontrast examination was performed. There are small bilateral pleural effusions. There are ground glass opacities in the lung bases. These are nonspecific ground glass nodules are seen in the lungs measuring up to 8 mm. The unenhanced liver appears enlarged. There does appear to be a stone in the dependent portion of the gallbladder. No biliary ductal dilatation is seen. The unenhanced spleen, pancreas and adrenal glands are unremarkable. The kidneys show no evidence of nephrolithiasis or ureterolithiasis. The urinary bladder is intact. There is apparent thickening of the wall of the urinary bladder. This may be due to under distension. Inflammatory, infectious cystitis cannot be excluded. Reproductive organs are otherwise unremarkable. The bowel shows no evidence of obstruction or inflammation. No findings to suggest an acute appendicitis are present. There is a moderate size fat containing umbilical hernia. There is a 2 x 1.5 cm soft tissue mass in the subcutaneous tissues overlying the right anterior abdominal wall. The abdominal aorta is of normal caliber. No significant abdominal or pelvic adenopathy, ascites or pneumoperitoneum is present. There are degenerative changes seen in the spine. No acute fractures or subluxations are seen. IMPRESSION: No evidence of nephrolithiasis or obstructive uropathy. 2. Apparent thickening of the wall of the urinary bladder. This may be due to under distension. Inflammatory, infectious cystitis cannot be excluded. 3. Bilateral basilar ground glass opacities and ground glass nodules measuring up to 8 mm in the lung bases. A follow up CT scan of the chest is recommended to document resolution of these findings and to exclude persistent nodules. These findings may reflect interstitial inflammatory process. Noncontrast CT scan of the chest should be considered within 3 months for follow up. 4. Small bilateral pleural effusions. 5. 2 cm soft tissue nodule in the subcutaneous tissues of the right anterior abdominal wall. Please correlate with physical exam. 6. Hepatomegaly and cholelithiasis.
[2019-02-17 06:48] LABS: ALT 19 U/L (16-63); AST 15 U/L (15-37); Albumin 3.7 g/dL (3.4-5.0); Alkaline Phosphatase 75 U/L (46-116); Anion Gap 19.4 mmol/L (3-11); BUN 58 mg/dL (7-18); Bilirubin, Total 2.1 mg/dL (0.2-1.0); CO2 21.6 mmol/L (21.0-32.0); Calcium 9.7 mg/dL (8.5-10.1); Chloride 93 mmol/L (98-107); Estimated GFR 6.27 (mL/min/1.73m2); Glucose 121 mg/dL (70-100); Lipase 72 U/L (73-393); Potassium 4.2 mmol/L (3.5-5.1); Sodium 134 mmol/L (136-145); Total Protein 9.3 g/dL (6.4-8.2)
[2019-02-17] MEDS: MORPHine 10 MG/ML VIAL (06:55)
--- NOTE | 2019-02-17 06:58 | DI.VRAD_ITS ---
EXAM: CT Abdomen and Pelvis Without Contrast EXAM DATE/TIME: 02/17/2019 6:29 AM CLINICAL HISTORY: 53 years old, male; Abdominal pain; Localized; Left; Additional info: Recurrent left sided abdominal pain with vomiting TECHNIQUE: Imaging protocol: Computed tomography of the abdomen and pelvis without contrast. Radiation optimization: All CT scans at this facility use at least one of these dose optimization techniques: automated exposure control; mA and/or kV adjustment per patient size (includes targeted exams where dose is matched to clinical indication); or iterative reconstruction. COMPARISON: CT ABDOMEN PELVIS WO 12/20/2018 12:23 AM FINDINGS: Lungs: Septal thickening at the lung bases suspicious for interstitial edema. Basilar pulmonary nodules measure up to 8 mm at the right lung base and require followup according to institutional protocolFor patients at low risk (minimal or absent history of smoking and of other known risk factors), recommend CT at 3-6 months, then consider CT at 18-24 months. For patients at high risk (history of smoking or of other known risk factors), recommend CT at 3-6 months, then CT at 18-24 months. (Jacob et al., Fleischner Society, 2017). Pleural space: Bilateral small pleural effusion Liver: Normal. No mass. Gallbladder and bile ducts: Normal. No calcified stones. No ductal dilation. Pancreas: Normal. No ductal dilation. Spleen: Normal. No splenomegaly. Adrenals: Normal. No mass. Kidneys and ureters: Normal. No hydronephrosis. Stomach and bowel: Normal. No obstruction. No mucosal thickening. Appendix: No evidence of appendicitis. Intraperitoneal space: Normal. No free air. No significant fluid collection. Vasculature: Normal. No abdominal aortic aneurysm. Lymph nodes: Normal. No enlarged lymph nodes. Bladder: Urinary bladder wall thickening compatible with cystitis. Reproductive: Unremarkable as visualized. Bones/joints: No acute fracture. No dislocation. Soft tissues: Fat containing umbilical hernia is noted. IMPRESSION: 1. Urinary bladder wall thickening compatible with cystitis. 2. Septal thickening at the lung bases suspicious for interstitial edema. 3. Basilar pulmonary nodules measure up to 8 mm at the right lung base and require followup according to institutional protocolFor patients at low risk (minimal or absent history of smoking and of other known risk factors), recommend CT at 3-6 months, then consider CT at 18-24 months. For patients at high risk (history of smoking or of other known risk factors), recommend CT at 3-6 months, then CT at 18-24 months. (Jacob, et al., Fleischner Society, 2017). Dictated and Authenticated by: Zeus Ann MD. Ordering:YOUNG Acosta MD
[2019-02-17 07:03] LABS: Lactate 4.3 mmol/L (0.6-1.4)
[2019-02-17 07:04] LABS: Troponin I < 0.05 ng/mL (0.00-0.06)
[2019-02-17 07:57] VITALS: BP 112/70; PULSE 68; RESP 16; TEMP 36.2; O2SAT 99
[2019-02-17] MEDS: Normal Saline 250 ML 500 ML IV (08:10)
[2019-02-17] MEDS: cefTRIAXone 1 GM/50 ML BAG IVPB (08:30)
[2019-02-17 09:21] LABS: Lactate 3.1 mmol/L (0.6-1.4)
[2019-02-17 09:45] VITALS: BP 119/88; PULSE 71; RESP 16; TEMP 36.2; O2SAT 98
--- NOTE | 2019-02-17 13:52 | NUR.NOTE ---
Nursing Note: Faxed to [facility] the labs, radiology report, and MD note. Kaylene Salgado.
== END 2019-02-17 09:51 | disposition home or self-care (01) ==
PROVIDERS: Emergency Medicine; Emergency Provider Emergency Medicine; PCP Family Medicine
DX: R10.12 Left upper quadrant pain (principal); R11.2 Nausea with vomiting, unspecified; R61 Generalized hyperhidrosis; N18.6 End stage renal disease; Z99.2 Dependence on renal dialysis; I48.91 Unspecified atrial fibrillation; I12.0 Hypertensive chronic kidney disease with stage 5 chronic kidney disease or end stage renal disease
CPT/HCPCS: 36415; 80053; 83690; 96365; 96367; 96368; 96375; 96376; 99283; 99284; 74176; 83605; 83735; 84484; 85025; 99285; J0696; J2270

== ENCOUNTER 2019-02-17 16:59 | Emergency (ER) | payer MEDICAID, SELFPAY ==
[2019-02-17] VITALS (32 sets, daily range): BP systolic 94–127; BP diastolic 49–83; PULSE 72–84; RESP 16–25; TEMP 36.1; O2SAT 83–95
[2019-02-17 17:55] LABS: Abs Immature Grans 0.04 k/cumm (0.0-0.09); Absolute Basophil Count 0.02 k/cumm (0.0-0.2); Absolute Eosinophil Count 0.01 k/cumm (0.0-0.7); Absolute Lymphocyte Count 0.53 k/cumm (1.2-3.4); Basophils % 0.2; Eosinophils % 0.1; HGB 12.1 g/dL (13.5-17.5); Immature Grans % 0.3; Lymphocytes % 4.3; Mean Corp. HGB Concentration 32.7 g/dL (32.0-36.0); Mean Corpuscular Hemoglobin 31.9 pg (27.0-33.0); Mean Corpuscular Volume 97.6 fL (80-95); Mean Platelet Volume 10.4 fL (8.0-11.0); Monocytes % 4.8; Neutrophils % 90.3; Platelet Count 275 x1000/uL (130-400); RBC 3.79 m/cumm (4.50-6.00); RBC Distribution Width 17.2 % (11.8-14.1); White Blood Cell Count 12.42 k/cumm (4.4-10.8)
[2019-02-17 18:22] LABS: ALT 18 U/L (16-63); AST 13 U/L (15-37); Albumin 3.3 g/dL (3.4-5.0); Alkaline Phosphatase 76 U/L (46-116); Anion Gap 17.1 mmol/L (3-11); BUN 20 mg/dL (7-18); Bilirubin, Total 2.3 mg/dL (0.2-1.0); CO2 23.9 mmol/L (21.0-32.0); Chloride 98 mmol/L (98-107); Glucose 112 mg/dL (70-100); Lipase 58 U/L (73-393); Magnesium 1.8 mg/dL (1.8-2.4); Potassium 3.4 mmol/L (3.5-5.1); Sodium 139 mmol/L (136-145); Total Protein 8.5 g/dL (6.4-8.2)
[2019-02-17 18:34] LABS: Absolute Neutrophil Count 11.22 k/cumm (1.2-6.7)
[2019-02-17 18:38] LABS: CREATININE 3.87 mg/dL (0.70-1.30); Troponin I < 0.05 ng/mL (0.00-0.06)
[2019-02-17 18:41] LABS: Lactate 2.3 mmol/L (0.6-1.4)
--- NOTE | 2019-02-17 19:39 | ED.GENADUL_ITS ---
Discharge Plan Disposition Patient Disposition: HOME Condition: Improving Discharge Details Chief Complaint: Abd Prob Clinical Impression: LLQ abdominal pain Primary Care Provider: Gee Luke ED Provider: Abundio Groves Home Meds and New Rx's Prescriptions: Continued metolazone 2.5 mg tablet 2.5 mg PO ONCE PRN (Reason: Excessive fluid retention) Qty: 14 RF: 0 ferrous sulfate 325 mg (65 mg iron) tablet 325 mg PO DAILY Qty: 45 RF: 3 atorvastatin 80 mg tablet 80 mg PO DAILY Qty: 90 RF: 3 Nephrocaps 1 mg capsule 1 cap PO DAILY Qty: 90 RF: 3 clonazepam 0.5 mg tablet 0.25 mg PO BID PRN (Reason: nausea and vomiting) Qty: 28 RF: 1 gabapentin 800 mg tablet 800 mg PO DIRECTED Qty: 60 RF: 3 (DME) oxygen concentrater Qty: 1 RF: 0 epinephrine [EpiPen 2-Chandu] 0.3 MG/0.3 ML auto-injector 0.3 mg IM PRN PRNRF: 0 fluoxetine [Prozac] 20 MG capsule 20 mg PO DAILY RF: 0 albuterol sulfate [ProAir HFA] 8.5 GM HFA aerosol inhaler 1 puff Inhalation Q4H PRN 30 Days Qty: 1 RF: 11 Spiriva with HandiHaler 18 mcg capsule, w/inhalation device 1 cap IH DAILY RF: 0 omeprazole magnesium 20 mg tablet,delayed release (DR/EC) 20 mg PO DAILY Qty: 90 RF: 3 aspirin [Adult Low Dose Aspirin] 81 mg tablet,delayed release (DR/EC) 81 mg PO DAILY RF: 0 (DME) titration testing Qty: 1 RF: 0 furosemide 80 mg tablet 80 mg PO BID Qty: 180 RF: 3 metoprolol succinate [Toprol XL] 25 mg tablet extended release 24 hr 25 mg PO BID RF: 0 sevelamer carbonate [Renvela] 800 mg Tablet 1,600 mg PO AC RF: 0 nitroglycerin 0.3 mg Tablet, Sublingual 0.3 mg Sublingual Q5M PRNRF: 0 Brilinta 90 mg Tablet 1 tab PO BID RF: 0 ciprofloxacin HCl 500 mg tablet 500 mg PO BID Qty: 14 RF: 0 No Action pantoprazole [Protonix] 40 mg tablet,delayed release (DR/EC) 40 mg PO DAILY Qty: 30 RF: 0 Discharge Instructions Instructions: Abdominal Pain (ED) Additional Instructions: Take your medication as prescribed and continue to advance her diet as tolerate d. Return to the emergency department for any new or significant worsening of symptoms otherwise follow-up with your primary care provider as needed for reassessment Referrals: Gee Luke DO [Primary Care Provider] - Discharge Data Discharge Date/Time-TO BE ENTERED AT DEPARTURE: 02/17/19 21:15 Medical Decision Making Patient presenting the emergency department for chief complaint of abdominal pain, nausea, dry heaves. Patient was seen earlier in the emergency department for similar symptoms but was found to be at his baseline as he is presented multiple times to the emergency department for same complaint. Patient was sent to dialysis but continued to have some dry heaving at dialysis where they gave him Shilpafrthierno and Rakesh recommended he come back to the emergency department. Patient denies any worsening of symptoms but just states more persistence of symptoms. Physical exam shows left upper and lower quadrant tenderness with mild guarding otherwise unremarkable exam. Of note patient was diagnosed with questionable UTI and put on Cipro which she has not begun due to issues with insurance and drug coverage. Care management was contacted to assist with this. Plan to recheck labs but given that CT imaging was just performed this morning I do not feel that further imaging is needed given no worsening of symptoms. Review of labs shows a continued leukocytosis, at baseline but improved CMP labs given that patient is on dialysis, continued improvement of patient's lactate which is now 2.3 and was 3.1 on patient left the emergency department, negative troponin. Patient has had no further vomiting or retching during stay in the emergency department so plan to p.o. challenge patient and orally hydrate patient. Patient was able to tolerate p.o. intake with again no further retching or vomiting and stating he was feeling significant better. Reassessment of patient's abdomen shows improvement of abdominal symptoms. Patient was given his p.o. Cipro and additional doses for home given problems filling this medication. Close return precautions were discussed otherwise patient to f ollow-up with primary care provider as needed. ECG Data Interpretation: EKG reviewed with attending physician Dr. Garcia and shows sinus rhythm, rate of 76, nonspecific QRS widening with no acute ischemic changes noted. HPI General Mode of arrival: ambulatory . Date/Time Provider Initiated Documentation: 02/17/19 17:01 . Limitations to Documentation: no limitations . Information obtained by: patient, family, RN notes reviewed and old records reviewed . History of Present Illness 53 year old M presents to the emergency department with the chief complaint of Abdominal pain, retching, described as moderate and similar to prior episodes, with intensity rated at 6. Quality is described as aching, and is localized to the abdomen. Patient started experiencing this day(s) (1) and it has been constant. No exacerbating factors reported . Patient did receive the following treatments prior to arri tri, other (Zofran) Related Data Home Medications Medication Instructions Recorded Confirmed epinephrine [EpiPen 2-Chandu] 0.3 mg IM PRN PRN 07/24/17 02/18/19 albuterol sulfate [ProAir HFA] 1 puff INHALATION Q4H PRN 30 Days 08/10/17 02/18/19 #1 inhaler fluoxetine [Prozac] 20 mg PO DAILY cap 08/10/17 02/18/19 tiotropium bromide 18 mcg capsule 1 cap IH DAILY 04/01/18 02/17/19 with inhalation device Brilinta 1 tab PO BID 05/10/18 02/18/19 gabapentin 800 mg tablet 800 mg PO DIRECTED #60 tab 05/14/18 02/18/19 sevelamer carbonate [Renvela] 1,600 mg PO AC 05/20/18 02/18/19 ferrous sulfate 325 mg (65 mg 325 mg PO DAILY #45 tab 05/31/18 02/18/19 iron) tablet metolazone 2.5 mg tablet 2.5 mg PO ONCE PRN #14 tab 05/31/18 02/18/19 oxygen concentrater #1 ea 07/29/18 01/18/19 omeprazole magnesium 20 mg 20 mg PO DAILY #90 tab 09/14/18 02/18/19 tablet,delayed release aspirin 81 mg tablet,delayed 81 mg PO DAILY 10/13/18 02/18/19 release B complex with C 20-folic acid 1 1 cap PO DAILY #90 cap 10/15/18 02/17/19 mg capsule atorvastatin 80 mg tablet 80 mg PO DAILY #90 tab 10/15/18 02/18/19 titration testing #1 ea 10/22/18 01/18/19 furosemide 80 mg tablet 80 mg PO BID #180 tab 12/03/18 02/18/19 nitroglycerin 0.3 mg SUBLINGUAL Q5M PRN 12/27/18 02/18/19 clonazepam 0.5 mg tablet 0.25 mg PO BID PRN #28 tab 12/31/18 02/18/19 metoprolol succinate 25 mg 25 mg PO BID 01/24/19 02/18/19 tablet,extended release 24 hr ciprofloxacin HCl 500 mg PO BID #14 tab 02/17/19 02/18/19 pantoprazole [Protonix] 40 mg PO DAILY #30 tab 02/18/19 Previous Rx's Medication Instructions Recorded albuterol sulfate [ProAir HFA] 1 puff INHALATION Q4H PRN 30 Days 08/10/17 #1 inhaler gabapentin 800 mg tablet 800 mg PO DIRECTED #60 tab 05/14/18 ferrous sulfate 325 mg (65 mg 325 mg PO DAILY #45 tab 05/31/18 iron) tablet metolazone 2.5 mg tablet 2.5 mg PO ONCE PRN #14 tab 05/31/18 oxygen concentrater #1 ea 07/29/18 omeprazole magnesium 20 mg 20 mg PO DAILY #90 tab 09/14/18 tablet,delayed release B complex with C 20-folic acid 1 1 cap PO DAILY #90 cap 10/15/18 mg capsule atorvastatin 80 mg tablet 80 mg PO DAILY #90 tab 10/15/18 titration testing #1 ea 10/22/18 furosemide 80 mg tablet 80 mg PO BID #180 tab 12/03/18 clonazepam 0.5 mg tablet 0.25 mg PO BID PRN #28 tab 12/31/18 ciprofloxacin HCl 500 mg PO BID #14 tab 02/17/19 pantoprazole [Protonix] 40 mg PO DAILY #30 tab 02/18/19 Allergies Allergy/AdvReac Type Severity Reaction Status Date / Time bee venom protein (honey bee) Allergy Severe throat Verified 02/18/19 14:10 swelling aspirin AdvReac Severe bleeding Verified 02/18/19 14:10 General Stated Complaint: Abd Prob JOSEPH: 3 Review of Systems Constitutional Denies chills, Denies fever(s) and Reports poor appetite Cardiovascular Denies chest pain and Denies dyspnea Respiratory Denies cough and Denies dyspnea Gastrointestinal Reports as per HPI, Reports abdominal pain, Denies melena, Denies change in bowel habits, Denies constipation, Denies diarrhea, Reports nausea and Reports vomiting Integumentary/Breasts Denies rash PFSH Medical History Acute respiratory failure with hypoxia (Resolved) Atrial fibrillation with RVR (Chronic) Chronic CHF (Acute) Dialysis patient (Acute) End stage chronic kidney disease (Chronic) History of morbid obesity (Acute) Hypotension (Acute) LLQ abdominal pain (Acute) Pleural effusion, left (Acute) Renal failure (Chronic) STEMI (ST elevation myocardial infarction) (Chronic) Syncope (Chronic) Valvular heart disease (Acute) [place] [employer] (Acute) Surgical History Arthroplasty of knee cardiac catherization (01/01/18) cardiac catherization (01/05/18) echocardiogram (01/06/18) Encounter for gastrojejunal (GJ) tube placement (Acute 02/23/18) Repair of umbilical hernia Stented coronary artery (Chronic) Tonsillectomy and adenoidectomy Family History Mother Essential hypertension Alcohol abuse Chronic GERD Father Essential hypertension Osteoporosis ESRD (end stage renal disease) on dialysis Heart disease Myocardial infarction Sister Neoplasm Paternal Uncle Neoplasm Colon Paternal Uncle Neoplasm Colon Paternal Grandfather Diabetes Stroke Brother Alcohol abuse Alcoholic cirrhosis Brother , half brother; of opioid overdose Substance abuse Opioid overdose Son No problems noted. Daughter No problems noted. 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 [employer] What is your relationship status?: How often do you talk on the phone with friends or family?: three or more times per week How often do you get together with friends or relatives?: three or more times per week Panel score (0-1 are the most socially isolated patients): 2 What type of physical activity do you participate in: none and sedentary lifestyle Duration: < 15 minutes/day Special frandy needs: No Agree to transfusion: Yes Seatbelt use: always Drive intox or ride w/intox driver supervisor: No Working smoke detector in home: Yes Fire extinguisher in home: Yes Carbon monox detector in home: Yes Do you feel safe at home: Yes Do you feel safe in your relationship?: Yes Additional Social history: Lives with , Park and son, BASILIO who is a janice at [employer]. Daughter is out on her own. [place] [facility] and [facility] once in last year. Hospitalized for total of 125 days from December 2017-December 2018. Trying to be healthy now. Lost 130 lbs in last year. Following strict renal diet. Exam Const General: cooperative Orientation: alert, awake and oriented x3 Resp Effort & Inspection: normal respiratory effort and able to speak in complete sentences Auscultation: clear to auscultation bilaterally Cardio Rate: regular rate Rhythm: regular rhythm Heart Sounds: S1 normal and S2 normal GI Inspection: obesity Palpation: soft, not firm, no guarding, no masses, no pulsatile masses, not rigid, no splenomegaly and tender in the LLQ and in the LUQ Auscultation: normal bowel sounds Back/Spine/Pelvis Back: no CVA tenderness Neuro General: alert, awake, oriented x3, gait normal and moves all extremities Course Vital Signs Temperature 36.1 C L 02/17/19 17:09 Pulse 82 02/17/19 17:09 Respiratory Rate 20 02/17/19 17:09 Blood Pressure 127/80 02/17/19 17:09 Pulse Oximetry 94 L 02/17/19 17:09 Temperature 36.1 C L 02/17/19 17:09 Temperature Source Skin 02/17/19 17:09 Pulse 75 02/17/19 18:31 Pulse 74 02/17/19 18:01 Respiratory Rate 22 02/17/19 18:01 Respiratory Effort 02/17/19 17:09 Blood Pressure 116/80 02/17/19 18:31 Blood Pressure Mean 90 02/17/19 18:31 Blood Pressure Position Sitting 02/17/19 17:09 Pulse Oximetry 92 L 02/17/19 18:40 Oxygen Delivery Method Room Air 02/17/19 17:09 Oxygen Flow Rate 0 02/17/19 17:09 Pain Level 7 02/17/19 17:09 Lab/Test Results Lab/Test Results: Laboratory Tests Range/Units 02/17/19 02/17/19 02/17/19 17:47 17:47 17:47 WBC (4.4-10.8) k/cumm 12.42 H RBC (4.50-6.00) m/cumm 3.79 L Hgb (13.5-17.5) g/dL 12.1 L Hct (40.0-50.0) % 37.0 L MCV (80-95) fL 97.6 H MCH (27.0-33.0) pg 31.9 MCHC (32.0-36.0) g/dL 32.7 RDW (11.8-14.1) % 17.2 H Plt Count (130-400) x1000/uL 275 MPV (8.0-11.0) fL 10.4 Immature Gran % 0.3 Neutrophils % 90.3 Lymphocytes % 4.3 Monocytes % 4.8 Eosinophils % 0.1 Basophils % 0.2 Absolute Neutrophils (1.2-6.7) k/cumm 11.22 H Absolute Lymphocytes (1.2-3.4) k/cumm 0.53 L Absolute Monocytes (0.11-0.7) k/cumm 0.60 Absolute Eosinophils (0.0-0.7) k/cumm 0.01 Absolute Basophils (0.0-0.2) k/cumm 0.02 Sodium (136-145) mmol/L 139 Potassium (3.5-5.1) mmol/L 3.4 L Chloride (98-107) mmol/L 98 Carbon Dioxide (21.0-32.0) mmol/L 23.9 Anion Gap (3-11) mmol/L 17.1 H BUN (7-18) mg/dL 20 H D Creatinine (0.70-1.30) mg/dL 3.87 H* D Estimated GFR/1.73 m2 (mL/min/1.73m2) 16.40 Glucose (70-100) mg/dL 112 H Lactate (0.6-1.4) mmol/L 2.3 H* Calcium (8.5-10.1) mg/dL 9.0 Magnesium (1.8-2.4) mg/dL 1.8 Total Bilirubin (0.2-1.0) mg/dL 2.3 H AST (15-37) U/L 13 L ALT (16-63) U/L 18 Alkaline Phosphatase (46-116) U/L 76 Troponin I (0.00-0.06) ng/mL < 0.05 Total Protein (6.4-8.2) g/dL 8.5 H Albumin (3.4-5.0) g/dL 3.3 L Lipase (73-393) U/L 58 L
[2019-02-17] MEDS: Ciprofloxacin 500 MG TAB PO (20:24)
== END 2019-02-17 21:15 | disposition home or self-care (01) ==
PROVIDERS: Emergency Provider Nurse Practitioner Family; PCP Family Medicine
DX: R10.32 Left lower quadrant pain (principal); I48.91 Unspecified atrial fibrillation; I12.0 Hypertensive chronic kidney disease with stage 5 chronic kidney disease or end stage renal disease; N18.6 End stage renal disease
CPT/HCPCS: 36415; 80053; 83690; 99283; 83605; 83735; 84484; 85025

== ENCOUNTER 2019-02-18 13:59 | Emergency (ER) | payer MEDICAID, SELFPAY ==
[2019-02-18 14:06] VITALS: BP 114/84; PULSE 83; RESP 16; TEMP 36.6; O2SAT 94
[2019-02-18] MEDS: Pantoprazole 40 MG TABCR PO (14:31)
[2019-02-18] MEDS: Sucralfate 1 GM TAB PO (14:32)
[2019-02-18] MEDS: Ondansetron 4 MG/2 ML VIAL IVP (15:02)
[2019-02-18] MEDS: MORPHine 10 MG/ML VIAL 4 MG IVP (15:05)
[2019-02-18] MEDS: Normal Saline 250 ML 1000 ML IV (15:05)
[2019-02-18 15:31] LABS: Abs Immature Grans 0.04 k/cumm (0.0-0.09); Absolute Basophil Count 0.06 k/cumm (0.0-0.2); Absolute Eosinophil Count 0.08 k/cumm (0.0-0.7); Absolute Lymphocyte Count 1.41 k/cumm (1.2-3.4); Absolute Monocyte Count 1.26 k/cumm (0.11-0.7); Basophils % 0.6; Eosinophils % 0.8; HCT 37.1 % (40.0-50.0); HGB 12.1 g/dL (13.5-17.5); Immature Grans % 0.4; Lymphocytes % 13.2; Mean Corp. HGB Concentration 32.6 g/dL (32.0-36.0); Mean Corpuscular Hemoglobin 32.4 pg (27.0-33.0); Mean Corpuscular Volume 99.5 fL (80-95); Mean Platelet Volume 10.4 fL (8.0-11.0); Monocytes % 11.8; Neutrophils % 73.2; Platelet Count 305 x1000/uL (130-400); RBC 3.73 m/cumm (4.50-6.00); RBC Distribution Width 17.8 % (11.8-14.1); White Blood Cell Count 10.65 k/cumm (4.4-10.8)
--- NOTE | 2019-02-18 16:23 | ED.GENADUL_ITS ---
Discharge Plan Disposition Patient Disposition: HOME Condition: Good Discharge Details Chief Complaint: Abd Prob Clinical Impression: Abdominal pain, LUQ Primary Care Provider: Gee Luke ED Provider: Efra Kingsley Home Meds and New Rx's Prescriptions: New pantoprazole [Protonix] 40 mg tablet,delayed release (DR/EC) 40 mg PO DAILY Qty: 30 RF: 0 Continued metolazone 2.5 mg tablet 2.5 mg PO ONCE PRN (Reason: Excessive fluid retention) Qty: 14 RF: 0 ferrous sulfate 325 mg (65 mg iron) tablet 325 mg PO DAILY Qty: 45 RF: 3 atorvastatin 80 mg tablet 80 mg PO DAILY Qty: 90 RF: 3 Nephrocaps 1 mg capsule 1 cap PO DAILY Qty: 90 RF: 3 clonazepam 0.5 mg tablet 0.25 mg PO BID PRN (Reason: nausea and vomiting) Qty: 28 RF: 1 gabapentin 800 mg tablet 800 mg PO DIRECTED Qty: 60 RF: 3 (DME) oxygen concentrater Qty: 1 RF: 0 epinephrine [EpiPen 2-Chandu] 0.3 MG/0.3 ML auto-injector 0.3 mg IM PRN PRNRF: 0 fluoxetine [Prozac] 20 MG capsule 20 mg PO DAILY RF: 0 albuterol sulfate [ProAir HFA] 8.5 GM HFA aerosol inhaler 1 puff Inhalation Q4H PRN 30 Days Qty: 1 RF: 11 Spiriva with HandiHaler 18 mcg capsule, w/inhalation device 1 cap IH DAILY RF: 0 omeprazole magnesium 20 mg tablet,delayed release (DR/EC) 20 mg PO DAILY Qty: 90 RF: 3 aspirin [Adult Low Dose Aspirin] 81 mg tablet,delayed release (DR/EC) 81 mg PO DAILY RF: 0 (DME) titration testing Qty: 1 RF: 0 furosemide 80 mg tablet 80 mg PO BID Qty: 180 RF: 3 metoprolol succinate [Toprol XL] 25 mg tablet extended release 24 hr 25 mg PO BID RF: 0 sevelamer carbonate [Renvela] 800 mg Tablet 1,600 mg PO AC RF: 0 nitroglycerin 0.3 mg Tablet, Sublingual 0.3 mg Sublingual Q5M PRNRF: 0 Brilinta 90 mg Tablet 1 tab PO BID RF: 0 ciprofloxacin HCl 500 mg tablet 500 mg PO BID Qty: 14 RF: 0 Discharge Instructions Instructions: Abdominal Pain (ED) Additional Instructions: At this time your labs continue to look good. I am concerned that this may be secondary to a gastric ulcer or gastritis. Please continue to take your omeprazole, as well as this new medication Protonix. Please continue to drink plenty of fluids. Follow-up at your dialysis clinic at your regular appointment. If you notice any worsening of your symptoms, or any new symptoms such as vomiting, diarrhea, fever, chills, shortness of breath, chest pain, numbness, weakness, or fainting , please return immediately to the emergency department for reevaluation. Please follow up with your primary care provider as soon as possible for reassessment and reevaluation. As always, it was a plea sure participating in your medical care today. Referrals: Gee Luke DO [Primary Care Provider] - Medical Decision Making This is a pleasant 53-year-old male with a litany of medical problems, including cardiac disease, dialysis, PTSD, gastric ulcers. He presents today for left upper quadrant abdominal pain. He does have a history of chronic abdominal pain. Uncertain if he is currently taking his omeprazole. He was here twice yesterday for left upper quadrant abdominal pain, he had a notably extensive work-up with negative CT scan for any acute process, negative cardiac work-up, relatively benign laboratory work-up. He states that when he left he felt better however his symptoms have returned today. Left upper quadrant gnawing aching sensation. Slightly made worse with food. He states that it feels similar to his previous gastric ulcers. Physical exam demonstrates mild left upper quadrant tenderness. No evidence of guarding or rebound. Vital signs are unremarkable. He has been attending dialysis regularly. Differential includes gastric ulcer, less likely other acute abdominal pathology. We discussed repeat imaging and labs, and at this time the patient would like to hold off. We will start with a GI cocktail and labs and reassess. 5:30 PM Patient did have one episode of nausea with some vomiting with the GI cocktail. We rediscussed work-up options and he would like to go ahead with labs but hold off on imaging. Laboratory work-up was performed and is notably unremarkable, no significant acute abnormalities. Patient's anion gap was slightly elevated though, bilirubin is 2.6 and is chronically elevated. We did give a 500 cc bolus, as well as a small dose of morphine, patient had complete resolution of his symptoms after this. Patient is requesting discharge home. At this time patient appears continued hemodynamic stability. Signs and symptoms are concerning for mild gastric ulcer especially in light of the notably thorough work-up performed earlier. Patient would like to continue to hold off in any additional imaging. We will prescribe Protonix at a much higher dose, recommend avoiding any spicy foods, and close follow-up with his PCP. I have extensively reviewed the treatment plan and discharge instructions with the patient. I have addressed all patient concerns at this time. The patient was made aware of what symptoms to monitor for that would warrant a return to the emergency department. Discussed the plan with the patient, they demonstrate verbal understanding and agreement with our assessment and plan at this time. HPI General Date/Time Provider Initiated Documentation: 02/18/19 14:02 . HPI Narrative: This is a 53-year-old male with an extensive past medical history of atrial fibrillation, STEMI, COPD, end-stage renal disease on dialysis, cardiac arrest, cardiac stent and hernia repair who presents today for evaluation of abdominal pain. Patient was here yesterday and seen and assessed twice, on his initial episode he had basic laboratory work-up which was done, and was notably unremarkable. Lactate was slightly elevated but normalized. He went to dialysis. He came back again yesterday afternoon, and a very thorough and extensive work-up, laboratory work-up was relatively benign again, CT scan was ordered at that time and demonstrated no acute process. Cardiac work-up was negative. Patient states that the morphine he got yesterday did significantly help. His pain has returned at this time. He describes it as an aching gnawing sensation in his left upper to mid side of his abdomen. Pain seems to be made worse with certain foods including toast which he ate this morning. He states that it feels burning in nature, and feels similar to previous gastric ulcer episodes that he has had in the past. He denies any numbness tingling or weakness. He denies any vomiting, and states that he has been drinking plenty of fluids. He denies any chest pain, chest heaviness, chest tightness, arm neck or shoulder pain. He denies any symptoms estelle to his previous OR. Patient has no other complaints at this time. No other modifying factors. Related Data Home Medications Medication Instructions Recorded Confirmed epinephrine [EpiPen 2-Chandu] 0.3 mg IM PRN PRN 07/24/17 02/18/19 albuterol sulfate [ProAir HFA] 1 puff INHALATION Q4H PRN 30 Days 08/10/17 02/18/19 #1 inhaler fluoxetine [Prozac] 20 mg PO DAILY cap 08/10/17 02/18/19 tiotropium bromide 18 mcg capsule 1 cap IH DAILY 04/01/18 02/17/19 with inhalation device Brilinta 1 tab PO BID 05/10/18 02/18/19 gabapentin 800 mg tablet 800 mg PO DIRECTED #60 tab 05/14/18 02/18/19 sevelamer carbonate [Renvela] 1,600 mg PO AC 05/20/18 02/18/19 ferrous sulfate 325 mg (65 mg 325 mg PO DAILY #45 tab 05/31/18 02/18/19 iron) tablet metolazone 2.5 mg tablet 2.5 mg PO ONCE PRN #14 tab 05/31/18 02/18/19 oxygen concentrater #1 ea 07/29/18 01/18/19 omeprazole magnesium 20 mg 20 mg PO DAILY #90 tab 09/14/18 02/18/19 tablet,delayed release aspirin 81 mg tablet,delayed 81 mg PO DAILY 10/13/18 02/18/19 release B complex with C 20-folic acid 1 1 cap PO DAILY #90 cap 10/15/18 02/17/19 mg capsule atorvastatin 80 mg tablet 80 mg PO DAILY #90 tab 10/15/18 02/18/19 titration testing #1 ea 10/22/18 01/18/19 furosemide 80 mg tablet 80 mg PO BID #180 tab 12/03/18 02/18/19 nitroglycerin 0.3 mg SUBLINGUAL Q5M PRN 12/27/18 02/18/19 clonazepam 0.5 mg tablet 0.25 mg PO BID PRN #28 tab 12/31/18 02/18/19 metoprolol succinate 25 mg 25 mg PO BID 01/24/19 02/18/19 tablet,extended release 24 hr ciprofloxacin HCl 500 mg PO BID #14 tab 02/17/19 02/18/19 pantoprazole [Protonix] 40 mg PO DAILY #30 tab 02/18/19 Previous Rx's Medication Instructions Recorded albuterol sulfate [ProAir HFA] 1 puff INHALATION Q4H PRN 30 Days 08/10/17 #1 inhaler gabapentin 800 mg tablet 800 mg PO DIRECTED #60 tab 05/14/18 ferrous sulfate 325 mg (65 mg 325 mg PO DAILY #45 tab 05/31/18 iron) tablet metolazone 2.5 mg tablet 2.5 mg PO ONCE PRN #14 tab 05/31/18 oxygen concentrater #1 ea 07/29/18 omeprazole magnesium 20 mg 20 mg PO DAILY #90 tab 09/14/18 tablet,delayed release B complex with C 20-folic acid 1 1 cap PO DAILY #90 cap 10/15/18 mg capsule atorvastatin 80 mg tablet 80 mg PO DAILY #90 tab 10/15/18 titration testing #1 ea 10/22/18 furosemide 80 mg tablet 80 mg PO BID #180 tab 12/03/18 clonazepam 0.5 mg tablet 0.25 mg PO BID PRN #28 tab 12/31/18 ciprofloxacin HCl 500 mg PO BID #14 tab 02/17/19 pantoprazole [Protonix] 40 mg PO DAILY #30 tab 02/18/19 Allergies Allergy/AdvReac Type Severity Reaction Status Date / Time bee venom protein (honey bee) Allergy Severe throat Verified 02/18/19 14:10 swelling aspirin AdvReac Severe bleeding Verified 02/18/19 14:10 General Stated Complaint: Abd Prob JOSEPH: 4 Review of Systems Review of Systems All systems reviewed & are unremarkable except as noted in HPI and below PFSH 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 [employer] What is your relationship status?: How often do you talk on the phone with friends or family?: three or more times per week How often do you get together with friends or relatives?: three or more times per week Panel score (0-1 are the most socially isolated patients): 2 What type of physical activity do you participate in: none and sedentary lifestyle Duration: < 15 minutes/day Special frandy needs: No Agree to transfusion: Yes Seatbelt use: always Drive intox or ride w/intox 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 Daughter is out on her own. Was at [facility] 4 times and [facility] once in last year. Hospitalized for total of 125 days from December 2017-December 2018. Trying to be healthy now. Lost 130 lbs in last year. Following strict renal diet. Exam Narrative Exam Narrative: 1.Const: Well-nourished, Well-developed, appearing stated age 2.Eyes: PERRL, no conjunctival injection, and symmetrical lids. 3.ENT: Atraumatic external nose and ears. Moist MM. Neck: Symmetric, trachea midline, No thyromegaly. 4.CVS: +S1/S2, No murmurs or gallops. Peripheral pulses 2+ and equal in all extremities. Brisk capillary refill in all extremities. 5.RESP: Unlabored respiratory effort. Clear to auscultation bilaterally. No wheezes rales or rhonchi 6.GI: Soft, nondistended, mild tenderness in the left upper quadrant. No guarding or rebound. No pain at Steffany's point, negative Melchor sign. 7.MSK: Normocephalic/Atraumatic, Extremities w/o deformity or ttp No cyanosis or clubbing, Normal movement of all extremities 8.Skin: Warm, Dry. No rashes or lesions. Patient appears at baseline. 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 Sensation grossly intact, no focal neurologic deficits. 10.Psych: (AAO) x3. Appropriate mood and affect Course Vital Signs Temperature 36.6 C 02/18/19 14:06 Pulse 83 02/18/19 14:06 Respiratory Rate 16 02/18/19 14:06 Blood Pressure 114/84 02/18/19 14:06 Pulse Oximetry 94 L 02/18/19 14:06 Temperature 36.6 C 02/18/19 14:06 Temperature Source Skin 02/18/19 14:06 Pulse 83 02/18/19 14:06 Respiratory Rate 16 02/18/19 14:06 Respiratory Effort Non-Labored 02/18/19 14:09 Blood Pressure 114/84 02/18/19 14:06 Blood Pressure Position Sitting 02/18/19 14:06 Pulse Oximetry 94 L 02/18/19 14:06 Oxygen Delivery Method Room Air 02/18/19 14:06 Oxygen Flow Rate 0 02/18/19 14:06 Pain Level 7 02/18/19 15:48 Lab/Test Results Lab/Test Results: Laboratory Tests Range/Units 02/18/19 15:20 WBC (4.4-10.8) k/cumm 10.65 RBC (4.50-6.00) m/cumm 3.73 L Hgb (13.5-17.5) g/dL 12.1 L Hct (40.0-50.0) % 37.1 L MCV (80-95) fL 99.5 H MCH (27.0-33.0) pg 32.4 MCHC (32.0-36.0) g/dL 32.6 RDW (11.8-14.1) % 17.8 H Plt Count (130-400) x1000/uL 305 MPV (8.0-11.0) fL 10.4 Immature Gran % 0.4 Neutrophils % 73.2 Lymphocytes % 13.2 Monocytes % 11.8 Eosinophils % 0.8 Basophils % 0.6 Absolute Neutrophils (1.2-6.7) k/cumm 7.80 H Absolute Lymphocytes (1.2-3.4) k/cumm 1.41 Absolute Monocytes (0.11-0.7) k/cumm 1.26 H Absolute Eosinophils (0.0-0.7) k/cumm 0.08 Absolute Basophils (0.0-0.2) k/cumm 0.06
[2019-02-18 16:34] LABS: ALT 19 U/L (16-63); AST 14 U/L (15-37); Albumin 3.4 g/dL (3.4-5.0); Alkaline Phosphatase 73 U/L (46-116); Anion Gap 14.6 mmol/L (3-11); BUN 41 mg/dL (7-18); Bilirubin, Total 2.6 mg/dL (0.2-1.0); CO2 25.4 mmol/L (21.0-32.0); Calcium 9.3 mg/dL (8.5-10.1); Chloride 99 mmol/L (98-107); Estimated GFR 8.54 (mL/min/1.73m2); Glucose 111 mg/dL (70-100); Lipase 66 U/L (73-393); Potassium 3.8 mmol/L (3.5-5.1); Sodium 139 mmol/L (136-145); Total Protein 8.6 g/dL (6.4-8.2)
[2019-02-18 16:37] LABS: CREATININE 6.81 mg/dL (0.70-1.30)
[2019-02-18 16:43] VITALS: BP 112/80; PULSE 78; RESP 16; TEMP 36.6; O2SAT 98
[2019-02-18 17:18] VITALS: BP 112/80; PULSE 78; RESP 16; TEMP 36.6; O2SAT 98
== END 2019-02-18 17:19 | disposition home or self-care (01) ==
PROVIDERS: Emergency Provider Student in an Organized Health Care Education/Training Program; PCP Family Medicine
DX: R10.12 Left upper quadrant pain (principal); N18.6 End stage renal disease; Z99.2 Dependence on renal dialysis; J44.9 Chronic obstructive pulmonary disease, unspecified
CPT/HCPCS: 36415; 80053; 83690; 96361; 96374; 96375; 99284; 85025; J2270; J2405

== ENCOUNTER 2019-02-19 09:07 | Emergency (ER) | payer MEDICAID, SELFPAY ==
[2019-02-19] VITALS (18 sets, daily range): BP systolic 97–122; BP diastolic 55–80; PULSE 73–123; RESP 10–38; TEMP 36.4–36.6; O2SAT 96–99
--- NOTE | 2019-02-19 09:24 | W.ED.GENAD ---
Discharge Plan Disposition Patient Disposition: HOME Discharge Details Chief Complaint: Abd Prob Clinical Impression: Abdominal pain Primary Care Provider: Gee Luke ED Provider: Darren Grewal Home Meds and New Rx's Prescriptions: Continued metolazone 2.5 mg tablet 2.5 mg PO ONCE PRN (Reason: Excessive fluid retention) Qty: 14 RF: 0 ferrous sulfate 325 mg (65 mg iron) tablet 325 mg PO DAILY Qty: 45 RF: 3 atorvastatin 80 mg tablet 80 mg PO DAILY Qty: 90 RF: 3 Nephrocaps 1 mg capsule 1 cap PO DAILY Qty: 90 RF: 3 clonazepam 0.5 mg tablet 0.25 mg PO BID PRN (Reason: nausea and vomiting) Qty: 28 RF: 1 gabapentin 800 mg tablet 800 mg PO DIRECTED Qty: 60 RF: 3 (DME) oxygen concentrater Qty: 1 RF: 0 epinephrine [EpiPen 2-Chandu] 0.3 MG/0.3 ML auto-injector 0.3 mg IM PRN PRNRF: 0 fluoxetine [Prozac] 20 MG capsule 20 mg PO DAILY RF: 0 albuterol sulfate [ProAir HFA] 8.5 GM HFA aerosol inhaler 1 puff Inhalation Q4H PRN 30 Days Qty: 1 RF: 11 Spiriva with HandiHaler 18 mcg capsule, w/inhalation device 1 cap IH DAILY RF: 0 omeprazole magnesium 20 mg tablet,delayed release (DR/EC) 20 mg PO DAILY Qty: 90 RF: 3 aspirin [Adult Low Dose Aspirin] 81 mg tablet,delayed release (DR/EC) 81 mg PO DAILY RF: 0 (DME) titration testing Qty: 1 RF: 0 furosemide 80 mg tablet 80 mg PO BID Qty: 180 RF: 3 metoprolol succinate [Toprol XL] 25 mg tablet extended release 24 hr 25 mg PO BID RF: 0 sevelamer carbonate [Renvela] 800 mg Tablet 1,600 mg PO AC RF: 0 nitroglycerin 0.3 mg Tablet, Sublingual 0.3 mg Sublingual Q5M PRNRF: 0 pantoprazole [Protonix] 40 mg tablet,delayed release (DR/EC) 40 mg PO DAILY Qty: 30 RF: 0 Brilinta 90 mg Tablet 1 tab PO BID RF: 0 ciprofloxacin HCl 500 mg tablet 500 mg PO BID Qty: 14 RF: 0 Discharge Instructions Instructions: Abdominal Pain (ED) Additional Instructions: Please follow-up with your primary care physician -call on Thursday. Go to dialysis as scheduled. Return to the ER for any worsening or new concerning symptoms. Referrals: Gee Luke DO [Primary Care Provider] - Discharge Data Discharge Date/Time-TO BE ENTERED AT DEPARTURE: 02/19/19 13:29 Medical Decision Making 9:30 --53-year-old male with history of end-stage renal disease on hemodialysis, coronary artery disease, CHF, abdominal pain in the past, here for repeat ED visit with persistent abdominal pain. Recent work-ups have been reassuring. Currently on Cipro for UTI. Old records reviewed -- CT of the abdomen and pelvis obtained on 02/17/2019 interpreted by radiology as: IMPRESSION: No evidence of nephrolithiasis or obstructive uropathy. 2. Apparent thickening of the wall of the urinary bladder. This may be due to under distension. Inflammatory, infectious cystitis cannot be excluded. 3. Bilateral basilar ground glass opacities and ground glass nodules measuring up to 8 mm in the lung bases. A follow up CT scan of the chest is recommended to document resolution of these findings and to exclude persistent nodules. These findings may reflect interstitial inflammatory process. Noncontrast CT scan of the chest should be considered within 3 months for follow up. 4. Small bilateral pleural effusions. 5. 2 cm soft tissue nodule in the subcutaneous tissues of the right anterior abdominal wall. Please correlate with physical exam. 6. Hepatomegaly and cholelithiasis. Patient now has notable bruise on his left flank of unclear etiology. Plan to obtain repeat CT of the abdomen pelvis to assess for acute surgical pathology. Given his renal status I will hold contrast at this time. Pepcid IV for pain. 10:30 --CT of the abdomen pelvis was interpreted by radiology:IMPRESSION: 1. No hydronephrosis, renal or ureteral calculus or other gross acute abnormality identified. 2. Postoperative anterior abdominal wall with similar fat-containing umbilical and bilateral inguinal hernias as compared with 02/17/19. 3. Persistent bibasilar pulmonary groundglass opacities and nodules with very small bilateral pleural effusions. COMMENT: Depending on suspected etiology of symptoms, consider a targeted ultrasound or contrast enhanced exam. 11:15 --patient was reassessed and continues to have abdominal pain that is severe. No ultrasound available and I do not think this is ideal study for examining vasculature. Labs reviewed: Patient does have a mildly elevated lactate that has been elevated in the past and now improved, as well as an anion gap acidosis -this is post dialysis today. I will give NS 250mL bolus. Tylenol 650mg. I discussed with patient the risk benefits of contrast-enhanced CTA imaging and patient provided informed consent to proceed. 13:18 -- CTA interpreted by radiology: IMPRESSION: 1. The aorta is normal in caliber with no evidence of aneurysm or dissection. 2. Visceral arteries are widely patent with no CT evidence of mesenteric ischemia. 3. There is nonspecific bladder wall thickening. This may be related to incomplete distention. 4. No evidence of an acute abnormality. 5. Mild hepatosplenomegaly. 6. There is cholelithiasis with no evidence of acute cholecystitis. Remainder of non-emergent findings as described. All results were discussed with the patient. Patient was reassessed and pain improved. Patient requesting discharge. Plan for outpatient follow-up this week. I encouraged him to call his primary care physician to arrange this (office not currently open for me to call). Disposition decision was made weighing the risks and benefits of hospitalization versus outpatient treatment, the risk for further decompensation, and the patient's wishes. The patient was stable and requested discharge. Prior to discharge, my usual and customary return precautions were reviewed with the patient - this included follow-up instructions and reason to return to the emergency department if condition worsens, does not improve as expected, or other new concerns arise. HPI General Mode of arrival: ambulatory. Date/Time Provider Initiated Documentation: 02/19/19 09:13. Limitations to Documentation: no limitations. Information obtained by: patient and EMS. HPI Narrative: 53-year-old male with history of end-stage renal disease on hemodialysis, coronary artery disease, CHF, here with chief complaint of left-sided abdominal pain. Patient was seen here 2 times on the and once yesterday for same pain. Pain has persisted. Pain is localized to his left upper and mid abdomen. Pain is severe, constant, sharp. Patient is currently being treated with ciprofloxacin for urinary tract infection. He continues to make small amounts of urine. Prior ED work-ups over the past few days have been unremarkable with normal CT and nondiagnostic labs. Related Data Home Medications Medication Instructions Recorded Confirmed epinephrine [EpiPen 2-Chandu] 0.3 mg IM PRN PRN 02/02/18 08/31/19 albuterol sulfate [ProAir HFA] 1 puff INHALATION Q4H PRN 30 Days 08/10/17 02/19/19 #1 inhaler fluoxetine [Prozac] 20 mg PO DAILY cap 08/10/17 02/19/19 tiotropium bromide 18 mcg capsule 1 cap IH DAILY 04/01/18 02/19/19 with inhalation device Brilinta 1 tab PO BID 05/10/18 02/19/19 gabapentin 800 mg tablet 800 mg PO DIRECTED #60 tab 05/14/18 02/19/19 sevelamer carbonate [Renvela] 1,600 mg PO AC 05/20/18 02/19/19 ferrous sulfate 325 mg (65 mg 325 mg PO DAILY #45 tab 05/31/18 02/19/19 iron) tablet metolazone 2.5 mg tablet 2.5 mg PO ONCE PRN #14 tab 05/31/18 02/19/19 oxygen concentrater #1 ea 07/29/18 02/19/19 omeprazole magnesium 20 mg 20 mg PO DAILY #90 tab 09/14/18 02/19/19 tablet,delayed release aspirin 81 mg tablet,delayed 81 mg PO DAILY 10/13/18 02/19/19 release B complex with C 20-folic acid 1 1 cap PO DAILY #90 cap 10/15/18 02/19/19 mg capsule atorvastatin 80 mg tablet 80 mg PO DAILY #90 tab 10/15/18 02/19/19 titration testing #1 ea 10/22/18 02/19/19 furosemide 80 mg tablet 80 mg PO BID #180 tab 12/03/18 02/19/19 nitroglycerin 0.3 mg SUBLINGUAL Q5M PRN 12/27/18 02/19/19 clonazepam 0.5 mg tablet 0.25 mg PO BID PRN #28 tab 12/31/18 02/19/19 metoprolol succinate 25 mg 25 mg PO BID 01/24/19 02/19/19 tablet,extended release 24 hr ciprofloxacin HCl 500 mg PO BID #14 tab 02/17/19 02/19/19 pantoprazole [Protonix] 40 mg PO DAILY #30 tab 02/18/19 02/19/19 Previous Rx's Medication Instructions Recorded albuterol sulfate [ProAir HFA] 1 puff INHALATION Q4H PRN 30 Days 08/10/17 #1 inhaler gabapentin 800 mg tablet 800 mg PO DIRECTED #60 tab 05/14/18 ferrous sulfate 325 mg (65 mg 325 mg PO DAILY #45 tab 05/31/18 iron) tablet metolazone 2.5 mg tablet 2.5 mg PO ONCE PRN #14 tab 05/31/18 oxygen concentrater #1 ea 07/29/18 omeprazole magnesium 20 mg 20 mg PO DAILY #90 tab 09/14/18 tablet,delayed release B complex with C 20-folic acid 1 1 cap PO DAILY #90 cap 10/15/18 mg capsule atorvastatin 80 mg tablet 80 mg PO DAILY #90 tab 10/15/18 titration testing #1 ea 10/22/18 furosemide 80 mg tablet 80 mg PO BID #180 tab 12/03/18 clonazepam 0.5 mg tablet 0.25 mg PO BID PRN #28 tab 12/31/18 ciprofloxacin HCl 500 mg PO BID #14 tab 02/17/19 pantoprazole [Protonix] 40 mg PO DAILY #30 tab 02/18/19 Allergies Allergy/AdvReac Type Severity Reaction Status Date / Time bee venom protein (honey bee) Allergy Severe throat Verified 02/19/19 09:17 swelling aspirin AdvReac Severe bleeding Verified 02/19/19 09:17 General Stated Complaint: Abd Prob JOSEPH: 3 Review of Systems Review of Systems All systems reviewed & are unremarkable except as noted in HPI and below Constitutional Denies fever(s) Gastrointestinal Reports abdominal pain, Reports nausea, Reports vomiting and Reports other (No BM in 2 days) PFSH Medical History Acute respiratory failure with hypoxia (Resolved) Atrial fibrillation with RVR (Chronic) Chronic CHF (Acute) Dialysis patient (Acute) End stage chronic kidney disease (Chronic) History of morbid obesity (Acute) Hypotension (Acute) LLQ abdominal pain (Acute) Pleural effusion, left (Acute) Renal failure (Chronic) STEMI (ST elevation myocardial infarction) (Chronic) Syncope (Chronic) Valvular heart disease (Acute) Dennis of armed [place] (Acute) Surgical History Arthroplasty of knee cardiac catherization (01/01/18) cardiac catherization (01/05/18) echocardiogram (01/06/18) Encounter for gastrojejunal (GJ) tube placement (Acute 02/23/18) Repair of umbilical hernia Stented coronary artery (Chronic) Tonsillectomy and adenoidectomy Family History Mother Essential hypertension Alcohol abuse Chronic GERD Father Essential hypertension Osteoporosis ESRD (end stage renal disease) on dialysis Heart disease Myocardial infarction Sister Neoplasm Paternal Uncle Neoplasm Colon Paternal Uncle Neoplasm Colon Paternal Grandfather Diabetes Stroke Brother Alcohol abuse Alcoholic cirrhosis Brother , half brother; of opioid overdose Substance abuse Opioid overdose Son No problems noted. Daughter No problems noted. 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 [employer] What is your relationship status?: How often do you talk on the phone with friends or family?: three or more times per week How often do you get together with friends or relatives?: three or more times per week Panel score (0-1 are the most socially isolated patients): 2 What type of physical activity do you participate in: none and sedentary lifestyle Duration: < 15 minutes/day Special frandy needs: No Agree to transfusion: Yes Seatbelt use: always Drive intox or ride w/intox route sales delivery driver: No Working smoke detector in home: Yes Fire extinguisher in home: Yes Carbon monox detector in home: Yes Do you feel safe at home: Yes Do you feel safe in your relationship?: Yes Additional Social history: Lives with , Park and son, BASILIO who is a janice at [employer]. Daughter is out on her own. [place] [facility] [place] and [facility] once in last year. Hospitalized for total of 125 days from December 2017-December 2018. Trying to be healthy now. Lost 130 lbs in last year. Following strict renal diet. Exam Const General: cooperative and no acute distress HENMT Head: normocephalic Mouth: mucous membranes dry Eyes Conjunctivae: normal conjunctivae Sclera: normal sclerae Neck Neck: trachea midline and supple Resp Auscultation: clear to auscultation bilaterally, no rales, no rhonchi and no wheezes Cardio Jugular venous pressure: no JVD Rate: regular rate and not tachycardic Rhythm: regular rhythm GI Palpation: soft, not firm, no guarding, no masses, not rigid and nontender Skin General skin exam: other (bruise left flank) Neuro General: alert, awake, oriented x3 and tone normal Extrem General: no edema Psych Appearance: grossly normal Mental Status: mental status grossly normal Speech and Movement: speech and movement normal Course Vital Signs Temperature 36.4 C L 02/19/19 09:09 Pulse 77 02/19/19 09:09 Respiratory Rate 16 02/19/19 09:09 Blood Pressure 103/60 02/19/19 09:09 Pulse Oximetry 99 02/19/19 09:09 Temperature 36.4 C L 02/19/19 09:09 Temperature Source Temporal Artery Scan 02/19/19 09:09 Pulse 77 02/19/19 09:09 Respiratory Rate 16 02/19/19 09:09 Blood Pressure 103/60 02/19/19 09:09 Blood Pressure Position Sitting 02/19/19 09:09 Pulse Oximetry 99 02/19/19 09:09 Oxygen Delivery Method Room Air 02/19/19 09:09 Oxygen Flow Rate 0 02/19/19 09:09 Pain Level 10 02/19/19 09:14
[2019-02-19 09:30] LABS: Abs Immature Grans 0.03 k/cumm (0.0-0.09); Absolute Basophil Count 0.08 k/cumm (0.0-0.2); Absolute Eosinophil Count 0.16 k/cumm (0.0-0.7); Absolute Lymphocyte Count 1.73 k/cumm (1.2-3.4); Absolute Monocyte Count 1.19 k/cumm (0.11-0.7); Absolute Neutrophil Count 7.18 k/cumm (1.2-6.7); Basophils % 0.8; Eosinophils % 1.5; HCT 35.7 % (40.0-50.0); HGB 11.5 g/dL (13.5-17.5); Immature Grans % 0.3; Lymphocytes % 16.7; Mean Corp. HGB Concentration 32.2 g/dL (32.0-36.0); Mean Corpuscular Volume 99.4 fL (80-95); Mean Platelet Volume 10.8 fL (8.0-11.0); Monocytes % 11.5; Neutrophils % 69.2; Platelet Count 310 x1000/uL (130-400); RBC 3.59 m/cumm (4.50-6.00); RBC Distribution Width 17.9 % (11.8-14.1); White Blood Cell Count 10.37 k/cumm (4.4-10.8)
--- NOTE | 2019-02-19 09:50 | DI.CT_ITS ---
SYMPTOMS/DIAGNOSIS: SHARP LEFT MID ABDOMINAL PAIN, NO BOWEL MOVEMENT FOR 2 DAYS, H/O URINARY TRACT INFECTION CT OF THE ABDOMEN AND PELVIS: Comparison is made with January,. Tiny bilateral pleural effusions are unchanged. Minimal ground-glass opacities are again noted at the lung bases. The liver, spleen, kidneys and adrenals are unremarkable. The pancreas is again noted to be atrophic. There is a question of tiny stones or sludge in the dependent portion of the gallbladder. There is no biliary dilatation. A few tiny calcifications are seen in both kidneys, which could be vascular. There is calcification along the abdominal aorta and iliac arteries, which are normal in diameter. Prostate calcifications are seen. The bladder is unremarkable. The appendix appears normal. There is no bowel dilatation or inflammatory change. There is no free air or free fluid. There is fat at the umbilicus. A soft tissue nodule is again noted in the right anterior abdominal fat. IMPRESSION: No acute abnormality. No change from the previous exam. CT ANGIOGRAPHY OF THE ABDOMEN AND PELVIS: CT angiography was performed with multi slice acquisition and multi planar and 3D reconstruction. The aorta is normal in diameter and shows calcification along the wall, but no evidence of dissection or aneurysm. There is no evidence of branch vessel occlusion. There is no evidence of mesenteric ischemia. Tiny bilateral pleural effusions and ground-glass opacities are again noted at the lower lobes. The heart is enlarged. The liver, spleen, adrenals and kidneys are unremarkable. There is a question of tiny stones versus sludge in the gallbladder. There is no gallbladder wall thickening or biliary dilatation. The urinary bladder is nearly empty. No bowel dilatation or inflammatory changes are seen. IMPRESSION: Atherosclerotic changes of the abdominal aorta. No evidence of dissection, vascular occlusion or mesenteric ischemia. Other findings are unchanged when compared with previous exams.
[2019-02-19 10:19] LABS: INR 1.3 (0.9-1.1); Prothrombin Time 12.6 sec (9.3-11.0)
[2019-02-19 10:24] LABS: ALT 16 U/L (16-63); AST 15 U/L (15-37); Albumin 3.3 g/dL (3.4-5.0); Alkaline Phosphatase 65 U/L (46-116); Anion Gap 14.4 mmol/L (3-11); BUN 26 mg/dL (7-18); Bilirubin, Total 2.6 mg/dL (0.2-1.0); CO2 24.6 mmol/L (21.0-32.0); Chloride 100 mmol/L (98-107); Estimated GFR 13.07 (mL/min/1.73m2); Glucose 96 mg/dL (70-100); Lipase 78 U/L (73-393); Magnesium 1.9 mg/dL (1.8-2.4); Potassium 3.5 mmol/L (3.5-5.1); Sodium 139 mmol/L (136-145); Total Protein 8.1 g/dL (6.4-8.2)
--- NOTE | 2019-02-19 10:30 | DI.VRAD_ITS ---
Addendum created by Simon Anderson MD on 02/19/2019 12:05:27 PM EDT In comparison to prior study of 02/17/19, there is similar mild splenomegaly. There may again be mild wall thickening of the urinary bladder. Initial report created on 02/19/2019 10:30:45 AM EDT EXAM: CT Abdomen and Pelvis Without Contrast EXAM DATE/TIME: 02/19/2019 9:22 AM CLINICAL HISTORY: 53 years old, male; Other: Sharp left mid abdomina; Pain, no bm 2 days, UTI; Prior surgery; Surgery date: 6+ months; Surgery type: Hernia surgery TECHNIQUE: Imaging protocol: Computed tomography of the abdomen and pelvis without contrast. Radiation optimization: All CT scans at this facility use at least one of these dose optimization techniques: automated exposure control; mA and/or kV adjustment per patient size (includes targeted exams where dose is matched to clinical indication); or iterative reconstruction. COMPARISON: CT ABDOMEN PELVIS WO 02/17/2019 6:42 AM FINDINGS: Limitations: Evaluation is somewhat limited by lack of IV contrast. Lungs: There are again some patchy groundglass opacities and nodules at the lung bases. Pleural space: Very small bibasilar pleural effusions are again present. Liver: Grossly unremarkable. Gallbladder and bile ducts: No gallstones are evident, but ultrasound would be more sensitive. No gross biliary ductal dilatation. Pancreas: Grossly unremarkable. Spleen: Grossly unremarkable. Adrenals: Grossly unremarkable. Kidneys and ureters: There is again punctate nonobstructing bilateral nephrolithiasis. No hydronephrosis or ureteral calculus. Stomach and bowel: The unopacified small bowel is not significantly distended to suggest obstruction. The large bowel is grossly unremarkable in appearance. Appendix: The appendix appears normal. Intraperitoneal space: Normal. No free air. No significant fluid collection. Vasculature: The abdominal aorta is nonaneurysmal. Atherosclerotic vascular calcifications are again present. Lymph nodes: No gross pathologic lymphadenopathy. Bladder: Unremarkable as visualized. Reproductive: Unremarkable as visualized. Bones/joints: Degenerative changes again involve the spine and hips. Soft tissues: There are again operative changes of anterior abdominal wall hernia repair with mesh. A fat-containing umbilical hernia appears similar. There are similar small fat-containing bilateral inguinal hernias. IMPRESSION: 1. No hydronephrosis, renal or ureteral calculus or other gross acute abnormality identified. 2. Postoperative anterior abdominal wall with similar fat-containing umbilical and bilateral inguinal hernias as compared with 02/17/19. 3. Persistent bibasilar pulmonary groundglass opacities and nodules with very small bilateral pleural effusions. COMMENT: Depending on suspected etiology of symptoms, consider a targeted ultrasound or contrast enhanced exam. Dictated and Authenticated by: Simon Anderson MD. Ordering:NIRAV Banks MD
[2019-02-19 10:38] LABS: CREATININE 4.71 mg/dL (0.70-1.30)
[2019-02-19] MEDS: FAMOTIDINE 20 MG/50 ML BAG 200 MG IVPB (10:39)
[2019-02-19] MEDS: Normal Saline Flush 10 ML SYR IVP ×2 (10:40→11:36)
[2019-02-19 11:30] LABS: Bilirubin Small (Negative); Blood Trace-lysed (Negative); Clarity Clear (Clear); Glucose Negative (Negative); Ketones Negative (Negative); Leukocyte Esterase Negative (Negative); Nitrite Negative (Negative); Specific Gravity 1.015 (1.005-1.025); pH 7.5 (5-8)
[2019-02-19] MEDS: Acetaminophen 325 MG TAB (11:35)
[2019-02-19] MEDS: Normal Saline 250 ML IV (11:37)
[2019-02-19] MEDS: Omnipaque 350 MG/ML 100 ML BTL 86 ML IJ (11:45)
[2019-02-19 12:02] LABS: Bacteria Rare HPF (Negative); Crystals Negative HPF (Negative); Epithelial Cells Few HPF (Negative); Mucus Trace (Negative); Other Cells Rare Renal (Negative); WBC 0-2 HPF (0-5)
[2019-02-19 12:03] LABS: C & S Indicated? No; Casts 0-2 Hyaline LPF (Negative)
--- NOTE | 2019-02-19 12:18 | DI.VRAD_ITS ---
EXAM: CT Angiography Abdomen and Pelvis With Contrast EXAM DATE/TIME: 02/19/2019 11:17 AM CLINICAL HISTORY: 53 years old, male; Other: Severe abdominal pain left. History of end-stage renal disease on hemodialysis, coronary artery disease. TECHNIQUE: Imaging protocol: Computed tomographic angiography of the abdomen and pelvis with intravenous contrast material. 3D rendering: MIP reconstructed images were created and reviewed. Radiation optimization: All CT scans at this facility use at least one of these dose optimization techniques: automated exposure control; mA and/or kV adjustment per patient size (includes targeted exams where dose is matched to clinical indication); or iterative reconstruction. Contrast material: OMNIPAQUE 350; Contrast volume: 86 ml; Contrast route: IV; COMPARISON: CT ABDOMEN PELVIS WO 02/19/2019 9:46 AM FINDINGS: Lungs: Redemonstration of nonspecific patchy groundglass nodules in the lower lung zones. Pleural space: There are trace pleural effusions versus pleural thickening. VASCULATURE: Aorta: The aorta is normal in caliber with no evidence of aneurysm or dissection.The vasculature demonstrates diffuse moderate atherosclerotic calcification. Celiac trunk and mesenteric arteries: No occlusion or significant stenosis. Renal arteries: There is a single right renal artery which is patent. There are 2 left renal arteries which are patent. Right iliac arteries: No occlusion or significant stenosis. Left iliac arteries: No occlusion or significant stenosis. ABDOMEN: Liver: There is diffuse mild enlargement of the liver. Gallbladder and bile ducts: There is cholelithiasis with no evidence of acute cholecystitis. There is no evidence of biliary ductal dilation. Pancreas: Unremarkable. No mass. No ductal dilation. Spleen: There is mild nonspecific splenomegaly. The spleen measures 16 cm craniocaudal dimension. Adrenals: Unremarkable. No mass. Kidneys and ureters: There is a symmetric renal enhancement pattern bilaterally. No hydronephrosis. Stomach and bowel: The stomach is unremarkable. The duodenum is unremarkable. There is no evidence of intestinal obstruction. There is no wall thickening to suggest enteritis or colitis.There is no evidence of diverticulitis. Appendix: No evidence of appendicitis. PELVIS: Bladder: There is nonspecific bladder wall thickening. No bladder calculi. Reproductive: Unremarkable as visualized. ABDOMEN and PELVIS: Intraperitoneal space: Unremarkable. No free air. No significant fluid collection. Bones/joints: There is a healed/healing fracture of the anterior left sixth rib.The spine demonstrates mild degenerative changes at multiple levels. No acute osseous abnormality is identified. Soft tissues: There is an uncomplicated fat-containing umbilical hernia. There is redemonstration of a nonspecific soft tissue nodule in the subcutaneous fat in the right lower anterior abdominal wall. There is a tiny uncomplicated fat-containing right inguinal hernia. Lymph nodes: Unremarkable. No enlarged lymph nodes. IMPRESSION: 1. The aorta is normal in caliber with no evidence of aneurysm or dissection. 2. Visceral arteries are widely patent with no CT evidence of mesenteric ischemia. 3. There is nonspecific bladder wall thickening. This may be related to incomplete distention. 4. No evidence of an acute abnormality. 5. Mild hepatosplenomegaly. 6. There is cholelithiasis with no evidence of acute cholecystitis. Remainder of non-emergent findings as described above. Dictated and Authenticated by: Lluvia Pardo MD. Ordering:NIRAV Banks MD
== END 2019-02-19 13:29 | disposition home or self-care (01) ==
PROVIDERS: Emergency Provider Student in an Organized Health Care Education/Training Program; PCP Family Medicine
DX: R10.12 Left upper quadrant pain (principal); R10.32 Left lower quadrant pain; N18.6 End stage renal disease; Z99.2 Dependence on renal dialysis
CPT/HCPCS: 36415; 80053; 83690; 96361; 96374; 99285; 74174; 74176; 81003; 81015; 83605; 83735; 85025; 85610; J3490

== ENCOUNTER 2019-03-10 13:51 | Emergency (ER) | payer MEDICAID, SELFPAY ==
--- NOTE | 2019-03-10 14:01 | NUR.NOTE ---
Nursing Note: pt is here because he had a HD line placed for dialysis in [facility] placed yesterday pt noticed that it was leaking 1100 today there is a small amount of blood under the tekaderm pt had similar problem a few months ago with a similar line and it was fixed by daniel. pt specifically requests daniel as provider stating daniel is the best!!! is here here today id really really like to see him
[2019-03-10 14:04] VITALS: BP 94/64; PULSE 79; RESP 16; TEMP 36.8; O2SAT 96
--- NOTE | 2019-03-10 14:59 | ED.GENADUL_ITS ---
Discharge Plan Disposition Patient Disposition: HOME Condition: Improving Discharge Details Chief Complaint: GenMedical Clinical Impression: Encounter for dialysis catheter care Primary Care Provider: Gee Luke ED Provider: Papo Umaña Home Meds and New Rx's Prescriptions: Continued metolazone 2.5 mg tablet 2.5 mg PO ONCE PRN (Reason: Excessive fluid retention) Qty: 14 RF: 0 ferrous sulfate 325 mg (65 mg iron) tablet 325 mg PO DAILY Qty: 45 RF: 3 atorvastatin 80 mg tablet 80 mg PO DAILY Qty: 90 RF: 3 Nephrocaps 1 mg capsule 1 cap PO DAILY Qty: 90 RF: 3 (DME) oxygen concentrater Qty: 1 RF: 0 clonazepam 0.5 mg tablet 0.25 mg PO BID PRN (Reason: nausea and vomiting) Qty: 28 RF: 1 epinephrine [EpiPen 2-Chandu] 0.3 MG/0.3 ML auto-injector 0.3 mg IM PRN PRNRF: 0 fluoxetine [Prozac] 20 MG capsule 20 mg PO DAILY RF: 0 albuterol sulfate [ProAir HFA] 8.5 GM HFA aerosol inhaler 1 puff Inhalation Q4H PRN 30 Days Qty: 1 RF: 11 Spiriva with HandiHaler 18 mcg capsule, w/inhalation device 1 cap IH DAILY RF: 0 omeprazole magnesium 20 mg tablet,delayed release (DR/EC) 20 mg PO DAILY Qty: 90 RF: 3 aspirin [Adult Low Dose Aspirin] 81 mg tablet,delayed release (DR/EC) 81 mg PO DAILY RF: 0 (DME) titration testing Qty: 1 RF: 0 furosemide 80 mg tablet 80 mg PO BID Qty: 180 RF: 3 metoprolol succinate [Toprol XL] 25 mg tablet extended release 24 hr 25 mg PO BID RF: 0 Symbicort 160-4.5 mcg/actuation HFA aerosol inhaler 2 puff IH BID RF: 0 ondansetron HCl 4 mg tablet 4 mg PO Q8H PRNRF: 0 gabapentin 300 mg capsule 300 mg PO DAILY PRNRF: 0 sevelamer carbonate [Renvela] 800 mg tablet 1,600 mg PO TID RF: 0 sevelamer carbonate 800 mg tablet 800 mg PO TID RF: 0 dronabinol 5 mg capsule 5 mg PO DAILY RF: 0 nitroglycerin 0.3 mg Tablet, Sublingual 0.3 mg Sublingual Q5M PRNRF: 0 Brilinta 90 mg Tablet 1 tab PO BID RF: 0 Discharge Instructions Additional Instructions: You had Gelfoam placed around your catheter and a single absorbable suture was placed in the catheter ring for tighter adherence. Please leave dressing in place until next dialysis appointment. Return if you have bleeding outside of the dressing, or any other acute concerns.. Medical Decision Making 53-year-old male presents with complaint of oozing blood from newly placed right anterior chest wall dialysis catheter. States he underwent normal hemodialysis today and is been feeling well. He does have mild bruising around the entry site. The patient had Gelfoam placed under sterile conditions, a single dissolvable suture was placed in his catheter site entry closure for tighter adherence, a pressure dressing was placed with cessation of bleeding. Patient stable for discharge to home. HPI General Mode of arrival: ambulatory . Date/Time Provider Initiated Documentation: 03/10/19 14:13 . Limitations to Documentation: no limitations . Information obtained by: patient . History of Present Illness 53 year old M presents to the emergency department with the chief complaint of Catheter from dialysis leaking blood, and is localized to the chest and right. Patient reports no radiation. Patient started experiencing this hour(s) and it has been constant. No relieving factors improve symptom(s), No exacerbating factors reported . Patient notes no other symptoms.. Patient did receive the following treatments prior to arrival, none Related Data Home Medications Medication Instructions Recorded Confirmed epinephrine [EpiPen 2-Chandu] 0.3 mg IM PRN PRN 07/24/17 03/10/19 albuterol sulfate [ProAir HFA] 1 puff INHALATION Q4H PRN 30 Days 08/10/17 03/10/19 #1 inhaler fluoxetine [Prozac] 20 mg PO DAILY cap 08/10/17 03/10/19 tiotropium bromide 18 mcg capsule 1 cap IH DAILY 04/01/18 03/10/19 with inhalation device Brilinta 1 tab PO BID 05/10/18 03/10/19 ferrous sulfate 325 mg (65 mg 325 mg PO DAILY #45 tab 05/31/18 03/10/19 iron) tablet metolazone 2.5 mg tablet 2.5 mg PO ONCE PRN #14 tab 05/31/18 03/10/19 oxygen concentrater #1 ea 07/29/18 03/10/19 omeprazole magnesium 20 mg 20 mg PO DAILY #90 tab 09/14/18 03/10/19 tablet,delayed release aspirin 81 mg tablet,delayed 81 mg PO DAILY 10/13/18 03/10/19 release B complex with C 20-folic acid 1 1 cap PO DAILY #90 cap 10/15/18 03/10/19 mg capsule atorvastatin 80 mg tablet 80 mg PO DAILY #90 tab 10/15/18 03/10/19 titration testing #1 ea 10/22/18 03/10/19 furosemide 80 mg tablet 80 mg PO BID #180 tab 12/03/18 03/10/19 nitroglycerin 0.3 mg SUBLINGUAL Q5M PRN 12/27/18 03/10/19 metoprolol succinate 25 mg 25 mg PO BID 01/24/19 03/10/19 tablet,extended release 24 hr budesonide-formoterol HFA 160 2 puff IH BID 02/23/19 03/10/19 mcg-4.5 mcg/actuation aerosol inhaler ondansetron HCl 4 mg tablet 4 mg PO Q8H PRN 02/23/19 03/10/19 clonazepam 0.5 mg tablet 0.25 mg PO BID PRN #28 tab 02/25/19 03/10/19 gabapentin 300 mg capsule 300 mg PO DAILY PRN cap 02/25/19 03/10/19 sevelamer carbonate 800 mg tablet 1,600 mg PO TID tab 02/25/19 03/10/19 dronabinol 5 mg capsule 5 mg PO DAILY cap 03/10/19 03/10/19 sevelamer carbonate 800 mg tablet 800 mg PO TID 03/10/19 03/10/19 Previous Rx's Medication Instructions Recorded albuterol sulfate [ProAir HFA] 1 puff INHALATION Q4H PRN 30 Days 08/10/17 #1 inhaler ferrous sulfate 325 mg (65 mg 325 mg PO DAILY #45 tab 05/31/18 iron) tablet metolazone 2.5 mg tablet 2.5 mg PO ONCE PRN #14 tab 05/31/18 oxygen concentrater #1 ea 07/29/18 omeprazole magnesium 20 mg 20 mg PO DAILY #90 tab 09/14/18 tablet,delayed release B complex with C 20-folic acid 1 1 cap PO DAILY #90 cap 10/15/18 mg capsule atorvastatin 80 mg tablet 80 mg PO DAILY #90 tab 10/15/18 titration testing #1 ea 10/22/18 furosemide 80 mg tablet 80 mg PO BID #180 tab 12/03/18 clonazepam 0.5 mg tablet 0.25 mg PO BID PRN #28 tab 02/25/19 Allergies Allergy/AdvReac Type Severity Reaction Status Date / Time bee venom protein (honey bee) Allergy Severe throat Verified 03/10/19 14:07 swelling aspirin AdvReac Mild bleeding, Verified 03/10/19 14:07 does take small dose daily General Stated Complaint: GenMedical JOSEPH: 3 Review of Systems Review of Systems Narrative: No fever or chills. Normal dialysis run today. PFS Medical History Acute respiratory failure with hypoxia (Resolved) Atrial fibrillation with RVR (Chronic) Chronic CHF (Acute) Dialysis patient (Acute) End stage chronic kidney disease (Chronic) History of morbid obesity (Acute) Hypotension (Acute) LLQ abdominal pain (Acute) Pleural effusion, left (Acute) Renal failure (Chronic) STEMI (ST elevation myocardial infarction) (Chronic) Syncope (Chronic) Valvular heart disease (Acute) of DxO Labsed Trendzo (Acute) Surgical History Arthroplasty of knee cardiac catherization (01/01/18) cardiac catherization (01/05/18) echocardiogram (01/06/18) Encounter for gastrojejunal (GJ) tube placement (Acute 02/23/18) Repair of umbilical hernia Stented coronary artery (Chronic) Tonsillectomy and adenoidectomy Family History Mother Essential hypertension Alcohol abuse Chronic GERD Father Essential hypertension Osteoporosis ESRD (end stage renal disease) on dialysis Heart disease Myocardial infarction Sister Neoplasm Paternal Uncle Neoplasm Colon Paternal Uncle Neoplasm Colon Paternal Grandfather Diabetes Stroke Brother Alcohol abuse Alcoholic cirrhosis Brother , half brother; of opioid overdose Substance abuse Opioid overdose Son No problems noted. Daughter No problems noted. 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 [employer] What is your relationship status?: How often do you talk on the phone with friends or family?: three or more times per week How often do you get together with friends or relatives?: three or more times per week Panel score (0-1 are the most socially isolated patients): 2 What type of physical activity do you participate in: none and sedentary lifestyle Duration: < 15 minutes/day Special frandy needs: No Agree to transfusion: Yes Seatbelt use: always Drive 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 Daughter is out on her own. Was at [facility] 4 times and [place] once in last year. Hospitalized for total of 125 days from December 2017-December 2018. Trying to be healthy now. Lost 130 lbs in last year. Following strict renal diet. Exam Narrative Exam Narrative: GEN: awake, alert, oriented 3. Pleasant, well groomed, interactive. HEAD: Normocephalic, atraumatic ENT: Mucous membranes moist, oropharynx unremarkable, External ear exam unrem arkable EYES: PERRL, EOMI NECK: Full ROM, no LIANA, no menigismus CHEST/RESP: Nontender, right anterior chest wall catheter with oozing blood around entry site. No tenderness or crepitus. Clear to auscultation bilateral, no wheeze/rhonchi/rales Neuro: Grossly normal neurologic exam, conversant, interactive. Psych: Speech fluent, thoughts congruent, affect normal Course Vital Signs Vital signs: Vital Signs Temperature 36.8 C 03/10/19 14:04 Pulse 79 03/10/19 14:04 Respiratory Rate 16 03/10/19 14:04 Blood Pressure 94/64 L 03/10/19 14:04 Pulse Oximetry 96 03/10/19 14:04 Temperature 36.8 C 03/10/19 14:04 Temperature Source Skin 03/10/19 14:04 Pulse 79 03/10/19 14:04 Respiratory Rate 16 03/10/19 14:04 Respiratory Effort 03/10/19 14:07 Blood Pressure 94/64 L 03/10/19 14:04 Blood Pressure Position Sitting 03/10/19 14:04 Pulse Oximetry 96 03/10/19 14:04 Oxygen Delivery Method Room Air 03/10/19 14:04 Oxygen Flow Rate 0 03/10/19 14:04 Pain Level 0 03/10/19 14:04
== END 2019-03-10 15:15 | disposition home or self-care (01) ==
PROVIDERS: Emergency Provider Emergency Medicine; PCP Family Medicine
DX: T82.838A Hemorrhage due to vascular prosthetic devices, implants and grafts, initial encounter (principal); E11.22 Type 2 diabetes mellitus with diabetic chronic kidney disease; N18.6 End stage renal disease; Z99.2 Dependence on renal dialysis; J44.9 Chronic obstructive pulmonary disease, unspecified
CPT/HCPCS: 99282; 99283

== ENCOUNTER 2019-03-17 10:55 | Emergency (ER) | payer MEDICAID, SELFPAY ==
[2019-03-17] VITALS (101 sets, daily range): BP systolic 81–124; BP diastolic 34–84; PULSE 67–79; RESP 10–34; TEMP 35.3–36.5; O2SAT 83–100
--- NOTE | 2019-03-17 11:09 | W.ED.GENAD ---
Discharge Plan Disposition Patient Disposition: [facility] Condition: Stable Discharge Details Chief Complaint: GI Bleed Clinical Impression: Hematemesis, Dialysis patient, Fever Primary Care Provider: Gee Luke ED Provider: Efra Kingsley Home Meds and New Rx's Prescriptions: No Action ferrous sulfate 325 mg (65 mg iron) tablet 325 mg PO DAILY Qty: 45 RF: 3 atorvastatin 80 mg tablet 80 mg PO DAILY Qty: 90 RF: 3 Nephrocaps 1 mg capsule 1 cap PO DAILY Qty: 90 RF: 3 (DME) oxygen concentrater Qty: 1 RF: 0 clonazepam 0.5 mg tablet 0.25 mg PO BID PRN (Reason: nausea and vomiting) Qty: 28 RF: 1 fluoxetine [Prozac] 20 MG capsule 20 mg PO DAILY RF: 0 albuterol sulfate [ProAir HFA] 8.5 GM HFA aerosol inhaler 1 puff Inhalation Q4H PRN 30 Days Qty: 1 RF: 11 Spiriva with HandiHaler 18 mcg capsule, w/inhalation device 1 cap IH DAILY RF: 0 omeprazole magnesium 20 mg tablet,delayed release (DR/EC) 20 mg PO DAILY Qty: 90 RF: 3 aspirin [Adult Low Dose Aspirin] 81 mg tablet,delayed release (DR/EC) 81 mg PO DAILY RF: 0 (DME) titration testing Qty: 1 RF: 0 furosemide 80 mg tablet 80 mg PO BID Qty: 180 RF: 3 metoprolol succinate [Toprol XL] 25 mg tablet extended release 24 hr 25 mg PO BID RF: 0 Symbicort 160-4.5 mcg/actuation HFA aerosol inhaler 2 puff IH BID RF: 0 ondansetron HCl 4 mg tablet 4 mg PO Q8H PRNRF: 0 gabapentin 300 mg capsule 300 mg PO TID RF: 0 sevelamer carbonate [Renvela] 800 mg tablet 1,600 mg PO TID RF: 0 sevelamer carbonate [Renvela] 800 mg tablet 800 mg PO TID RF: 0 nitroglycerin 0.3 mg Tablet, Sublingual 0.3 mg Sublingual Q5M PRNRF: 0 Brilinta 90 mg Tablet 1 tab PO BID RF: 0 Medical Decision Making This is a 53-year-old male with an extensive past medical history of atrial fibrillation, STEMI, COPD, end-stage renal disease on dialysis, cardiac arrest, cardiac stent and hernia repair, mitral valve disease, who was recently at [facility] and then subsequently discharged on 09 March, during his stay there he had bacteremia, subsequent replacement of his dialysis catheter, and positive growth and cultures for Mycobacterium species. He completed his full course of Cipro at [facility]. He was discharged home. He has been doing well, however yesterday he developed a fever which seemed to resolve on its own, and consistent chills after the fever resolved. Then today while at dialysis he felt lightheaded, had 2-3 episodes of vomiting that had bright red blood present. He has a history of gastric ulcers. At this time patient states that he actually feels somewhat well. Physical exam demonstrates slightly dry mucous membranes although he did get 1 extra liter at dialysis. Blood pressure is soft, however this is fairly consistent for his history. Physical exam is relatively unremarkable. He denies any dysuria, frequency, cough. It is been quite sometime since he has had any EGD, definitely a few years. Per EMS it was around 10 to 15 mL of bright red blood that they noticed for his vomit. Although clinically he appears much better than normal I am very concerned with his symptomatology. With his fevers from yesterday in conjunction with his recent bacteremia from a Mycobacterium species, I am concerned for return of his bacteremia. Even in spite of his new dialysis port. Additionally with the notable concern for upper GI bleed as well as his history of multiple stressors, as well as his history of gastric ulcers I feel that he does require more urgent EGD. In regards to his GI bleeding, we will start Protonix bolus and infusion, omeprazole infusion, give GI cocktail, start Zosyn. This will also cover his fever and suspected history of bacteremia. We will get blood cultures, from his port and straight trauma. We will gently rehydrate. With his dialysis needs, as well as his medical complexity and his recent admission to [facility] for his bacteremia I do feel that he will be a patient that will require both admission and likely transfer as our hospitalist policy is to not except dialysis patients as we do not have any availability of dialysis for the hospital. 2:25 PM Laboratory work-up is returned, no significant white count, hemoglobin stable, platelets normal, electrolytes normal, creatinine 3.49 which is baseline. Lactate 1.1, magnesium calcium normal. Troponin normal. Patient remains hemodynamically stable at this time. Current blood pressure is 100/61. Heart rate stable and normal. No more episodes of vomiting or hematemesis. I did contact Dr. Toscano at [facility] and discussed the case with him. He agrees on the need for admission, GI evaluation, further assessment. He patient will be transferred to [facility] for definitive management. I have extensively reviewed the treatment plan with the patient. I have addressed all patient concerns at this time. I have also discussed the plan with the admitting physician and they agree with the current assessment and plan and have agreed to assume responsibility for the patient. All parties demonstrate verbal understanding and agreement with our assessment and plan at this time. At time of transfer the patient was reassessed and continued to demonstrate current medical stability. No signs of acute respiratory distress requiring intubation, hemodynamic instability requiring pressor support, or rapidly declining mental status. The patient is stable for transport. EKG 11: 07 Rate 74, HI 182, QTc 479, QRS 106, sinus rhythm, incomplete left bundle branch block, no's significant ST elevation or depression. Q waves present in lead III and aVF. No evidence of acute STEMI HPI General Date/Time Provider Initiated Documentation: 03/17/19 11:01. HPI Narrative: This is a 53-year-old male with an extensive past medical history of atrial fibrillation, STEMI, COPD, end-stage renal disease on dialysis, cardiac arrest, cardiac stent and hernia repair, mitral valve disease, who was recently at [facility] and then subsequently discharged on 09 March, during his stay there he had bacteremia, subsequent replacement of his dialysis catheter, and positive growth and cultures for Mycobacterium species. He completed his full course of Cipro at [facility]. He was discharged home. He has been doing well, however yesterday he developed a fever which seemed to resolve on its own, and consistent chills after the fever resolved. Then today while at dialysis he felt lightheaded, had 2-3 episodes of vomiting that had bright red blood present. He has a history of gastric ulcers. At this time patient states that he actually feels somewhat well. He is brought by EMS to the ER for further assessment, and currently he complains of any chest pain, shortness of breath, abdominal pain, epigastric pain, back or flank pain, dysuria, hematuria, increased urinary frequency, headache neck pain neck tightness or neck stiffness. He states that he actually feels slightly better than normal and he has been taking his medications as directed. He is on aspirin and Brilinta. Patient has no other complaints at this time. No other modifying factors. Related Data Home Medications Medication Instructions Recorded Confirmed albuterol sulfate [ProAir HFA] 1 puff INHALATION Q4H PRN 30 Days 08/10/17 03/17/19 #1 inhaler fluoxetine [Prozac] 20 mg PO DAILY cap 08/10/17 03/17/19 tiotropium bromide 18 mcg capsule 1 cap IH DAILY 04/01/18 03/17/19 with inhalation device Brilinta 1 tab PO BID 05/10/18 03/17/19 ferrous sulfate 325 mg (65 mg 325 mg PO DAILY #45 tab 05/31/18 03/17/19 iron) tablet oxygen concentrater #1 ea 07/29/18 03/10/19 omeprazole magnesium 20 mg 20 mg PO DAILY #90 tab 09/14/18 03/17/19 tablet,delayed release aspirin 81 mg tablet,delayed 81 mg PO DAILY 10/13/18 03/17/19 release B complex with C 20-folic acid 1 1 cap PO DAILY #90 cap 10/15/18 03/17/19 mg capsule atorvastatin 80 mg tablet 80 mg PO DAILY #90 tab 10/15/18 03/17/19 titration testing #1 ea 10/22/18 03/10/19 furosemide 80 mg tablet 80 mg PO BID #180 tab 12/03/18 03/17/19 nitroglycerin 0.3 mg SUBLINGUAL Q5M PRN 12/27/18 03/17/19 metoprolol succinate 25 mg 25 mg PO BID 01/24/19 03/17/19 tablet,extended release 24 hr budesonide-formoterol HFA 160 2 puff IH BID 02/23/19 03/17/19 mcg-4.5 mcg/actuation aerosol inhaler ondansetron HCl 4 mg tablet 4 mg PO Q8H PRN 02/23/19 03/17/19 clonazepam 0.5 mg tablet 0.25 mg PO BID PRN #28 tab 02/25/19 03/17/19 gabapentin 300 mg capsule 300 mg PO TID cap 02/25/19 03/17/19 sevelamer carbonate 800 mg tablet 1,600 mg PO TID tab 02/25/19 03/17/19 sevelamer carbonate 800 mg tablet 800 mg PO TID 03/10/19 03/17/19 Previous Rx's Medication Instructions Recorded albuterol sulfate [ProAir HFA] 1 puff INHALATION Q4H PRN 30 Days 08/10/17 #1 inhaler ferrous sulfate 325 mg (65 mg 325 mg PO DAILY #45 tab 05/31/18 iron) tablet oxygen concentrater #1 ea 07/29/18 omeprazole magnesium 20 mg 20 mg PO DAILY #90 tab 09/14/18 tablet,delayed release B complex with C 20-folic acid 1 1 cap PO DAILY #90 cap 10/15/18 mg capsule atorvastatin 80 mg tablet 80 mg PO DAILY #90 tab 10/15/18 titration testing #1 ea 10/22/18 furosemide 80 mg tablet 80 mg PO BID #180 tab 12/03/18 clonazepam 0.5 mg tablet 0.25 mg PO BID PRN #28 tab 02/25/19 Allergies Allergy/AdvReac Type Severity Reaction Status Date / Time bee venom protein (honey bee) Allergy Severe throat Verified 03/10/19 14:07 swelling aspirin AdvReac Mild bleeding, Verified 03/10/19 14:07 does take small dose daily General Stated Complaint: GI Bleed JOSEPH: 2 Review of Systems Review of Systems ROS Unobtainable: All systems reviewed & are unremarkable except as noted in HPI and below PFSH 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 [employer] What is your relationship status?: How often do you talk on the phone with friends or family?: three or more times per week How often do you get together with friends or relatives?: three or more times per week Panel score (0-1 are the most socially isolated patients): 2 What type of physical activity do you participate in: none and sedentary lifestyle Duration: < 15 minutes/day Special frandy needs: No Agree to transfusion: Yes Seatbelt use: always Drive 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 Daughter is out on her own. Was [place] [facility] [place] times and [facility] once in last year. Hospitalized for total of 125 days from December 2017-December 2018. Trying to be healthy now. Lost 130 lbs in last year. Following strict renal diet. Exam Narrative Exam Narrative: 1.Const: Well-nourished, Well-developed, appearing stated age 2.Eyes: PERRL, no conjunctival injection, and symmetrical lids. 3.ENT: Atraumatic external nose and ears. Moist MM. Neck: Symmetric, trachea midline, No thyromegaly. 4.CVS: +S1/S2, No murmurs or gallops. Peripheral pulses 2+ and equal in all extremities. Brisk capillary refill in all extremities. In place dialysis port in right chest, no evidence of erythema or warmth. No discharge. 5.RESP: Unlabored respiratory effort. Clear to auscultation bilaterally. No wheezes rales or rhonchi. No labored breathing 6.GI: Soft, Nontender/Nondistended, No hepatosplenomegaly. No guarding or rebound. No significant epigastric pain. 7.MSK: Normocephalic/Atraumatic, Extremities w/o deformity or ttp No cyanosis or clubbing, Normal movement of all extremities. No evidence of significant rash, mild bruising on his right arm. No evidence of fulminant petechiae. 8.Skin: Warm, Dry. No rashes or lesions. 9.Neuro: pleater II-XII grossly intact. Sensation grossly intact, no focal neurologic deficits. 10.Psych: (AAO) x3. Appropriate mood and affect Course Vital Signs Vital signs: Vital Signs Temperature 36.5 C 03/17/19 10:56 Pulse 75 03/17/19 10:56 Respiratory Rate 18 03/17/19 10:56 Blood Pressure 94/68 L 03/17/19 10:56 Pulse Oximetry 96 03/17/19 10:56 Temperature 36.5 C 03/17/19 10:56 Temperature Source Skin 03/17/19 10:56 Pulse 75 03/17/19 10:56 Respiratory Rate 18 03/17/19 10:56 Blood Pressure 94/68 L 03/17/19 10:56 Blood Pressure Position Supine 03/17/19 10:56 Pulse Oximetry 96 03/17/19 10:56 Oxygen Delivery Method Room Air 03/17/19 10:56 Oxygen Flow Rate 0 03/17/19 10:56 Pain Level 0 03/17/19 10:56 Lab/Test Results Lab/Test Results: 03/17/19 11:04 Blood Blood Culture - Pending 03/17/19 11:04 Blood Blood Culture - Pending
[2019-03-17] MEDS: Pantoprazole 40 MG VIAL IVP (11:15)
[2019-03-17] MEDS: FAMOTIDINE 20 MG/50 ML BAG 100 MG IVPB (11:15)
[2019-03-17] MEDS: Ondansetron 4 MG/2 ML VIAL IVP (11:24)
--- NOTE | 2019-03-17 11:30 | NUR.NOTE ---
Nursing Note: Call out to lab to obtain blood cultures. DO Union states to wait for blood cultures to be drawn prior to antibiotic administration.
[2019-03-17] MEDS: PANTOPRAZOLE 80 MG in Normal Saline 100 ML 10 MG IV (11:36)
[2019-03-17] MEDS: Normal Saline 1,000 ML 1000 ML IV (11:40)
[2019-03-17 11:56] LABS: Abs Immature Grans 0.03 k/cumm (0.0-0.09); Absolute Basophil Count 0.08 k/cumm (0.0-0.2); Absolute Eosinophil Count 0.35 k/cumm (0.0-0.7); Absolute Lymphocyte Count 1.29 k/cumm (1.2-3.4); Absolute Monocyte Count 0.82 k/cumm (0.11-0.7); Absolute Neutrophil Count 4.36 k/cumm (1.2-6.7); Basophils % 1.2; Eosinophils % 5.1; HCT 38.1 % (40.0-50.0); HGB 12.3 g/dL (13.5-17.5); Immature Grans % 0.4; Lymphocytes % 18.6; Mean Corp. HGB Concentration 32.3 g/dL (32.0-36.0); Mean Corpuscular Hemoglobin 31.4 pg (27.0-33.0); Mean Corpuscular Volume 97.2 fL (80-95); Mean Platelet Volume 11.3 fL (8.0-11.0); Monocytes % 11.8; Neutrophils % 62.9; Platelet Count 222 x1000/uL (130-400); RBC 3.92 m/cumm (4.50-6.00); RBC Distribution Width 15.4 % (11.8-14.1); White Blood Cell Count 6.93 k/cumm (4.4-10.8)
[2019-03-17 12:10] LABS: Lactate 1.1 mmol/L (0.6-1.4)
--- NOTE | 2019-03-17 12:12 | NUR.NOTE ---
Nursing Note: MULTIPLE WARM BLANKETS APPLIED TO PATIENT.
[2019-03-17 12:14] LABS: INR 1.1 (0.9-1.1); PTT Activated 55.5 sec (21.0-31.4)
--- NOTE | 2019-03-17 12:34 | DI.RAD_ITS ---
EXAM: XR PORTABLE CHEST AP INDICATION: fever, hematemasis. COMPARISON: XR CHEST 2V PA LATERAL from 01/18/2019 TECHNIQUE: 2D digital imaging was performed. FINDINGS: Dual lumen catheter again noted with its tip in the superior vena cava. Cardiac size within normal l imits on this AP view. Lungs are grossly clear with slight interstitial prominence as noted on exami nation of January 18. IMPRESSION: No evidence of acute change.
[2019-03-17] MEDS: PIPERACILLIN/TAZO 4.5 GM in Normal Saline 100 ML IVPB (13:08)
[2019-03-17 13:12] LABS: ALT 41 U/L (16-63); AST 44 U/L (15-37); Albumin 3.9 g/dL (3.4-5.0); Alkaline Phosphatase 101 U/L (46-116); Anion Gap 14.8 mmol/L (3-11); BUN 26 mg/dL (7-18); Bilirubin, Total 1.3 mg/dL (0.2-1.0); CO2 27.2 mmol/L (21.0-32.0); Calcium 9.5 mg/dL (8.5-10.1); Chloride 95 mmol/L (98-107); Estimated GFR 18.47 (mL/min/1.73m2); Glucose 95 mg/dL (70-100); Potassium 3.8 mmol/L (3.5-5.1); Sodium 137 mmol/L (136-145); Total Protein 10.2 g/dL (6.4-8.2)
[2019-03-17 13:15] LABS: CREATININE 3.49 mg/dL (0.70-1.30); Troponin I < 0.05 ng/mL (0.00-0.06)
--- NOTE | 2019-03-17 15:03 | NUR.NOTE ---
Nursing Note: NOTIFIED OF TEMPERATURE. MALINDA HERNANDEZ APPLIED TO PATIENT
[2019-03-17 15:54] LABS: Bilirubin Negative (Negative); Blood Negative (Negative); Clarity Clear (Clear); Glucose Negative (Negative); Ketones Negative (Negative); Leukocyte Esterase Negative (Negative); Nitrite Negative (Negative); Urobilinogen 0.2 EU/dL (Up TO 0.2)
[2019-03-17 15:57] LABS: Bacteria Negative HPF (Negative); C & S Indicated? No; Casts Negative LPF (Negative); Crystals Negative HPF (Negative); Epithelial Cells Rare HPF (Negative); Mucus Negative (Negative); Other Cells Negative (Negative); RBC 0-2 (0-2); WBC 0-2 HPF (0-5)
== END 2019-03-17 16:39 | disposition short-term general hospital (02) ==
PROVIDERS: Emergency Provider Student in an Organized Health Care Education/Training Program; PCP Family Medicine
DX: K92.0 Hematemesis (principal); R50.9 Fever, unspecified; J44.9 Chronic obstructive pulmonary disease, unspecified; N18.6 End stage renal disease; Z95.5 Presence of coronary angioplasty implant and graft; Z99.2 Dependence on renal dialysis; I48.91 Unspecified atrial fibrillation
CPT/HCPCS: 36415; 80053; 86850; 86900; 86901; 87040; 87449; 93005; 96361; 96365; 96367; 96368; 96375; 99285; 71045; 81003; 81015; 83605; 83735; 84484; 85025; 85610; 85730; 93010; J2405; J2543

== ENCOUNTER 2019-05-05 01:50 | Outpatient (RCR) | payer MEDICAID, SELFPAY | END 2019-05-21 23:59 | disposition home or self-care (01) | LOC: INF 01:50 | PROVIDERS: PCP Family Medicine; Visit Provider Family Medicine | DX: R20.9 Unspecified disturbances of skin sensation (principal) ==

== ENCOUNTER 2019-06-18 06:31 | Emergency (ER) | payer MEDICAID, SELFPAY ==
[2019-06-18] VITALS (82 sets, daily range): BP systolic 92–134; BP diastolic 61–91; PULSE 71–98; RESP 10–32; TEMP 36.9; O2SAT 74–100
[2019-06-18] MEDS: Ondansetron 4 MG/2 ML VIAL IVP (06:49)
[2019-06-18] MEDS: Normal Saline 1,000 ML 1000 ML IV (06:49)
--- NOTE | 2019-06-18 06:49 | W.ED.GENAD ---
Discharge Plan Disposition Patient Disposition: HOME Condition: Improving Discharge Details Chief Complaint: Nausea/Vomit/Diar Clinical Impression: Nausea & vomiting, Colitis Primary Care Provider: Gee Luke ED Provider: Niya Jarrett Home Meds and New Rx's Prescriptions: New promethazine 12.5 mg tablet 12.5 mg PO Q6H PRN (Reason: nausea and vomiting) Qty: 10 RF: 0 Continued ferrous sulfate 325 mg (65 mg iron) tablet 325 mg PO DAILY Qty: 45 RF: 3 atorvastatin 80 mg tablet 80 mg PO DAILY Qty: 90 RF: 3 Nephrocaps 1 mg capsule 1 cap PO DAILY Qty: 90 RF: 3 furosemide 80 mg tablet 80 mg PO BID RF: 0 (DME) oxygen concentrater Qty: 1 RF: 0 gabapentin 300 mg capsule 300 mg PO .3x/week RF: 0 ipratropium-albuterol 0.5 mg-3 mg(2.5 mg base)/3 mL solution for nebulization 3 ml IH .4-6h PRNRF: 0 metoprolol succinate [Toprol XL] 25 mg tablet extended release 24 hr 25 mg PO BID Qty: 180 RF: 3 fluoxetine [Prozac] 20 MG capsule 20 mg PO DAILY RF: 0 albuterol sulfate [ProAir HFA] 8.5 GM HFA aerosol inhaler 1 puff Inhalation Q4H PRN 30 Days Qty: 1 RF: 11 Spiriva with HandiHaler 18 mcg capsule, w/inhalation device 1 cap IH DAILY RF: 0 aspirin [Adult Low Dose Aspirin] 81 mg tablet,delayed release (DR/EC) 81 mg PO DAILY RF: 0 (DME) titration testing Qty: 1 RF: 0 Symbicort 160-4.5 mcg/actuation HFA aerosol inhaler 2 puff IH BID RF: 0 ondansetron HCl 4 mg tablet 4 mg PO Q8H PRNRF: 0 sevelamer carbonate [Renvela] 800 mg tablet 1,600 mg PO TID RF: 0 pantoprazole 40 mg tablet,delayed release (DR/EC) 40 mg PO BID RF: 0 cephalexin [Keflex] 250 mg capsule 250 mg PO DAILY 5 Days Qty: 5 RF: 0 nitroglycerin 0.3 mg Tablet, Sublingual 0.3 mg Sublingual Q5M PRNRF: 0 clonazepam 0.5 mg Tablet 0.25 mg PO BID RF: 0 Discharge Instructions Instructions: Acute Nausea and Vomiting (ED) Additional Instructions: Take the Phenergan as needed and directed for nausea and vomiting. Follow a bland diet over the next few days including bananas, rice, toast, crackers. Follow-up with your scheduled dialysis tomorrow. Return to the emergency department if you develop any worsening or new concerning symptoms. Discharge Data Discharge Date/Time-TO BE ENTERED AT DEPARTURE: 06/18/19 10:39 Discharge Physician: Niya Jarrett Medical Decision Making <Simon Garcia MD - Last Filed: 06/18/19 07:33> 53 yo male with multiple medical problems including esrd on dialysis who was last dialyzed comes in with n/v since yesterday. Denies fevers but has felt some chills per patient and has had some abdominal cramping. Denies recent travel, was tx'd for infected dialysis catheter in february but no abx since and denies any diarrhea. Denies any new foods. He has some mild abdominal tenderness on exam in the left and right mid abdomen without guarding. HAs also been having burning with urination since Thursday. Suspect this could be gastroenteritis, will obtain lab work and treat his symptoms and reassess. No chest pain/pressure so doubt acs. pt is feeling better with minimal nausea. His lactate is minimally elevated at 2.3 which is consistently where he runs on initial labs and likely from dehydration from the vomit. His anion gap is 19 likely from dehydration and uremia. He has an indeterminate troponin of 0.2, will repeat delta troponin. His wbc if 17 hwich I suspect is likely from a stress response from the vomit vs gastroenteritis as he has no fevers or other infectious symptoms other than dysuria and ua is still pending. Will continue to monitor pt signed out to oncoming provider pending cxr, delta troponin and UA Differential Diagnosis Differential Diagnosis: influenza, gastroenteritis, food illness Lab Data Lab results reviewed: Yes I reviewed the patient's lab results. <Niya Jarrett DO - Last Filed: 06/18/19 19:51> 0800 --please see Dr. Garcia's note for initial presentation and plan. 53-year-old male with multiple medical problems including end-stage renal disease on dialysis presents with nausea and vomiting since yesterday. Upon my assessment, patient states nausea significantly improved. He is complaining of left-sided abdominal pain. Abdomen soft but tender in left upper and lower quadrant. During exam, patient began to fall asleep and appeared in no acute distress. He had stated his pain was 8.5/10. As patient is tender with a white blood cell count of 17, will obtain a Noncon CT abdomen and pelvis. A dose of morphine was ordered, but patient not given as he was sleeping on reevaluation per nurse. UA still pending. 1030 --repeat troponin downtrending to 0.18. Repeat EKG unchanged. Patient denies any chest pain or shortness of breath. CT abdomen and pelvis noted gallstones and splenomegaly, and possible colitis. Patient feels much better and is requesting to go home. He is requesting prescription for nausea medication for home. Patient was scheduled for dialysis today but was able to reschedule this for tomorrow. He is advised to return here if he develops any worsening or new concerning symptoms. Medical Records Medical records reviewed: Yes I reviewed the patient's medical records. Imaging Data Radiologic Study: Radiologist's impression: CXR: Mild prominence of the pulmonary interstitial markings, unchanged in appearance when compared to previous study. CT Abdomen And Pelvis Without Contrast Exam date and time: 06/18/2019 8:48 AM Age: 53 years old Clinical indication: Nausea and vomiting; Abdominal pain TECHNIQUE: Imaging protocol: Computed tomography of the abdomen and pelvis without contrast. COMPARISON: CT ABDOMEN PELVIS WO 02/19/2019 9:46 AM FINDINGS: Pleural space: Small bilateral pleural effusions Liver: Normal. No mass. Gallbladder and bile ducts: Gallstones in the gallbladder. Pancreas: Normal. No ductal dilation. Spleen: Splenomegaly 14.8 cm Adrenals: Normal. No mass. Kidneys and ureters: Vascular calcifications in the right kidney Stomach and bowel: Segment of transverse colon with bowel wall thickening may reflect colitis.. No obstruction Appendix: Normal appendix Intraperitoneal space: Unremarkable. No free air. No significant fluid collection. Vasculature: Unremarkable. No abdominal aortic aneurysm. Lymph nodes: Unremarkable. No enlarged lymph nodes. Bladder: Unremarkable as visualized. Reproductive: Unremarkable as visualized. Bones/joints: Healed left rib fractures Soft tissues: Unremarkable. Other findings: Motion artifact degrades images IMPRESSION: 1. Gallstones in the gallbladder. 2. Segment of transverse colon with bowel wall thickening may reflect colitis. 3. Splenomegaly 14.8 cm Lab Data Lab results reviewed: Yes I reviewed the patient's lab results. Labs: 06/18/19 09:54 Urine - Clean Catch Urine Culture - Pending 06/18/19 08:05 Blood Blood Culture - Pending 06/18/19 08:00 Blood Blood Culture - Pending 06/18/19 06:50 Nasopharynx Influenza Types A,B Antigen - Final Laboratory Tests Range/Units 06/18/19 06/18/19 06/18/19 06:45 06:45 06:45 WBC (4.4-10.8) k/cumm 17.81 H RBC (4.50-6.00) m/cumm 4.74 Hgb (13.5-17.5) g/dL 14.3 Hct (40.0-50.0) % 43.7 MCV (80-95) fL 92.2 MCH (27.0-33.0) pg 30.2 MCHC (32.0-36.0) g/dL 32.7 RDW (11.8-14.1) % 16.2 H Plt Count (130-400) x1000/uL 237 MPV (8.0-11.0) fL 11.1 H Immature Gran % 0.4 Neutrophils % 80.8 Lymphocytes % 9.0 Monocytes % 9.4 Eosinophils % 0.2 Basophils % 0.2 Absolute Neutrophils (1.2-6.7) k/cumm 14.39 H Absolute Lymphocytes (1.2-3.4) k/cumm 1.60 Absolute Monocytes (0.11-0.7) k/cumm 1.67 H Absolute Eosinophils (0.0-0.7) k/cumm 0.04 Absolute Basophils (0.0-0.2) k/cumm 0.04 Differential Comment Agrees w/ instrument RBC Morphology Normal PT (9.3-11.0) sec INR (0.9-1.1) APTT (21.0-31.4) sec VBG pH (7.32-7.43) VBG pCO2 (34-47) mm/Hg VBG pO2 (28-44) mm/Hg VBG HCO3 (22-28) mmol/L VBG Total CO2 (22-29) mmol/L VBG O2 Saturation (70-80) % VBG Base Excess (-3-3) mmol/L Sodium (136-145) mmol/L 142 Potassium (3.5-5.1) mmol/L 3.9 Chloride (98-107) mmol/L 101 Carbon Dioxide (21.0-32.0) mmol/L 22.7 Anion Gap (3-11) mmol/L 18.3 H BUN (7-18) mg/dL 55 H Creatinine (0.70-1.30) mg/dL 8.50 H* Estimated GFR/1.73 m2 (mL/min/1.73m2) 6.61 Glucose (74-106) mg/dL 140 H Lactate (0.6-1.4) mmol/L 2.3 H* Calcium (8.5-10.1) mg/dL 10.0 Magnesium (1.8-2.4) mg/dL 2.2 Total Bilirubin (0.2-1.0) mg/dL 1.9 H AST (15-37) U/L 18 ALT (16-63) U/L 17 Alkaline Phosphatase (46-116) U/L 99 Troponin I (<0.06) ng/Ml Total Protein (6.4-8.2) g/dL 9.3 H Albumin (3.4-5.0) g/dL 3.9 Lipase (73-393) U/L 74 Urine Color (Yellow) Urine Clarity (Clear) Urine pH (5-8) Ur Specific [place] (1.005-1.025) Urine Protein (Negative) mg/dL Urine Ketones (Negative) mg/dL Urine Blood (Negative) Urine Nitrite (Negative) Urine Bilirubin (Negative) Urine Urobilinogen (Up TO 0.2) EU/dL Ur Leukocyte Esterase (Negative) Urine RBC (0-2) HPF Urine WBC (0-5) HPF Ur Epithelial Cells (Negative) HPF Urine Crystals (Negative) HPF Urine Bacteria (Negative) HPF Urine Casts (Negative) LPF Urine Mucus (Negative) Ur Culture Indicated? Urine Glucose (Negative) mg/dL Range/Units 06/18/19 06/18/19 06/18/19 06:45 06:45 06:45 WBC (4.4-10.8) k/cumm RBC (4.50-6.00) m/cumm Hgb (13.5-17.5) g/dL Hct (40.0-50.0) % MCV (80-95) fL MCH (27.0-33.0) pg MCHC (32.0-36.0) g/dL RDW (11.8-14.1) % Plt Count (130-400) x1000/uL MPV (8.0-11.0) fL Immature Gran % Neutrophils % Lymphocytes % Monocytes % Eosinophils % Basophils % Absolute Neutrophils (1.2-6.7) k/cumm Absolute Lymphocytes (1.2-3.4) k/cumm Absolute Monocytes (0.11-0.7) k/cumm Absolute Eosinophils (0.0-0.7) k/cumm Absolute Basophils (0.0-0.2) k/cumm Differential Comment RBC Morphology PT (9.3-11.0) sec 11.6 H INR (0.9-1.1) 1.2 H APTT (21.0-31.4) sec 26.1 VBG pH (7.32-7.43) 7.44 H VBG pCO2 (34-47) mm/Hg 35 VBG pO2 (28-44) mm/Hg 93 H VBG HCO3 (22-28) mmol/L 24 VBG Total CO2 (22-29) mmol/L 21 L VBG O2 Saturation (70-80) % 96 H VBG Base Excess (-3-3) mmol/L -0.4 Sodium (136-145) mmol/L Potassium (3.5-5.1) mmol/L Chloride (98-107) mmol/L Carbon Dioxide (21.0-32.0) mmol/L Anion Gap (3-11) mmol/L BUN (7-18) mg/dL Creatinine (0.70-1.30) mg/dL Estimated GFR/1.73 m2 (mL/min/1.73m2) Glucose (74-106) mg/dL Lactate (0.6-1.4) mmol/L Calcium (8.5-10.1) mg/dL Magnesium (1.8-2.4) mg/dL Total Bilirubin (0.2-1.0) mg/dL AST (15-37) U/L ALT (16-63) U/L Alkaline Phosphatase (46-116) U/L Troponin I (<0.06) ng/Ml 0.21 H* Total Protein (6.4-8.2) g/dL Albumin (3.4-5.0) g/dL Lipase (73-393) U/L Urine Color (Yellow) Urine Clarity (Clear) Urine pH (5-8) Ur Specific [place] (1.005-1.025) Urine Protein (Negative) mg/dL Urine Ketones (Negative) mg/dL Urine Blood (Negative) Urine Nitrite (Negative) Urine Bilirubin (Negative) Urine Urobilinogen (Up TO 0.2) EU/dL Ur Leukocyte Esterase (Negative) Urine RBC (0-2) HPF Urine WBC (0-5) HPF Ur Epithelial Cells (Negative) HPF Urine Crystals (Negative) HPF Urine Bacteria (Negative) HPF Urine Casts (Negative) LPF Urine Mucus (Negative) Ur Culture Indicated? Urine Glucose (Negative) mg/dL Range/Units 06/18/19 06/18/19 09:45 09:54 WBC (4.4-10.8) k/cumm RBC (4.50-6.00) m/cumm Hgb (13.5-17.5) g/dL Hct (40.0-50.0) % MCV (80-95) fL MCH (27.0-33.0) pg MCHC (32.0-36.0) g/dL RDW (11.8-14.1) % Plt Count (130-400) x1000/uL MPV (8.0-11.0) fL Immature Gran % Neutrophils % Lymphocytes % Monocytes % Eosinophils % Basophils % Absolute Neutrophils (1.2-6.7) k/cumm Absolute Lymphocytes (1.2-3.4) k/cumm Absolute Monocytes (0.11-0.7) k/cumm Absolute Eosinophils (0.0-0.7) k/cumm Absolute Basophils (0.0-0.2) k/cumm Differential Comment RBC Morphology PT (9.3-11.0) sec INR (0.9-1.1) APTT (21.0-31.4) sec VBG pH (7.32-7.43) VBG pCO2 (34-47) mm/Hg VBG pO2 (28-44) mm/Hg VBG HCO3 (22-28) mmol/L VBG Total CO2 (22-29) mmol/L VBG O2 Saturation (70-80) % VBG Base Excess (-3-3) mmol/L Sodium (136-145) mmol/L Potassium (3.5-5.1) mmol/L Chloride (98-107) mmol/L Carbon Dioxide (21.0-32.0) mmol/L Anion Gap (3-11) mmol/L BUN (7-18) mg/dL Creatinine (0.70-1.30) mg/dL Estimated GFR/1.73 m2 (mL/min/1.73m2) Glucose (74-106) mg/dL Lactate (0.6-1.4) mmol/L Calcium (8.5-10.1) mg/dL Magnesium (1.8-2.4) mg/dL Total Bilirubin (0.2-1.0) mg/dL AST (15-37) U/L ALT (16-63) U/L Alkaline Phosphatase (46-116) U/L Troponin I (<0.06) ng/Ml 0.18 H* Total Protein (6.4-8.2) g/dL Albumin (3.4-5.0) g/dL Lipase (73-393) U/L Urine Color (Yellow) Yellow Urine Clarity (Clear) Clear Urine pH (5-8) 6.0 Ur Specific [place] (1.005-1.025) 1.020 Urine Protein (Negative) mg/dL 100 H Urine Ketones (Negative) mg/dL Negative Urine Blood (Negative) Moderate H Urine Nitrite (Negative) Negative Urine Bilirubin (Negative) Negative Urine Urobilinogen (Up TO 0.2) EU/dL 0.2 Ur Leukocyte Esterase (Negative) Negative Urine RBC (0-2) HPF 10-20 H Urine WBC (0-5) HPF 0-2 Ur Epithelial Cells (Negative) HPF Rare Urine Crystals (Negative) HPF Negative Urine Bacteria (Negative) HPF Negative Urine Casts (Negative) LPF 0-2 hyaline Urine Mucus (Negative) Trace Ur Culture Indicated? C&s done as ordered Urine Glucose (Negative) mg/dL Negative ECG Data Attestation: I personally reviewed and interpreted this ECG (s) as follows: Interpretation: #1 --Rate of 93, sinus, no acute ST elevation or depression. T wave inversion in lead III. FL 178. QTc 480. #2 --Rate of 78, sinus, no acute ST elevation or depression. T wave inversion in lead III. FL 188. QTc 467. HPI <Simon Garcia MD - Last Filed: 06/18/19 07:33> General Mode of arrival: EMS. Date/Time Provider Initiated Documentation: 06/18/19 06:40. Limitations to Documentation: no limitations. Information obtained by: patient. History of Present Illness 53 year old M presents to the emergency department with the chief complaint of nausea and vomit, described as moderate, and it has been constant. No relieving factors improve symptom(s), No exacerbating factors reported . Related Data Home Medications Medication Instructions Recorded Confirmed albuterol sulfate [ProAir HFA] 1 puff INHALATION Q4H PRN 30 Days 08/10/17 06/18/19 #1 inhaler fluoxetine [Prozac] 20 mg PO DAILY cap 08/10/17 06/18/19 tiotropium bromide 18 mcg capsule 1 cap IH DAILY 04/01/18 06/18/19 with inhalation device ferrous sulfate 325 mg (65 mg 325 mg PO DAILY #45 tab 05/31/18 06/18/19 iron) tablet oxygen concentrater #1 ea 07/29/18 06/18/19 aspirin 81 mg tablet,delayed 81 mg PO DAILY 10/13/18 06/18/19 release B complex with C 20-folic acid 1 1 cap PO DAILY #90 cap 10/15/18 06/18/19 mg capsule atorvastatin 80 mg tablet 80 mg PO DAILY #90 tab 10/15/18 06/18/19 titration testing #1 ea 10/22/18 06/18/19 nitroglycerin 0.3 mg SUBLINGUAL Q5M PRN 12/27/18 06/18/19 budesonide-formoterol HFA 160 2 puff IH BID 02/23/19 06/18/19 mcg-4.5 mcg/actuation aerosol inhaler ondansetron HCl 4 mg tablet 4 mg PO Q8H PRN 02/23/19 06/18/19 sevelamer carbonate 800 mg tablet 1,600 mg PO TID tab 02/25/19 06/18/19 pantoprazole 40 mg tablet,delayed 40 mg PO BID tab 03/22/19 06/18/19 release gabapentin 300 mg capsule 300 mg PO .3x/week cap 03/28/19 06/18/19 ipratropium-albuterol 0.5 mg-3 3 ml IH .4-6h PRN ml 03/28/19 06/18/19 mg(2.5 mg base)/3 mL nebulization soln metoprolol succinate 25 mg 25 mg PO BID #180 tab 03/28/19 06/18/19 tablet,extended release 24 hr furosemide 80 mg tablet 80 mg PO BID tab 04/29/19 06/18/19 cephalexin 250 mg capsule 250 mg PO DAILY 5 Days #5 cap 06/17/19 06/18/19 clonazepam 0.25 mg PO BID 06/18/19 06/18/19 promethazine 12.5 mg PO Q6H PRN #10 tab 06/18/19 06/18/19 Previous Rx's Medication Instructions Recorded albuterol sulfate [ProAir HFA] 1 puff INHALATION Q4H PRN 30 Days 08/10/17 #1 inhaler ferrous sulfate 325 mg (65 mg 325 mg PO DAILY #45 tab 05/31/18 iron) tablet oxygen concentrater #1 ea 07/29/18 B complex with C 20-folic acid 1 1 cap PO DAILY #90 cap 10/15/18 mg capsule atorvastatin 80 mg tablet 80 mg PO DAILY #90 tab 10/15/18 titration testing #1 ea 10/22/18 metoprolol succinate 25 mg 25 mg PO BID #180 tab 03/28/19 tablet,extended release 24 hr cephalexin 250 mg capsule 250 mg PO DAILY 5 Days #5 cap 06/17/19 promethazine 12.5 mg PO Q6H PRN #10 tab 06/18/19 Allergies Allergy/AdvReac Type Severity Reaction Status Date / Time bee venom protein (honey bee) Allergy Severe throat Verified 06/18/19 18:40 swelling aspirin AdvReac Mild bleeding, Verified 06/18/19 18:40 does take small dose daily General Stated Complaint: Nausea/Vomit/Diar JOSEPH: 3 Review of Systems <Simon Garcia MD - Last Filed: 06/18/19 07:33> All systems reviewed & are unremarkable except as noted in HPI and below Constitutional Constitutional: Denies fever(s) and Denies weakness Cardiovascular Cardiovascular: Denies chest pain and Denies dyspnea Respiratory Respiratory: Denies cough and Denies dyspnea Genitourinary Genitourinary: Denies dysuria Musculoskeletal Musculoskeletal: Denies joint swelling Integumentary/Breasts Skin/Breast: Denies rash Neurologic Neurologic: Denies weakness PFSH <Simon Garcia MD - Last Filed: 06/18/19 07:33> 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 [employer] What is your relationship status?: How often do you talk on the phone with friends or family?: three or more times per week How often do you get together with friends or relatives?: three or more times per week Panel score (0-1 are the most socially isolated patients): 2 What type of physical activity do you participate in: none Duration: < 15 minutes/day Special frandy needs: No Agree to transfusion: Yes Seatbelt use: always Drive intox or ride w/intox mixer driver: No Working smoke detector in home: Yes Fire extinguisher in home: Yes Carbon monox detector in home: Yes Do you feel safe at home: Yes Do you feel safe in your relationship?: Yes Additional Social history: Lives with , Park and son, BASILIO who is a janice at [employer]. Daughter is out on her own. Was at [facility] 4 times and [facility] once in last year. Hospitalized for total of 125 days from December 2017-December 2018. Trying to be healthy now. Lost 130 lbs in last year. Following strict renal diet. Exam <Simon Garcia MD - Last Filed: 06/18/19 07:33> Const General: no acute distress Orientation: alert [facility] Head: normal to inspection Ears: external ears normal General nose exam: external nose normal Mouth: moist mucous membranes Eyes General: appearance normal, both eyes and all related structures Neck Neck: normal visual inspection Resp Effort & Inspection: normal respiratory effort and able to speak in complete sentences Cardio Rate: regular rate GI Palpation: soft Skin General skin exam: no rashes or lesions noted Neuro General: alert and oriented x3 Extrem General: normal to inspection Psych Mental Status: mental status grossly normal Course <Simon Garcia MD - Last Filed: 06/18/19 07:33> Vital Signs Vital signs: Vital Signs Temperature 36.9 C 06/18/19 06:32 Pulse 98 H 06/18/19 06:32 Respiratory Rate 18 06/18/19 06:32 Blood Pressure 133/87 06/18/19 06:32 Pulse Oximetry 98 06/18/19 06:32 Temperature 36.9 C 06/18/19 06:32 Temperature Source Temporal Artery Scan 06/18/19 06:32 Pulse 98 H 06/18/19 06:32 Respiratory Rate 18 06/18/19 06:32 Respiratory Effort Non-Labored 06/18/19 06:32 Blood Pressure 133/87 06/18/19 06:32 Blood Pressure Position Sitting 06/18/19 06:32 Pulse Oximetry 98 06/18/19 06:32 Oxygen Delivery Method Room Air 06/18/19 06:32 Oxygen Flow Rate 0 06/18/19 06:32 Pain Level 0 06/18/19 06:32 Sign Out <Simon Garcia MD - Last Filed: 06/18/19 07:33> Sign Out Data: Sign Out Comment: follow up on UA, cxr and delta troponin Last updated by Simon Garcia MD at 06/18/19 07:36
[2019-06-18 06:50] LABS: Abs Immature Grans 0.07 k/cumm (0.0-0.09); BE (Venous) -0.4 mmol/L (-3-3); Basophils % 0.2; Eosinophils % 0.2; HCO3 (Venous) 24 mmol/L (22-28); HCT 43.7 % (40.0-50.0); HGB 14.3 g/dL (13.5-17.5); Immature Grans % 0.4; Mean Corp. HGB Concentration 32.7 g/dL (32.0-36.0); Mean Corpuscular Hemoglobin 30.2 pg (27.0-33.0); Mean Corpuscular Volume 92.2 fL (80-95); Mean Platelet Volume 11.1 fL (8.0-11.0); Monocytes % 9.4; Neutrophils % 80.8; O2 Sat (Venous) 96 % (70-80); Platelet Count 237 x1000/uL (130-400); RBC 4.74 m/cumm (4.50-6.00); RBC Distribution Width 16.2 % (11.8-14.1); TCO2 (Venous) 21 mmol/L (22-29); White Blood Cell Count 17.81 k/cumm (4.4-10.8); pCO2 (Venous) 35 mm/Hg (34-47); pH (Venous) 7.44 (7.32-7.43); pO2 (Venous) 93 mm/Hg (28-44)
[2019-06-18 06:53] LABS: Lactate 2.3 mmol/L (0.6-1.4)
[2019-06-18 06:54] LABS: Absolute Basophil Count 0.04 k/cumm (0.0-0.2); Absolute Eosinophil Count 0.04 k/cumm (0.0-0.7); Absolute Monocyte Count 1.67 k/cumm (0.11-0.7); Absolute Neutrophil Count 14.39 k/cumm (1.2-6.7)
[2019-06-18 07:05] LABS: INR 1.2 (0.9-1.1); PTT Activated 26.1 sec (21.0-31.4); Prothrombin Time 11.6 sec (9.3-11.0)
[2019-06-18 07:10] LABS: ALT 17 U/L (16-63); AST 18 U/L (15-37); Albumin 3.9 g/dL (3.4-5.0); Alkaline Phosphatase 99 U/L (46-116); Anion Gap 18.3 mmol/L (3-11); BUN 55 mg/dL (7-18); Bilirubin, Total 1.9 mg/dL (0.2-1.0); CO2 22.7 mmol/L (21.0-32.0); Chloride 101 mmol/L (98-107); Estimated GFR 6.61 (mL/min/1.73m2); Glucose 140 mg/dL (74-106); Lipase 74 U/L (73-393); Magnesium 2.2 mg/dL (1.8-2.4); Potassium 3.9 mmol/L (3.5-5.1); Sodium 142 mmol/L (136-145); Total Protein 9.3 g/dL (6.4-8.2)
[2019-06-18 07:14] LABS: Troponin I 0.21 ng/Ml (<0.06)
[2019-06-18 07:15] LABS: Diff Comment Agrees w/ Instrument; RBC Morphology Normal
--- NOTE | 2019-06-18 07:32 | DI.RAD_ITS ---
EXAM: XR CHEST 1V IN DI DEPT INDICATION: ?pneumonia. COMPARISON: XR PORTABLE CHEST AP from 03/17/2019 TECHNIQUE: 2D digital imaging was performed. FINDINGS: The heart size appears within normal limits. There is stable prominent interstitial lung markings. No focal consolidating infiltrate, effusion or pneumothorax is identified. The patient has a right I J catheter in stable position. No acute osseous abnormality is identified. IMPRESSION: Stable mild prominent interstitial lung markings. No focal consolidating infiltrate.
[2019-06-18] MEDS: Prochlorperazine 10 MG/2 ML VIAL IVP (07:59)
--- NOTE | 2019-06-18 07:59 | DI.VRAD_ITS ---
PROCEDURE INFORMATION: Exam: XR Chest, 1 View Exam date and time: 06/18/2019 7:34 AM Age: 53 years old Clinical indication: Other: ? Pneumonia TECHNIQUE: Imaging protocol: XR of the chest Views: 1 view. COMPARISON: CR XR PORTABLE CHEST AP 03/17/2019 12:38 PM FINDINGS: Tubes, catheters and devices: Right jugular dialysis catheter is present with the tip in the right atrium. Lungs: There is mild prominence of the pulmonary interstitial markings bilaterally, a finding also present on the previous study. Pleural space: Unremarkable. No pleural effusion. No pneumothorax. Heart/Mediastinum: The patient is rotated, limiting evaluation of the mediastinum. The patient is rotated, limiting evaluation of the heart size. Bones/joints: Unremarkable. IMPRESSION: Mild prominence of the pulmonary interstitial markings, unchanged in appearance when compared to the previous study. Dictated and Authenticated by: Abdullahi Bonilla MD. Ordering:JONH Montes MD
[2019-06-18] MEDS: Normal Saline 50 ML 200 ML (08:00)
--- NOTE | 2019-06-18 08:51 | DI.CT_ITS ---
EXAM: CT ABDOMEN PELVIS WO CLINICAL HISTORY: LUQ/LLQ abd pain, r/o acute process TECHNIQUE: Imaging Protocol: Axial computed tomography images with coronal and sagittal reformatted images were created and reviewed. COMPARISON: CT ABDOMEN/ PELVIS CTA from 02/19/2019 FINDINGS: There is patient motion artifact. ABDOMEN: Lung Bases: Small bilateral pleural effusions. Liver: Normal density. No measurable mass. Gallbladder and biliary tract: Cholelithiasis. No biliary ductal dilatation. Pancreas: Normal density, no abnormal calcifications or inflammatory process. Spleen: Splenomegaly. Kidneys: Normal size, contour and axis. No radiodense stones or obstructive uropathy. No masses seen. Adrenal glands: No masses seen. Lymph nodes: Within normal limits. Abdominal Aorta: Atherosclerosis. No aneurysm. PELVIS: Bladder: Symmetric distention, no gross wall thickening. Bowel: Question of bowel wall thickening in the transverse colon. This may be due to underdistention . No definite pericolonic inflammatory changes are seen in this region. There is a normal appendix. The remainder of the bowel is unremarkable. There is no evidence of obstruction. Peritoneal cavity: No ascites, collection or mesenteric inflammatory response. Fat containing umbilic al hernia. Reproductive organs: Within normal limits. Bones: Degenerative changes. Old healed left rib fracture. IMPRESSION: 1. Question of thickening of the wall of the transverse colon. This is likely due to underdistention . No definite pericolonic inflammatory changes are seen. 2. Cholelithiasis. 3. Splenomegaly. DATA REPOSITORY: All CT scans at this facility are submitted to the National Radiology Data Registry (NRDR) Dose Index Registry (DIR) with the [employer] (ACR). RADIATION OPTIMIZATION: All CT scans at this facility use at least one of these dose optimization te chniques: automated exposure control; mA and/or kV adjustment per patient size (includes targeted exa ms where dose is matched to clinical indication); or iterative reconstruction.
--- NOTE | 2019-06-18 09:09 | DI.VRAD_ITS ---
PROCEDURE INFORMATION: Exam: CT Abdomen And Pelvis Without Contrast Exam date and time: 06/18/2019 8:48 AM Age: 53 years old Clinical indication: Nausea and vomiting; Abdominal pain TECHNIQUE: Imaging protocol: Computed tomography of the abdomen and pelvis without contrast. COMPARISON: CT ABDOMEN PELVIS WO 02/19/2019 9:46 AM FINDINGS: Pleural space: Small bilateral pleural effusions Liver: Normal. No mass. Gallbladder and bile ducts: Gallstones in the gallbladder. Pancreas: Normal. No ductal dilation. Spleen: Splenomegaly 14.8 cm Adrenals: Normal. No mass. Kidneys and ureters: Vascular calcifications in the right kidney Stomach and bowel: Segment of transverse colon with bowel wall thickening may reflect colitis.. No obstruction Appendix: Normal appendix Intraperitoneal space: Unremarkable. No free air. No significant fluid collection. Vasculature: Unremarkable. No abdominal aortic aneurysm. Lymph nodes: Unremarkable. No enlarged lymph nodes. Bladder: Unremarkable as visualized. Reproductive: Unremarkable as visualized. Bones/joints: Healed left rib fractures Soft tissues: Unremarkable. Other findings: Motion artifact degrades images IMPRESSION: 1. Gallstones in the gallbladder. 2. Segment of transverse colon with bowel wall thickening may reflect colitis. 3. Splenomegaly 14.8 cm Dictated and Authenticated by: Elo May MD. Ordering:TRACEY Núñez MD
[2019-06-18 09:59] LABS: Bilirubin Negative (Negative); Blood Moderate (Negative); Clarity Clear (Clear); Glucose Negative (Negative); Ketones Negative (Negative); Leukocyte Esterase Negative (Negative); Nitrite Negative (Negative); Urobilinogen 0.2 EU/dL (Up TO 0.2)
[2019-06-18 10:07] LABS: Troponin I 0.18 ng/Ml (<0.06)
[2019-06-18 10:09] LABS: Bacteria Negative HPF (Negative); C & S Indicated? C&S Done As Ordered; Casts 0-2 Hyaline LPF (Negative); Crystals Negative HPF (Negative); Epithelial Cells Rare HPF (Negative); Mucus Trace (Negative); WBC 0-2 HPF (0-5)
== END 2019-06-18 10:39 | disposition home or self-care (01) ==
PROVIDERS: Emergency Medicine; Emergency Provider Physician Assistant; PCP Family Medicine
DX: R11.2 Nausea with vomiting, unspecified (principal); K52.9 Noninfective gastroenteritis and colitis, unspecified; R10.32 Left lower quadrant pain; R77.8 Other specified abnormalities of plasma proteins; R16.1 Splenomegaly, not elsewhere classified; N18.6 End stage renal disease; Z99.2 Dependence on renal dialysis; J44.9 Chronic obstructive pulmonary disease, unspecified; Z87.891 Personal history of nicotine dependence; Z99.81 Dependence on supplemental oxygen
CPT/HCPCS: 36410; 36415; 80053; 82805; 83690; 87040; 87449; 93005; 96361; 96374; 96375; 99285; 71045; 74176; 81003; 81015; 83605; 83735; 84484; 85025; 85610; 85730; 87086; 93010; J0780; J2405

== ENCOUNTER 2019-06-18 18:34 | Emergency (ER) | payer MEDICAID, SELFPAY ==
[2019-06-18 18:38] VITALS: BP 143/94; PULSE 101; RESP 17; TEMP 37; O2SAT 97
--- NOTE | 2019-06-18 18:55 | ED.GENADUL_ITS ---
Discharge Plan Disposition Patient Disposition: HOME Condition: Stable Discharge Details Chief Complaint: Chest Pain Clinical Impression: Epigastric abdominal pain, Nausea and vomiting Primary Care Provider: Gee Luke ED Provider: Efra Kingsley Home Meds and New Rx's Prescriptions: No Action ferrous sulfate 325 mg (65 mg iron) tablet 325 mg PO DAILY Qty: 45 RF: 3 atorvastatin 80 mg tablet 80 mg PO DAILY Qty: 90 RF: 3 Nephrocaps 1 mg capsule 1 cap PO DAILY Qty: 90 RF: 3 furosemide 80 mg tablet 80 mg PO BID RF: 0 (DME) oxygen concentrater Qty: 1 RF: 0 gabapentin 300 mg capsule 300 mg PO .3x/week RF: 0 ipratropium-albuterol 0.5 mg-3 mg(2.5 mg base)/3 mL solution for nebulization 3 ml IH .4-6h PRNRF: 0 metoprolol succinate [Toprol XL] 25 mg tablet extended release 24 hr 25 mg PO BID Qty: 180 RF: 3 fluoxetine [Prozac] 20 MG capsule 20 mg PO DAILY RF: 0 albuterol sulfate [ProAir HFA] 8.5 GM HFA aerosol inhaler 1 puff Inhalation Q4H PRN 30 Days Qty: 1 RF: 11 Spiriva with HandiHaler 18 mcg capsule, w/inhalation device 1 cap IH DAILY RF: 0 aspirin [Adult Low Dose Aspirin] 81 mg tablet,delayed release (DR/EC) 81 mg PO DAILY RF: 0 (DME) titration testing Qty: 1 RF: 0 Symbicort 160-4.5 mcg/actuation HFA aerosol inhaler 2 puff IH BID RF: 0 ondansetron HCl 4 mg tablet 4 mg PO Q8H PRNRF: 0 sevelamer carbonate [Renvela] 800 mg tablet 1,600 mg PO TID RF: 0 pantoprazole 40 mg tablet,delayed release (DR/EC) 40 mg PO BID RF: 0 cephalexin [Keflex] 250 mg capsule 250 mg PO DAILY 5 Days Qty: 5 RF: 0 nitroglycerin 0.3 mg Tablet, Sublingual 0.3 mg Sublingual Q5M PRNRF: 0 clonazepam 0.5 mg Tablet 0.25 mg PO BID RF: 0 promethazine 12.5 mg tablet 12.5 mg PO Q6H PRN (Reason: nausea and vomiting) Qty: 10 RF: 0 Discharge Instructions Instructions: Gastritis (ED) Additional Instructions: At this time your labs are stable and your symptoms have resolved after the GI cocktail. Although you have multiple health problems I do feel that today's symptoms are likely secondary to your chronic gastric ulcers. Please purchase Maalox, and use that throughout the night if your symptoms do return. How you do have notable cardiac disease among other things, and if your symptoms change, or do not improve with the GI cocktails please contact me or return immediately for reassessment. Please continue to take your reflux medication at home. If you notice any worsening of your symptoms, or any new symptoms such as vomiting, diarrhea, fever, chills, shortness of breath, chest pain, numbness, weakness, or fainting , please return immediately to the emergency department for reevaluation. Please follow up with your primary care provider as soon as possible for reassessment and reevaluation. As always, it was a pleasure participating in your medical care today. Referrals: Gee Luke DO [Primary Care Provider] - Medical Decision Making <Niya Jarrett DO - Last Filed: 06/18/19 20:04> 1855 -- 53-year-old male with a history of A. fib, CHF, end-stage renal disease on dialysis who presents for epigastric abdominal pain and vomiting x2 since awakening from a nap at 4:30 PM this evening. Patient was seen here earlier today for similar symptoms, had abdominal CT which noted gallstones and colitis and symptoms improved with antiemetics and he was discharged home. He took Phenergan at home prior to arrival without relief. He states his vomitus was clear. His last bowel movement was this morning and normal. He was also noted earlier today did have 2 elevated but indeterminate troponins, first at 0.2, then at 0.18. He had 2 unremarkable EKGs without any complaint of chest pain or shortness of breath and it was thought that his elevated troponins could be due to chronic kidney disease as he is due for dialysis tomorrow. EKG done on arrival notes a rate of 99, sinus with no acute ST ischemic changes. There are minimally peaked T waves in V2 and V3 in comparison to EKGs earlier today. Patient has tenderness to palpation in epigastric region. Suspect symptom presentation more consistent with GI etiology. 1930 --patient vomiting after GI cocktail. Dose of Phenergan given. Patient did not take much of GI cocktail and will reattempt. Labs reviewed. White blood cell count 12, downtrending from 17 earlier today. Anion gap 18, patient has been consistently elevated over the past couple years. Stable creatinine from earlier today. Lactate downtrending from 2.3 earlier now to 1.7. Troponin downtrending from 0.18 earlier today now to 0.14. Lipase negative. 1999 --Case endorsed to Dr. Kingsley to follow-up on imaging and patient response to medication and final disposition. <Efra Kingsley, DO - Last Filed: 06/18/19 21:25> This is a 53-year-old male who is well-known to the ED multiple medical problems and comorbidities at baseline who presented today for epigastric pain. Please refer to Dr. Jarrett's note, as well as Dr. Simon Garcia's note for his recent evaluation. He was seen this evening for epigastric pain which resolved completely with GI cocktail and antinausea medications. Case was signed out to me pending chest x-ray. He is scheduled for dialysis tomorrow. He was given 1 L earlier today, and then a small 250 bolus this evening. Currently the patient feels extremely well, his epigastric pain is completely resolved, he denies any chest pain any abdominal pain any shortness of breath any numbness tingling or weakness. He has been able to tolerate p.o. well. His labs demonstrate a notable improvement from earlier today. White count is 12.46, which is down, platelets normal, electrolytes stable. Anion gap improving, and near baseline. BUN slightly elevated. Lactate 1.7 and notably improving. Troponin 0 0.14, which is a notable and continued drop from both this morning and this afternoon. Lipase normal. Chest x-ray results per virtual radiology demonstrates increased interstitial lung markings suggestive of edema infection or fibrotic changes. Currently the patient has no clinical symptoms of fever or chills he denies any cough. He shows no evidence of hypoxemia compared to baseline. He is saturating well on his normal 2.5 L. No evidence of significant fluid overload clinically at all. No evidence of clinical pneumonia. I did discuss repeat serial troponins, at this time the patient states that he feels completely resolved after the GI cocktail and would like to go home. We did discuss risks and benefits of this, patient knows his clinical scenario well. At this time excepting the risks of leaving at this time without complete repeat labs he does this willingly and understanding the risk. We will respect his wishes. I did do a screening repeat EKG prior to discharge, and shows no evidence of STEMI or significant abnormality. Unchanged from prior EKGs. This time clinically the patient shows no evidence of ACS, fluid overload, hypoxemia, pneumonia, acute colitis clinically, or other acute life-threatening abnormalities. Vital signs are notably unremarkable. Patient will be discharged home. Clinically signs and symptoms appear consistent with gastric ulcer or mild gastritis. Discussed red flags which to return. I have extensively reviewed the treatment plan and discharge instructions with the patient. I have addressed all patient concerns at this time. The patient was made aware of what symptoms to monitor for that would warrant a return to the emergency department. Discussed the plan with the patient, they demonstrate verbal understanding and agreement with our assessment and plan at this time. EKG 21: 21 Rate 71, intervals normal, sinus rhythm, no significant ST elevations or depressions, chronic unchanged T wave inversion in lead III. Q waves in lead III and aVF. No evidence of STEMI. No significant change from prior EKG both earlier today, and this morning. HPI <Niya Jarrett, - Last Filed: 06/18/19 20:04> General Mode of arrival: ambulatory . Date/Time Provider Initiated Documentation: 06/18/19 18:40 . Limitations to Documentation: no limitations . Information obtained by: patient . History of Present Illness 53 year old M presents to the emergency department with the chief complaint of abdominal pain , Quality is described as sharp, Patient reports no radiation. Patient started experiencing this hour(s) (3) and it has been constant. No relieving factors improve symptom(s), No exacerbating factors reported . Patient notes nausea/vomiting; denies chest pain, cough, diaphoresis, fever/chills, headaches, loss of appetite, malaise, rash, seizure, shortness of breath, syncope and weakness. Patient did receive the following treatments prior to arrival, none Related Data Home Medications Medication Instructions Recorded Confirmed albuterol sulfate [ProAir HFA] 1 puff INHALATION Q4H PRN 30 Days 08/10/17 06/18/19 #1 inhaler fluoxetine [Prozac] 20 mg PO DAILY cap 08/10/17 06/18/19 tiotropium bromide 18 mcg capsule 1 cap IH DAILY 04/01/18 06/18/19 with inhalation device ferrous sulfate 325 mg (65 mg 325 mg PO DAILY #45 tab 05/31/18 06/18/19 iron) tablet oxygen concentrater #1 ea 07/29/18 06/18/19 aspirin 81 mg tablet,delayed 81 mg PO DAILY 10/13/18 06/18/19 release B complex with C 20-folic acid 1 1 cap PO DAILY #90 cap 10/15/18 06/18/19 mg capsule atorvastatin 80 mg tablet 80 mg PO DAILY #90 tab 10/15/18 06/18/19 titration testing #1 ea 10/22/18 06/18/19 nitroglycerin 0.3 mg SUBLINGUAL Q5M PRN 12/27/18 06/18/19 budesonide-formoterol HFA 160 2 puff IH BID 02/23/19 06/18/19 mcg-4.5 mcg/actuation aerosol inhaler ondansetron HCl 4 mg tablet 4 mg PO Q8H PRN 02/23/19 06/18/19 sevelamer carbonate 800 mg tablet 1,600 mg PO TID tab 02/25/19 06/18/19 pantoprazole 40 mg tablet,delayed 40 mg PO BID tab 03/22/19 06/18/19 release gabapentin 300 mg capsule 300 mg PO .3x/week cap 03/28/19 06/18/19 ipratropium-albuterol 0.5 mg-3 3 ml IH .4-6h PRN ml 03/28/19 06/18/19 mg(2.5 mg base)/3 mL nebulization soln metoprolol succinate 25 mg 25 mg PO BID #180 tab 03/28/19 06/18/19 tablet,extended release 24 hr furosemide 80 mg tablet 80 mg PO BID tab 04/29/19 06/18/19 cephalexin 250 mg capsule 250 mg PO DAILY 5 Days #5 cap 06/17/19 06/18/19 clonazepam 0.25 mg PO BID 06/18/19 06/18/19 promethazine 12.5 mg PO Q6H PRN #10 tab 06/18/19 06/18/19 Previous Rx's Medication Instructions Recorded albuterol sulfate [ProAir HFA] 1 puff INHALATION Q4H PRN 30 Days 08/10/17 #1 inhaler ferrous sulfate 325 mg (65 mg 325 mg PO DAILY #45 tab 05/31/18 iron) tablet oxygen concentrater #1 ea 07/29/18 B complex with C 20-folic acid 1 1 cap PO DAILY #90 cap 10/15/18 mg capsule atorvastatin 80 mg tablet 80 mg PO DAILY #90 tab 10/15/18 titration testing #1 ea 10/22/18 metoprolol succinate 25 mg 25 mg PO BID #180 tab 03/28/19 tablet,extended release 24 hr cephalexin 250 mg capsule 250 mg PO DAILY 5 Days #5 cap 06/17/19 promethazine 12.5 mg PO Q6H PRN #10 tab 06/18/19 Allergies Allergy/AdvReac Type Severity Reaction Status Date / Time bee venom protein (honey bee) Allergy Severe throat Verified 06/18/19 18:40 swelling aspirin AdvReac Mild bleeding, Verified 06/18/19 18:40 does take small dose daily General Stated Complaint: Chest Pain JOSEPH: 2 Review of Systems <Niya Jarrett DO - Last Filed: 06/18/19 20:04> All systems reviewed & are unremarkable except as noted in HPI and below Constitutional Constitutional: Reports as per HPI, Denies chills and Denies fever(s) Eyes Eyes: Denies blurry vision ENT Ears, Nose, Mouth, and Throat: Denies dizziness, Denies sore throat and Denies throat swelling Cardiovascular Cardiovascular: Denies chest pain and Denies dyspnea Respiratory Respiratory: Denies cough and Denies dyspnea Gastrointestinal Gastrointestinal: Reports abdominal pain, Denies diarrhea and Reports vomiting Genitourinary Genitourinary: Denies hematuria and Denies dysuria Musculoskeletal Musculoskeletal: Denies back pain and Denies numbness Integumentary/Breasts Skin/Breast: Denies lesions and Denies rash Neurologic Neurologic: Denies dizziness, Denies focal weakness and Denies numbness Allergic/Immunologic Allergic/Immunologic: Denies throat swelling PFSH <Niya Jarrett DO - Last Filed: 06/18/19 20:04> Medical History Acute respiratory failure with hypoxia (Resolved) Atrial fibrillation with RVR (Chronic) Chronic CHF (Acute) Dialysis patient (Acute) End stage chronic kidney disease (Chronic) History of morbid obesity (Acute) Hypotension (Acute) LLQ abdominal pain (Acute) Palliative care patient (Acute) Pleural effusion, left (Acute) Renal failure (Chronic) STEMI (ST elevation myocardial infarction) (Chronic) Syncope (Chronic) Valvular heart disease (Acute) [place] [employer] (Acute) Surgical History Arthroplasty of knee cardiac catherization (01/01/18) cardiac catherization (01/05/18) echocardiogram (01/06/18) Encounter for gastrojejunal (GJ) tube placement (Acute 02/23/18) Repair of umbilical hernia Stented coronary artery (Chronic) Tonsillectomy and adenoidectomy Family History Mother Essential hypertension Alcohol abuse Chronic GERD Father Essential hypertension Osteoporosis ESRD (end stage renal disease) on dialysis Heart disease Myocardial infarction Sister Neoplasm Paternal Uncle Neoplasm Colon Paternal Uncle Neoplasm Colon Paternal Grandfather Diabetes Stroke Brother Alcohol abuse Alcoholic cirrhosis Brother , half brother; of opioid overdose Substance abuse Opioid overdose Son No problems noted. Daughter No problems noted. 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 [employer] What is your relationship status?: How often do you talk on the phone with friends or family?: three or more times per week How often do you get together with friends or relatives?: three or more times per week Panel score (0-1 are the most socially isolated patients): 2 What type of physical activity do you participate in: none Duration: < 15 minutes/day Special frandy needs: No Agree to transfusion: Yes Seatbelt use: always Drive intox or ride w/intox guard driver: No Working smoke detector in home: Yes Fire extinguisher in home: Yes Carbon monox detector in home: Yes Do you feel safe at home: Yes Do you feel safe in your relationship?: Yes Additional Social history: Lives with , Park and son, BASILIO who is a janice at [employer]. Daughter is out on her own. Was at [facility] 4 times and [place] once in last year. Hospitalized for total of 125 days from December 2017-January 08. Trying to be healthy now. Lost 130 lbs in last year. Following strict renal diet. Exam <Niya Jarrett DO - Last Filed: 06/18/19 20:04> Const General: cooperative and no acute distress [facility] Head: normal to inspection Face and sinus: normal facial exam Eyes General: appearance normal, both eyes and all related structures EOM: EOM intact bilaterally Neck Neck: normal visual inspection and No submandibular swelling Lymphatic: no lymphadenopathy noted Chest Chest: normal inspection of the chest and no tenderness Resp Effort & Inspection: normal respiratory effort and able to speak in complete sentences Auscultation: clear to auscultation bilaterally Cardio Rate: regular rate Rhythm: regular rhythm GI Inspection: normal to inspection Palpation: soft, not firm, not rigid and tender in the epigastrum Auscultation: normal bowel sounds Skin General skin exam: no rashes or lesions noted Neuro General: alert, awake and oriented x3 Cognition: normal cognition Speech: speech normal Motor: muscle tone normal throughout Sensory Exam: no sensory deficits noted Extrem General: normal to inspection, full ROM, normal capillary refill, no calf tenderness bilaterally and no edema Psych Appearance: grossly normal Mental Status: mental status grossly normal Speech and Movement: speech and movement normal Affect: normal affect Course <Niya Jarrett DO - Last Filed: 06/18/19 20:04> Vital Signs Vital signs: Vital Signs Temperature 98.6 F 06/18/19 18:38 Pulse 101 H 06/18/19 18:38 Respiratory Rate 17 06/18/19 18:38 Blood Pressure 143/94 H 06/18/19 18:38 Pulse Oximetry 97 06/18/19 18:38 Temperature 98.6 F 06/18/19 18:38 Temperature Source Skin 06/18/19 18:38 Pulse 101 H 06/18/19 18:38 Respiratory Rate 17 06/18/19 18:38 Respiratory Effort Non-Labored 06/18/19 18:38 Blood Pressure 143/94 H 12/28/19 18:38 Blood Pressure Position Supine 06/18/19 18:38 Pulse Oximetry 97 06/18/19 18:38 Oxygen Delivery Method Room Air 06/18/19 18:38 Oxygen Flow Rate 0 06/18/19 18:38 Pain Level 9 06/18/19 18:38
[2019-06-18 19:00] LABS: Abs Immature Grans 0.03 k/cumm (0.0-0.09); Absolute Basophil Count 0.06 k/cumm (0.0-0.2); Absolute Lymphocyte Count 1.37 k/cumm (1.2-3.4); Absolute Monocyte Count 1.18 k/cumm (0.11-0.7); Absolute Neutrophil Count 9.69 k/cumm (1.2-6.7); Basophils % 0.5; HCT 41.4 % (40.0-50.0); HGB 13.5 g/dL (13.5-17.5); Immature Grans % 0.2; Lactate 1.7 mmol/L (0.6-1.4); Mean Corp. HGB Concentration 32.6 g/dL (32.0-36.0); Mean Platelet Volume 10.9 fL (8.0-11.0); Monocytes % 9.5; Neutrophils % 77.8; Platelet Count 191 x1000/uL (130-400); RBC Distribution Width 16.2 % (11.8-14.1); White Blood Cell Count 12.46 k/cumm (4.4-10.8)
[2019-06-18] MEDS: Prochlorperazine 10 MG/2 ML VIAL IVP (19:05)
[2019-06-18 19:10] VITALS: RESP 15
[2019-06-18] MEDS: FAMOTIDINE 20 MG/50 ML BAG 200 MG IVPB (19:17)
[2019-06-18 19:18] LABS: Absolute Eosinophil Count 0.12 k/cumm (0.0-0.7)
[2019-06-18 19:23] VITALS: BP 130/90; PULSE 97; RESP 20; O2SAT 94
--- NOTE | 2019-06-18 19:24 | NUR.NOTE ---
RA sats between 84-90% Pt reports he wears 2.5L O2 at home PRN. placed on 2L, up to 94%. Vomited after taking GI cocktail.
[2019-06-18] MEDS: Normal Saline 50 ML 200 ML (19:32)
[2019-06-18 19:34] LABS: ALT 16 U/L (16-63); AST 19 U/L (15-37); Albumin 3.7 g/dL (3.4-5.0); Alkaline Phosphatase 93 U/L (46-116); Anion Gap 18.6 mmol/L (3-11); BUN 60 mg/dL (7-18); Bilirubin, Total 1.8 mg/dL (0.2-1.0); CO2 21.4 mmol/L (21.0-32.0); Calcium 9.6 mg/dL (8.5-10.1); Chloride 102 mmol/L (98-107); Estimated GFR 6.46 (mL/min/1.73m2); Glucose 121 mg/dL (74-106); Lipase 80 U/L (73-393); Magnesium 2.1 mg/dL (1.8-2.4); Potassium 3.8 mmol/L (3.5-5.1); Sodium 142 mmol/L (136-145); Total Protein 8.6 g/dL (6.4-8.2)
[2019-06-18 19:40] LABS: CREATININE 8.68 mg/dL (0.70-1.30)
--- NOTE | 2019-06-18 20:05 | DI.RAD_ITS ---
EXAM: XR CHEST 2V PA LATERAL INDICATION: epigastric pain, r/o acute disease. COMPARISON: XR CHEST 2V PA LATERAL from 01/18/2019 XR CHEST 1V IN DI DEPT from 06/18/2019 TECHNIQUE: 2D digital imaging was performed. FINDINGS: The heart size is within normal limits as is the pulmonary vasculature. There are diffuse persistent interstitial lung markings present. No focal consolidating infiltrate is seen. There is now some f luid seen in the minor and major fissures. No pneumothorax is identified. The right IJ catheter is stable. Degenerative changes are seen in the spine. IMPRESSION: Mild persistent prominence of the interstitium. Small pleural effusion. This may be due to pulmonar y edema. Infection or chronic fibrosis cannot be excluded.
--- NOTE | 2019-06-18 20:07 | NUR.NOTE ---
2nd visit today for epigastric pain, vomiting. Seen this am for same, DC'd home. Reports woke at 1600 with 9/10 sharp epigastric pain, SOB and vomiting. SR on monitor with PVCs. #20 diffusics to RAC. LS wheezes in right lung, rhonchi to left lung. Pt initially writhing on bed, appears mopre comfortable after compazine and phenergen. HD pt, last HD on 06/16, scheduled tomorrow am for next session.
--- NOTE | 2019-06-18 20:27 | DI.VRAD_ITS ---
PROCEDURE INFORMATION: Exam: XR Chest, 2 Views Exam date and time: 06/18/2019 8:08 PM Age: 53 years old Clinical indication: Patient HX: Epigastric pain; Additional info: R/O acute disease TECHNIQUE: Imaging protocol: XR of the chest Views: 2 views. COMPARISON: XR CHEST 1V IN DI DEPT 06/18/2019 7:32 AM FINDINGS: Tubes, catheters and devices: Right central line ends in the cavoatrial junction. Lungs: Increased interstitial lung markings suggesting edema, infection or fibrotic changes. Pleural space: Unremarkable. No pleural effusion. No pneumothorax. Heart/Mediastinum: Unremarkable. No cardiomegaly. Bones/joints: Unremarkable. IMPRESSION: Increased interstitial lung markings suggesting edema, infection or fibrotic changes. Right central line ends in the cavoatrial junction. Dictated and Authenticated by: Grace Chung MD. Ordering:TRACEY Núñez MD
[2019-06-18 20:48] VITALS: BP 109/65; PULSE 80; RESP 16; O2SAT 95
[2019-06-18 22:20] LABS: Troponin I 0.14 ng/Ml (<0.06)
== END 2019-06-18 21:25 | disposition home or self-care (01) ==
PROVIDERS: Physician Assistant; Emergency Provider Student in an Organized Health Care Education/Training Program; PCP Family Medicine
DX: R09.02 Hypoxemia (principal); J44.9 Chronic obstructive pulmonary disease, unspecified; Z99.81 Dependence on supplemental oxygen; R11.2 Nausea with vomiting, unspecified; R10.13 Epigastric pain; N18.6 End stage renal disease; Z99.2 Dependence on renal dialysis
CPT/HCPCS: 36415; 80053; 83690; 93005; 96374; 96375; 99285; 71046; 83605; 83735; 84484; 85025; 93010; 99284; J0780

== ENCOUNTER 2019-07-10 11:38 | Emergency (ER) | payer MEDICAID, SELFPAY ==
[2019-07-10] VITALS (57 sets, daily range): BP systolic 131–170; BP diastolic 86–122; PULSE 82–142; RESP 11–37; TEMP 35.2–36; O2SAT 83–100
[2019-07-10] MEDS: Ondansetron 4 MG/2 ML VIAL (12:04)
[2019-07-10 12:28] LABS: Abs Immature Grans 0.04 k/cumm (0.0-0.09); Absolute Basophil Count 0.09 k/cumm (0.0-0.2); Absolute Neutrophil Count 10.54 k/cumm (1.2-6.7); Basophils % 0.7; Eosinophils % 1.6; HCT 36.6 % (40.0-50.0); Immature Grans % 0.3 %; Lymphocytes % 7.4; Mean Corp. HGB Concentration 32.8 g/dL (32.0-36.0); Mean Corpuscular Hemoglobin 30.8 pg (27.0-33.0); Mean Corpuscular Volume 93.8 fL (80-95); Mean Platelet Volume 11.4 fL (8.0-11.0); Monocytes % 6.6; Neutrophils % 83.4; Platelet Count 285 x1000/uL (130-400); RBC Distribution Width 16.6 % (11.8-14.1); White Blood Cell Count 12.64 k/cumm (4.4-10.8)
--- NOTE | 2019-07-10 12:29 | W.ED.GENAD ---
Discharge Plan Disposition Patient Disposition: HOME Condition: Improving Discharge Details Chief Complaint: Nausea/Vomit/Diar Clinical Impression: Nausea and vomiting, Pneumonia Primary Care Provider: Gee Luke ED Provider: Niya Jarrett Home Meds and New Rx's Prescriptions: New amoxicillin-pot clavulanate [Augmentin] 875-125 mg tablet 1 tab PO BID 9 Days Qty: 18 RF: 0 prochlorperazine maleate [Compazine] 10 mg tablet 10 mg PO TID PRN (Reason: nausea and vomiting) Qty: 7 RF: 0 Continued ferrous sulfate 325 mg (65 mg iron) tablet 325 mg PO DAILY Qty: 45 RF: 3 atorvastatin 80 mg tablet 80 mg PO DAILY Qty: 90 RF: 3 Nephrocaps 1 mg capsule 1 cap PO DAILY Qty: 90 RF: 3 furosemide 80 mg tablet 80 mg PO BID RF: 0 fluoxetine 40 mg capsule 40 mg PO DAILY RF: 0 hydrocodone-acetaminophen 10-325 mg tablet 1 tab PO Q8H MDD 30 mg hydrocodone PRN (Reason: breakthrough pain) Qty: 15 RF: 0 (DME) oxygen concentrater Qty: 1 RF: 0 gabapentin 300 mg capsule 300 mg PO .3x/week RF: 0 ipratropium-albuterol 0.5 mg-3 mg(2.5 mg base)/3 mL solution for nebulization 3 ml IH .4-6h PRNRF: 0 metoprolol succinate [Toprol XL] 25 mg tablet extended release 24 hr 25 mg PO BID Qty: 180 RF: 3 albuterol sulfate [ProAir HFA] 8.5 GM HFA aerosol inhaler 1 puff Inhalation Q4H PRN 30 Days Qty: 1 RF: 11 Spiriva with HandiHaler 18 mcg capsule, w/inhalation device 1 cap IH DAILY RF: 0 aspirin [Adult Low Dose Aspirin] 81 mg tablet,delayed release (DR/EC) 81 mg PO DAILY RF: 0 (DME) titration testing Qty: 1 RF: 0 Symbicort 160-4.5 mcg/actuation HFA aerosol inhaler 2 puff IH BID RF: 0 ondansetron HCl 4 mg tablet 4 mg PO Q8H PRNRF: 0 sevelamer carbonate [Renvela] 800 mg tablet 1,600 mg PO TID RF: 0 pantoprazole 40 mg tablet,delayed release (DR/EC) 40 mg PO BID RF: 0 polyethylene glycol 3350 [Miralax] 17 gram powder in packet 17 gm PO DAILY PRN (Reason: constipation) Qty: 30 RF: 0 nitroglycerin 0.3 mg Tablet, Sublingual 0.3 mg Sublingual Q5M PRNRF: 0 clonazepam 0.5 mg Tablet 0.25 mg PO BID RF: 0 promethazine 12.5 mg tablet 12.5 mg PO Q6H PRN (Reason: nausea and vomiting) Qty: 10 RF: 0 Discharge Instructions Instructions: Acute Nausea and Vomiting (ED), Pneumonia (ED) Additional Instructions: Take the antibiotics until finished. Use your inhaler as needed and directed. Take your Zofran or Phenergan that you have at home, or the Compazine as needed directed for nausea and vomiting. Follow-up with your appointments with your doctors this week. Return to the emergency department if you develop any worsening or new concerning symptoms. Discharge Data Discharge Date/Time-TO BE ENTERED AT DEPARTURE: 07/10/19 17:35 Discharge Physician: Niya Jarrett Medical Decision Making 1150 -- 53-year-old male with a history of atrial fibrillation, CHF, end-stage renal disease on dialysis, morbid obesity, previous STEMI and cardiac arrest with coronary stents who is one-week status post peritoneal dialysis catheter placement and subsequent ICD placement at [facility] presents for vomiting for the past 3 hours. Patient has been seen here multiple times in the past for vomiting. He smokes marijuana daily. He states he usually does not need a trigger for his vomiting and this feels similar to his previous episodes. Patient was seen here multiple times last month for similar episode. He states the vomitus is mainly phlegm and clear. His last completed dialysis session through his tunneled catheter was yesterday. He states they plan on starting to use his PD catheter on July 25. EKG notes a rate of 85, sinus, PVCs. There is no significant change from previous EKG. [facility] records noted patient had laparoscopic PD cath placed 06/27/2019 and had an episode of wide-complex tachycardia during procedure and cardiology was consulted and he had an ICD placed on 06/28/2019 at [facility]. 1445 --labs reviewed and unremarkable. Creatinine better than baseline. Troponin negative. Lipase negative. Chest x-ray notes mild opacities in the lower lobes which may represent atelectasis or pneumonia. Patient also later admitted to a cough since yesterday. Will treat for possible pneumonia. Patient was able to tolerate ice chips and denies any further nausea or vomiting. Repeat EKG notes a rate of 85, sinus, PVCs and no acute change from previous. Second troponin negative. Patient given a neb treatment and a dose of Augmentin. Patient feels good to go home. He has an appointment with his doctors 2 days this week. Usual and customary return precautions given prior to discharge. Medical Records Medical records reviewed: Yes I reviewed the patient's medical records. Imaging Data Radiologic Study: Radiologist's impression: XR Chest, 2 Views Exam date and time: 07/10/2019 1:07 PM Age: 53 years old Clinical indication: Other: Vomiting, R/O acute disease TECHNIQUE: Imaging protocol: XR of the chest Views: 2 views. COMPARISON: CR XR CHEST 2V PA LATERAL 06/18/2019 8:05 PM FINDINGS: Tubes, catheters and devices: Double-lumen catheter terminates in the superior vena cava Lungs: Mild opacities in the lower lobes may represent atelectasis or pneumonia. Pleural space: Unremarkable. No pleural effusion. No pneumothorax. Heart/Mediastinum: Mild cardiomegaly and vascular prominence may represent interstitial edema. Bones/joints: Tubing overlies the spine in the midline. Unknown etiology IMPRESSION: 1. Mild opacities in the lower lobes may represent atelectasis or pneumonia. 2. Mild cardiomegaly and vascular prominence may represent interstitial edema. Lab Data Lab results reviewed: Yes I reviewed the patient's lab results. Labs: Laboratory Tests Range/Units 07/10/19 07/10/19 07/10/19 12:01 12:01 12:01 WBC (4.4-10.8) k/cumm 12.64 H RBC (4.50-6.00) m/cumm 3.90 L Hgb (13.5-17.5) g/dL 12.0 L Hct (40.0-50.0) % 36.6 L MCV (80-95) fL 93.8 MCH (27.0-33.0) pg 30.8 MCHC (32.0-36.0) g/dL 32.8 RDW (11.8-14.1) % 16.6 H Plt Count (130-400) x1000/uL 285 MPV (8.0-11.0) fL 11.4 H Immature Gran % % 0.3 Neutrophils % 83.4 Lymphocytes % 7.4 Monocytes % 6.6 Eosinophils % 1.6 Basophils % 0.7 Absolute Neutrophils (1.2-6.7) k/cumm 10.54 H Absolute Lymphocytes (1.2-3.4) k/cumm 0.94 L Absolute Monocytes (0.11-0.7) k/cumm 0.83 H Absolute Eosinophils (0.0-0.7) k/cumm 0.20 Absolute Basophils (0.0-0.2) k/cumm 0.09 Sodium (136-145) mmol/L 138 Potassium (3.5-5.1) mmol/L 3.6 Chloride (98-107) mmol/L 97 L Carbon Dioxide (21.0-32.0) mmol/L 24.7 Anion Gap (3-11) mmol/L 16.3 H BUN (7-18) mg/dL 22 H Creatinine (0.70-1.30) mg/dL 5.52 H* Estimated GFR/1.73 m2 (mL/min/1.73m2) 10.88 Glucose (74-106) mg/dL 160 H Calcium (8.5-10.1) mg/dL 9.7 Magnesium (1.8-2.4) mg/dL 1.8 Total Bilirubin (0.2-1.0) mg/dL 1.4 H AST (15-37) U/L 13 L ALT (16-63) U/L 8 L Alkaline Phosphatase (46-116) U/L 99 Troponin I (<0.06) ng/Ml < 0.05 Total Protein (6.4-8.2) g/dL 8.3 H Albumin (3.4-5.0) g/dL 3.6 Lipase (73-393) U/L 70 ECG Data Attestation: I personally reviewed and interpreted this ECG (s) as follows: Interpretation: #1 -- Rate of 85, sinus, PVCs. No acute ST elevation or depression. MA 184. QTc 43. QRS 104. #2 -- Rate of 88, sinus, no acute ST elevation or depression. MA 180. QTc 486. QRS 110. HPI General Mode of arrival: ambulatory. Date/Time Provider Initiated Documentation: 07/10/19 11:38. Limitations to Documentation: no limitations. Information obtained by: patient. History of Present Illness 53 year old M presents to the emergency department with the chief complaint of Vomiting, Patient started experiencing this hour(s) (3) and it has been intermittent. Medication improves symptom(s), (No relief with Zofran at home) No exacerbating factors reported . Patient notes nausea/vomiting; denies chest pain, cough, diaphoresis, fever/chills, headaches, loss of appetite, malaise, rash, seizure, shortness of breath, syncope and weakness. Patient did receive the following treatments prior to arrival, other (Zofran) Related Data Home Medications Medication Instructions Recorded Confirmed albuterol sulfate [ProAir HFA] 1 puff INHALATION Q4H PRN 30 Days 08/10/17 07/10/19 #1 inhaler tiotropium bromide 18 mcg capsule 1 cap IH DAILY 04/01/18 07/10/19 with inhalation device ferrous sulfate 325 mg (65 mg 325 mg PO DAILY #45 tab 05/31/18 07/10/19 iron) tablet oxygen concentrater #1 ea 07/29/18 07/04/19 aspirin 81 mg tablet,delayed 81 mg PO DAILY 10/13/18 07/10/19 release B complex with C 20-folic acid 1 1 cap PO DAILY #90 cap 10/15/18 07/10/19 mg capsule atorvastatin 80 mg tablet 80 mg PO DAILY #90 tab 10/15/18 07/10/19 titration testing #1 ea 10/22/18 07/04/19 nitroglycerin 0.3 mg SUBLINGUAL Q5M PRN 12/27/18 07/10/19 budesonide-formoterol HFA 160 2 puff IH BID 02/23/19 07/10/19 mcg-4.5 mcg/actuation aerosol inhaler ondansetron HCl 4 mg tablet 4 mg PO Q8H PRN 02/23/19 07/10/19 sevelamer carbonate 800 mg tablet 1,600 mg PO TID tab 02/25/19 07/10/19 pantoprazole 40 mg tablet,delayed 40 mg PO BID tab 03/22/19 07/10/19 release gabapentin 300 mg capsule 300 mg PO .3x/week cap 03/28/19 07/10/19 ipratropium 0.5 mg-albuterol 3 mg 3 ml IH .4-6h PRN ml 03/28/19 07/10/19 (2.5 mg base)/3 mL nebulization soln metoprolol succinate 25 mg 25 mg PO BID #180 tab 03/28/19 07/10/19 tablet,extended release 24 hr furosemide 80 mg tablet 80 mg PO BID tab 04/29/19 07/10/19 clonazepam 0.25 mg PO BID 06/18/19 07/10/19 promethazine 12.5 mg PO Q6H PRN #10 tab 06/18/19 07/10/19 fluoxetine 40 mg capsule 40 mg PO DAILY 07/04/19 07/10/19 hydrocodone 10 mg-acetaminophen 1 tab PO Q8H PRN #15 tab MDD 30 mg 07/04/19 07/10/19 325 mg tablet hydrocodone polyethylene glycol 3350 17 gram 17 gm PO DAILY PRN #30 each 07/05/19 07/10/19 oral powder packet amoxicillin-pot clavulanate 1 tab PO BID 9 Days #18 tab 07/10/19 [Augmentin] prochlorperazine maleate 10 mg PO TID PRN #7 tab 07/10/19 [Compazine] Previous Rx's Medication Instructions Recorded albuterol sulfate [ProAir HFA] 1 puff INHALATION Q4H PRN 30 Days 08/10/17 #1 inhaler ferrous sulfate 325 mg (65 mg 325 mg PO DAILY #45 tab 05/31/18 iron) tablet oxygen concentrater #1 ea 07/29/18 B complex with C 20-folic acid 1 1 cap PO DAILY #90 cap 10/15/18 mg capsule atorvastatin 80 mg tablet 80 mg PO DAILY #90 tab 10/15/18 titration testing #1 ea 10/22/18 metoprolol succinate 25 mg 25 mg PO BID #180 tab 03/28/19 tablet,extended release 24 hr promethazine 12.5 mg PO Q6H PRN #10 tab 06/18/19 hydrocodone 10 mg-acetaminophen 1 tab PO Q8H PRN #15 tab MDD 30 mg 07/04/19 325 mg tablet hydrocodone polyethylene glycol 3350 17 gram 17 gm PO DAILY PRN #30 each 07/05/19 oral powder packet amoxicillin-pot clavulanate 1 tab PO BID 9 Days #18 tab 07/10/19 [Augmentin] prochlorperazine maleate 10 mg PO TID PRN #7 tab 07/10/19 [Compazine] Allergies Allergy/AdvReac Type Severity Reaction Status Date / Time bee venom protein (honey bee) Allergy Severe throat Verified 07/10/19 11:50 swelling aspirin AdvReac Mild bleeding, Verified 07/10/19 11:50 does take small dose daily General Stated Complaint: Nausea/Vomit/Diar JOSEPH: 3 Review of Systems All systems reviewed & are unremarkable except as noted in HPI and below Constitutional Constitutional: Reports as per HPI, Denies chills and Denies fever(s) Eyes Eyes: Denies blurry vision ENT Ears, Nose, Mouth, and Throat: Denies dizziness, Denies sore throat and Denies throat swelling Cardiovascular Cardiovascular: Denies chest pain and Denies dyspnea Respiratory Respiratory: Denies cough and Denies dyspnea Gastrointestinal Gastrointestinal: Denies abdominal pain, Denies diarrhea and Reports vomiting Genitourinary Genitourinary: Denies hematuria and Denies dysuria Musculoskeletal Musculoskeletal: Denies back pain and Denies numbness Integumentary/Breasts Skin/Breast: Denies lesions and Denies rash Neurologic Neurologic: Denies dizziness, Denies focal weakness and Denies numbness Allergic/Immunologic Allergic/Immunologic: Denies throat swelling PFSH Medical History Acute respiratory failure with hypoxia (Resolved) Atrial fibrillation with RVR (Chronic) Chronic CHF (Acute) Dialysis patient (Acute) pertoneal dialysis catheter placement [facility] 06/28/19 End stage chronic kidney disease (Chronic) History of morbid obesity (Acute) Hypotension (Resolved) LLQ abdominal pain (Acute) Palliative care patient (Acute) Pleural effusion, left (Acute) Renal failure (Chronic) STEMI (ST elevation myocardial infarction) (Chronic) Syncope (Chronic) Valvular heart disease (Acute) [place] [employer] (Acute) Surgical History Arthroplasty of knee cardiac catherization (01/01/18) cardiac catherization (01/05/18) echocardiogram (01/06/18) Encounter for gastrojejunal (GJ) tube placement (Acute 02/23/18) Repair of umbilical hernia Stented coronary artery (Chronic) Tonsillectomy and adenoidectomy Social History (Updated 07/04/19 @ 08:38 by Sue Stanford LPN) Smoking/Tobacco Use Status: Former Tobacco Use Tobacco: How many years used: 30 Alcohol Intake: never Drug use: Daily Substance use type: marijuana Caregiver/Support person: Yes Household members: spouse Number of Children: 2 number of grandchildren: 0 Communication Needs: Corrective Lenses Education Level: vocational Do you need help understanding health information?: Always 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, 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 [employer] What is your relationship status?: How often do you talk on the phone with friends or family?: three or more times per week How often do you get together with friends or relatives?: three or more times per week Panel score (0-1 are the most socially isolated patients): 2 What type of physical activity do you participate in: none Duration: < 15 minutes/day Special frandy needs: No Agree to transfusion: Yes Seatbelt use: always Drive intox or ride w/intox fire truck driver: No Working smoke detector in home: Yes Fire extinguisher in home: Yes Carbon monox detector in home: Yes Do you feel safe at home: Yes Do you feel safe in your relationship?: Yes Additional Social history: Lives with , Park and son, BASILIO who is a janice at [employer]. Daughter is out on her own. Was at [facility] 4 times and [facility] once in last year. Hospitalized for total of 125 days from December 2017-December 2018. Trying to be healthy now. Lost 130 lbs in last year. Following strict renal diet. Exam Const General: cooperative, ill appearing chronically and other (Dry heaving at times during exam) [facility] Head: normal to inspection Face and sinus: normal facial exam Mouth: oral mucosae normal Eyes General: appearance normal, both eyes and all related structures EOM: EOM intact bilaterally Neck Neck: normal visual inspection and No submandibular swelling Lymphatic: no lymphadenopathy noted Chest Chest: normal inspection of the chest and no tenderness Other: There is a new wound noted to left lateral chest wall with palpable device subcutaneously Resp Effort & Inspection: normal respiratory effort and able to speak in complete sentences Auscultation: clear to auscultation bilaterally Cardio Rate: regular rate Rhythm: regular rhythm GI Inspection: normal to inspection Palpation: soft, not firm, not rigid and nontender Auscultation: normal bowel sounds Other: There is a peritoneal dialysis catheter in the left lower quadrant. No surrounding signs of cellulitis. Skin General skin exam: no rashes or lesions noted Neuro General: alert, awake and oriented x3 Cognition: normal cognition Speech: speech normal Motor: muscle tone normal throughout Sensory Exam: no sensory deficits noted Extrem General: normal to inspection, full ROM, normal capillary refill, no calf tenderness bilaterally and no edema Psych Appearance: grossly normal Mental Status: mental status grossly normal Speech and Movement: speech and movement normal Affect: normal affect Course Vital Signs Vital signs: Vital Signs Temperature 96.8 F L 07/10/19 11:43 Pulse 92 H 07/10/19 11:43 Respiratory Rate 22 07/10/19 11:43 Blood Pressure 137/89 07/10/19 11:43 Pulse Oximetry 98 07/10/19 11:43 Temperature 96.8 F L 07/10/19 11:43 Temperature Source Temporal Artery Scan 07/10/19 11:43 Pulse 92 H 07/10/19 11:43 Respiratory Rate 22 07/10/19 11:43 Respiratory Effort Non-Labored 07/10/19 11:47 Blood Pressure 137/89 07/10/19 11:43 Pulse Oximetry 98 07/10/19 11:43 Oxygen Delivery Method Room Air 07/10/19 11:43 Oxygen Flow Rate 0 07/10/19 11:43 Pain Level 9 07/10/19 11:43
[2019-07-10 12:34] LABS: Absolute Lymphocyte Count 0.94 k/cumm (1.2-3.4); Absolute Monocyte Count 0.83 k/cumm (0.11-0.7)
[2019-07-10] MEDS: Normal Saline 250 ML IV (12:38)
[2019-07-10 12:40] LABS: Lipase 70 U/L (73-393)
[2019-07-10 12:47] LABS: ALT 8 U/L (16-63); AST 13 U/L (15-37); Albumin 3.6 g/dL (3.4-5.0); Alkaline Phosphatase 99 U/L (46-116); Anion Gap 16.3 mmol/L (3-11); BUN 22 mg/dL (7-18); Bilirubin, Total 1.4 mg/dL (0.2-1.0); CO2 24.7 mmol/L (21.0-32.0); Calcium 9.7 mg/dL (8.5-10.1); Chloride 97 mmol/L (98-107); Estimated GFR 10.88 (mL/min/1.73m2); Glucose 160 mg/dL (74-106); Magnesium 1.8 mg/dL (1.8-2.4); Potassium 3.6 mmol/L (3.5-5.1); Sodium 138 mmol/L (136-145); Total Protein 8.3 g/dL (6.4-8.2)
[2019-07-10 12:50] LABS: CREATININE 5.52 mg/dL (0.70-1.30); Troponin I < 0.05 ng/Ml (<0.06)
--- NOTE | 2019-07-10 13:20 | DI.RAD_ITS ---
EXAM: XR CHEST 2V PA LATERAL CLINICAL HISTORY: vomiting, r/o acute disease TECHNIQUE: COMPARISON: XR CHEST 2V PA LATERAL from 06/18/2019 FINDINGS: The heart is mildly enlarged and appears increased in size from prior study of June 18 2019. T here are mild diffuse intrapulmonary interstitial infiltrates bilaterally. Note is again made of rig ht subclavian indwelling catheter the tip of which lies near the junction of SVC and right atrium. N o pneumothorax. No pleural effusion. IMPRESSION: Findings suggestive of CHF. Other causes of diffuse interstitial edema including infectious process not excluded.
[2019-07-10] MEDS: MORPHine 10 MG/ML VIAL (13:57)
--- NOTE | 2019-07-10 14:07 | DI.VRAD_ITS ---
PROCEDURE INFORMATION: Exam: XR Chest, 2 Views Exam date and time: 07/10/2019 1:07 PM Age: 53 years old Clinical indication: Other: Vomiting, R/O acute disease TECHNIQUE: Imaging protocol: XR of the chest Views: 2 views. COMPARISON: CR XR CHEST 2V PA LATERAL 06/18/2019 8:05 PM FINDINGS: Tubes, catheters and devices: Double-lumen catheter terminates in the superior vena cava Lungs: Mild opacities in the lower lobes may represent atelectasis or pneumonia. Pleural space: Unremarkable. No pleural effusion. No pneumothorax. Heart/Mediastinum: Mild cardiomegaly and vascular prominence may represent interstitial edema. Bones/joints: Tubing overlies the spine in the midline. Unknown etiology IMPRESSION: 1. Mild opacities in the lower lobes may represent atelectasis or pneumonia. 2. Mild cardiomegaly and vascular prominence may represent interstitial edema. Dictated and Authenticated by: Elo May MD. Ordering:TRACEY Núñez MD
[2019-07-10 15:42] LABS: Troponin I < 0.05 ng/Ml (<0.06)
[2019-07-10] MEDS: Prochlorperazine 10 MG TAB 20 MG PO (16:26)
[2019-07-10] MEDS: Albuterol/Ipratropium 3 ML UPD VIAL UPD (16:26)
[2019-07-10] MEDS: Amoxicillin 875/Clav. 125 TAB PO (16:26)
[2019-07-10] MEDS: Prochlorperazine 10 MG/2 ML VIAL IVP (16:27)
[2019-07-10] MEDS: Amox. 875/Clav. 125, 2 TABS/BTL 1 TAB PO (16:27)
== END 2019-07-10 17:35 | disposition home or self-care (01) ==
PROVIDERS: Emergency Provider Physician Assistant; PCP Family Medicine
DX: R11.2 Nausea with vomiting, unspecified (principal); J18.9 Pneumonia, unspecified organism; N18.6 End stage renal disease; Z99.2 Dependence on renal dialysis
CPT/HCPCS: 36415; 80053; 83690; 93005; 94640; 96365; 96375; 96376; 99285; 71046; 83735; 84484; 85025; 93010; J0780; J2270; J2405; J7620

== ENCOUNTER 2019-07-15 17:38 | Emergency (ER) | payer MEDICAID, SELFPAY ==
[2019-07-15] VITALS (20 sets, daily range): BP systolic 132–164; BP diastolic 87–102; PULSE 61–101; RESP 2–28; TEMP 35.3; O2SAT 90–100
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
[2019-07-15 18:28] LABS: Abs Immature Grans 0.04 k/cumm (0.0-0.09); Absolute Eosinophil Count 0.54 k/cumm (0.0-0.7); Absolute Lymphocyte Count 2.42 k/cumm (1.2-3.4); Absolute Monocyte Count 1.43 k/cumm (0.11-0.7); Basophils % 1.1; Eosinophils % 4.7; HCT 36.1 % (40.0-50.0); HGB 11.5 g/dL (13.5-17.5); Immature Grans % 0.4 %; Lymphocytes % 21.2; Mean Corp. HGB Concentration 31.9 g/dL (32.0-36.0); Mean Corpuscular Hemoglobin 30.4 pg (27.0-33.0); Mean Corpuscular Volume 95.5 fL (80-95); Mean Platelet Volume 10.8 fL (8.0-11.0); Monocytes % 12.5; Neutrophils % 60.1; Platelet Count 295 x1000/uL (130-400); RBC 3.78 m/cumm (4.50-6.00); RBC Distribution Width 17.9 % (11.8-14.1); White Blood Cell Count 11.42 k/cumm (4.4-10.8)
[2019-07-15 18:32] LABS: Absolute Basophil Count 0.13 k/cumm (0.0-0.2); Absolute Neutrophil Count 6.86 k/cumm (1.2-6.7)
[2019-07-15] MEDS: HYDROmorphone 2 MG/ML VIAL IVP (18:37)
[2019-07-15] MEDS: Normal Saline 1,000 ML 1000 ML IV (18:38)
[2019-07-15 18:50] LABS: ALT 11 U/L (16-63); AST 15 U/L (15-37); Albumin 3.4 g/dL (3.4-5.0); Alkaline Phosphatase 94 U/L (46-116); Anion Gap 14.7 mmol/L (3-11); BUN 24 mg/dL (7-18); Bilirubin, Total 0.8 mg/dL (0.2-1.0); CO2 24.3 mmol/L (21.0-32.0); Calcium 8.6 mg/dL (8.5-10.1); Chloride 100 mmol/L (98-107); Glucose 124 mg/dL (74-106); Lipase 76 U/L (73-393); Magnesium 1.8 mg/dL (1.8-2.4); Potassium 3.4 mmol/L (3.5-5.1); Sodium 139 mmol/L (136-145); Total Protein 7.9 g/dL (6.4-8.2)
[2019-07-15 18:52] LABS: CREATININE 5.84 mg/dL (0.70-1.30); Troponin I < 0.05 ng/Ml (<0.06)
[2019-07-15] MEDS: Omnipaque 350 MG/ML 100 ML BTL IJ (19:33)
--- NOTE | 2019-07-15 19:34 | DI.CT_ITS ---
EXAM: CT ABDOMEN PELVIS W CLINICAL HISTORY: recent pancreatitis with severe recurrent pain TECHNIQUE: Post IV contrast. Without oral contrast. COMPARISON: CT ABDOMEN PELVIS WO from 02/17/2019 CT ABDOMEN PELVIS WO from 06/18/2019 XR CHEST 2V PA LATERAL from 07/10/2019 FINDINGS: The exam is somewhat limited by patient motion. The contrast opacification is suboptimal. A peritoneal dialysis catheter is now seen. There is a small amount of fluid in the subcutaneous fat around the catheter which may be within normal limits if the catheter was recently placed. There ar e small bilateral pleural effusions, unchanged. Mild pulmonary edema is visible at the lung bases. The heart is enlarged. No pericardial effusion is seen. The liver shows somewhat mottled attenuatio n likely representing hepatic venous congestion. There is question of stranding around the tail of t he pancreas. There is motion at this area. The splenic vein shows a diminished caliber. Collateral s are seen. The findings appear unchanged. The adrenals, spleen, kidneys and gallbladder are unrema rkable. The aorta shows calcification but is normal in diameter. The bladder and prostate are unrem arkable. There is no bowel dilatation or inflammatory change. IMPRESSION: Limited exam due to motion and poor contrast opacification. There is a question of inflammation arou nd the tail of the pancreas. A peritoneal dialysis catheter is seen with some stranding in the subcu taneous fat which may be within normal limits post catheter placement. Evidence of fluid overload wi th small bilateral effusions and passive venous congestion.
[2019-07-15] MEDS: HYDROmorphone 2 MG/ML VIAL ×2 (19:55→21:21)
--- NOTE | 2019-07-15 20:01 | DI.VRAD_ITS ---
PROCEDURE INFORMATION: Exam: CT Abdomen And Pelvis With Contrast Exam date and time: 07/15/2019 7:29 PM Age: 53 years old Clinical indication: Abdominal pain; Patient HX: Recent pancreatitis with severe recurrent pain, R/O abcess TECHNIQUE: Imaging protocol: Computed tomography of the abdomen and pelvis with intravenous contrast. Radiation optimization: All CT scans at this facility use at least one of these dose optimization techniques: automated exposure control; mA and/or kV adjustment per patient size (includes targeted exams where dose is matched to clinical indication); or iterative reconstruction. Contrast material: [id number]; Contrast volume: 80 ml; Contrast route: IV LEFT HAND 22G; COMPARISON: CT ABDOMEN PELVIS WO 06/18/2019 8:51 AM FINDINGS: Tubes, catheters and devices: There is an intraperitoneal catheter inserted via the left lower quadrant approach. This most likely represents a dialysis catheter. Lungs: There is interlobular septal thickening and ground-glass opacities at the bilateral lung bases, compatible with interstitial and airspace pulmonary edema. Pleural space: Small bilateral layering pleural effusions are present. Liver: There is marked enlargement of the liver. There is mild distension and heterogeneity to the hepatic parenchyma with a slightly lobulated liver contour, concerning for underlying hepatocellular disease versus passive hepatic congestion. Gallbladder and bile ducts: Normal. No calcified stones. No ductal dilation. Pancreas: There is focal engorgement of the pancreatic tail with associated peripancreatic fat stranding. Remainder of the pancreas appears unremarkable. There is diffuse, benign fatty infiltration of the pancreas. No peripancreatic fluid collections. Spleen: Normal. No splenomegaly. Adrenals: Normal. No mass. Kidneys and ureters: Punctate nonobstructive right nephrolithiasis is suggested. No acute renal findings. No obstructive uropathy. Stomach and bowel: There is no evidence of intestinal perforation or obstruction. There is mildly excessive colonic stool content. Appendix: No evidence of appendicitis. Intraperitoneal space: Unremarkable. No free air. No significant fluid collection. Vasculature: There is recanalization of the umbilical vein. Perigastric and perisplenic varices are appreciated. There is splenic vein thrombosis. Lymph nodes: Unremarkable. No enlarged lymph nodes. Bladder: Unremarkable as visualized. Reproductive: Unremarkable as visualized. Bones/joints: No acute abnormality or aggressive osseous lesion. Soft tissues: There is a 3.6 cm x 2.1 cm x 3.5 cm fluid collection at the catheter insertion site abutting the directly on the left rectus abdominus muscle. This could represent a post insertion collection versus a developing abscess in the appropriate clinical setting. Fat containing umbilical hernia is appreciated. IMPRESSION: 1. Acute focal pancreatitis involving the pancreatic tail. No peripancreatic fluid collections or pancreatic abscess is appreciated at this time. No evidence of pancreatic necrosis. 2. Liver findings concerning for passive hepatic congestion versus underlying hepatocellular disease. Correlation with pertinent labs is recommended. 3. 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 A component of portal hypertension may also be present. 4. Volume overload, as manifested by interstitial and airspace pulmonary edema, and bilateral pleural effusions. 5. Patient is presumably receiving peritoneal dialysis with an intraperitoneal dialysis catheter appreciated inserted via the left lower quadrant approach. 6. 3.6 cm fluid collection at the catheter insertion site, abutting on the left rectus abdominus muscle which could represent a post insertion collection versus a developing abscess in the appropriate clinical setting. 7. Other chronic/incidental findings as detailed above. Dictated and Authenticated by: Jaydon Wheeler MD. Ordering:LEIF Gregory MD
[2019-07-15 21:02] LABS: Triglyceride 174 mg/dL (<150)
--- NOTE | 2019-07-15 21:07 | DI.RAD_ITS ---
EXAM: XR PORTABLE CHEST AP INDICATION: SOB. COMPARISON: No exams were available for comparison TECHNIQUE: 2D digital imaging was performed. FINDINGS: There is no change in the right subclavian central venous catheter. There has been interval worsenin g of bilateral diffuse airspace infiltrates. No effusions are visible. There is fluid in the minor fissure. Subcutaneous ICD is again noted. The cardiac silhouette is unchanged. . IMPRESSION: Interval worsening of diffuse airspace infiltrates.
[2019-07-15] MEDS: Furosemide 100 MG/10 ML VIAL 80 MG IVP ×2 (21:17→21:20)
--- NOTE | 2019-07-15 21:26 | DI.VRAD_ITS ---
PROCEDURE INFORMATION: Exam: XR Chest, 1 View Exam date and time: 07/15/2019 9:11 PM Age: 53 years old Clinical indication: Shortness of breath TECHNIQUE: Imaging protocol: XR of the chest Views: 1 view. COMPARISON: CR XR CHEST 2V PA LATERAL 07/10/2019 1:04 PM FINDINGS: Tubes, catheters and devices: Right subclavian central venous catheter with tip in the cavoatrial junction. Lungs: Worsening in diffuse patchy and ground-glass airspace opacities are seen throughout the lungs. Diffuse interstitial prominence and segmental bronchial wall thickening. Pleural space: Thickening of the right minor fissure compatible with a small layering pleural effusion. Costophrenic angles are grossly clear. Heart/Mediastinum: Unremarkable. No cardiomegaly. Bones/joints: No acute abnormality or aggressive osseous lesion. Soft tissues: Subcutaneous ICD is again appreciated, in stable position. IMPRESSION: 1. Main diagnostic consideration is that of worsening diffuse pulmonary interstitial and airspace edema with a small right pleural effusion also appreciated. Superimposed infectious pneumonic process should be entertained in the appropriate clinical setting. 2. Chest devices remain in place, as detailed above. Dictated and Authenticated by: Jaydon Wheeler MD. Ordering:LEIF Gregory MD
[2019-07-15] MEDS: Albuterol/Ipratropium 3 ML UPD VIAL (21:50)
[2019-07-15 22:33] LABS: Lactate 1.1 mmol/L (0.6-1.4)
[2019-07-15] MEDS: HYDROmorphone 2 MG/ML VIAL 1 MG IVP (22:34)
[2019-07-15 22:50] LABS: Troponin I < 0.05 ng/Ml (<0.06)
== END 2019-07-15 23:05 | disposition short-term general hospital (02) ==
PROVIDERS: Emergency Provider Physician Assistant; PCP Family Medicine
DX: K85.90 Acute pancreatitis without necrosis or infection, unspecified (principal); N18.6 End stage renal disease; Z99.2 Dependence on renal dialysis; I50.9 Heart failure, unspecified; R10.13 Epigastric pain; R10.12 Left upper quadrant pain; R09.02 Hypoxemia; J44.9 Chronic obstructive pulmonary disease, unspecified; Z87.891 Personal history of nicotine dependence
CPT/HCPCS: 36410; 36415; 80053; 83690; 87040; 93005; 94640; 96361; 96365; 96366; 96375; 96376; 99285; 71045; 74177; 83605; 83735; 84478; 84484; 85025; 93010; J1940; J3490; J7620

== ENCOUNTER 2019-08-19 07:21 | Outpatient (CLI) | payer MEDICAID, SELFPAY ==
--- NOTE | 2019-08-19 11:45 | DI.RAD_ITS ---
EXAM: XR ABDOMEN FLAT LATERAL INDICATION: END-STAGE RENAL DISEASE, N18.6, POSITION OF PD CATHETER(FRONT SIDE VIEWS). COMPARISON: CT ABDOMEN PELVIS W from 07/15/2019 TECHNIQUE: 2D digital imaging was performed. FINDINGS: A peritoneal dialysis catheter it is seen. It there is tubing external to the patient is seen in ov erlying the soft tissues of the left lower quadrant. The intra peritoneal coiled portion of the tube is located low in the pelvis and appears to lie above the bladder. The bowel gas pattern appears no rmal. IMPRESSION: Peritoneal dialysis catheter is positioned in the low pelvis. DATA REPOSITORY: RADIATION DOSE DELIVERED:
== END 2019-08-19 07:41 ==
PROVIDERS: PCP Family Medicine; Visit Provider Internal Medicine
DX: N18.6 End stage renal disease (principal); Z99.2 Dependence on renal dialysis; Z49.02 Encounter for fitting and adjustment of peritoneal dialysis catheter
CPT/HCPCS: 74019

== ENCOUNTER 2019-08-30 04:48 | Emergency (ER) | payer MEDICAID, SELFPAY ==
[2019-08-30 04:48] VITALS: BP 124/85; PULSE 76; RESP 24; TEMP 36.1
--- NOTE | 2019-08-30 04:58 | W.ED.GENAD ---
Discharge Plan Disposition Patient Disposition: HOME Condition: Stable Discharge Details Chief Complaint: Abd Prob Clinical Impression: Nausea and vomiting Primary Care Provider: Gee Luke ED Provider: Simon Garcia [place] Meds and New Rx's Prescriptions: New metoclopramide HCl [Reglan] 10 mg tablet 10 mg PO Q6H PRN (Reason: nausea and vomiting) Qty: 30 RF: 0 Continued ferrous sulfate 325 mg (65 mg iron) tablet 325 mg PO DAILY Qty: 45 RF: 3 atorvastatin 80 mg tablet 80 mg PO DAILY Qty: 90 RF: 3 Nephrocaps 1 mg capsule 1 cap PO DAILY Qty: 90 RF: 3 furosemide 80 mg tablet 80 mg PO BID RF: 0 fluoxetine 40 mg capsule 40 mg PO DAILY RF: 0 (DME) oxygen concentrater Qty: 1 RF: 0 gabapentin 300 mg capsule 300 mg PO .3x/week RF: 0 ipratropium-albuterol 0.5 mg-3 mg(2.5 mg base)/3 mL solution for nebulization 3 ml IH .4-6h PRNRF: 0 metoprolol succinate [Toprol XL] 25 mg tablet extended release 24 hr 25 mg PO BID Qty: 180 RF: 3 albuterol sulfate [ProAir HFA] 8.5 GM HFA aerosol inhaler 1 puff Inhalation Q4H PRN 30 Days Qty: 1 RF: 11 Spiriva with HandiHaler 18 mcg capsule, w/inhalation device 1 cap IH DAILY RF: 0 aspirin [Adult Low Dose Aspirin] 81 mg tablet,delayed release (DR/EC) 81 mg PO DAILY RF: 0 (DME) titration testing Qty: 1 RF: 0 budesonide-formoterol [Symbicort] 160-4.5 mcg/actuation HFA aerosol inhaler 2 puff IH BID RF: 0 ondansetron HCl 4 mg tablet 4 mg PO Q8H PRNRF: 0 sevelamer carbonate [Renvela] 800 mg tablet 1,600 mg PO TID RF: 0 pantoprazole 40 mg tablet,delayed release (DR/EC) 40 mg PO BID RF: 0 prochlorperazine maleate [Compazine] 10 mg tablet 10 mg PO Q6H PRN (Reason: nausea and vomiting) Qty: 30 RF: 0 nitroglycerin 0.3 mg Tablet, Sublingual 0.3 mg Sublingual Q5M PRNRF: 0 acetaminophen 325 mg Tablet 650 mg PO ONCE PRNRF: 0 Discharge Instructions Instructions: Acute Nausea and Vomiting (ED) Additional Instructions: follow up with your primary care provider within 1 week if you have persistent vomit despite the medication, worsening pain or fevers return to the emergency department Medical Decision Making 53 yo male with hx of ESRD on dialysis T//Thu, CAD, afib not on anticoagulation, mitral regurgitation, icd, nina, copd, who has recurrent episodes of abdominal pain with nausea and vomit of unclear etiology comes in with nonbilious nonbloody vomit and left upper abdominal pain since midnight similar to prior episodes. He was seen here in June and had a ct showing possible pancreatitis though lipase was normal. He developed flash pulmonary edema and was transferred to the [facility]. He improved clinically, did have pain and nausea/vomit during most of his stay there. He was seen by GI and felt it was likely functional dyspepsia vs musculoskeletal pain. HE had been doing well until midnight when symptoms returned and he called ems. Denies fevers, chills, chest pain. He did run out of his reglan 10 days ago. HE has a soft abdomen with tenderness but no guarding in luq. I suspect this is another episode similar to his prior episodes and is likely multifactorial including dyspepsia and could also be psychosomatic. Will tx with reglan and also evaluate for hepatitis, pancreatitis and monitor. Discussed pros and cons of additional CT and shared decision making was made to hold on CT at this time and see if he improves with medicaiton. labs show no acute abnormalities. He now has no pain or nausea and no tenderness on exam. He is tolerating PO and is requesting d/c. Will refill his reglan and advised f/u with pcp and return precautions given Differential Diagnosis Differential Diagnosis: pancreatitis, hepatitis, functional dyspepsia Medical Records Medical records reviewed: Yes I reviewed the patient's medical records. Lab Data Lab results reviewed: Yes I reviewed the patient's lab results. ECG Data Attestation: I personally reviewed and interpreted this ECG (s) as follows: Prior ECG tracings: not available for review Interpretation: sinus rhythm, rate of 75, qtc 482 HPI General Mode of arrival: EMS. Date/Time Provider Initiated Documentation: 08/30/19 04:53. Limitations to Documentation: no limitations. Information obtained by: patient. History of Present Illness 53 year old M presents to the emergency department with the chief complaint of nausea, vomit, abdominal pain, described as moderate, and it has been constant. No relieving factors improve symptom(s), No exacerbating factors reported . Patient did receive the following treatments prior to arrival, none Related Data Home Medications Medication Instructions Recorded Confirmed albuterol sulfate [ProAir HFA] 1 puff INHALATION Q4H PRN 30 Days 08/10/17 08/30/19 #1 inhaler tiotropium bromide 18 mcg capsule 1 cap IH DAILY 04/01/18 08/30/19 with inhalation device ferrous sulfate 325 mg (65 mg 325 mg PO DAILY #45 tab 05/31/18 08/30/19 iron) tablet oxygen concentrater #1 ea 07/29/18 08/01/19 aspirin 81 mg tablet,delayed 81 mg PO DAILY 10/13/18 08/30/19 release B complex with C 20-folic acid 1 1 cap PO DAILY #90 cap 10/15/18 08/30/19 mg capsule atorvastatin 80 mg tablet 80 mg PO DAILY #90 tab 10/15/18 08/30/19 titration testing #1 ea 10/22/18 08/01/19 nitroglycerin 0.3 mg SUBLINGUAL Q5M PRN 12/27/18 08/30/19 budesonide-formoterol HFA 160 2 puff IH BID 02/23/19 08/30/19 mcg-4.5 mcg/actuation aerosol inhaler ondansetron HCl 4 mg tablet 4 mg PO Q8H PRN 02/23/19 08/30/19 sevelamer carbonate 800 mg tablet 1,600 mg PO TID tab 02/25/19 08/30/19 pantoprazole 40 mg tablet,delayed 40 mg PO BID tab 03/22/19 08/30/19 release gabapentin 300 mg capsule 300 mg PO .3x/week cap 03/28/19 08/30/19 ipratropium 0.5 mg-albuterol 3 mg 3 ml IH .4-6h PRN ml 03/28/19 08/30/19 (2.5 mg base)/3 mL nebulization soln metoprolol succinate 25 mg 25 mg PO BID #180 tab 03/28/19 08/30/19 tablet,extended release 24 hr furosemide 80 mg tablet 80 mg PO BID tab 04/29/19 08/30/19 fluoxetine 40 mg capsule 40 mg PO DAILY 07/04/19 08/30/19 acetaminophen 650 mg PO ONCE PRN 07/15/19 08/30/19 prochlorperazine maleate 10 mg 10 mg PO Q6H PRN #30 tab 08/09/19 08/30/19 tablet metoclopramide HCl [Reglan] 10 mg PO Q6H PRN #30 tab 08/30/19 Previous Rx's Medication Instructions Recorded albuterol sulfate [ProAir HFA] 1 puff INHALATION Q4H PRN 30 Days 08/10/17 #1 inhaler ferrous sulfate 325 mg (65 mg 325 mg PO DAILY #45 tab 05/31/18 iron) tablet oxygen concentrater #1 ea 07/29/18 B complex with C 20-folic acid 1 1 cap PO DAILY #90 cap 10/15/18 mg capsule atorvastatin 80 mg tablet 80 mg PO DAILY #90 tab 10/15/18 titration testing #1 ea 10/22/18 metoprolol succinate 25 mg 25 mg PO BID #180 tab 03/28/19 tablet,extended release 24 hr prochlorperazine maleate 10 mg 10 mg PO Q6H PRN #30 tab 08/09/19 tablet metoclopramide HCl [Reglan] 10 mg PO Q6H PRN #30 tab 08/30/19 Allergies Allergy/AdvReac Type Severity Reaction Status Date / Time bee venom protein (honey bee) Allergy Severe throat Verified 08/01/19 15:43 swelling aspirin AdvReac Mild bleeding, Verified 08/01/19 15:43 does take small dose daily General Stated Complaint: Abd Prob JOSEPH: 3 Review of Systems All systems reviewed & are unremarkable except as noted in HPI and below Constitutional Constitutional: Denies chills, Denies fever(s) and Denies weakness Cardiovascular Cardiovascular: Denies chest pain and Denies dyspnea Respiratory Respiratory: Denies cough and Denies dyspnea Musculoskeletal Musculoskeletal: Denies joint swelling Neurologic Neurologic: Denies weakness Allergic/Immunologic Allergic/Immunologic: Denies urticaria [facility] Social History (Updated 08/01/19 @ 15:56 by Sue Stanford LPN) Smoking/Tobacco Use Status: Former Tobacco Use Tobacco: How many years used: 30 Alcohol Intake: never Drug use: Daily Substance use type: marijuana Caregiver/Support person: Yes Household members: spouse Number of Children: 2 number of grandchildren: 0 Communication Needs: Corrective Lenses Education Level: vocational Do you need help understanding health information?: Always 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, 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 [employer] What is your relationship status?: How often do you talk on the phone with friends or family?: three or more times per week How often do you get together with friends or relatives?: three or more times per week Panel score (0-1 are the most socially isolated patients): 2 What type of physical activity do you participate in: none Duration: < 15 minutes/day Special frandy needs: No Agree to transfusion: Yes Seatbelt use: always Drive intox or ride w/intox garbage collector driver: No Water heater temp set <120 deg: Yes Working smoke detector in home: Yes Fire extinguisher in home: Yes Carbon monox detector in home: Yes Do you feel safe at home: Yes Do you feel safe in your relationship?: Yes Additional Social history: Lives with , Park and son, BASILIO who is a janice at [employer]. Daughter is out on her own. Was at [facility] 4 times and [place] once in last year. Hospitalized for total of 125 days from December 2017-December 2018. Trying to be healthy now. Lost 130 lbs in last year. Following strict renal diet. Exam Const General: no acute distress Orientation: alert [facility] Head: normal to inspection Ears: external ears normal General nose exam: external nose normal Mouth: moist mucous membranes Eyes General: appearance normal, both eyes and all related structures Neck Neck: normal visual inspection Resp Effort & Inspection: normal respiratory effort and able to speak in complete sentences Cardio Rate: regular rate GI Palpation: soft and not rigid Skin General skin exam: no rashes or lesions noted Neuro General: alert and oriented x3 Extrem General: normal to inspection Psych Mental Status: mental status grossly normal Course Vital Signs Vital signs: Vital Signs Temperature 36.1 C L 08/30/19 04:48 Pulse 76 08/30/19 04:48 Respiratory Rate 24 08/30/19 04:48 Blood Pressure 124/85 08/30/19 04:48 Temperature 36.1 C L 08/30/19 04:48 Pulse 76 08/30/19 04:48 Respiratory Rate 24 08/30/19 04:48 Blood Pressure 124/85 08/30/19 04:48 Oxygen Delivery Method Room Air 08/30/19 04:48 Oxygen Flow Rate 0 08/30/19 04:48
[2019-08-30 05:09] LABS: Abs Immature Grans 0.04 k/cumm (0.0-0.09); Absolute Basophil Count 0.08 k/cumm (0.0-0.2); Absolute Eosinophil Count 0.31 k/cumm (0.0-0.7); Absolute Lymphocyte Count 1.26 k/cumm (1.2-3.4); Absolute Monocyte Count 0.91 k/cumm (0.11-0.7); Absolute Neutrophil Count 6.02 k/cumm (1.2-6.7); Basophils % 0.9; Eosinophils % 3.6; HCT 35.7 % (40.0-50.0); HGB 11.6 g/dL (13.5-17.5); Immature Grans % 0.5 %; Lymphocytes % 14.6; Mean Corp. HGB Concentration 32.5 g/dL (32.0-36.0); Mean Corpuscular Hemoglobin 31.5 pg (27.0-33.0); Mean Platelet Volume 10.4 fL (8.0-11.0); Monocytes % 10.6; Neutrophils % 69.8; Platelet Count 305 x1000/uL (130-400); RBC 3.68 m/cumm (4.50-6.00); RBC Distribution Width 17.2 % (11.8-14.1); White Blood Cell Count 8.62 k/cumm (4.4-10.8)
[2019-08-30] MEDS: HYDROmorphone 2 MG/ML VIAL 1 MG IVP (05:10)
[2019-08-30] MEDS: Metoclopramide 10 MG/2 ML VIAL IVP (05:12)
[2019-08-30 05:24] LABS: ALT 22 U/L (16-63); AST 22 U/L (15-37); Albumin 3.1 g/dL (3.4-5.0); Alkaline Phosphatase 99 U/L (46-116); Anion Gap 15.6 mmol/L (3-11); BUN 34 mg/dL (7-18); Bilirubin, Total 2.2 mg/dL (0.2-1.0); CO2 23.4 mmol/L (21.0-32.0); Calcium 8.8 mg/dL (8.5-10.1); Chloride 99 mmol/L (98-107); Estimated GFR 9.89 (mL/min/1.73m2); Glucose 102 mg/dL (74-106); Lipase 114 U/L (73-393); Magnesium 1.8 mg/dL (1.8-2.4); Potassium 4.1 mmol/L (3.5-5.1); Sodium 138 mmol/L (136-145); Total Protein 7.2 g/dL (6.4-8.2)
[2019-08-30 05:36] LABS: Troponin I < 0.05 ng/Ml (<0.06)
[2019-08-30 05:41] VITALS: BP 124/86; PULSE 73; RESP 16; O2SAT 97
[2019-08-30 06:18] VITALS: BP 127/65; PULSE 73; RESP 18; O2SAT 97
== END 2019-08-30 06:18 | disposition home or self-care (01) ==
PROVIDERS: Emergency Provider Emergency Medicine; PCP Family Medicine
DX: R11.2 Nausea with vomiting, unspecified (principal); R10.12 Left upper quadrant pain; N18.6 End stage renal disease; Z99.2 Dependence on renal dialysis; J44.9 Chronic obstructive pulmonary disease, unspecified; Z87.891 Personal history of nicotine dependence
CPT/HCPCS: 36415; 80053; 83690; 93005; 96374; 96375; 99284; 83735; 84484; 85025; 93010; J2765

== ENCOUNTER 2019-09-02 19:00 | Emergency (ER) | payer MEDICAID, SELFPAY ==
[2019-09-02 19:06] VITALS: BP 154/107; PULSE 87; TEMP 36.6; O2SAT 96
--- NOTE | 2019-09-02 19:07 | ED.GENADUL_ITS ---
Discharge Plan Disposition Patient Disposition: HOME Condition: Fair Discharge Details Chief Complaint: GenMedical Clinical Impression: Nausea & vomiting Primary Care Provider: Gee Luke ED Provider: Bri Larsen Home Meds and New Rx's Prescriptions: Continued ferrous sulfate 325 mg (65 mg iron) tablet 325 mg PO DAILY Qty: 45 RF: 3 atorvastatin 80 mg tablet 80 mg PO DAILY Qty: 90 RF: 3 Nephrocaps 1 mg capsule 1 cap PO DAILY Qty: 90 RF: 3 furosemide 80 mg tablet 80 mg PO BID RF: 0 fluoxetine 40 mg capsule 40 mg PO DAILY RF: 0 (DME) oxygen concentrater Qty: 1 RF: 0 gabapentin 300 mg capsule 300 mg PO .3x/week RF: 0 ipratropium-albuterol 0.5 mg-3 mg(2.5 mg base)/3 mL solution for nebulization 3 ml IH .4-6h PRNRF: 0 metoprolol succinate [Toprol XL] 25 mg tablet extended release 24 hr 25 mg PO BID Qty: 180 RF: 3 albuterol sulfate [ProAir HFA] 8.5 GM HFA aerosol inhaler 1 puff Inhalation Q4H PRN 30 Days Qty: 1 RF: 11 Spiriva with HandiHaler 18 mcg capsule, w/inhalation device 1 cap IH DAILY RF: 0 aspirin [Adult Low Dose Aspirin] 81 mg tablet,delayed release (DR/EC) 81 mg PO DAILY RF: 0 (DME) titration testing Qty: 1 RF: 0 budesonide-formoterol [Symbicort] 160-4.5 mcg/actuation HFA aerosol inhaler 2 puff IH BID RF: 0 ondansetron HCl 4 mg tablet 4 mg PO Q8H PRNRF: 0 sevelamer carbonate [Renvela] 800 mg tablet 1,600 mg PO TID RF: 0 pantoprazole 40 mg tablet,delayed release (DR/EC) 40 mg PO BID RF: 0 prochlorperazine maleate [Compazine] 10 mg tablet 10 mg PO Q6H PRN (Reason: nausea and vomiting) Qty: 30 RF: 0 nitroglycerin 0.3 mg Tablet, Sublingual 0.3 mg Sublingual Q5M PRNRF: 0 acetaminophen 325 mg Tablet 650 mg PO ONCE PRNRF: 0 metoclopramide HCl [Reglan] 10 mg tablet 10 mg PO Q6H PRN (Reason: nausea and vomiting) Qty: 30 RF: 0 Discharge Instructions Instructions: Acute Nausea and Vomiting (ED) Additional Instructions: Continue to encourage frequent sips of fluids. Please continue with medications as previously prescribed. If you develop increased pain, fever/chills, inability to hydrate or other new/worsening symptom please seek care urgently once again. Otherwise, please follow-up with primary care next week for evaluation. Referrals: Gee Luke DO [Primary Care Provider] - Discharge Data Discharge Date/Time-TO BE ENTERED AT DEPARTURE: 09/02/19 20:42 Medical Decision Making Patient is a 53-year-old male, currently on dialysis schedule of Thursday, , Thursday. Patient did just receive his dialysis treatment. Past medical history significant for CAD, atrial fibrillation not on anticoagulation, mitral regurgitation, ICD, STEVE, COPD, GI bleed, CHF, morbid obesity, GERD. Patient has had recurrent episodes of left upper quadrant pain which has occasionally been linked to pancreatitis. States that this pain has come back as his his nausea and vomiting. States this came on just a few hours ago. He did try home management without any success. States that he contacted primary care who advised emergency evaluation. He denies any fevers or chills. Has been feeling well until sudden onset of nausea. Denies any diarrhea. No change in bowel habits. Patient does still make urine is not no change in his urinary output. Reports that he is slightly down from his dry weight but this is changed over the past several months with no acute change in his weight. On exam, patient appears chronically ill and obese. This is unchanged from his baseline. He is moving about the department well and unassisted. His lungs are clear. Normal cardiac exam. He does have tenderness fairly diffusely about the abdomen but maximal in the left upper quadrant. With his history, I do feel that evaluation for possible recurrence of his pancreatitis would be appropriate. We will give a small 500 cc bolus and attempt to treat his nausea and discomfort. Discussed this plan with the patient is agreement. Labs reviewed. He appeared to be at his baseline without any significant changes. Anion gap is 13 which is actually low for the patient. Creatinine is 4.6 which correlates with his recent dialysis treatment. Lipase is within normal limits. No significant leukocytosis. Patient remains mildly anemic which again, is baseline for the patient. I discussed this plan findings with the patient. He is feeling improved and has not had any recurrence of his nausea or vomiting. Morphine did aid in his discomfort. This is a chronic issue for the patient I have asked that she discuss this further with his primary care and possibly with gastroenterology. He was given return precautions. All his questions or concerns were addressed and is in agreement this plan. HPI General Mode of arrival: ambulatory . Date/Time Provider Initiated Documentation: 09/02/19 19:07 . Limitations to Documentation: no limitations . Information obtained by: patient and RN notes reviewed . History of Present Illness 53 year old M presents to the emergency department with the chief complaint of nausea, vomiting, abdominal discomfort, described as moderate and similar to prior episodes, with intensity rated at 6. Quality is described as aching, and is localized to the abdomen. Patient reports no radiation. Patient started experiencing this hour(s) and it has been constant. No relieving factors improve symptom(s), No exacerbating factors reported . Patient notes loss of appetite and nausea/vomiting; denies chest pain, cough, fever/chills, headaches, rash and shortness of breath. Patient did receive the following treatments prior to arrival, none Related Data Home Medications Medication Instructions Recorded Confirmed albuterol sulfate [ProAir HFA] 1 puff INHALATION Q4H PRN 30 Days 08/10/17 08/30/19 #1 inhaler tiotropium bromide 18 mcg capsule 1 cap IH DAILY 04/01/18 08/30/19 with inhalation device ferrous sulfate 325 mg (65 mg 325 mg PO DAILY #45 tab 05/31/18 08/30/19 iron) tablet oxygen concentrater #1 ea 07/29/18 08/01/19 aspirin 81 mg tablet,delayed 81 mg PO DAILY 10/13/18 08/30/19 release B complex with C 20-folic acid 1 1 cap PO DAILY #90 cap 10/15/18 08/30/19 mg capsule atorvastatin 80 mg tablet 80 mg PO DAILY #90 tab 10/15/18 08/30/19 titration testing #1 ea 10/22/18 08/01/19 nitroglycerin 0.3 mg SUBLINGUAL Q5M PRN 12/27/18 08/30/19 budesonide-formoterol HFA 160 2 puff IH BID 02/23/19 08/30/19 mcg-4.5 mcg/actuation aerosol inhaler ondansetron HCl 4 mg tablet 4 mg PO Q8H PRN 02/23/19 08/30/19 sevelamer carbonate 800 mg tablet 1,600 mg PO TID tab 02/25/19 08/30/19 pantoprazole 40 mg tablet,delayed 40 mg PO BID tab 03/22/19 08/30/19 release gabapentin 300 mg capsule 300 mg PO .3x/week cap 03/28/19 08/30/19 ipratropium 0.5 mg-albuterol 3 mg 3 ml IH .4-6h PRN ml 03/28/19 08/30/19 (2.5 mg base)/3 mL nebulization soln metoprolol succinate 25 mg 25 mg PO BID #180 tab 03/28/19 08/30/19 tablet,extended release 24 hr furosemide 80 mg tablet 80 mg PO BID tab 04/29/19 08/30/19 fluoxetine 40 mg capsule 40 mg PO DAILY 07/04/19 08/30/19 acetaminophen 650 mg PO ONCE PRN 07/15/19 08/30/19 prochlorperazine maleate 10 mg 10 mg PO Q6H PRN #30 tab 08/09/19 08/30/19 tablet metoclopramide HCl [Reglan] 10 mg PO Q6H PRN #30 tab 08/30/19 Previous Rx's Medication Instructions Recorded albuterol sulfate [ProAir HFA] 1 puff INHALATION Q4H PRN 30 Days 08/10/17 #1 inhaler ferrous sulfate 325 mg (65 mg 325 mg PO DAILY #45 tab 05/31/18 iron) tablet oxygen concentrater #1 ea 07/29/18 B complex with C 20-folic acid 1 1 cap PO DAILY #90 cap 10/15/18 mg capsule atorvastatin 80 mg tablet 80 mg PO DAILY #90 tab 10/15/18 titration testing #1 ea 10/22/18 metoprolol succinate 25 mg 25 mg PO BID #180 tab 03/28/19 tablet,extended release 24 hr prochlorperazine maleate 10 mg 10 mg PO Q6H PRN #30 tab 08/09/19 tablet metoclopramide HCl [Reglan] 10 mg PO Q6H PRN #30 tab 08/30/19 Allergies Allergy/AdvReac Type Severity Reaction Status Date / Time bee venom protein (honey bee) Allergy Severe throat Verified 09/02/19 19:11 swelling aspirin AdvReac Mild bleeding, Verified 09/02/19 19:11 does take small dose daily General JOSEPH: 3 Review of Systems Constitutional Constitutional: Reports as per HPI, Denies chills, Denies fatigue, Denies fever(s) and Denies headache(s) ENT Ears, Nose, Mouth, and Throat: Denies headache(s) Cardiovascular Cardiovascular: Reports as per HPI, Denies chest pain, Denies chest pain at rest, Denies chest pain with activity, Denies dyspnea and Reports dyspnea on exertion (reports this is chronic and unchanged, denies change in baseline SOB) Respiratory Respiratory: Reports as per HPI, Denies cough, Denies dyspnea and Reports dyspnea on exertion (reports this is chronic and unchanged, denies change in baseline SOB) Gastrointestinal Gastrointestinal: Reports as per HPI Genitourinary Genitourinary: Denies system reviewed and no additional complaints, except as documented (patient denies any change in urinary habits. Patient does still make urine) Musculoskeletal Musculoskeletal: Reports as per HPI and Denies back pain Integumentary/Breasts Skin/Breast: Reports as per HPI and Denies rash Neurologic Neurologic: Reports as per HPI and Denies headache(s) Endocrine Endocrine: Denies fatigue PFSH Medical History Acute respiratory failure with hypoxia (Resolved) Atrial fibrillation with RVR (Chronic) Chronic CHF (Acute) Dialysis patient (Acute) pertoneal dialysis catheter placement [facility] [place] [facility] 06/28/19 End stage chronic kidney disease (Chronic) History of morbid obesity (Acute) Hypotension (Resolved) LLQ abdominal pain (Acute) Palliative care patient (Acute) Pleural effusion, left (Acute) Renal failure (Chronic) STEMI (ST elevation myocardial infarction) (Chronic) Syncope (Chronic) Valvular heart disease (Acute) [place] [employer] (Acute) Surgical History Arthroplasty of knee cardiac catherization (01/01/18) cardiac catherization (01/05/18) echocardiogram (01/06/18) Encounter for gastrojejunal (GJ) tube placement (Acute 02/23/18) Repair of umbilical hernia Stented coronary artery (Chronic) Tonsillectomy and adenoidectomy Social History (Reviewed 09/03/19 @ 09:56 by LAKSHMI Herrera Smoking/Tobacco Use Status: Former Tobacco Use Tobacco: How many years used: 30 Alcohol Intake: never Drug use: Daily Substance use type: marijuana Caregiver/Support person: Yes Household members: spouse Number of Children: 2 number of grandchildren: 0 Communication Needs: Corrective Lenses Education Level: vocational Do you need help understanding health information?: Always 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, 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 [employer] What is your relationship status?: How often do you talk on the phone with friends or family?: three or more times per week How often do you get together with friends or relatives?: three or more times per week Panel score (0-1 are the most socially isolated patients): 2 What type of physical activity do you participate in: none Duration: < 15 minutes/day Special frandy needs: No Agree to transfusion: Yes Seatbelt use: always Drive intox or ride w/intox hog driver: No Water heater temp set <120 deg: Yes Working smoke detector in home: Yes Fire extinguisher in home: Yes Carbon monox detector in home: Yes Do you feel safe at home: Yes Do you feel safe in your relationship?: Yes Additional Social history: Lives with , Park and son, BASILIO who is a janice at [employer]. Daughter is out on her own. Was at [facility] 4 times and [facility] once in last year. Hospitalized for total of 125 days from December 2017-December 2018. Trying to be healthy now. Lost 130 lbs in last year. Following strict renal diet. Exam Const General: cooperative, comfortable, no acute distress, well developed and ill appearing chronically (patient appears to be at his baseline from previous visits) Nutritional Appearance: well nourished and obese Orientation: alert and awake [facility] Head: normal to inspection Mouth: moist mucous membranes Resp Effort & Inspection: normal respiratory effort, able to speak in complete sentences and no respiratory distress Auscultation: clear to auscultation bilaterally, no rales, no rhonchi and no wheezes Cardio Rate: regular rate Rhythm: regular rhythm Heart Sounds: S1 normal and S2 normal GI Inspection: no edema, non-distended, incision (patient has urostomy LLQ), large pannus and obesity Palpation: soft, not firm, no guarding, no masses, not rigid and tender (diffusely tender, worse in the LUQ) Melchor's sign negative and with no rebound tenderness Percussion: normal to percussion Auscultation: normal bowel sounds Back/Spine/Pelvis Back: no CVA tenderness Skin General skin exam: no rashes or lesions noted Trauma: no lacerations or abrasions Neuro General: patient alert and patient awake Cognition: normal cognition Speech: speech normal Gait: normal gait Psych Appearance: grossly normal and well kempt Mental Status: mental status grossly normal Speech and Movement: speech and movement normal
[2019-09-02] MEDS: Normal Saline 250 ML 500 ML IV (19:46)
[2019-09-02] MEDS: diphenhydrAMINE 50 MG/ML VIAL 25 MG IVP (19:47)
[2019-09-02] MEDS: Metoclopramide 10 MG/2 ML VIAL IVP (19:47)
[2019-09-02 19:50] LABS: Abs Immature Grans 0.06 k/cumm (0.0-0.09); Absolute Basophil Count 0.11 k/cumm (0.0-0.2); Absolute Eosinophil Count 0.29 k/cumm (0.0-0.7); Absolute Lymphocyte Count 1.77 k/cumm (1.2-3.4); Absolute Monocyte Count 1.18 k/cumm (0.11-0.7); Absolute Neutrophil Count 7.43 k/cumm (1.2-6.7); Eosinophils % 2.7; HCT 38.3 % (40.0-50.0); HGB 12.2 g/dL (13.5-17.5); Immature Grans % 0.6 %; Lymphocytes % 16.3; Mean Corp. HGB Concentration 31.9 g/dL (32.0-36.0); Mean Corpuscular Hemoglobin 31.4 pg (27.0-33.0); Mean Corpuscular Volume 98.5 fL (80-95); Mean Platelet Volume 10.5 fL (8.0-11.0); Monocytes % 10.9; Neutrophils % 68.5; Platelet Count 334 x1000/uL (130-400); RBC 3.89 m/cumm (4.50-6.00); RBC Distribution Width 17.9 % (11.8-14.1); White Blood Cell Count 10.84 k/cumm (4.4-10.8)
[2019-09-02 20:05] LABS: Anisocytosis 1+; Diff Comment Agrees w/ Instrument; Hypochromasia 1+; Macrocytosis 1+; Polychromasia Present
[2019-09-02 20:07] LABS: Lipase 137 U/L (73-393); Magnesium 1.9 mg/dL (1.8-2.4)
[2019-09-02 20:08] LABS: Troponin I < 0.05 ng/Ml (<0.06)
[2019-09-02 20:11] LABS: ALT 18 U/L (16-63); AST 22 U/L (15-37); Albumin 3.4 g/dL (3.4-5.0); Alkaline Phosphatase 99 U/L (46-116); Anion Gap 13.3 mmol/L (3-11); BUN 22 mg/dL (7-18); Bilirubin, Total 2.3 mg/dL (0.2-1.0); CO2 25.7 mmol/L (21.0-32.0); Calcium 9.1 mg/dL (8.5-10.1); Chloride 99 mmol/L (98-107); Estimated GFR 13.17 (mL/min/1.73m2); Glucose 114 mg/dL (74-106); Potassium 3.9 mmol/L (3.5-5.1); Sodium 138 mmol/L (136-145); Total Protein 7.9 g/dL (6.4-8.2)
[2019-09-02 20:12] LABS: CREATININE 4.68 mg/dL (0.70-1.30)
== END 2019-09-02 20:42 | disposition home or self-care (01) ==
PROVIDERS: Emergency Provider Physician Assistant; PCP Family Medicine
DX: R11.2 Nausea with vomiting, unspecified (principal); N18.6 End stage renal disease; Z99.2 Dependence on renal dialysis; J44.9 Chronic obstructive pulmonary disease, unspecified
CPT/HCPCS: 36415; 80053; 83690; 96361; 96374; 96375; 99284; 82140; 82248; 83735; 84484; 85025; J1200; J2765

== ENCOUNTER 2019-09-06 13:02 | Emergency (ER) | payer MEDICAID, SELFPAY ==
[2019-09-06] VITALS (15 sets, daily range): BP systolic 119–136; BP diastolic 85–98; PULSE 68–77; RESP 12–33; TEMP 36.4–36.5; O2SAT 89–100
--- NOTE | 2019-09-06 13:04 | W.ED.GENAD ---
Discharge Plan Disposition Patient Disposition: HOME Condition: Improving Discharge Details Chief Complaint: GenMedical Clinical Impression: Chronic vomiting, Chronic abdominal pain Primary Care Provider: Gee Luke ED Provider: Niya Jarrett Home Meds and New Rx's Prescriptions: New prochlorperazine maleate [Compazine] 10 mg tablet 10 mg PO TID PRN (Reason: nausea and vomiting) Qty: 7 RF: 0 Continued ferrous sulfate 325 mg (65 mg iron) tablet 325 mg PO DAILY Qty: 45 RF: 3 atorvastatin 80 mg tablet 80 mg PO DAILY Qty: 90 RF: 3 Nephrocaps 1 mg capsule 1 cap PO DAILY Qty: 90 RF: 3 furosemide 80 mg tablet 80 mg PO BID RF: 0 fluoxetine 40 mg capsule 40 mg PO DAILY RF: 0 (DME) oxygen concentrater Qty: 1 RF: 0 gabapentin 300 mg capsule 300 mg PO .3x/week RF: 0 ipratropium-albuterol 0.5 mg-3 mg(2.5 mg base)/3 mL solution for nebulization 3 ml IH .4-6h PRNRF: 0 metoprolol succinate [Toprol XL] 25 mg tablet extended release 24 hr 25 mg PO BID Qty: 180 RF: 3 albuterol sulfate [ProAir HFA] 8.5 GM HFA aerosol inhaler 1 puff Inhalation Q4H PRN 30 Days Qty: 1 RF: 11 Spiriva with HandiHaler 18 mcg capsule, w/inhalation device 1 cap IH DAILY RF: 0 aspirin [Adult Low Dose Aspirin] 81 mg tablet,delayed release (DR/EC) 81 mg PO DAILY RF: 0 (DME) titration testing Qty: 1 RF: 0 budesonide-formoterol [Symbicort] 160-4.5 mcg/actuation HFA aerosol inhaler 2 puff IH BID RF: 0 ondansetron HCl 4 mg tablet 4 mg PO Q8H PRNRF: 0 sevelamer carbonate [Renvela] 800 mg tablet 1,600 mg PO TID RF: 0 pantoprazole 40 mg tablet,delayed release (DR/EC) 40 mg PO BID RF: 0 prochlorperazine maleate [Compazine] 10 mg tablet 10 mg PO Q6H PRN (Reason: nausea and vomiting) Qty: 30 RF: 0 metoclopramide HCl [Reglan] 10 mg tablet 10 mg PO Q6H PRN (Reason: nausea and vomiting) Qty: 90 RF: 2 nitroglycerin 0.3 mg Tablet, Sublingual 0.3 mg Sublingual Q5M PRNRF: 0 acetaminophen 325 mg Tablet 650 mg PO ONCE PRNRF: 0 Discharge Instructions Instructions: Chronic Pain (ED), Acute Nausea and Vomiting (ED), Abdominal Pain (ED) Additional Instructions: Take your compazine as needed and directed for nausea or vomiting. Drink fluids and get plenty of rest. Follow-up with your primary care doctor in 1 week. Return to the emergency department with any worsening or new concerning symptoms. Discharge Data Discharge Physician: Niya Jarrett Medical Decision Making 1310 -- 53-year-old male with a history of A. fib with RVR, CHF, obesity, STEMI, end-stage renal disease on dialysis well-known to the emergency department for frequent visits associated with vomiting, abdominal pain who presents with vomiting and abdominal pain since this morning. Admits to multiple episodes of vomiting which is been mainly clear. He had called EMS for complaint of fever but states this mainly chills and sweats. Temp 96 per EMS. Patient appears chronically ill and currently appears at his baseline. He is diaphoretic and skin grayish appearing which is his baseline. Vitals within normal limits. Afebrile here. Abdomen soft and diffusely mildly tender. No rigidity or guarding. Lungs clear. No lower extremity edema. Patient was seen here in the past few days for similar complaints and had unremarkable work-up and felt better with meds here and was discharged home. We will check screening labs give a dose of Compazine and morphine and reassess. Do not see indication for imaging at this time. 1400 -- labs reviewed and unremarkable. 1420 -- pt reassessed - he feels better. No urine sample yet provided. Will attempt po challenge. 1500 -- pt reassessed - he was able to eat some ice chips and no further vomiting. He was unable to give urine sample but this is not unusual for him. He states he feels better and feels good to go home. He would like another dose of compazine prior to discharge for some mild nausea at this time. Medical Records Medical records reviewed: Yes I reviewed the patient's medical records. Lab Data Lab results reviewed: Yes I reviewed the patient's lab results. Labs: Laboratory Tests Range/Units 09/06/19 09/06/19 09/06/19 12:25 12:52 12:52 WBC (4.4-10.8) k/cumm 10.13 RBC (4.50-6.00) m/cumm 4.15 L Hgb (13.5-17.5) g/dL 13.0 L Hct (40.0-50.0) % 40.4 MCV (80-95) fL 97.3 H MCH (27.0-33.0) pg 31.3 MCHC (32.0-36.0) g/dL 32.2 RDW (11.8-14.1) % 17.9 H Plt Count (130-400) x1000/uL 283 MPV (8.0-11.0) fL 11.1 H Immature Gran % % 0.3 Neutrophils % 77.4 Lymphocytes % 10.2 Monocytes % 9.5 Eosinophils % 2.0 Basophils % 0.6 Absolute Neutrophils (1.2-6.7) k/cumm 7.85 H Absolute Lymphocytes (1.2-3.4) k/cumm 1.03 L Absolute Monocytes (0.11-0.7) k/cumm 0.96 H Absolute Eosinophils (0.0-0.7) k/cumm 0.20 Absolute Basophils (0.0-0.2) k/cumm 0.06 Sodium (136-145) mmol/L 139 Potassium (3.5-5.1) mmol/L 3.4 L Chloride (98-107) mmol/L 98 Carbon Dioxide (21.0-32.0) mmol/L 29.5 Anion Gap (3-11) mmol/L 11.5 H BUN (7-18) mg/dL 17 Creatinine (0.70-1.30) mg/dL 3.56 H* Estimated GFR/1.73 m2 (mL/min/1.73m2) 18.06 Glucose (74-106) mg/dL 124 H Calcium (8.5-10.1) mg/dL 8.4 L Total Bilirubin (0.2-1.0) mg/dL 1.9 H AST (15-37) U/L 101 H ALT (16-63) U/L 167 H Alkaline Phosphatase (46-116) U/L 104 Total Protein (6.4-8.2) g/dL 8.0 Albumin (3.4-5.0) g/dL 3.5 Lipase (73-393) U/L 182 ECG Data Attestation: I personally reviewed and interpreted this ECG (s) as follows: Interpretation: Rate of 78, sinus, no acute ST elevation or depression. UT 178. QTc 478. QRS 100. HPI General Mode of arrival: EMS. Date/Time Provider Initiated Documentation: 09/06/19 13:09. Limitations to Documentation: no limitations. Information obtained by: patient. HPI Narrative: Patient is a 53-year-old male with a history of A. fib with RVR, CHF, STEMI, end-stage renal disease on dialysis with a history of chronic abdominal pain and vomiting who presents with multiple episodes of vomiting today along with abdominal pain. He states this is consistent with his usual episodes. He finished a full dialysis session today. He states he usually has these symptoms around the time of his dialysis. He states a peritoneal dialysis catheter was placed recently but they have not used it and plan to remove it as it is not working. He states he only has been receiving his dialysis through the triple catheter in his chest. He denies any known fever but admits to chills and sweats today with the vomiting. Denies any cough, chest pain, shortness of breath or known urinary symptoms. Related Data Home Medications Medication Instructions Recorded Confirmed albuterol sulfate [ProAir HFA] 1 puff INHALATION Q4H PRN 30 Days 08/10/17 09/06/19 #1 inhaler tiotropium bromide 18 mcg capsule 1 cap IH DAILY 04/01/18 09/06/19 with inhalation device ferrous sulfate 325 mg (65 mg 325 mg PO DAILY #45 tab 05/31/18 09/06/19 iron) tablet oxygen concentrater #1 ea 07/29/18 08/01/19 aspirin 81 mg tablet,delayed 81 mg PO DAILY 10/13/18 09/06/19 release B complex with C 20-folic acid 1 1 cap PO DAILY #90 cap 10/15/18 09/06/19 mg capsule atorvastatin 80 mg tablet 80 mg PO DAILY #90 tab 10/15/18 09/06/19 titration testing #1 ea 10/22/18 08/01/19 nitroglycerin 0.3 mg SUBLINGUAL Q5M PRN 12/27/18 09/06/19 budesonide-formoterol HFA 160 2 puff IH BID 02/23/19 09/06/19 mcg-4.5 mcg/actuation aerosol inhaler ondansetron HCl 4 mg tablet 4 mg PO Q8H PRN 02/23/19 09/06/19 sevelamer carbonate 800 mg tablet 1,600 mg PO TID tab 02/25/19 09/06/19 pantoprazole 40 mg tablet,delayed 40 mg PO BID tab 03/22/19 09/06/19 release gabapentin 300 mg capsule 300 mg PO .3x/week cap 03/28/19 09/06/19 ipratropium 0.5 mg-albuterol 3 mg 3 ml IH .4-6h PRN ml 03/28/19 09/06/19 (2.5 mg base)/3 mL nebulization soln metoprolol succinate 25 mg 25 mg PO BID #180 tab 03/28/19 09/06/19 tablet,extended release 24 hr furosemide 80 mg tablet 80 mg PO BID tab 04/29/19 09/06/19 fluoxetine 40 mg capsule 40 mg PO DAILY 07/04/19 09/06/19 acetaminophen 650 mg PO ONCE PRN 07/15/19 09/06/19 prochlorperazine maleate 10 mg 10 mg PO Q6H PRN #30 tab 08/09/19 09/06/19 tablet metoclopramide HCl 10 mg tablet 10 mg PO Q6H PRN #90 tab 09/06/19 09/06/19 prochlorperazine maleate 10 mg PO TID PRN #7 tab 09/06/19 [Compazine] Previous Rx's Medication Instructions Recorded albuterol sulfate [ProAir HFA] 1 puff INHALATION Q4H PRN 30 Days 08/10/17 #1 inhaler ferrous sulfate 325 mg (65 mg 325 mg PO DAILY #45 tab 05/31/18 iron) tablet oxygen concentrater #1 ea 07/29/18 B complex with C 20-folic acid 1 1 cap PO DAILY #90 cap 10/15/18 mg capsule atorvastatin 80 mg tablet 80 mg PO DAILY #90 tab 10/15/18 titration testing #1 ea 10/22/18 metoprolol succinate 25 mg 25 mg PO BID #180 tab 03/28/19 tablet,extended release 24 hr prochlorperazine maleate 10 mg 10 mg PO Q6H PRN #30 tab 08/09/19 tablet metoclopramide HCl 10 mg tablet 10 mg PO Q6H PRN #90 tab 09/06/19 prochlorperazine maleate 10 mg PO TID PRN #7 tab 09/06/19 [Compazine] Allergies Allergy/AdvReac Type Severity Reaction Status Date / Time bee venom protein (honey bee) Allergy Severe throat Verified 09/06/19 13:08 swelling aspirin AdvReac Mild bleeding, Verified 09/06/19 13:08 does take small dose daily General JOSEPH: 3 Review of Systems All systems reviewed & are unremarkable except as noted in HPI and below Constitutional Constitutional: Reports as per HPI, Denies chills and Denies fever(s) Eyes Eyes: Denies blurry vision ENT Ears, Nose, Mouth, and Throat: Denies dizziness, Denies sore throat and Denies throat swelling Cardiovascular Cardiovascular: Denies chest pain and Denies dyspnea Respiratory Respiratory: Denies cough and Denies dyspnea Gastrointestinal Gastrointestinal: Reports abdominal pain, Denies diarrhea and Reports vomiting Genitourinary Genitourinary: Denies hematuria and Denies dysuria Musculoskeletal Musculoskeletal: Denies back pain and Denies numbness Integumentary/Breasts Skin/Breast: Denies lesions and Denies rash Neurologic Neurologic: Denies dizziness, Denies localized weakness and Denies numbness Allergic/Immunologic Allergic/Immunologic: Denies throat swelling PFSH 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 What is your relationship status?: How often do you talk on the phone with friends or family?: three or more times per week How often do you get together with friends or relatives?: three or more times per week Panel score (0-1 are the most socially isolated patients): 2 What type of physical activity do you participate in: none Duration: < 15 minutes/day Special frandy needs: No Agree to transfusion: Yes Seatbelt use: always Drive intox or ride w/intox forklift driver: No Water heater temp set <120 deg: Yes Working smoke detector in home: Yes Fire extinguisher in home: Yes Carbon monox detector in home: Yes Do you feel safe at home: Yes Do you feel safe in your relationship?: Yes Additional Social history: Lives with , Park and son, BASILIO who is a janice at [employer]. Daughter is out on her own. Was at [facility] 4 times and [facility] once in last year. Hospitalized for total of 125 days from December 2017-December 2018. Trying to be healthy now. Lost 130 lbs in last year. Following strict renal diet. Exam Const General: cooperative, diaphoretic and ill appearing chronically Nutritional Appearance: obese Orientation: alert, awake and oriented x3 HENMT Head: normal to inspection Face and sinus: normal facial exam Eyes General: appearance normal, both eyes and all related structures EOM: EOM intact bilaterally Neck Neck: normal visual inspection and No submandibular swelling Lymphatic: no lymphadenopathy noted Chest Chest: normal inspection of the chest and no tenderness Other: Triple catheter R upper chest. No signs of surrounding infection. Resp Effort & Inspection: normal respiratory effort and able to speak in complete sentences Auscultation: clear to auscultation bilaterally Cardio Rate: regular rate Rhythm: regular rhythm GI Inspection: normal to inspection and other (PD catheter LLQ ) Palpation: soft, not firm, not rigid and tender (mildly diffusely throughout) Auscultation: hypoactive bowel sounds Skin General skin exam: no rashes or lesions noted Neuro General: patient alert, patient awake and patient oriented x3 Cognition: normal cognition Speech: speech normal Motor: muscle tone normal throughout Sensory Exam: no sensory deficits noted Extrem General: normal to inspection, full ROM, capillary refill normal, no calf tenderness bilaterally and no edema Psych Appearance: grossly normal Mental Status: mental status grossly normal Speech and Movement: speech and movement normal Affect: normal affect
[2019-09-06] MEDS: Normal Saline 250 ML IV (13:47)
[2019-09-06] MEDS: Prochlorperazine 10 MG/2 ML VIAL IVP (13:48)
[2019-09-06 14:04] LABS: ALT 167 U/L (16-63); AST 101 U/L (15-37); Albumin 3.5 g/dL (3.4-5.0); Alkaline Phosphatase 104 U/L (46-116); Anion Gap 11.5 mmol/L (3-11); BUN 17 mg/dL (7-18); Bilirubin, Total 1.9 mg/dL (0.2-1.0); CO2 29.5 mmol/L (21.0-32.0); Calcium 8.4 mg/dL (8.5-10.1); Chloride 98 mmol/L (98-107); Estimated GFR 18.06 (mL/min/1.73m2); Glucose 124 mg/dL (74-106); Potassium 3.4 mmol/L (3.5-5.1); Sodium 139 mmol/L (136-145)
[2019-09-06 14:06] LABS: CREATININE 3.56 mg/dL (0.70-1.30)
[2019-09-06 14:11] LABS: Lipase 182 U/L (73-393)
[2019-09-06 14:14] LABS: Abs Immature Grans 0.03 k/cumm (0.0-0.09); Absolute Basophil Count 0.06 k/cumm (0.0-0.2); Absolute Lymphocyte Count 1.03 k/cumm (1.2-3.4); Absolute Monocyte Count 0.96 k/cumm (0.11-0.7); Absolute Neutrophil Count 7.85 k/cumm (1.2-6.7); Basophils % 0.6; HCT 40.4 % (40.0-50.0); Immature Grans % 0.3 %; Lymphocytes % 10.2; Mean Corp. HGB Concentration 32.2 g/dL (32.0-36.0); Mean Corpuscular Hemoglobin 31.3 pg (27.0-33.0); Mean Corpuscular Volume 97.3 fL (80-95); Mean Platelet Volume 11.1 fL (8.0-11.0); Monocytes % 9.5; Neutrophils % 77.4; Platelet Count 283 x1000/uL (130-400); RBC 4.15 m/cumm (4.50-6.00); RBC Distribution Width 17.9 % (11.8-14.1); White Blood Cell Count 10.13 k/cumm (4.4-10.8)
== END 2019-09-06 15:19 | disposition home or self-care (01) ==
PROVIDERS: Emergency Provider Physician Assistant; PCP Family Medicine
DX: R10.30 Lower abdominal pain, unspecified (principal); G89.29 Other chronic pain; R11.2 Nausea with vomiting, unspecified; N18.6 End stage renal disease; Z99.2 Dependence on renal dialysis
CPT/HCPCS: 80053; 83690; 93005; 96361; 96374; 96375; 99284; 81003; 85025; 93010; J0780